=== PATIENT | male | born 1975 | race African-American/Black ===

== ENCOUNTER 2018-06-30 13:01 | Emergency (ER) | payer OTHER ==
--- OUTSIDE RECORDS SUMMARY | 2018-06-30 13:04 | XMS REPORT ---
:1975 Author Organization eClinicalWorks Care Team Providers Name Role Phone MartinezGage siddiqui Provider Role Unavailable Allergies No Known Allergies Problems Problem Type Condition Code Onset Dates Condition Status Assessment Post-traumatic osteoarthritis of M17.32 Active left knee Assessment Paresthesia of skin R20.2 Active Problem Pain in left lower leg M79.662 Active Problem Paresthesia of skin R20.2 Active Problem Pain, joint, knee, left M25.562 Active Assessment Pain in left lower leg M79.662 Active Assessment Pain, joint, knee, left M25.562 Active Problem Post-traumatic osteoarthritis of M17.32 Active left knee Medications Medication Code System Code Instructions Start Date End Date Status Dosage Gabapentin [facility] 57260-602 Active not defined 0-01 Meloxicam [facility] 23124-588 Active not defined 6-23 Tresiba NDC 0 Active not defined Metformin HCl [facility] 61210-969 Active not defined 8-01 tramadol NDC 0 Active not defined Results No Known Results Summary Purpose eClinicalWorks Submission
[2018-06-30] MEDS ORDERED: LIDOCAINE 1% MPF 5 ML VIAL ONE (17:35)
[2018-06-30] MEDS ORDERED: BUPIVACAINE 0.5% PF 10 ML VIAL ONE (17:35)
[2018-06-30] MEDS ORDERED: LIDOCAINE 1% W/EPI 1:100,000 MDV 50 ML VIAL ONE (17:56)
--- NOTE | 2018-06-30 17:59 | EDPHYS ---
Physician Documentation [facility] Name: Angel Flores Age: 43 yrs Sex: Male : 1975 Arrival Date: 06/30/2018 Time: 13:07 Bed 28 Private MD: Barry Becker E ED Physician Cody Osborn HPI: 06/30 16:45 This 43 yrs old Black Male presents to ER via Ambulatory with complaints of Abscess. cp 16:45 the patient presents with a swollen area of the left buttock. Description: draining, cp swollen. Onset: The symptoms/episode began/occurred 1 week(s) ago. Associated signs and symptoms: Pertinent positives: drainage, Pertinent negatives: fever. Modifying factors: the symptoms are aggravated by pressure. Historical: - Allergies: 13:10 Morphine; rb1 - PMHx: 13:10 Diabetes - NIDDM; rb1 - PSHx: 13:10 leg screw; rb1 - Immunization history:: Adult Immunizations up to date. - Social history:: Smoking status: Patient uses tobacco products, smokes one-half pack cigarettes per day. - Ebola Screening: : No symptoms or risks identified at this time. ROS: 17:00 Constitutional: Negative for body aches, chills, fever, poor PO intake. cp 17:00 ENT: Negative for drainage from ear(s), ear pain, sore throat, difficulty swallowing, cp difficulty handling secretions. 17:00 Respiratory: Negative for cough, shortness of breath, wheezing. 17:00 Abdomen/GI: Negative for abdominal pain, nausea, vomiting, and diarrhea. 17:00 Skin: Positive for abscess, cellulitis, of the left buttock. 17:00 All other systems are negative. Exam: 17:05 Constitutional: The patient appears in no acute distress, alert, awake, comfortable, cp non-toxic, well developed, well nourished. 17:05 Head/Face: Normocephalic, atraumatic. cp 17:05 Eyes: Periorbital structures: appear normal, Conjunctiva: normal, Lids and lashes: appear normal, bilaterally. 17:05 ENT: External ear(s): are unremarkable, Nose: is normal, Mouth: is normal. 17:05 Chest/axilla: Inspection: normal. 17:05 Cardiovascular: Rate: normal. 17:05 Respiratory: the patient does not display signs of respiratory distress, Respirations: normal. 17:05 Abdomen/GI: Inspection: abdomen appears normal, Palpation: abdomen is soft and non-tender, in all quadrants. 17:05 Skin: cellulitis, that is mild, on the left buttock, mild swelling. Vital Signs: 13:10 BP 124 / 80; Pulse 80; Resp 17; Temp 98.0(O); Pulse Ox 99% on R/A; Weight 65.77 kg; rb1 Height 5 ft. 6 in. (167.64 cm); Pain 6/10; 16:45 BP 112 / 78; Pulse 71; Resp 17 S; Pulse Ox 100% on R/A; ca1 17:49 BP 116 / 60; Pulse 78; Resp 17 S; Pulse Ox 100% on R/A; ca1 13:10 Body Mass Index 23.40 (65.77 kg, 167.64 cm) rb1 Procedures: 17:55 I \T\ D: Incision and drainage was performed for an abscess of the left buttocks Prepped cp with Betadine, Anesthetized with 4ccs of mixture 1% lidocaine with epi and 0.5% Marcaine . Incised with #11 blade. Dressing: sterile 4x4 gauze, minimal drainage. MDM: 16:35 Patient medically screened. cp 17:00 Differential diagnosis: abscess, cellulitis, insect bite. cp 17:58 Data reviewed: vital signs, nurses notes, and as a result, I will discharge patient. cp 17:58 Counseling: I had a detailed discussion with the patient and/or guardian regarding: the cp historical points, exam findings, and any diagnostic results supporting the discharge/admit diagnosis, the need for outpatient follow up, a family practitioner, to return to the emergency department if symptoms worsen or persist or if there are any questions or concerns that arise at home. Response to treatment: the patient's symptoms have mildly improved after treatment. 06/30 17:54 Order name: Wound Culture ca1 06/30 16:43 Order name: I\T\D Setup; Complete Time: 16:46 cp Administered Medications: No medications were administered Disposition: 18:30 Chart complete. cp Disposition: 06/30/18 17:59 Discharged to Home. Impression: Cellulitis of buttock - left. - Condition is Stable. - Discharge Instructions: Cellulitis, Adult. - Prescriptions for Clindamycin HCl 300 mg Oral Capsule - take 1 capsule by ORAL route every 6 hours for 10 days; 40 capsule. - Medication Reconciliation Form, Thank You Letter, Antibiotic Education, Prescription Opioid Use form. - Follow up: Private Physician; When: 48 Hours; Reason: Wound Recheck. - Problem is new. - Symptoms have improved. Addendum: 07/02/2018 07:03 Co-signature as Attending Physician, Cody Osborn MD. r n Signatures: Dispatcher [employer] EDSD Cody Osborn MD MD rn Dandy Haque PA PA cp Andreea Rojas, RN RN rb1 Kaitlynn Roy RN RN ca1 Corrections: (The following items were deleted from the chart) 06/30 18:18 17:59 06/30/2018 17:59 Discharged to Home. Impression: Cellulitis of buttock - left. ca1 Condition is Stable. Forms are Medication Reconciliation Form, Thank You Letter, Antibiotic Education, Prescription Opioid Use. Follow up: Private Physician; When: 48 Hours; Reason: Wound Recheck. Problem is new. Symptoms have improved. cp
--- NOTE | 2018-06-30 17:59 | ER ---
Nurse's Notes [facility] Name: Angel Flores Age: 43 yrs Sex: Male : 1975 Arrival Date: 06/30/2018 Time: 13:07 Bed 28 Private MD: Barry Becker E Diagnosis: Cellulitis of buttock-left Presentation: 06/30 13:08 Presenting complaint: Patient states: c/o boil on left buttocks, denies fever, NVD. rb1 Pain 5/10. Transition of care: patient was not received from another setting of care. Onset of symptoms was June 23, 2018. 13:08 Method Of Arrival: Ambulatory rb1 13:08 Acuity: LALITA 3 rb1 16:45 Risk Assessment: Do you want to hurt yourself or someone else? Patient reports no ca1 desire to harm self or others. Initial Sepsis Screen: Does the patient meet any 2 criteria? No. Patient's initial sepsis screen is negative. Does the patient have a suspected source of infection? No. Patient's initial sepsis screen is negative. Care prior to arrival: None. Triage Assessment: 13:11 General: Appears in no apparent distress. comfortable, Behavior is calm, cooperative, rb1 Denies fever. Pain:. Neuro: Level of Consciousness is awake, alert, obeys commands, Oriented to person, place, time, situation. Respiratory: Airway is patent Respiratory effort is even, unlabored, Respiratory pattern is regular, symmetrical. Derm: Skin is dry, Skin is normal, Skin temperature is warm. Historical: - Allergies: 13:10 Morphine; rb1 - PMHx: 13:10 Diabetes - NIDDM; rb1 - PSHx: 13:10 leg screw; rb1 - Immunization history:: Adult Immunizations up to date. - Social history:: Smoking status: Patient uses tobacco products, smokes one-half pack cigarettes per day. - Ebola Screening: : No symptoms or risks identified at this time. Screenin:45 Abuse screen: Denies threats or abuse. Denies injuries from another. Nutritional ca1 screening: No deficits noted. Tuberculosis screening: No symptoms or risk factors identified. Fall Risk None identified. Assessment: 16:45 General: Appears in no apparent distress. comfortable, Behavior is calm, cooperative, ca1 appropriate for age. Pain: Complains of pain in gluteal cleft Pain currently is 0 out of 10 on a pain scale. at worst was 5 out of 10 on a pain scale. Aggravated by sitting and touching. Neuro: Level of Consciousness is awake, alert, obeys commands, Oriented to person, place, time, situation. Cardiovascular: Heart tones S1 S2 present Capillary refill < 3 seconds Patient's skin is warm and dry. Respiratory: Airway is patent Respiratory effort is even, unlabored, Respiratory pattern is regular, symmetrical. GI: No deficits noted. No signs and/or symptoms were reported involving the gastrointestinal system. : No deficits noted. No signs and/or symptoms were reported regarding the genitourinary system. EENT: No deficits noted. No signs and/or symptoms were reported regarding the EENT system. Derm: Skin is intact, is healthy with good turgor, Skin is pink, warm \T\ dry. abscess at left gluteal cleft. Less than an inch in size. Musculoskeletal: Circulation, motion, and sensation intact. Capillary refill < 3 seconds, Range of motion: intact in all extremities. 17:49 Reassessment: Patient appears in no apparent distress at this time. Patient is alert, ca1 oriented x 3, equal unlabored respirations, skin warm/dry/pink. PATRICIA Blackman at bedside. Vital Signs: 13:10 BP 124 / 80; Pulse 80; Resp 17; Temp 98.0(O); Pulse Ox 99% on R/A; Weight 65.77 kg; rb1 Height 5 ft. 6 in. (167.64 cm); Pain 6/10; 16:45 BP 112 / 78; Pulse 71; Resp 17 S; Pulse Ox 100% on R/A; ca1 17:49 BP 116 / 60; Pulse 78; Resp 17 S; Pulse Ox 100% on R/A; ca1 13:10 Body Mass Index 23.40 (65.77 kg, 167.64 cm) rb1 ED Course: 13:07 Patient arrived in ED. mr 13:08 Barry Becker MD is Private Physician. mr 13:09 Triage completed. rb1 16:33 Dandy Haque PA is PHCP. cp 16:33 Cody Osborn MD is Attending Physician. cp 16:37 Kaitlynn Roy, THUY is Primary Nurse. ca1 16:40 Arm band placed on right wrist. ca1 16:45 Patient has correct armband on for positive identification. Placed in gown. Bed in low ca1 position. Call light in reach. Side rails up X 1. Pulse ox on. NIBP on. Warm blanket given. 17:58 Assist provider with I \T\ D: of an abscess on left side of the Gluteal Cleft Set up I\T\D ca 1 tray. Performed by Dandy Haque PA Culture sent to lab. Wound packed. 4X4s, Dressing with tape Patient tolerated well. Patient did not have IV access during this emergency room visit. Administered Medications: No medications were administered Outcome: 17:59 Discharge ordered by . yandy 18:05 Discharged to home ambulatory. ca1 18:05 Condition: stable 18:05 Discharge instructions given to patient, Instructed on discharge instructions, follow up and referral plans. medication usage, Demonstrated understanding of instructions, follow-up care, medications, Prescriptions given X 1. 18:18 Patient left the ED. ca1 Addendum: 07/04/2018 17:25 Addendum: Culture Results: Positive wound culture. Bacteria is resistant to, has d m5 intermediate sensitivity, or is not tested against prescribed antibiotics. Report given to DARWIN for further evaluation and then to rubber molder for follow up with patient. Prescription called-in to pharmacy of choice. Bactrim DS 1 tab PO BID x 10 days called in to [facility] in [place] by la for PATRICIA Healy. Signatures: Mila Chang, RN RN [email or web address] Delma Huggins Corey, PA PA cp Barber, Rebecca, RN RN rb1 Kaitlynn Roy RN RN ca1 Corrections: (The following items were deleted from the chart) 06/30 17:59 17:58 Assist provider with I \T\ D: of an abscess on left side of the Gluteal Crest Set ca1 up I\T\D tray. Performed by Dandy Haque PA Culture sent to lab. Wound packed. 4X4s, Dressing with tape Patient tolerated well. ca1
== END 2018-06-30 18:18 | disposition home or self-care (01) ==
LOC: ER 13:01
PROC: 0J990ZZ Drainage of Buttock Subcutaneous Tissue and Fascia, Open Approach (ICD-10-PCS; principal; 2018-06-30)
DX: L02.31 Cutaneous abscess of buttock (principal); E11.9 Type 2 diabetes mellitus without complications; F17.210 Nicotine dependence, cigarettes, uncomplicated; Z88.5 Allergy status to narcotic agent
CPT/HCPCS: 87070; 87077; 87186; 87205; 99284

== ENCOUNTER 2018-07-12 05:56 | Emergency (ER) | payer OTHER ==
--- OUTSIDE RECORDS SUMMARY | 2018-07-12 05:59 | XMS REPORT ---
[...] Start Date End Date Status Dosage Gabapentin [facility] 43164-613 Active not defined 0-[address] [facility] 55638-216 Active not defined 6-23 Tresiba NDC 0 Active not defined Metformin HCl [facility] 66083-369 Active not defined 8-01 tramadol NDC 0 Active not defined Results No Known Results Summary Purpose eClinicalWorks Submission
--- NOTE | 2018-07-12 06:24 | EDPHYS ---
Physician Documentation [facility] Name: Angel Flores Age: 43 yrs Sex: Male : 1975 Arrival Date: 07/12/2018 Time: 05:58 Bed 14 Private MD: Barry Becker E ED Physician Sravan Mclean HPI: 07/12 07:18 This 43 yrs old Black Male presents to ER via Ambulatory with complaints of Rash - both jr8 arms. 07:18 The patient's rash thought to be caused by an unknown cause. The rash is located on the jr8 right arm and left arm. The rash can be described as urticarial. Onset: The symptoms/episode began/occurred acutely, yesterday. Associated signs and symptoms: Pertinent positives: itching. Severity of symptoms: At their worst the symptoms were mild in the emergency department the symptoms are unchanged. The patient has not experienced similar symptoms in the past. The patient has not recently seen a physician. Historical: - Allergies: 06:11 Morphine; lp1 - Home Meds: 06:11 Glyburide Oral [Active]; Tresiba FlexTouch U-100 100 unit/mL (3 mL) subcutaneous inpn lp1 [Active]; Metformin Oral [Active]; gabapentin oral oral [Active]; Tramadol Oral [Active]; meloxicam oral oral [Active]; - PMHx: 06:11 Diabetes - NIDDM; lp1 - PSHx: 06:11 None; lp1 - Immunization history:: Adult Immunizations up to date. - Social history:: Smoking status: Patient uses tobacco products, smokes one-half pack cigarettes per day. - Ebola Screening: : No symptoms or risks identified at this time. ROS: 07:18 Constitutional: Negative for fever, chills, and weight loss. jr8 07:18 Skin: Positive for rash. 07:18 All other systems are negative. Exam: 07:18 Eyes: Pupils equal round and reactive to light, extra-ocular motions intact. Lids and jr8 lashes normal. Conjunctiva and sclera are non-icteric and not injected. Cornea within normal limits. Periorbital areas with no swelling, redness, or edema. ENT: Nares patent. No nasal discharge, no septal abnormalities noted. Tympanic membranes are normal and external auditory canals are clear. Oropharynx with no redness, swelling, or masses, exudates, or evidence of obstruction, uvula midline. Mucous membranes moist. Neck: Trachea midline, no thyromegaly or masses palpated, and no cervical lymphadenopathy. Supple, full range of motion without nuchal rigidity, or vertebral point tenderness. No Meningismus. Cardiovascular: Regular rate and rhythm with a normal S1 and S2. No gallops, murmurs, or rubs. Normal PMI, no JVD. No pulse deficits. Respiratory: Lungs have equal breath sounds bilaterally, clear to auscultation and percussion. No rales, rhonchi or wheezes noted. No increased work of breathing, no retractions or nasal flaring. Abdomen/GI: Soft, non-tender, with normal bowel sounds. No distension or tympany. No guarding or rebound. No evidence of tenderness throughout. Back: No spinal tenderness. No costovertebral tenderness. Full range of motion. MS/ Extremity: Pulses equal, no cyanosis. Neurovascular intact. Full, normal range of motion. Neuro: Awake and alert, GCS 15, oriented to person, place, time, and situation. Cranial nerves II-XII grossly intact. Motor strength 5/5 in all extremities. Sensory grossly intact. Cerebellar exam normal. Normal gait. 07:18 Skin: rash a mild rash is noted, rash can be described as urticarial, on the right arm and left arm. Vital Signs: 06:12 BP 119 / 88; Pulse 81; Resp 18; Temp 97.6(O); Pulse Ox 100% on R/A; Weight 68.04 kg; lp1 Height 5 ft. 5 in. (165.10 cm); Pain 8/10; 06:12 Body Mass Index 24.96 (68.04 kg, 165.10 cm) lp1 MDM: 06:09 Patient medically screened. jr8 06:22 Data reviewed: vital signs, nurses notes, and as a result, I will discharge patient. jr8 Data interpreted: Pulse oximetry: on room air. Counseling: I had a detailed discussion with the patient and/or guardian regarding: the historical points, exam findings, and any diagnostic results supporting the discharge/admit diagnosis, the need for outpatient follow up, a family practitioner, to return to the emergency department if symptoms worsen or persist or if there are any questions or concerns that arise at home. Administered Medications: 06:22 Drug: Benadryl 25 mg Route: PO; jd3 06:31 Follow up: Response: Medication administered at discharge. jd3 06:22 Drug: predniSONE 20 mg Route: PO; jd3 06:32 Follow up: Response: Medication administered at discharge. jd3 Disposition: 06:44 Co-signature as Attending Physician, Sravan Mclean MD. pkl Disposition: 07/12/18 06:23 Discharged to Home. Impression: Urticaria. - Condition is Stable. - Discharge Instructions: Hives. - Prescriptions for Prednisone 20 mg Oral Tablet - take 1 tablet by ORAL route once daily for 5 days; 5 tablet. - Medication Reconciliation Form, Thank You Letter, Antibiotic Education, Prescription Opioid Use form. - Follow up: Barry Becker MD; When: 5 - 6 days; Reason: Recheck today's complaints, Continuance of care, Re-evaluation by your physician. - Problem is new. - Symptoms have improved. Signatures: Sravan Mclean MD MD pkl Alanna Sandhu RN RN lp1 Trip Chacon PA PA jr8 Aung Mancini RN RN jd3 Corrections: (The following items were deleted from the chart) 06:32 06:23 07/12/2018 06:23 Discharged to Home. Impression: Urticaria. Condition is Stable. jd3 Forms are Medication Reconciliation Form, Thank You Letter, Antibiotic Education, Prescription Opioid Use. Follow up: Barry Becker; When: 5 - 6 days; Reason: Recheck today's complaints, Continuance of care, Re-evaluation by your physician. Problem is new. Symptoms have improved. jr8
--- NOTE | 2018-07-12 06:24 | ER ---
Nurse's Notes [facility] Name: Angel Flores Age: 43 yrs Sex: Male : 1975 Arrival Date: 07/12/2018 Time: 05:58 Bed 14 Private MD: Barry Becker E Diagnosis: Urticaria Presentation: 07/12 06:08 Presenting complaint: Patient states: Rash to bilateral arms that began yesterday, lp1 itching worsening; Patient states "there's more bumps on my arms now"; States applying topical anti-itch cream with no relief. Transition of care: patient was not received from another setting of care. Onset of symptoms was July 11, 2018. Risk Assessment: Do you want to hurt yourself or someone else? Patient reports no desire to harm self or others. Initial Sepsis Screen: Does the patient meet any 2 criteria? No. Patient's initial sepsis screen is negative. Does the patient have a suspected source of infection? No. Patient's initial sepsis screen is negative. Care prior to arrival: None. 06:08 Method Of Arrival: Ambulatory lp1 06:08 Acuity: LALITA 4 lp1 Historical: - Allergies: 06:11 Morphine; lp1 - Home Meds: 06:11 Glyburide Oral [Active]; Tresiba FlexTouch U-100 100 unit/mL (3 mL) subcutaneous inpn lp1 [Active]; Metformin Oral [Active]; gabapentin oral oral [Active]; Tramadol Oral [Active]; meloxicam oral oral [Active]; - PMHx: 06:11 Diabetes - NIDDM; lp1 - PSHx: 06:11 None; lp1 - Immunization history:: Adult Immunizations up to date. - Social history:: Smoking status: Patient uses tobacco products, smokes one-half pack cigarettes per day. - Ebola Screening: : No symptoms or risks identified at this time. Screenin:12 Abuse screen: Denies threats or abuse. Denies injuries from another. Nutritional lp1 screening: No deficits noted. Tuberculosis screening: No symptoms or risk factors identified. Fall Risk None identified. Assessment: 06:11 General: Appears in no apparent distress. uncomfortable, Behavior is calm, cooperative, jd3 appropriate for age. Pain: Complains of pain in right arm and left arm Quality of pain is described as stinging. Neuro: Level of Consciousness is awake, alert, obeys commands, Oriented to person, place, time, situation, Appropriate for age. Cardiovascular: Capillary refill < 3 seconds Patient's skin is warm and dry. Respiratory: Airway is patent Respiratory effort is even, unlabored, Respiratory pattern is regular, symmetrical, Breath sounds are clear bilaterally. Denies shortness of breath. GI: No signs and/or symptoms were reported involving the gastrointestinal system. : No signs and/or symptoms were reported regarding the genitourinary system. EENT: No signs and/or symptoms were reported regarding the EENT system. Derm: Skin is intact, Skin is dry, Skin is normal, Skin temperature is warm Rash noted that is itchy, on right arm and left arm. Musculoskeletal: Circulation, motion, and sensation intact. Range of motion: intact in all extremities. Vital Signs: 06:12 BP 119 / 88; Pulse 81; Resp 18; Temp 97.6(O); Pulse Ox 100% on R/A; Weight 68.04 kg; lp1 Height 5 ft. 5 in. (165.10 cm); Pain 8/10; 06:12 Body Mass Index 24.96 (68.04 kg, 165.10 cm) lp1 ED Course: 05:58 Patient arrived in ED. am2 05:58 Barry Becker MD is Private Physician. am2 06:03 [facility] jr8 06:03 Sravan Mclean MD is Attending Physician. jr8 06:04 Aung Mancini RN is Primary Nurse. jd3 06:09 Triage completed. lp1 06:12 Arm band placed on left wrist. lp1 06:13 Patient has correct armband on for positive identification. lp1 06:22 aBrry Becker MD is Referral Physician. jr8 06:31 No provider procedures requiring assistance completed. Patient did not have IV access jd3 during this emergency room visit. Administered Medications: 06:22 Drug: Benadryl 25 mg Route: PO; jd3 06:31 Follow up: Response: Medication administered at discharge. jd3 06:22 Drug: predniSONE 20 mg Route: PO; jd3 06:32 Follow up: Response: Medication administered at discharge. jd3 Outcome: 06:23 Discharge ordered by . jr8 06:31 Discharged to home ambulatory. jd3 06:31 Condition: stable 06:31 Discharge instructions given to patient, Instructed on discharge instructions, follow up and referral plans. medication usage, Demonstrated understanding of instructions, follow-up care, medications, Prescriptions given X 1. 06:32 Patient left the ED. jd3 Signatures: Alanna Sandhu RN RN lp1 Trip Chacon PA PA jr8 Delores Veloz am2 Aung Mancini RN RN jd3
[2018-07-12] MEDS ORDERED: DIPHENHYDRAMINE 25 MG TAB/CAP ONE (06:31)
[2018-07-12] MEDS ORDERED: predniSONE 20 MG TAB ONE (06:32)
== END 2018-07-12 06:32 | disposition home or self-care (01) ==
LOC: ER 05:56
DX: L50.9 Urticaria, unspecified (principal); E11.9 Type 2 diabetes mellitus without complications; Z79.4 Long term (current) use of insulin; F17.210 Nicotine dependence, cigarettes, uncomplicated
CPT/HCPCS: 99283; J7512

== ENCOUNTER 2020-02-28 09:32 | Inpatient (IN) | payer OTHER ==
--- OUTSIDE RECORDS SUMMARY | 2020-02-28 09:34 | XMS REPORT | Continuity of Care Document ---
:1975 Author Organization [facility] t Address 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 Medications Ordered Filled Start Stop Current Ordering Indication Dosage Frequency Signature Comments Components Source Medication Medication Date Date Medication? Clinician (SIG) Name Name Gabapentin Gabapentin Yes Gage not [facility] Meloxicam Meloxicam Yes Gage not [facility] Tresiba Tresiba Yes Gage not [facility] Metformin Metformin Yes Gage not [facility] HCl HCl [facility] defined [facility] tramadol tramadol Yes Gage not [facility] Procedures This patient has no known procedures. Encounters Start End Encounter Admission Attending Care Care Encounter Source Date/Time Date/Time Type Type Clinicians Facility Department ID 2019-12-23 2019-12-23 Office NENITA Henley [id number] 09:31:09 10:15:22 Visit Henny Loja [id number] Javi [id number] Larry [id number] [address] 2018-04-03 2018-04-03 [facility] [id number] [facility] [address] 14:30:00 14:30[facility]00 [facility] Results This patient has no known results.
--- OUTSIDE RECORDS SUMMARY | 2020-02-28 09:34 | XMS REPORT | Summary of Care ---
:1975 Author Organization [facility] Address [address] [place] [address] Care Team Providers Name Role Phone Pcp, Patient Does Not Have A Primary Care Provider +1-000-00 0-0000 Reason for Visit Reason Comments Follow-up DMII Encounter Details Date Type Department Care Team Description 12/23/2019 Office Visit [facility] Henny Henley MD Type I diabetes Endocrinology- [address] [facility] mellitus with [facility] complication, [address] [facility] ([address], [address] [address] Dx) [place], [place] [phone] [id number] [phone] Allergies No Known Allergiesdocumented as of this encounter (statuses as of 12/24/2019) Medications Medication Sig Dispensed Refills Start Date End Date Status GABAPENTIN ORAL Take by 0 Acti ve mouth. tramadol HCl Take by 0 Active (TRAMADOL ORAL) mouth. MELOXICAM ORAL Take by 0 Activ e mouth. PAROXETINE HCL Take by 0 Activ e ORAL mouth. Insulin Take 50 unit 30 mL 4 12/23/2019 Active NPH-Regular Human with breakfast Rec (HUMULIN 70/30 and 42 units U-100 KWIKPEN) 100 with dinner unit/mL (70-30) injectionIndicatio ns: Type I diabetes mellitus with complication, uncontrolled metformin HCl Take by 0 Discon tinued (METFORMIN ORAL) mouth. 0 Insulin inject 42 27 mL 4 09/22/2019 Discontin ued NPH-Regular Human Units under 0 (Reorder) Rec (HUMULIN 70/30 the skin 2 U-100 KWIKPEN) 100 (two) times unit/mL (70-30) daily before injectionIndicatio breakfast and ns: Diabetes dinner. mellitus type 2, uncontrolled, with complications documented as of this encounter (statuses as of 12/24/2019) Active Problems Not on filedocumented as of this encounter (statuses as of 12/24/2019) Social History Tobacco Use Types Packs/Day Years Used Date Current Every Day Smoker Cigarettes 0.5 20 Smokeless Tobacco: Never Used Alcohol Use Drinks/Week oz/Week Comments Never Alcohol Habits Answer Date Recorded How often do you have a drink containing alcohol? Never 09/22/2019 How many drinks containing alcohol do you have on a typical Not asked day when you are drinking? How often do you have six or more drinks on one occasion? No t asked Sex Assigned at Date Recorded Not on file COVID-19 Exposure Response Date Recorded In the last month, have you been in contact with No / Unsure 12/22/2019 10:00 AM HEEL COMPRESSOR someone who was confirmed or suspected to have Coronavirus / COVID-19? documented as of this encounter Last Filed Vital Signs Vital Sign Reading Time Taken Comments Blood Pressure 132/81 12/23/2019 9:44 AM HEEL COMPRESSOR Pulse 93 12/23/2019 9:44 AM HEEL COMPRESSOR Temperature - - Respiratory Rate - - Oxygen Saturation 98% 12/23/2019 9:44 AM HEEL COMPRESSOR Inhaled Oxygen Concentration - - Weight 58.5 kg (129 lb) 12/23/2019 9:44 AM HEEL COMPRESSOR Height 165.1 cm (5' 5") 12/23/2019 9:44 AM HEEL COMPRESSOR Body Mass Index 21.47 12/23/2019 9:44 AM HEEL COMPRESSOR documented in this encounter Patient Instructions Patient InstructionsHenny Henley MD - 12/23/2019 9:30 AM CSTChange Humulin 70/30 insulin to Take 50 unit with breakfast and 42 units with dinner If your sugar <100 before meal, skip dose of insulin If sugar at 100-120, take 20 units only COMPRESSOR documented in this encounter Progress Notes Henny Henley MD - 12/23/2019 9:30 AM CST Chief Complaint: Follow-up (DMI) HPI Angel Flores is a 44 year old Black or male with diabetes mellitus type 2 referred by his PCP. Diabetes is complicated by anxiety and chronic back pain secondary to 4x herniated discs. Type 1 Diabetes Mellitus: Diagnosed: about age 41 . He was told to have type 2 DM . But c-peptide was low and + HUGO AB w inhis initial visit here in 09/2019 Family History: Maternal history of DM (mother, uncle and grandmother) Complications: None Macrovascular complications: CVA : no CAD : no PVD : no Microvascular complications: Neuropathy: left sciatica - left LE numbness and tingling Nephropathy: no Retinopathy: possible tiny microvascularizations - does not have records Current diabetes regimen: NPH 70/30 42 units BID( but skips Pm dose 2-3 times per week) Glucose testing frequency: 1-2 time a day per patient but he did not bring meter today Glucose trend: Avg BG: AM fasting 150-200s per patient , afternoon/bedtimes 200s Hyperglycemia: Often Hypoglycemia: Very seldomly does he have BG levels below 100. He is aware if it drops and eats something. Most episodes in late afternoon after delay in meal Diet: 2 meals/day? Tries to eat "diabetic diet," but mom prepare meal for him so he will eat "normally" and regain weight, but "knows it's bad for him." Bananas, waffles, noodles, vegetables (broccoli, lettuce, carrots), chicken, seafood Activity/exercise: Boxing Social/Occupation: On disability x14 years. 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 [employer] Last Ophthalmology visit: Less than 1 month ago Last Urine Microalbumin: Unknown Patient on ZAMZAM/ARB therapy: no Patient on ASA therapy: no Patient on Statin/Fibrate therapy: no Last sensation/foot exam: 09/22/2019 Nutrition/Diabetes Education: yes PAST MEDICAL HISTORY Past Medical History: Diagnosis Date Anxiety Diabetes mellitus Surgery: Left leg - tibial plateau fracture (plate and screws in place) Family History Problem Relation Age of Onset Diabetes Mother Diabetes Maternal Uncle Diabetes Maternal Grandmother Social History Tobacco Use Smoking status: Current Every Day Smoker Packs/day: 0.50 Years: 20.00 Pack years: 10.00 Types: Cigarettes Smokeless tobacco: Never Used Substance Use Topics Alcohol use: Never Frequency: Never Drug use: Yes Types: Marijuana ALLERGIES Patient has no known allergies. MEDICATIONS Current Outpatient Medications Medication Sig Dispense Refill Insulin NPH-Regular Human Rec (HUMULIN 70/30 U-100 KWIKPEN) 100 unit/mL (70- 30) injection Take 50 unit with breakfast and 42 units with dinner 30 mL 4 GABAPENTIN ORAL Take by mouth. MELOXICAM ORAL Take by mouth. PAROXETINE HCL ORAL Take by mouth. tramadol HCl (TRAMADOL ORAL) Take by mouth. No current facility-administered medications for this visit. REVIEW OF SYSTEMS Constitutional: denies weight change, denies fatigue and hair loss Eyes: denies blurry vision, denies diplopia and denies pain. Neck: denies pain, denies swollen glands Cardiovascular: denies chest pain , denies irregular pulse and denies palpitations. Respiratory: denies dyspnea on exertion and denies shortness of breath. Gastrointestinal: denies abdominal pain, denies constipation and denies diarrhea. Genitourinary: de+ back pain, denies muscle pain and denies weakness. Skin: denies dry skin and denies hair changes. Neuro: denies numbness ,+tingling and denies tremor. Psych: negative. Endocrine: , denies polydipsia, denies polyphagia and denies polyuria. PHYSICAL EXAM No results found for: POCGLU No results found for: CREAT CHOL (mg/dL) Date Value 09/22/2019 145 HDL (mg/dL) Date Value 09/22/2019 72 LDL CHOL (mg/dL) Date Value 09/22/2019 60 TRIG (mg/dL) Date Value 09/22/2019 65 MICROAL/CR (mg/g of creatinine) Date Value 09/22/2019 26 POCT HBA1C (%) Date Value 12/23/2019 13.9 (A) 09/22/2019 >14.0 BP 132/81 (BP Location: Left arm, Patient Position: Sitting, BP CUFF SIZE: Adult Medium) | Pulse 93 | Ht 5' 5" (1.651 m) | Wt 129 lb (58.5 kg) | SpO2 98% | BMI 21.47 kg/m General: alert, oriented times three, no apparent distress, appearing age appropriate. Skin: skin color and turgor are normal Head: normocephalic, no masses, lesions, tenderness or abnormalities. Eyes: anicteric sclera, pupils are equally round Neck: no acanthosis nigricans Thyroid: normal size and consistency to palaption Lungs: good diaphragmatic excursion, lungs clear to auscultation bilaterally. Heart: regular rate and rhythm, no murmurs, gallops or rubs. Abdomen: abdomen soft, Neuro: unremarkable without focal findings. Extremities/Musculoskeletal: no cyanosis, no edema . Ref. Range 09/22/2019 11:48 C-PEPTIDE Latest Ref Range: 0.8 - 3.5 ng/mL 0.5 (L) GLAD AB Latest Ref Range: 0.0 - 5.0 IU/mL 91.9 (H) ASSESSMENT AND PLAN 1. Type I diabetes mellitus with complication, uncontrolled -A1C (target=6-7%): 14 (10/07)--->13.9(01/07), lack of improvement, patient admitted missing PM dose frequently -glucose range: postprandial hyperglycemia , most highs during day times -isolated hypoglycemia per patient -complication: neuropathy retinopathy -medication limitation: metformin cause GI symptoms, will keep him with insulin due to IRMA -diet: variable carbs. Eat" normal food" -exercise: limited byback pain Plan -reinterated to check glucose at least BID alternating fasting and 2 hours post meals -urged compliance with diet/exercise - POCT HEMOGLOBIN A1C TEST - Insulin NPH-Regular Human Rec (HUMULIN 70/30 U-100 KWIKPEN) 100 unit/mL (70- 30) injection; Take 50unit with breakfast and 42 units with dinner Dispense: 30 mL; Refill: 4 Patient Instructions Change Humulin 70/30 insulin to Take 50 unit with breakfast and 42 units with dinner If your sugar <100 before meal, skip dose of insulin If sugar at 100-120, take 20 units only documented in this encounter Plan of Treatment Date Type Specialty Care Team Description 05/11/2020 Office Visit Endocrinology Diabetes & Jamari Henley MD Metabolism [address] [place], [place] [address] Health Maintenance Due Date Last Done Comments PNEUMOCOCCAL 0-64 YEARS COMBINED 01/08/1980 SERIES (1 of 1 - PPSV23) DTaP,Tdap,and Td Vaccines (1 - 1993 Tdap) INFLUENZA VACCINE (#1) 2019 HgA1C 06/21/2020 12/23/2019, 09/22/2019 CREATININE (SERUM) 09/07/2020 09/08/2019 EYE EXAM 09/09/2020 09/10/2019 LDL-C 09/21/2020 09/22/2019 URINE MICROALBUMIN 09/21/2020 09/22/2019 Depression Screening 12/22/2020 12/23/2019 FOOT EXAM 12/22/2020 12/23/2019, 12/23/2019, 09/22/2019, Additional history exists Colorectal Cancer Screening 01/08/2024 documented as of this encounter Procedures Procedure Name Priority Date/Time Associated Diagnosis Comme nts POCT HEMOGLOBIN A1C Routine 12/23/2019 9:46 Type I diabetes R esults for this TEST AM HEEL COMPRESSOR mellitus with procedure are in complication, the results uncontrolled section. documented in this encounter Results POCT HEMOGLOBIN A1C TEST (12/23/2019 9:46 AM HEEL COMPRESSOR) Pathologist Sig nature POCT HBA1C 13.9 (A) 4 - 6 % Specimen Blood - CAPILLARY documented in this encounter Visit Diagnoses Diagnosis Type I diabetes mellitus with complicati on, uncontrolled - Primary Type I (juvenile type) diabetes mellitus with unspecified complication, uncontrolled documented in this encounter Insurance Payer Benefit Plan / Subscriber ID Effective Phone Address T e Group Dates [facility] [id number] 2019-Prese Medic are Adv HEALTHCARE - HEALTHCARE DUAL nt H [place] MANAGED COMPLETE HMO MEDICARE Guarantor Name Account Type Relation to Date of Phone Bill ing Patient Address Angel Flores Personal/Family Self 1975 [address] (Home) [address] [place] [address] documented as of this encounter
--- OUTSIDE RECORDS SUMMARY | 2020-02-28 09:35 | XMS REPORT | Summary of Care ---
:1975 Author Organization [facility] Address [address] [place] [address] Care Team Providers Name Role Phone Pcp, Patient Does Not Have A Primary Care Provider +1-000-00 0-0000 Reason for Visit Reason Comments Follow-up DMII Encounter Details Date Type Department Care Team Description 12/23/2019 Office Visit [facility] Henny Henley MD Type I diabetes Endocrinology- [address] [facility] mellitus with [facility] complication, [address] [facility] ([address] [address] Dx) [place], [place] [phone] [address] [phone] Allergies No Known Allergiesdocumented as of this [...] with No / Unsure 12/22/2019 10:00 AM COUNTY SURVEYOR someone who was confirmed or suspected to have Coronavirus / COVID-19? documented as of this encounter Last Filed Vital Signs Vital Sign Reading Time Taken Comments Blood Pressure 132/81 12/23/2019 9:44 AM COUNTY SURVEYOR Pulse 93 12/23/2019 9:44 AM COUNTY SURVEYOR Temperature - - Respiratory Rate - - Oxygen Saturation 98% 12/23/2019 9:44 AM COUNTY SURVEYOR Inhaled Oxygen Concentration - - Weight 58.5 kg (129 lb) 12/23/2019 9:44 AM COUNTY SURVEYOR Height 165.1 cm (5' 5") 12/23/2019 9:44 AM COUNTY SURVEYOR Body Mass Index 21.47 12/23/2019 9:44 AM COUNTY SURVEYOR documented in this encounter Patient Instructions Patient InstructionsHenny Henley MD - 12/23/2019 9:30 AM CSTChange Humulin 70/30 insulin to Take 50 unit with breakfast and 42 units with dinner If your sugar <100 before meal, skip dose of insulin If sugar at 100-120, take 20 units only TY SURVEYOR documented in this encounter Progress Notes Henny [...] disability x14 years. 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 documented in this encounter Results POCT HEMOGLOBIN A1C TEST (12/23/2019 9:46 AM COUNTY SURVEYOR) Pathologist Sig nature POCT HBA1C 13.9 (A) 4 - 6 % Specimen Blood - CAPILLARY documented in this encounter Visit Diagnoses Diagnosis Type I diabetes mellitus with complicati on, uncontrolled - Primary Type I (juvenile type) diabetes mellitus with unspecified complication, uncontrolled documented in this encounter Insurance Payer Benefit Plan / Subscriber ID Effective Phone Address T e Group Dates [facility] [id number] 2019-Prese Medic are Adv HEALTHCARE - HEALTHCARE DUAL nt H [place] MANAGED COMPLETE HMO MEDICARE Guarantor Name Account Type Relation to Date of Phone Bill ing Patient Address Angel Flores Personal/Family Self 1975 [address] ([address]) [address] [place] [address] documented as of this encounter
[2020-02-28 10:15] LABS: Absolute Lymphocytes (CBC) 1.4 K/uL (0.7-4.9); Basophils % 0.8 % (0-1.3); Hematocrit 53.3 % (39.6-49.0); Lymphocytes % 5.4 % (15.3-44.8); MPV 10.2 fL (7.6-11.3)
[2020-02-28 10:17] LABS: Protime INR 0.94
[2020-02-28] MEDS ORDERED: NA CHLORIDE 0.9% 2,000 ML ONE (10:18)
[2020-02-28] MEDS ORDERED: PROMETHAZINE INJ 25 MG/ML AMP ONE (10:20)
[2020-02-28] MEDS ORDERED: FENTANYL CITR 100 MCG/2 ML ONE (10:21)
[2020-02-28 10:28] LABS: ALT/SGPT 28 U/L (12-78); AST/SGOT 14 U/L (15-37); Albumin 4.9 g/dL (3.4-5.0); Alkaline Phosphatase 121 U/L (45-117); BUN Blood Urea Nitrogen 62 mg/dL (7-18); Bilirubin Direct 0.2 mg/dL (0-0.2); Bilirubin Total 0.8 mg/dL (0.2-1.0); CKMB Creatine Kinase MB 3.9 ng/mL (0.3-3.6); Creatine Phosphokinase 403 U/L (39-308); Lipase 664 U/L (73-393); Potassium 5.5 mmol/L (3.5-5.1); Troponin (Emerg Dept Use Only) < 0.02 ng/mL (0.0-0.045)
[2020-02-28 10:29] LABS: C-Reactive Protein < 2.90 mg/L (<3.00)
[2020-02-28 10:30] LABS: Sodium Level 118 mmol/L (136-145)
[2020-02-28 10:31] LABS: Bicarbonate 7 mmol/L (21-32); Glucose Level 1141 mg/dL (74-106)
[2020-02-28 10:32] LABS: Amylase 428 U/L (25-115)
[2020-02-28] MEDS ORDERED: GLUCAGON 1 MG/VIAL IM PRN ×2 (10:41→22:06)
[2020-02-28 10:45] LABS: Blood Morphology Comment NOT SEEN (NOT SEEN); Platelet Estimate ADEQ
[2020-02-28] MEDS ORDERED: D50W 25 GM/50 ML VIAL IV PRN (10:45)
[2020-02-28] MEDS ORDERED: INSULIN -REGULAR HUMAN 100 UNIT in NA CHLORIDE 0.9% 100 ML IV SCH ×2 (10:45→15:59)
[2020-02-28] MEDS ORDERED: SODIUM BICARB 50 MEQ/50ML VIAL ONE (10:51)
[2020-02-28] MEDS ORDERED: INSULIN -REGULAR HUMAN 50 UNIT/0.5 ML ML ONE (10:51)
[2020-02-28] MEDS ORDERED: PIPER/TAZO/NS 3.375gm 3.375 GM/100 ML BAG ONE ×2 (10:52→16:58)
[2020-02-28 10:54] LABS: Arterial Blood Carboxyhemoglob 0.7 % (0-1.5); Blood Gas Oxyhemoglobin 74.9 % (94-97); Blood O2 Saturation 76.7 % (92-98.5)
--- NOTE | 2020-02-28 11:29 | ER ---
Nurse's Notes [facility] Name: Angel Flores Age: 45 yrs Sex: Male : 1975 Arrival Date: 02/28/2020 Time: 09:33 Bed 8 Private MD: Barry Becker E Diagnosis: Diabetes mellitus due to underlying condition with ketoacidosis without coma;Acute kidney failure Presentation: 02/27 09:36 Chief complaint: Patient states: nausea and vomiting since 0300 today, pt reports he is aa5 diabetic and his FSBG today was 410. Pt c/o rib and back pain from coughing. 09:36 Acuity: LALITA 2 aa5 09:36 Method Of Arrival: Wheelchair aa5 09:36 Coronavirus screen: nausea, vomiting. Ebola Screen: Patient negative for fever greater aa5 than or equal to 101.5 degrees Fahrenheit, and additional compatible Ebola Virus Disease symptoms. Initial Sepsis Screen: Does the patient meet any 2 criteria? RR > 20 per min. HR > 90 bpm. Yes Does the patient have a suspected source of infection? No. Patient's initial sepsis screen is negative. Risk Assessment: Do you want to hurt yourself or someone else? Patient reports no desire to harm self or others. Onset of symptoms was February 28, 2020. Historical: - Allergies: 09:50 Morphine; aa5 - PMHx: 09:50 Diabetes - NIDDM; aa5 - PSHx: 09:50 None; aa5 - Immunization history:: Adult Immunizations unknown. - Social history:: Smoking status: Patient reports the use of cigarette tobacco products, smokes one-half pack cigarettes per day. Screenin:56 Abuse screen: Denies threats or abuse. Denies injuries from another. Nutritional jl7 screening: No deficits noted. Tuberculosis screening: No symptoms or risk factors identified. Fall Risk IV access (20 points). Assessment: 10:00 General: Appears distressed, uncomfortable, Behavior is cooperative, restless. Pain: jl7 Complains of pain in diaphragm Pain currently is 8 out of 10 on a pain scale. Neuro: Level of Consciousness is awake, alert, obeys commands, Oriented to person, place, time, situation. Cardiovascular: Patient's skin is warm and dry. Respiratory: Airway is patent Respiratory effort is even, unlabored, Respiratory pattern is regular, symmetrical. GI: Abdomen is flat, non-distended, Reports nausea, vomiting. Derm: Skin is dry, Skin is normal, Skin temperature is warm. Vital Signs: 09:36 BP 101 / 67; Pulse 119; Resp 38 S; Temp 97.3(A); Pulse Ox 98% on R/A; Weight 63.5 kg aa5 (R); Height 5 ft. 6 in. (167.64 cm) (R); Pain 8/10; 10:45 BP 138 / 76; Pulse 107; Resp 24; Pulse Ox 100% ; jl7 11:45 BP 150 / 103; Pulse 105; Resp 22; Pulse Ox 100% ; jl7 13:00 BP 146 / 104; Pulse 115; Resp 21; Pulse Ox 100% ; jl7 14:00 BP 116 / 90; Pulse 117; Resp 22; Pulse Ox 100% ; jl7 15:00 BP 137 / 99; Pulse 111; Resp 23; Pulse Ox 100% ; jl7 17:00 BP 122 / 76; Pulse 101; Resp 22; Pulse Ox 100% ; jl7 18:00 BP 107 / 72; Pulse 102; Resp 24; Pulse Ox 100% ; jl7 09:36 Body Mass Index 22.60 (63.50 kg, 167.64 cm) aa5 ED Course: 09:33 Patient arrived in ED. ag5 09:34 Barry Becker MD is Private Physician. ag5 09:36 Arm band placed on Patient placed in an exam room, on a stretcher. aa5 09:39 [facility] snw 09:39 Cody Osborn MD is Attending Physician. snw 09:47 Corinne Mitchell RN is Primary Nurse. jl7 09:48 Triage completed. aa5 10:00 Inserted saline lock: 20 gauge in right forearm, using aseptic technique. Blood jl7 collected. 10:25 EKG done, by ED staff, reviewed by Azalia SALTER. jl7 10:25 Inserted saline lock: 20 gauge in right forearm, using aseptic technique. Blood jl7 collected. 10:30 Initial lab(s) drawn, by me, sent to lab. First set of blood cultures drawn by me. jl7 COVID swab sent to lab. Flu and/or RSV swab sent to lab. Strep swab sent to lab. 10:30 Second set of blood cultures drawn by ED staff. jl7 10:45 Chest Single View XRAY In Process Unspecified. EDMS 10:56 Patient has correct armband on for positive identification. Placed in gown. Bed in low jl7 position. Call light in reach. Side rails up X2. tenoner operator on. Pulse ox on. NIBP on. Warm blanket given. 11:17 CT Abd/Pelvis - Without Contrast In Process Unspecified. EDMS 11:27 John Osborn MD is Hospitalizing Provider. snw 02/28 07:12 Primary Nurse role handed off by Corinne Mitchell RN tw2 07:12 Ernestina Lopez, THUY is Primary Nurse. tw2 19:07 Primary Nurse role handed off by Ernestina Lopez RN mw2 03/01 09:14 Day Pizarro, THUY is Primary Nurse. iw 14:49 No provider procedures requiring assistance completed. IV discontinued, intact, iw bleeding controlled, No redness/swelling at site. Pressure dressing applied. Administered Medications: 02/27 10:06 Drug: NS 0.9% (30 ml/kg) 30 ml/kg Route: IV; Rate: bolus; Site: right forearm; jd3 12:14 Follow up: Response: No adverse reaction; IV Status: Completed infusion; IV Intake: jl7 2000ml 10:10 Drug: Phenergan 25 mg Route: IVP; Site: right forearm; jl7 10:30 Follow up: Response: No adverse reaction; Nausea is decreased jl7 10:35 Drug: Zosyn 3.375 grams Route: IVPB; Infused Over: 60 mins; Site: right forearm; jl7 11:35 Follow up: Response: No adverse reaction; IV Status: Completed infusion jl7 10:38 Drug: fentaNYL (PF) 25 mcg Route: IVP; Site: right forearm; jd3 11:00 Follow up: Response: No adverse reaction; Pain is decreased jl7 10:45 Drug: Sodium Bicarbonate 1 amp Route: IVP; Site: right forearm; jd3 12:15 Follow up: Response: No adverse reaction jl7 10:45 Drug: Insulin Regular Human 6 units {Co-Signature: jl7 (Corinne Mitchell RN).} Route: IVP; jd3 Site: right forearm; 15:53 Follow up: Response: No adverse reaction; Blood sugar is lowered jl7 11:20 Drug: Insulin Drip - (Insulin Regular Human 100 units, NS 0.9% 100 ml) {Co-Signature: marin mcclelland (Aung Mancini RN).} Route: IV; Rate: 6 units/hr; Site: right forearm; 12:24 Follow up: IV Status: Infusion continued upon admission jl7 11:30 Drug: NS 0.9% 1000 ml Route: IV; Rate: 200 ml/hr; Site: right forearm; jl7 12:24 Follow up: IV Status: Infusion continued upon admission jl7 18:37 Follow up: Response: No adverse reaction; IV Status: Completed infusion; IV Intake: jl7 1000ml Point of Care Testin:51 High aa5 Ranges: Intake: 12:14 IV: 2000ml; Total: 2000ml. jl7 18:37 IV: 1000ml; Total: 3000ml. jl7 Outcome: 11:28 Decision to Hospitalize by Provider. snw 12:00 Admitted to ER Hold. Please see [facility] for further documentation. iw 03/01 14:50 Condition: good iw 14:54 Patient left the ED. iw Signatures: Dispatcher [employer] EDMS Azalia Riojas, NEON LIGHT INSTALLER-C NEON LIGHT INSTALLER-Csnw Day Pizarro RN THUY iw Allie Victor, RN RN aa5 Ernestina Lopez, RN RN tw2 Corinne Mitchell RN RN Aung Vazquez RN RN jd3 Mello Nickerson 2 Dat [place]ward 5 Aung Mancini RN jd3 Corinne Mitchell RN jl7 Corrections: (The following items were deleted from the chart) 02/27 09:51 09:36 Initial Sepsis Screen: Does the patient meet any 2 criteria? No. Patient's aa5 initial sepsis screen is negative. Does the patient have a suspected source of infection? No. Patient's initial sepsis screen is negative. aa5 11:35 10:20 NS 0.9% 1000 ml IV at 200 ml/hr in right forearm jl7 12:14 11:35 Response: No adverse reaction; IV Intake: 2000ml jl7 18:42 18:36 IV Intake: 1000ml [facility]
--- NOTE | 2020-02-28 11:29 | EDPHYS ---
Physician Documentation [facility] Name: Angel Flores Age: 45 yrs Sex: Male : 1975 Arrival Date: 02/28/2020 Time: 09:33 Bed 8 Private MD: Barry Becker E ED Physician Cody Osborn HPI: 02/27 11:23 This 45 yrs old Black Male presents to ER via Wheelchair with complaints of snw Nausea/Vomiting, High Blood Sugar. 11:23 The patient presents to the emergency department with nausea, vomiting. Onset: The snw symptoms/episode began/occurred suddenly, at 01:00. Possible causes: unknown. Associated signs and symptoms: Pertinent positives: abdominal pain, nausea, vomiting. Severity of symptoms: At their worst the symptoms were severe. The patient has not experienced similar symptoms in the past. sees Dr. Becker - taken off insulin, continues with metformin. Historical: - Allergies: 09:50 Morphine; aa5 - PMHx: 09:50 Diabetes - NIDDM; aa5 - PSHx: 09:50 None; aa5 - Immunization history:: Adult Immunizations unknown. - Social history:: Smoking status: Patient reports the use of cigarette tobacco products, smokes one-half pack cigarettes per day. ROS: 11:23 Constitutional: Negative for fever, chills, and weight loss, Eyes: Negative for injury, snw pain, redness, and discharge, ENT: Negative for injury, pain, and discharge, Neck: Negative for injury, pain, and swelling, Cardiovascular: Negative for chest pain, palpitations, and edema, Respiratory: Negative for shortness of breath, cough, wheezing, and pleuritic chest pain, Back: Negative for injury and pain, : Negative for injury, bleeding, discharge, and swelling, MS/Extremity: Negative for injury and deformity, Skin: Negative for injury, rash, and discoloration, Neuro: Negative for headache, weakness, numbness, tingling, and seizure, Psych: Negative for depression, anxiety, suicide ideation, homicidal ideation, and hallucinations. 11:23 Abdomen/GI: Positive for abdominal pain, nausea and vomiting. Exam: 11:19 Head/Face: Normocephalic, atraumatic. Eyes: Pupils equal round and reactive to light, snw extra-ocular motions intact. Lids and lashes normal. Conjunctiva and sclera are non-icteric and not injected. Cornea within normal limits. Periorbital areas with no swelling, redness, or edema. 11:19 Neck: Trachea midline, no thyromegaly or masses palpated, and no cervical lymphadenopathy. Supple, full range of motion without nuchal rigidity, or vertebral point tenderness. No Meningismus. Chest/axilla: Normal chest wall appearance and motion. Nontender with no deformity. No lesions are appreciated. 11:19 Respiratory: Lungs have equal breath sounds bilaterally, clear to auscultation and percussion. No rales, rhonchi or wheezes noted. No increased work of breathing, no retractions or nasal flaring. Back: No spinal tenderness. No costovertebral tenderness. Full range of motion. MS/ Extremity: Pulses equal, no cyanosis. Neurovascular intact. Full, normal range of motion. 11:19 Constitutional: The patient appears awake, anxious, restless. 11:19 ENT: Mouth: Oral mucosa: dry. 11:19 Cardiovascular: Rate: tachycardic, Heart sounds: normal. 11:19 Abdomen/GI: Inspection: abdomen appears normal, Bowel sounds: diminished, in all quadrants, Palpation: mild abdominal tenderness, in the right upper quadrant and left upper quadrant. 11:19 Skin: Appearance: Moisture: dry. Vital Signs: 09:36 BP 101 / 67; Pulse 119; Resp 38 S; Temp 97.3(A); Pulse Ox 98% on R/A; Weight 63.5 kg aa5 (R); Height 5 ft. 6 in. (167.64 cm) (R); Pain 8/10; 10:45 BP 138 / 76; Pulse 107; Resp 24; Pulse Ox 100% ; jl7 11:45 BP 150 / 103; Pulse 105; Resp 22; Pulse Ox 100% ; jl7 13:00 BP 146 / 104; Pulse 115; Resp 21; Pulse Ox 100% ; jl7 14:00 BP 116 / 90; Pulse 117; Resp 22; Pulse Ox 100% ; jl7 15:00 BP 137 / 99; Pulse 111; Resp 23; Pulse Ox 100% ; jl7 17:00 BP 122 / 76; Pulse 101; Resp 22; Pulse Ox 100% ; jl7 18:00 BP 107 / 72; Pulse 102; Resp 24; Pulse Ox 100% ; jl7 09:36 Body Mass Index 22.60 (63.50 kg, 167.64 cm) aa5 MDM: 09:41 Patient medically screened. snw 11:25 Data reviewed: vital signs, nurses notes. Data interpreted: Pulse oximetry: on room air snw is 98 %. Interpretation: normal. Counseling: I had a detailed discussion with the patient and/or guardian regarding: the historical points, exam findings, and any diagnostic results supporting the discharge/admit diagnosis, lab results, radiology results, the need for further work-up and treatment in the hospital. Physician consultation: John Osborn MD was called at 10:50, was contacted at 10:50, regarding admission, to the ICU, and will see patient in ED, would like further tests performed, CT scan. 02/27 09:41 Order name: C-Reactive Protein; Complete Time: 10:33 snw 02/27 09:41 Order name: Amylase, Serum; Complete Time: 10:33 snw 02/27 09:41 Order name: Basic Metabolic Panel; Complete Time: 10:33 snw 02/27 09:41 Order name: Blood Culture Adult (2) snw 02/27 09:41 Order name: CBC with Diff; Complete Time: 10:47 snw 02/27 09:41 Order name: Ckmb; Complete Time: 10:33 snw 02/27 09:41 Order name: CPK; Complete Time: 10:33 snw 02/27 09:41 Order name: Lactate; Complete Time: 10:33 snw 02/27 09:41 Order name: LFT's; Complete Time: 10:33 snw 02/27 09:41 Order name: Lipase; Complete Time: 10:33 snw 02/27 09:41 Order name: Procalcitonin; Complete Time: 11:03 snw 02/27 09:41 Order name: Protime (+inr); Complete Time: 10:33 snw 02/27 09:41 Order name: Ptt, Activated; Complete Time: 10:33 snw 02/27 09:41 Order name: Troponin (emerg Dept Use Only); Complete Time: 10:33 snw 02/27 09:41 Order name: Urine Microscopic Only; Complete Time: 11:42 snw 02/27 09:41 Order name: Strep; Complete Time: 11:34 snw 02/27 09:57 Order name: Glucose, Ancillary Testing; Complete Time: 10:01 EDMS 02/27 10:45 Order name: Manual Differential; Complete Time: 10:47 EDMS 02/27 10:53 Order name: ABG Arterial Blood Gas; Complete Time: 11:03 EDMS 02/27 11:26 Order name: Urine Dipstick--Ancillary (enter results); Complete Time: 11:34 eb 02/27 11:32 Order name: Throat Culture EDMS 02/27 11:35 Order name: Chem 7; Complete Time: 14:07 snw 02/27 12:36 Order name: Ferritin jl7 02/27 12:36 Order name: Lipid Profile jl7 02/27 12:36 Order name: Ferritin; Complete Time: 13:59 EDMS 02/27 12:36 Order name: Lipid Profile; Complete Time: 13:59 EDMS 02/27 13:23 Order name: Lactate Sepsis 2 HR Follow-up; Complete Time: 13:27 EDMS 02/27 13:39 Order name: COVID-19/FLU A+B; Complete Time: 13:41 EDMS 02/27 15:27 Order name: Glucose, Ancillary Testing; Complete Time: 15:52 EDMS 02/27 16:41 Order name: Glucose, Ancillary Testing; Complete Time: 16:51 EDMS 02/27 16:58 Order name: Acetone Level; Complete Time: 17:07 EDMS 02/27 17:02 Order name: Basic Metabolic Panel; Complete Time: 17:07 EDMS 02/27 17:46 Order name: Glucose, Ancillary Testing; Complete Time: 17:58 EDMS 02/27 19:10 Order name: Glucose, Ancillary Testing; Complete Time: 19:56 EDMS 02/27 20:14 Order name: Glucose, Ancillary Testing EDMS 02/27 21:16 Order name: Glucose, Ancillary Testing EDMS 02/27 21:31 Order name: Basic Metabolic Panel EDMS 02/27 21:35 Order name: Acetone Level EDMS 02/28 00:34 Order name: Acetone Level EDMS 02/28 00:47 Order name: Basic Metabolic Panel EDMS 02/28 03:38 Order name: Urinalysis EDMS 02/28 03:50 Order name: Urine Microscopic Only EDMS 02/28 03:57 Order name: Urine Drug Screen EDMS 02/28 05:30 Order name: CBC with Automated Diff EDLA 02/28 05:36 Order name: Calcium Level EDLA 02/28 05:36 Order name: Phosphorus EDLA 02/28 05:36 Order name: Magnesium EDLA 02/28 05:36 Order name: Amylase EDLA 02/28 05:36 Order name: Lipase EDLA 02/28 05:59 Order name: Procalcitonin EDLA 02/28 06:58 Order name: Comprehensive Metabolic Panel EDLA 02/28 07:00 Order name: Glucose, Ancillary Testing EDLA 02/28 07:21 Order name: Hemoglobin A1c EDLA 02/28 08:07 Order name: Glucose, Ancillary Testing EDLA 02/28 10:12 Order name: Glucose, Ancillary Testing EDLA 02/28 11:57 Order name: Glucose, Ancillary Testing EDLA 02/28 13:56 Order name: Glucose, Ancillary Testing EDLA 02/28 15:44 Order name: Glucose, Ancillary Testing [facility] 02/28 16:34 Order name: Glucose, Ancillary Testing [facility] 02/28 16:46 Order name: CORONAVIRUS EDLA 02/27 09:41 Order name: Chest Single View XRAY; Complete Time: 11:42 snw 02/27 09:41 Order name: Accucheck; Complete Time: 10:18 snw 02/27 09:41 Order name: Cardiac monitoring; Complete Time: 10:18 snw 02/27 09:41 Order name: EKG - Nurse/Tech; Complete Time: 11:23 snw 02/27 09:41 Order name: IV Saline Lock - Large Bore; Complete Time: 10:19 w 02/27 09:41 Order name: Labs collected and sent; Complete Time: 10:20 w 02/27 09:41 Order name: O2 Per Protocol; Complete Time: 10:19 snw 02/27 09:41 Order name: O2 Sat Monitoring; Complete Time: 10:19 snw 02/27 09:41 Order name: Urine Dipstick-Ancillary (obtain specimen); Complete Time: 11:23 snw 02/27 10:47 Order name: CT Abd/Pelvis - Without Contrast; Complete Time: 11:42 snw 02/27 13:03 Order name: CONS Physician Consult [facility] 02/28 08:19 Order name: RAD EDLA 01/11 17:35 Order name: SARS-COV-2 RT PCR EDMS 02/28 18:25 Order name: Glucose, Ancillary Testing EDMS 02/28 20:39 Order name: Glucose, Ancillary Testing EDMS 03/01 05:28 Order name: CBC with Automated Diff EDMS 03/01 06:12 Order name: Comprehensive Metabolic Panel EDMS 03/01 06:12 Order name: Phosphorus EDMS 03/01 06:12 Order name: Magnesium EDMS 03/01 06:12 Order name: Amylase EDMS 03/01 06:25 Order name: Procalcitonin EDMS 03/01 08:08 Order name: Glucose, Ancillary Testing EDMS 03/01 12:05 Order name: Glucose, Ancillary Testing EDMS EC:19 Rate is 122 beats/min. Rhythm is regular. QRS [place] is Normal. MI interval is normal. snw QRS interval is shortened. QT interval is normal. No Q waves. Clinical impression: Sinus tachycardia. Administered Medications: 10:06 Drug: NS 0.9% (30 ml/kg) 30 ml/kg Route: IV; Rate: bolus; Site: right forearm; jd3 12:14 Follow up: Response: No adverse reaction; IV Status: Completed infusion; IV Intake: jl7 2000ml 10:10 Drug: Phenergan 25 mg Route: IVP; Site: right forearm; jl7 10:30 Follow up: Response: No adverse reaction; Nausea is decreased jl7 10:35 Drug: Zosyn 3.375 grams Route: IVPB; Infused Over: 60 mins; Site: right forearm; jl7 11:35 Follow up: Response: No adverse reaction; IV Status: Completed infusion jl7 10:38 Drug: fentaNYL (PF) 25 mcg Route: IVP; Site: right forearm; jd3 11:00 Follow up: Response: No adverse reaction; Pain is decreased jl7 10:45 Drug: Sodium Bicarbonate 1 amp Route: IVP; Site: right forearm; jd3 12:15 Follow up: Response: No adverse reaction jl7 10:45 Drug: Insulin Regular Human 6 units {Co-Signature: jl7 (Corinne Mitchell RN).} Route: IVP; jd3 Site: right forearm; 15:53 Follow up: Response: No adverse reaction; Blood sugar is lowered jl7 11:20 Drug: Insulin Drip - (Insulin Regular Human 100 units, NS 0.9% 100 ml) {Co-Signature: jl7 jd3 (Aung Mancini RN).} Route: IV; Rate: 6 units/hr; Site: right forearm; 12:24 Follow up: IV Status: Infusion continued upon admission jl7 11:30 Drug: NS 0.9% 1000 ml Route: IV; Rate: 200 ml/hr; Site: right forearm; jl7 12:24 Follow up: IV Status: Infusion continued upon admission jl7 18:37 Follow up: Response: No adverse reaction; IV Status: Completed infusion; IV Intake: jl7 1000ml Point of Care Testin:51 High aa5 Ranges: Critical Glucose Levels:Adult <50 mg/dl or >400 mg/dl <40 mg/dl or >180 mg/dl Disposition: 03/02 07:15 Co-signature as Attending Physician, Cody Osborn MD. rn Disposition: 02/28/20 11:28 Hospitalization ordered by John Osborn for Inpatient Admission. Preliminary diagnosis are Diabetes mellitus due to underlying condition with ketoacidosis without coma, Acute kidney failure. - Bed requested for [facility] ER HOLD. - Status is Inpatient Admission. iw - Condition is Stable. - Problem is new. - Symptoms are unchanged. Signatures: Dispatcher [employer] EDLA Azalia Riojas, FIELD SUPERVISOR [employer]ED [employer]ODUCTION-C FIELD SUPERVISOR [employer]ED [employer]ODUCTION-Csnw Day Pizarro, THUY DALEY iw Cody Osborn MD MD rn Calderon, Audri RN RN aa5 Ani Colin RN RN cg Leal, Jahala, RN RN jl7 Aung Mancini RN RN jd3 Aung Mancini RN jd3 Corinne Mitchell RN jl7 Corrections: (The following items were deleted from the chart) 02/27 12:38 09:42 CORONAVIRUS+MR.LAB.BRZ ordered. EDLA EDMS 12:39 09:42 Influenza Screen (A \T\ B)+BA.LAB.BRZ ordered. EDLA EDMS 18:52 11:28 Hospitalization Ordered by John Osborn MD for Inpatient Admission. Preliminary cg diagnosis is Diabetes mellitus due to underlying condition with ketoacidosis without coma; Acute kidney failure. Bed requested for Intensive Care Unit. Status is Inpatient Admission. Condition is Stable. Problem is new. Symptoms are unchanged. snw 03/01 14:54 02/27 18:52 02/28/2020 11:28 Hospitalization Ordered by John Osborn MD for Inpatient Admission. Preliminary diagnosis is Diabetes mellitus due to underlying condition with ketoacidosis without coma; Acute kidney failure. Bed requested for [facility] ER HOLD. Status is Inpatient Admission. Condition is Stable. Problem is new. Symptoms are unchanged. cg
[2020-02-28] MEDS ORDERED: NA CHLORIDE 0.9% 1,000 ML ONE ×2 (11:30→22:14)
[2020-02-28 11:32] LABS: Urine Blood 1+ (NEG); Urine Glucose 2+ (NEG); Urine Protein 1+ (NEG); Urine Specific Gravity 1.015 (1.005-1.030)
--- NOTE | 2020-02-28 11:36 | RAD REPORT ---
EXAM DESCRIPTION: CT - Abdomen Pelvis Wo Contrast - 02/28/2020 11:15 am CLINICAL HISTORY: Abdominal pain. vomiting COMPARISON: No comparisons TECHNIQUE: CT imaging of the abdomen and pelvis was performed without contrast. Solid organ and vasc ular assessment is limited due to lack of IV contrast. All CT scans are performed using dose optimization technique as appropriate and may include automated exposure control or mA/KV adjustment according to patient size. FINDINGS: Subtle peripheral ground-glass opacities are seen in the left lung base.The stomach is jayy te distended with fluid. The liver contains several low-density lesions which are nonspecific but favored to represent cysts. No intrahepatic biliary dilatation.The spleen, pancreas, adrenal glands and kidneys are within normal limits. No bowel obstruction, free air, free fluid or abscess. The appendix is not identified as a discrete structure, however, no secondary findings of appendicitis are identified. Moderate degenerative change at L5-S1. IMPRESSION: Significant distention stomach is seen with fluid. Subtle peripheral ground-glass opacities in the left lung base indicate viral pneumonitis or early CO VID-19 infection. A limited non-contrast examination was performed as detailed.
[2020-02-28 11:37] LABS: Urine Bacteria <20 /HPF (NONE SEEN); Urine RBC <5 /HPF (NONE SEEN)
--- NOTE | 2020-02-28 11:37 | RAD REPORT ---
EXAM DESCRIPTION: RAD - Chest Single View - 02/28/2020 10:44 am CLINICAL HISTORY: ABDOMINAL DISTENTION Chest pain. COMPARISON: Chest Pa And Lat (2 Views) dated 09/08/2019 FINDINGS: Portable technique limits examination quality. Mild interstitial lung opacities is seen bilaterally which may indicate bronchitis or viral pneumonit is. The heart is normal in size. No displaced fractures.
--- NOTE | 2020-02-28 13:14 | P.HP ---
Certification for Inpatient Patient admitted to: Inpatient With expected LOS: >2 Midnights Practitioner: I am a practitioner with admitting privileges, knowledge of patient current condition, hospital course, and medical plan of care. Services: Services provided to patient in accordance with Admission requirements found in Title 42 Section 412.3 of the Code of Federal Regulations Patient History Date of Service: 02/28/20 Reason for admission: DKA History of Present Illness: 45yo M, PMH: IDDM presents to ED due to ~24hrs of abdominal pain, nausea, vomiting. He has been unable to keep anything down today and has noted decreased urine output. He denies fever/chills, denies diarrhea, denies any recent exposure to COVID-19. He does state that over the past week he has missed some doses of his insulin. ~2 months ago he was switched from his Tresiba to insulin 70/30 (50u AM, 40u PM). He denies any sick contacts. In the ED, he was found to be in severe DKA, elevated lipase/amylase, leukocytosis. Allergies morphine Allergy (Unverified 05/31/15 11:13) Unknown - Past Medical/Surgical History -: IDDM Past Surgical History: Patient denies surgical history - Family History Family History: Reviewed- Non-Contributory - Social History Smoking Status: Current every day smoker Alcohol use: No Place of Residence: Home Review of Systems 10-point ROS is otherwise unremarkable Physical Examination - Physical Exam General: Alert, Oriented x3, Mild distress, Confused HEENT: Sclerae nonicteric Respiratory: Clear to auscultation bilaterally Cardiovascular: No edema, Other (sinus tachycardia) Gastrointestinal: Soft and benign, Non-distended Musculoskeletal: No tenderness Integumentary: No rashes, No significant lesion Neurological: Normal speech, Normal strength at 5/5 x4 extr - Studies Laboratory Data (last 24 hrs) 02/28/20 10:00: PT 11.1, INR 0.94, APTT 27.0 02/28/20 10:00: WBC 25.4 H*, Hgb 16.6, Hct 53.3 H, Plt Count 355 02/28/20 10:00: Sodium 118 L*, Potassium 5.5 H, BUN 62 H, Creatinine 3.73 H, Glucose 1141 H*, Total Bilirubin 0.8, AST 14 L, ALT 28, Alkaline Phosphatase 121 H, Amylase 428 H*, Lipase 664 H Microbiology Data (last 24 hrs): 02/28/20 10:30 Throat Group A Streptococcus Rapid Screen - Final Assessment and Plan - Advance Directives Does patient have a Living Will: No Does patient have a Durable POA for Healthcare: No Physician Review Additional Text: DKA IDDM KIRA Pseudohyponatremia -admit to ICU -NPO, NS+kcl @ 250 ml/hr, received 30cc/kg bolus in ED -leukocytosis and elevated amylase/lipase likely secondary to acute pancreatitis -unclear if pancreatitis was "set off" by infection, pt is afebrile; procalcitonin elevated -will cover with zosyn for now, cultures obtained and pending -rapid COVID-19 negative, however noted subtle peripheral GGO in left lung base -DKA protocol, insulin drip until he is tolerating PO -KIRA- likely prerenal, patient appears significantly dry, should improve with IVF, nephrology consulted Code: Full VTE: lovenox Dispo: anticipate dc home in ~48hrs Time Spent Managing Pts Care (In Minutes): 60
[2020-02-28 13:38] LABS: SARS-COV-2 RT PCR NEGATIVE (NEGATIVE)
--- NOTE | 2020-02-28 13:45 | P.CNS ---
Date of Consult: 02/28/20 Reason for Consult: Acidosis , Hyponatremia , KIRA Chief Complaint: Nausea and vomiting History of Present Illness: A 45-year-old man with PMHx of DM with retinopathy , active smoker presented with nausea, vomiting and abdominal pain pt was Tresiba on the past , stated his PCP switched to insulin 70/30 due to polyuria , pt is also non compliant with his meds occasionally taking NSAID and tramadol for pain in er cr 3.0, BS 1100 Review of Systems: Head and Neck: No red eye. No ear pain. GI: nausea, vomiting abdominal pain, no diarrhea or constipation : have polyuria, no dysuria, no hematuria. Respiratory: denied shortness of breath. Cardiovascular: No chest pain or palpitation Endocrine: polydipsia and polyuria Skin: No rash. Neuro: Has neuropathy. Musculoskeletal: No back pain . Physical exam general: AAOX3, in moderate distress Neck; Supple, No elevated JVD hear: RRR, normal S1,2 no murmur or rub Chest: CTAB, no rlaes or wheezes Abdomen: Soft , Nt Extremities feet dressed, foul smell A/p KIRA Due to dehydration Cont NS Avoid NSAID Abd CT : no hydro HAGMA no need for bicarb drip due to DKA cont NS DKA Insulin drip and agressive hydration pseudohyponatremia strict BS control hyperkalmeia due to K shift monitor K and replace to keep level 3.5-5.0 Total time spent 65 min Allergies morphine Allergy (Unverified 05/31/15 11:13) Unknown - Past Medical/Surgical History Diabetic: Yes - Social History Smoking Status: Current every day smoker Physical Examination Laboratory Data (last 24 hrs) 02/28/20 10:00: PT 11.1, INR 0.94, APTT 27.0 02/28/20 10:00: WBC 25.4 H*, Hgb 16.6, Hct 53.3 H, Plt Count 355 02/28/20 10:00: Sodium 118 L*, Potassium 5.5 H, BUN 62 H, Creatinine 3.73 H, Glucose 1141 H*, Total Bilirubin 0.8, AST 14 L, ALT 28, Alkaline Phosphatase 121 H, Amylase 428 H*, Lipase 664 H
[2020-02-28 13:57] LABS: Potassium 3.9 mmol/L (3.5-5.1)
[2020-02-28] MEDS ORDERED: ONDANSETRON 4 MG/2 ML VIAL IV PRN (15:59)
[2020-02-28] MEDS ORDERED: NS KCL 20MEQ 20 MEQ/1,000 ML BAG IV SCH (15:59)
[2020-02-28 16:56] LABS: BUN Blood Urea Nitrogen 51 mg/dL (7-18); Bicarbonate 17 mmol/L (21-32); Glucose Level 388 mg/dL (74-106); Potassium 3.9 mmol/L (3.5-5.1); Sodium Level 138 mmol/L (136-145)
[2020-02-28] MEDS ORDERED: NS KCL 20MEQ 1,000 ML IV ONE (16:58)
[2020-02-28] MEDS: PIPER/TAZO/NS 3.375gm 3.375 GM/100 ML BAG IV SCH (17:00)
[2020-02-28 19:04] VITALS: BMI 22.6
[2020-02-28] MEDS ORDERED: D5 0.45 NS 1,000 ML IV ONE (20:22)
[2020-02-28] MEDS ORDERED: DIPHENHYDRAMINE 50 MG/ML VIAL ONE (20:22)
[2020-02-28 21:31] LABS: BUN Blood Urea Nitrogen 39 mg/dL (7-18); Bicarbonate 23 mmol/L (21-32); Glucose Level 163 mg/dL (74-106); Sodium Level 143 mmol/L (136-145)
[2020-02-28] MEDS ORDERED: D50W 25 GM/50 ML SYRINGE IV PRN (22:06)
[2020-02-28] MEDS ORDERED: INSULIN 70/30 100 UNITS/ML SQ ONE (22:23)
[2020-02-28] MEDS: NACHLORIDE 0.45% 1,000 ML IV SCH (23:00)
[2020-02-29] MEDS: PIPER/TAZO/NS 3.375gm 3.375 GM/100 ML BAG IV SCH ×3 (00:42→16:32)
[2020-02-29 00:47] LABS: BUN Blood Urea Nitrogen 32 mg/dL (7-18); Bicarbonate 23 mmol/L (21-32); Glucose Level 164 mg/dL (74-106); Potassium 3.8 mmol/L (3.5-5.1); Sodium Level 141 mmol/L (136-145)
[2020-02-29] MEDS ORDERED: PIPER/TAZO/NS 3.375gm 3.375 GM/100 ML BAG ONE ×3 (01:14→16:35)
[2020-02-29 02:52] VITALS: O2SAT 98
[2020-02-29 03:35] LABS: Urine Appearance CLEAR; Urine Bilirubin NEGATIVE (NEG); Urine Blood TRACE (NEG); Urine Color YELLOW; Urine Glucose 3+ (NEG); Urine Protein 1+ (NEG); Urine Specific Gravity >=1.030 (1.005-1.030); Urine Urobilinogen 0.2 mg/dL (0.2-1.0)
[2020-02-29 03:38] LABS: Urine Microscopic Reflex ORDER UMIC
[2020-02-29 03:50] LABS: Urine Bacteria <20 /HPF (NONE SEEN); Urine Coarse Granular Casts 0-5 /LPF (NONE SEEN); Urine RBC <5 /HPF (NONE SEEN)
[2020-02-29 03:57] LABS: Barbiturates NEGATIVE (NEGATIVE); Benzodiazepines NEGATIVE (NEGATIVE); Cocaine POSITIVE (NEGATIVE); METHAMPHETAM NEGATIVE (NEGATIVE); Methadone NEGATIVE (NEGATIVE); Opiates NEGATIVE (NEGATIVE); Phencyclidine NEGATIVE (NEGATIVE); THC Cannibis POSITIVE (NEGATIVE)
[2020-02-29 05:08] LABS: Absolute Lymphocytes (CBC) 0.8 K/uL (0.7-4.9); Basophils % 0.6 % (0-1.3); Hematocrit 41.4 % (39.6-49.0); Lymphocytes % 3.6 % (15.3-44.8); MPV 9.7 fL (7.6-11.3); RBC Red Blood Cell Count 4.65 M/uL (4.33-5.43)
[2020-02-29 05:35] LABS: Magnesium 2.6 mg/dL (1.8-2.4); Phosphorus 2.7 mg/dL (2.5-4.9)
[2020-02-29] MEDS ORDERED: NACHLORIDE 0.45% 1,000 ML IV ONE ×2 (06:21→16:35)
[2020-02-29 06:58] LABS: Albumin 3.4 g/dL (3.4-5.0); Bilirubin Total 0.6 mg/dL (0.2-1.0); Potassium 3.7 mmol/L (3.5-5.1); Protein, Total 6.2 g/dL (6.4-8.2)
[2020-02-29] MEDS ORDERED: INSULIN 70/30 100 UNITS/ML SQ SCH (07:30)
[2020-02-29] MEDS: INSULIN -REGULAR HUMAN 50 UNIT/0.5 ML ML SQ SCH ×4 (07:52→18:16)
[2020-02-29] MEDS: ENOXAPARIN 30 MG/0.3 ML SQ SCH (08:14)
[2020-02-29] MEDS: NACHLORIDE 0.45% 1,000 ML IV SCH ×3 (08:14→23:00)
[2020-02-29] MEDS ORDERED: POTASSIUM CL SA 10 MEQ TAB PO ONE ×2 (08:16→09:00)
[2020-02-29] MEDS ORDERED: INSULIN -REGULAR HUMAN 50 UNIT/0.5 ML ML ONE ×3 (08:17→18:29)
[2020-02-29] MEDS ORDERED: ENOXAPARIN 30 MG/0.3 ML SQ ONE (08:17)
--- NOTE | 2020-02-29 08:18 | RAD REPORT ---
EXAM DESCRIPTION: Benjamín Single View02/29/2020 7:53 am CLINICAL HISTORY: Cough COMPARISON: CT abdomen February 27 FINDINGS: No change in minimal left basilar lung opacities Remainder lungs appear clear. Heart is normal size
[2020-02-29] MEDS: INSULIN 70/30 100 UNITS/ML SQ SCH ×2 (08:30→16:16)
[2020-02-29] MEDS ORDERED: ENOXAPARIN 40 MG/0.4 ML SQ SCH (09:00)
[2020-02-29] MEDS ORDERED: INSULIN 70/30 100 UNITS/ML SQ ONE (09:18)
[2020-02-29] MEDS ORDERED: INFLUENZA VACCINE (for 3y+) 0.5 ML DOSE IMVAC ONE (11:00)
--- NOTE | 2020-02-29 11:28 | EKG ---
Test Date: 2020-02-28 Test Time: 10:41:24 Traffic Supervisor: ELMER MEASUREMENT RESULTS: Intervals: Rate: 122 ND: 144 QRSD: 76 QT: 318 QTc: 453 [place]: P: 69 ND: 144 QRS: 77 T: 67 INTERPRETIVE STATEMENTS: Sinus tachycardia Right atrial enlargement Moderate voltage criteria for LVH, may be normal variant Borderline ECG No previous ECG available for comparison Electronically Signed On 02-29-20 11:27:17 REGISTERED NURSE by Manuel Mcmahan
[2020-02-29] MEDS ORDERED: ONDANSETRON 4 MG/2 ML VIAL ONE (12:24)
--- NOTE | 2020-02-29 18:47 | P.PN ---
Subjective Date of Service: 02/29/20 Chief Complaint: DKA Subjective: Improving (tolerated a few bites of food and able to hold down water overnight. Anion gap closed. glc improved, off insulin drip this morning) Review of Systems 10-point ROS is otherwise unremarkable Physical Examination - Vital Signs Temperature: 97.9 F Blood Pressure: 117/83 Pulse: 96 Respirations: 17 Pulse Ox (%): 100 - Physical Exam General: Alert, In no apparent distress, Confused Respiratory: Clear to auscultation bilaterally Cardiovascular: No edema, Irregular heart rate/rhythm (sinus tachycardia 90-105) Gastrointestinal: Soft and benign, Non-distended, No tenderness Musculoskeletal: No tenderness Integumentary: No rashes Neurological: Normal speech, Normal affect Assessment & Plan Physician Review Additional Text: DKA Leukocytosis IDDM KIRA, resolved Pseudohyponatremia, resolved -A1c 11.8 -glucose significantly improved, anion gap closed, off insulin drip, will restart at partial home dose of 70/30 -no longer acidotic -leukocytosis remains, unclear if all reactive, elevated procal as well - concern for infectiou -continue zosyn for now, cultures obtained and pending -rapid COVID-19 negative, however noted subtle peripheral GGO in left lung base, repeat testing today -KIRA-resolved, prerenal, improved with IVF, neprholgoy consulted Code: Full VTE: lovenox Dispo: anticipate dc home in ~24-48hrs Time Spent Managing Pts Care (In Minutes): 35
[2020-02-29 23:53] VITALS: BP 141/89
--- NOTE | 2020-03-01 01:33 | PN ---
Date of Progress Note: 02/29/2020 Chief Complaint: Acute kidney injury. History Of Present Illness: Patient developed moderately severe acute kidney injury associated with renal hypoperfusion due to nausea, vomiting, and hypovolemia, which was a result of volume depletion. Patient was found to have hyponatremia and acidosis. Patient has multiple medical problems includi ng history of peripheral neuropathy, diabetes mellitus with retinopathy. He is active smoker. Recen tly, his PCP switched him to insulin 70/30 and patient developed progressively worse weakness with de creased appetite. ER workup showed blood glucose of 1100 and creatinine level of 3. Review of Systems: No PND or orthopnea. Physical Examination: Lungs: Diminished breath sounds at bases. Heart: S1 and S2. Abdomen: Soft, benign. Extremities: No edema. Impression And Plan: 1.Acute kidney injury due to volume depletion. Continue normal saline and continue to adjust insuli n for hyperosmolar state. 2.Decrease insulin drip and aggressive hydration will start. 3.Hyperkalemia due to electrolyte shift secondary to hyperglycemia. Replacement, monitor potassium level and adjust treatment accordingly. 4.Hypertension. Blood pressure in acceptable control. Continue current treatment. EB/MODL Voice ID: [id number] Report ID: [id number]
[2020-03-01] MEDS: PIPER/TAZO/NS 3.375gm 3.375 GM/100 ML BAG IV SCH ×2 (02:00→08:52)
[2020-03-01] MEDS ORDERED: PIPER/TAZO/NS 3.375gm 3.375 GM/100 ML BAG ONE ×2 (02:09→08:41)
[2020-03-01] MEDS ORDERED: NACHLORIDE 0.45% 0 ML IV ONE (02:10)
[2020-03-01 04:31] VITALS: TEMP 98.1
[2020-03-01 05:25] LABS: Absolute Lymphocytes (CBC) 1.8 K/uL (0.7-4.9); Basophils % 0.4 % (0-1.3); Hematocrit 38.4 % (39.6-49.0); Lymphocytes % 14.5 % (15.3-44.8); MPV 9.1 fL (7.6-11.3); RBC Red Blood Cell Count 4.39 M/uL (4.33-5.43)
[2020-03-01 06:04] LABS: ALT/SGPT 21 U/L (12-78); AST/SGOT 20 U/L (15-37); Albumin 3.2 g/dL (3.4-5.0); Alkaline Phosphatase 68 U/L (45-117); BUN Blood Urea Nitrogen 12 mg/dL (7-18); Bicarbonate 28 mmol/L (21-32); Glucose Level 208 mg/dL (74-106); Magnesium 2.5 mg/dL (1.8-2.4); Phosphorus 2.3 mg/dL (2.5-4.9); Potassium 3.3 mmol/L (3.5-5.1); Sodium Level 138 mmol/L (136-145)
[2020-03-01 06:11] LABS: Amylase 271 U/L (25-115)
[2020-03-01] MEDS: NACHLORIDE 0.45% 1,000 ML IV SCH (07:00)
[2020-03-01] MEDS: INSULIN -REGULAR HUMAN 50 UNIT/0.5 ML ML SQ SCH ×2 (08:30→12:42)
[2020-03-01] MEDS ORDERED: INSULIN -REGULAR HUMAN 50 UNIT/0.5 ML ML ONE (08:38)
[2020-03-01] MEDS ORDERED: INSULIN 70/30 100 UNITS/ML SQ ONE (08:39)
[2020-03-01] MEDS ORDERED: NACHLORIDE 0.45% 1,000 ML IV ONE (08:40)
[2020-03-01] MEDS ORDERED: ENOXAPARIN 30 MG/0.3 ML SQ ONE (08:40)
[2020-03-01] MEDS: ENOXAPARIN 30 MG/0.3 ML SQ SCH (08:52)
[2020-03-01] MEDS: INSULIN 70/30 100 UNITS/ML SQ SCH (08:53)
--- NOTE | 2020-03-01 14:14 | P.DS ---
Admission Date: 02/28/20 Discharge Date: 03/01/20 Disposition: ROUTINE DISCHARGE Discharge Condition: FAIR Reason for Admission: DKA Brief History of Present Illness: 45-year-old gentleman with a history of insulin-dependent diabetes mellitus presented to the emergency department with a complaint of abdominal pain, nausea and vomiting and decreased urine output. Patient was found to be in DKA and also with acute renal failure. DKA protocol was initiated with insulin drip and patient admitted for further management. Hospital Course: Patient admitted to the ICU and treated with insulin drip, aggressive IV hydration. Nephrology was consulted to assist with management of his acute renal failure. The acute renal failure resolved with IV hydration. DKA also resolved and patient was transitioned to subcutaneous insulin-Novolin 70/30 at half the dose or what patient takes at home. Patient tolerated liquid and soft diet. He was experiencing throat pain which he attributed to frequent vomiting. Patient told to stick to liquid and soft diet until he can tolerate solid diet. He had leukocytosis which also got resolved. UA was negative for UTI. Blood culture yielded no growth. Chest x-ray demonstrated mild interstitial opacities. Patient was treated briefly with Zosyn. He is discharged with Omnicef for possible upper respiratory infection. COVID 19 test was negative. Vital Signs/Physical Exam: Temp Pulse Resp BP Pulse Ox 98.1 F 72 14 141/89 H 99 03/01/20 04:00 03/01/20 04:00 03/01/20 04:00 02/29/20 23:52 03/01/20 04:00 General: Alert, In no apparent distress, Oriented x3 HEENT: Mucous membr. moist/pink Neck: JVD not distended Respiratory: Normal air movement Cardiovascular: No edema, Regular rate/rhythm, Normal S1 S2 Gastrointestinal: Non-distended Musculoskeletal: No swelling, No erythema Integumentary: No rashes Neurological: Other (No focal deficit) Laboratory Data at Discharge: WBC 12.2 K/uL (4.3-10.9) H D 03/01/20 05:13 Hgb 13.4 g/dL (13.6-17.9) L 03/01/20 05:13 Hct 38.4 % (39.6-49.0) L 03/01/20 05:13 Plt Count 245 K/uL (152-406) 03/01/20 05:13 PT 11.1 SECONDS (9.5-12.5) 02/28/20 10:00 INR 0.94 02/28/20 10:00 APTT 27.0 SECONDS (24.3-36.9) 02/28/20 10:00 Sodium 138 mmol/L (136-145) 03/01/20 05:13 Potassium 3.3 mmol/L (3.5-5.1) L 03/01/20 05:13 BUN 12 mg/dL (7-18) 03/01/20 05:13 Creatinine 0.72 mg/dL (0.55-1.3) 03/01/20 05:13 Glucose 208 mg/dL (74-106) H 03/01/20 05:13 Phosphorus 2.3 mg/dL (2.5-4.9) L 03/01/20 05:13 Magnesium 2.5 mg/dL (1.8-2.4) H 03/01/20 05:13 Total Bilirubin 1.0 mg/dL (0.2-1.0) 03/01/20 05:13 AST 20 U/L (15-37) 03/01/20 05:13 ALT 21 U/L (12-78) 03/01/20 05:13 Alkaline Phosphatase 68 U/L (45-117) 03/01/20 05:13 Triglycerides 138 mg/dL (<150) 02/28/20 12:50 Cholesterol 164 mg/dL (<200) 02/28/20 12:50 HDL Cholesterol 81 mg/dL (40-60) H 02/28/20 12:50 Cholesterol/HDL Ratio 2.02 02/28/20 12:50 Amylase 271 U/L (25-115) H* 03/01/20 05:13 Lipase 103 U/L (73-393) 02/29/20 04:40 Home Medications: Gabapentin 02/29/20 Metformin ER [Glucophage ER*] 500 mg PO DAILY 02/29/20 Tramadol HCl [Ultram] 02/29/20 glyBURIDE [Glyburide] 02/29/20 Cefdinir [Omnicef] 300 mg PO BID #10 capsule 03/01/20 Insulin 70/30 NPH/Reg Human [Novolin 70/30*] 30 unit SQ BIDAC #10 ml 03/01/20 New Medications: Insulin 70/30 NPH/Reg Human [Novolin 70/30*] 30 unit SQ BIDAC #10 ml Cefdinir [Omnicef] 300 mg PO BID #10 capsule Diet: ADA Activity: Ad jamey Followup: Barry Becker MD [Primary Care Provider] - 1-2 Weeks Time spent managing pt's care (in minutes): 36
[2020-03-01] MEDS ORDERED: D50W 25 GM/50 ML VIAL IV PRN (14:33)
--- NOTE | 2020-03-01 18:45 | PN ---
Date of Progress Note: 03/01/2020 Subjective: The patient was admitted with acute kidney injury secondary to glucose diuresis with DKA and severe acidosis. The patient's after hydration kidney function recovered. Acidosis has been resolved. Physical Examination: Vital Signs: Blood pressure 141/89, pulse of 72, afebrile. Chest: Clear to auscultation. Heart: S1, S2. Regular. Abdomen: Soft, nontender. Extremities: No edema. Neurologic: Alert. No focal. Laboratory Data: Sodium 138, potassium 3.3, bicarb 28, BUN 12, creatinine 0.7, calcium 8.4, phosphorus 2.3. Current Medications: The patient on its include KCl, IV fluid. Assessment And Plan: 1. Acute kidney injury secondary to hyperglycemia, prerenal, obstructive uropathy has been ruled out with CT, recovered, resolved. I am going to discontinue IV fluid. The patient cleared from the Renal standpoint for discharge planning. 2. Hypertension, controlled, optimal. Continue current medications. 3. Acidosis secondary to DKA, recovered, resolved. We will follow up with the primary. 4. Hypokalemia. We will supplement. The patient cleared from the Renal standpoint for discharge planning. Time spent discussing with the patient, [id number], using the translation, discussing with the staff and placing an order, discussing with over subspecialty and hospitalist 45 minutes. LUTHER Voice ID: [id number] Report ID: [id number] KANWAL
== END 2020-03-01 14:48 | disposition home or self-care (01) | DRG 638 ==
LOC: ER 09:32 → ERHOLD 13:06
PROVIDERS: ADMIT Hospitalist; ATTEND Internal Medicine
DX: E11.10 Type 2 diabetes mellitus with ketoacidosis without coma (principal); N17.9 Acute kidney failure, unspecified; E87.1 Hypo-osmolality and hyponatremia; E86.0 Dehydration; E87.6 Hypokalemia; E87.5 Hyperkalemia; D72.829 Elevated white blood cell count, unspecified; E86.9 Volume depletion, unspecified; E11.319 Type 2 diabetes mellitus with unspecified diabetic retinopathy without macular edema; F17.210 Nicotine dependence, cigarettes, uncomplicated; T38.3X6A Underdosing of insulin and oral hypoglycemic [antidiabetic] drugs, initial encounter; Z79.899 Other long term (current) drug therapy; Z79.4 Long term (current) use of insulin; Z88.5 Allergy status to narcotic agent; Z91.14 Patient's other noncompliance with medication regimen; Z20.822 Contact with and (suspected) exposure to COVID-19
CPT/HCPCS: 0240U; 36415; 71045; 74176; 80048; 80053; 80061; 80076; 80307; 81003; 81015; 82010; 82150; 82310; 82550; 82553; 82728; 82805; 82947; 83036; 83605; 83690; 83735; 84100; 84145; 84484; 85025; 85610; 85730; 86140; 87040; 87070; 87081; 93005; 96365; 96367; 96375; 99285; J1200; J1650; J1815; J2405; J2543; J2550; J3010; J3480; J7030; J7799; U0003

== ENCOUNTER 2020-09-19 12:30 | Emergency (ER) | payer OTHER ==
--- OUTSIDE RECORDS SUMMARY | 2020-09-19 12:32 | XMS REPORT | Continuity of Care Document ---
:1975 Author Organization [facility] t Address [address] [place] [address] Care Team Providers Name Role Phone Kale [...] ID 2019-12-23 2019-12-23 Office NENITA Henley [id number] 09:31:09 10:15:22 Visit Henny Loja [id number] Javi [id number] Larry [id number] [address] 2018-04-03 2018-04-03 [facility] [id number] 14:30:00 14:30:00 [facility] Results This patient has no known results.
--- NOTE | 2020-09-19 16:42 | ER ---
Nurse's Notes [facility] Name: Angel Flores Age: 45 yrs Sex: Male : 1975 Arrival Date: 09/19/2020 Time: 12:37 Bed Waiting Private MD: Barry Becker E Diagnosis: Assessment: 09/19 14:45 Reassessment: not in lobby. iw ED Course: 12:37 Patient arrived in ED. am2 12:37 Barry Becker MD is Private Physician. am2 Administered Medications: No medications were administered Outcome: 16:41 Patient left the ED. iw Signatures: Day Pizarro RN RN iw Delores Veloz am2
== END 2020-09-19 16:41 | disposition left against medical advice (07) ==
LOC: ER 12:30
DX: Z02.9 Encounter for administrative examinations, unspecified (principal)

== ENCOUNTER 2021-06-02 06:59 | Inpatient (IN) | payer SELFPAY ==
--- OUTSIDE RECORDS SUMMARY | 2021-06-02 07:03 | XMS REPORT | Continuity of Care Document ---
:1975 Author Organization [facility] t Address [address] [place] [address] Care Team Providers Name Role Phone PCP, DOES NOT HAVE A Primary Care Physician Unavailable WANDY Attending Clinician Unavailable Sarthak CREWS, H Attending Clinician Wandy CREWS Attending Clinician Problems Condition Condition Condition Status Onset Resolution Last Treating Co mments Source Name Details Category Date Date Treatment Clinician Date Type I Type I Disease Active 2020-02 Univers diabetes diabetes 03-14 ity of mellitus mellitus 00:00: [place] with with 00 Medical complicati complicati Br anch on, on, uncontroll uncontroll ed ed Neuropathy Neuropathy Disease Active 2020-02 U nivers 03-14 ity of 00:00: [address] Paresthesi Paresthesi Problem Active C HI [facility] [...] left [facility] Clinics Post-traum Post-traum Problem Active [facility] - osteoarthr osteoarthr Me moria itis of itis of l left knee left knee Outp ati ent Clinics Allergies, Adverse Reactions, Alerts Allergy Allergy Status Severity Reaction(s) Onset Inactive Treating Comm ents Source Name Type Date Date Clinician NO KNOWN Drug Active Univers ALLERGIE Class ity of S [facility] Social History Social Habit Start Date Stop Date Quantity Comments Source History [facility] University o f Alcohol Std Drinks [place] [facility] History [facility] University o f Alcohol Binge [place] [facility] History [facility] o f Alcohol Comment [place] [facility] Exposure to Not sure University of SARS-CoV-2 (event) [facility] Branch History of tobacco Cigarette Smoker University of use [facility] Alcohol intake 2020-12-14 2020-12-14 Lifetime University of 00:00:00 00:00:00 non-drinker [place] [facility] (finding) Branch History SDOH 2019-09-22 2019-09-22 1 University o f Alcohol Frequency 00:00:00 00:00:00 [facility] Branch Cigarettes smoked 2019-09-22 2019-09-22 Univers ity of current (pack per 00:00:00 00:00:00 [facility] ) - Reported Branch Cigarette 2019-09-22 2019-09-22 University of pack-years 00:00:00 00:00:00 [facility] Tobacco use and 2019-09-22 2019-09-22 Never used Universit y of exposure 00:00:00 00:00:00 [facility] Sex Ass[birth year] At [birth year] Universit y of 00:00:00 00:00:00 [facility] Smoking Status Start Date Stop Date Source Current every day smoker 2019-09-22 00:00:00 Uni versity of [facility] Medications Ordered Filled Start Stop Current Ordering Indication Dosage Frequency Signature Comments Components Source Medication Medication Date Date Medication? Clinician (SIG) Name Name nystatin-tr Yes [id number] Apply to [facility] iamcinolone 03-31 070512 area(s) 2 i ty of cream 00:00: (two) [place] 00 times Medical daily. Branch sulfamethox 2021- Yes [id number] 1{tbl} Take 1 [facility] azole-trime 03-31 [id number] tablet by ity of thoprim 00:00: 05:59 mouth 2 [place] (BACTRIM 00 :00 (two) Medical DS) 800-160 times Branch mg per daily for tablet 10 days. Insulin 2020-02 Yes [id number] Take 50 Uni vers NPH-Regular 0-27 unit with ity of Human Rec 00:00: breakfast Adam as (HUMULIN 00 and 42 Medical 70/30 U-100 units with Br francois MELENDEZ) dinner 100 unit/mL (70-30) injection GABAPENTIN 2019-02 Yes Take by Uni vers ORAL 1-04 mouth. ity of 09:48: [address] tramadol 2019-02 Yes Take by Unive rs HCl 1-04 mouth. ity of (TRAMADOL 09:48: [facility]) [address] [place] [address] MELOXICAM 2019-02 Yes Take by Univ ers ORAL 1-04 mouth. ity of 09:48: [address] PAROXETINE 2019-02 Yes Take by Uni vers HCL ORAL 1-04 mouth. ity of 09:48: [address] Gabapentin Gabapentin Yes Gage not C HI [...] [facility] Vital Signs Vital Name Observation Time Observation Value Comments Source Systolic blood 2021-03-31 17:33:00 120 mm[Hg] [facility] sity pressure [facility] Diastolic blood 2021-03-31 17:33:00 76 [facility]Hg[facility] Heart rate 2021-03-31 17:33:00 87 /min [facility] Body temperature 2021-03-31 17:33:00 36.5 Neda [facility] Respiratory rate 2021-03-31 17:33:00 18 /min [facility] Body height 2021-03-31 17:33:00 162.6 cm [facility] Body weight 2021-03-31 17:33:00 57.97 kg [facility] BMI 2021-03-31 17:33:00 21.94 kg/m2 [facility] Oxygen saturation in 2021-03-31 17:33:00 99 /min [facility] blood by [facility] [place] [facility] Pulse oximetry Branch Procedures This patient has no known procedures. Encounters Start End Encounter Admission Attending Care Care Encounter Source Date/Time Date/Time Type Type Clinicians Facility Department ID 2021-04-26 2021-04-26 Outpatient R WANDY AZSAIMA [facility] [id number] Univers 15:00:00 15:00:00 SILVESTREMOUNIKA salmazeb [facility] 2021-03-31 2021-03-31 Office Sarthak [facility] [id number] Univers 10:30:00 12:24:36 Visit Rivera CoverMyMeds [facility] [id number] it y of [place] [id number] Adam as BETTY?BLEA [id number] Dc [address] MEDICAL OFFICE BUILDING 2019-12-23 2019-12-23 Office Wandy AZSAIMA [id number] 09:31:09 10:15:22 Visit Henny Allenton [id number] Javi [id number] Professio [phone] [address] 2018-04-03 2018-04-03 [facility] [id number] 14:30:00 14:30:00 [facility] ent Clinics Results This patient has no known results.
[2021-06-02] MEDS ORDERED: NA CHLORIDE 0.9% 1,000 ML ONE ×3 (07:38→23:09)
[2021-06-02 07:46] LABS: Arterial Blood Carboxyhemoglob 1.1 % (0-1.5); Blood Gas Oxyhemoglobin 75.8 % (94-97); Blood O2 Saturation 77.7 % (92-98.5)
[2021-06-02 07:51] LABS: Absolute Lymphocytes (CBC) 1.5 K/uL (0.7-4.9); Hematocrit 53.6 % (39.6-49.0); Lymphocytes % 16.4 % (15.3-44.8); RBC Red Blood Cell Count 6.07 M/uL (4.33-5.43)
[2021-06-02 08:33] LABS: Potassium 4.5 mmol/L (3.5-5.1)
--- NOTE | 2021-06-02 08:52 | ER ---
Nurse's Notes [facility] Name: Angel Flores Age: 46 yrs Sex: Male : 1975 Arrival Date: 06/02/2021 Time: 07:04 Bed 17 Private MD: Diagnosis: Diabetic ketoacidosis;Nausea with vomiting, unspecified;Dehydration;Acute Kindey Injury Presentation: 06/02 07:20 Chief complaint: Patient states: n/v over the last three days. hx of dm with elevated 6 bs. 07:20 Coronavirus screen: Vaccine status:. [facility] 07:20 Method Of Arrival: Ambulatory [facility] 07:20 Ebola Screen: Patient negative for fever greater than or equal to 101.5 degrees jh6 Fahrenheit, and additional compatible Ebola Virus Disease symptoms Patient denies exposure to infectious person. Patient denies travel to an Ebola-affected area in the 21 days before illness onset. 07:20 Initial Sepsis Screen: Does the patient meet any 2 criteria? No. Patient's initial [facility] sepsis screen is negative. Does the patient have a suspected source of infection? No. Patient's initial sepsis screen is negative. Risk Assessment: Do you want to hurt yourself or someone else? Patient reports no desire to harm self or others. Onset of symptoms was May 30, 2021. 07:20 Acuity: LALITA 3 jh6 Triage Assessment: 07:49 General: Appears in no apparent distress. General: Behavior is calm, cooperative. Pain: 6 Denies pain. GI: Abdomen is flat, non-distended, Reports lower abdominal pain, upper abdominal pain, cramping. Historical: - Allergies: 07:52 Morphine; 6 - PMHx: 07:52 Diabetes - NIDDM; 6 - Immunization history:: Client reports receiving the 2nd dose of the Covid vaccine. - Social history:: Smoking status: Patient denies any tobacco usage or history of. Screenin:20 Abuse screen: Denies threats or abuse. [facility] 07:20 Nutritional screening: No deficits noted. Tuberculosis screening: No symptoms or risk [facility] factors identified. Fall Risk IV access (20 points). Assessment: 07:51 GI: Abdomen is flat, non-distended, Abd is soft Abdomen is tender to palpation X 4 jh6 quads. Guarding noted in epigastric area, right upper quadrant and left upper quadrant. 08:29 Reassessment: Patient and/or family updated on plan of care and expected duration. Pain jh6 level reassessed. no vomiting noted, pt resting call light in reach Patient denies pain at this time. 10:00 Reassessment: No changes from previously documented assessment. Patient is alert, jh6 oriented x 3, equal unlabored respirations, skin warm/dry/pink. fluid bolus running no vomiting noted. Patient states feeling better. Patient states symptoms have improved. 11:00 Reassessment: Patient and/or family updated on plan of care and expected duration. Pain jh6 level reassessed. pt able to keep small amount of sugar free sprite down and states that he is not nauseated. 12:23 Reassessment: Patient and/or family updated on plan of care and expected duration. Pain jh6 level reassessed. repeat CMP and Mag sent to lab. pt resting nad noted. Pain: Denies pain. Vital Signs: 07:20 BP 130 / 98; Pulse 90; Resp 20; Temp 97.6(O); Pulse Ox 100% ; Weight 62.6 kg; Height 6 6 ft. 0 in. (182.88 cm); Pain 5/10; 08:30 BP 131 / 96; Pulse 97; Resp 18; Pulse Ox 100% ; Pain 0/10; 6 09:30 BP 119 / 89; Pulse 96; Resp 17; Pulse Ox 100% ; Pain 0/10; jh6 10:30 BP 132 / 90; Pulse 81; Resp 17; Pulse Ox 100% ; Pain 0/10; 6 11:30 BP 110 / 87; Pulse 96; Resp 17; Pulse Ox 100% ; Pain 0/10; jh6 11:30 BP 107 / 84; Pulse 96; Resp 16; Pulse Ox 100% ; Pain 0/10; jh6 07:20 Body Mass Index 18.72 (62.60 kg, 182.88 cm) [facility] ED Course: 07:04 Patient arrived in ED. kz 07:06 Ti Fish DO is Attending Physician. ms3 07:20 Arm band placed on right wrist. jh6 07:24 Anisa Restrepo, THUY is Primary Nurse. jh6 07:49 Triage completed. jh6 07:50 Inserted saline lock: 20 gauge in right in left forearm, using aseptic technique. jh6 07:53 Bed in low position. Call light in reach. Side rails up X 1. Adult w/ patient. jh6 08:49 John Osborn MD is Hospitalizing Provider. ms3 09:[address] jh6 09:21 CT Abd/Pelvis - IV Contrast Only In Process Unspecified. EDMS 10:24 Inserted saline lock: 20 gauge in right antecubital area, using aseptic technique. jh6 10:45 BS 235 STARTED INSULIN AT 2 UNITS AND D5 .045NS AT 150ML HR. jh6 11:41 BS 212 INSULIN AND FLUIDS REMAINED THE SAME. PT RESTING. jh6 12:56 BS 199 INSULIN AND FLUIDS REMAINED. jh6 13:52 BS 186 INSULIN REMAINED THE SAME. 6 19:25 Primary Nurse role handed off by Anisa Restrepo, THUY 9 21:25 Angela Ledezma, THUY is Primary Nurse. 7 21:25 No provider procedures requiring assistance completed. 7 21:26 Patient admitted, IV remains in place. [facility] Administered Medications: 07:39 Drug: NS 0.9% 1000 ml Route: IV; Rate: 125 ml/hr; Site: right forearm; jh6 09:30 Follow up: IV Status: Completed infusion jh6 09:30 Drug: NS 0.9% 1000 ml Route: IV; Rate: 1000 ml; Site: right forearm; jh6 10:25 Follow up: IV Status: Completed infusion 6 09:30 Drug: Zofran (Ondansetron) 4 mg Route: IVP; Site: right forearm; jh6 10:24 Follow up: Response: Nausea is decreased [facility] 10:46 Drug: Insulin Drip - (Insulin Regular Human 100 units, NS 0.9% 100 ml) {Co-Signature: [facility] iw (Day Pizarro RN).} Route: IV; Rate: 2 units/hr; Site: left forearm; 10:56 Drug: D5-1/2 NS 1000 ml Route: IV; Rate: 150 ml/hr; Site: right forearm; 6 Outcome: 08:51 Decision to Hospitalize by Provider. ms3 21:25 Admitted to Med/surg accompanied by tech, via wheelchair, with chart, Report called to agCarolina Latif RN 21:25 Condition: stable 21:26 Patient left the ED. [facility] Signatures: [facility] Ti Fish, DO RAMIREZ ms3 [place], [place] cs9 Anisa Restrepo RN RN jh6 Coleen Yanez Angela, RN RN ag7 Day Pizarro RN iw
--- NOTE | 2021-06-02 08:52 | EDPHYS ---
Physician Documentation [facility] Name: Angel Flores Age: 46 yrs Sex: Male : 1975 Arrival Date: 06/02/2021 Time: 07:04 Bed 17 Private MD: ED Physician Ti Fish HPI: 06/02 08:20 This 46 yrs old Black Male presents to ER via Ambulatory with complaints of ms3 Nausea/Vomiting. 08:20 The patient presents to the emergency department with nausea, vomiting. Onset: The ms3 symptoms/episode began/occurred 3 day(s) ago. Possible causes: unknown. The symptoms are aggravated by nothing. The symptoms are alleviated by nothing. Associated signs and symptoms: Pertinent negatives: abdominal pain, fever. Severity of symptoms: At their worst the symptoms were moderate in the emergency department the symptoms are unchanged Pain is currently a 0 / 10. 46-year-old male with past medical history of diabetes presents for nausea and vomiting. Patient states has been ongoing for 3 days. Patient denies alleviating or inciting factors. Patient denies pain at this time.. Historical: - Allergies: 07:52 Morphine; jh6 - PMHx: 07:52 Diabetes - NIDDM; [facility] - Immunization history:: Client reports receiving the 2nd dose of the Covid vaccine. - Social history:: Smoking status: Patient denies any tobacco usage or history of. ROS: 08:20 Constitutional: Negative for fever, and chills. Neck: Negative for injury, pain, and ms3 swelling, Cardiovascular: Negative for chest pain, and palpitations. Respiratory: Negative for shortness of breath, cough, wheezing, and pleuritic chest pain, MS/Extremity: Negative for injury and deformity, Skin: Negative for injury, rash, and discoloration. 08:20 Abdomen/GI: Positive for nausea and vomiting, Negative for abdominal pain, diarrhea, constipation, abdominal cramps, abdominal distension. 08:20 All other systems are negative. Exam: 08:20 Constitutional: This is a well developed, well nourished patient who is awake, alert, ms3 and in no acute distress. Head/Face: Normocephalic, atraumatic. Neck: Trachea midline, no cervical lymphadenopathy. Supple, full range of motion without nuchal rigidity, or vertebral point tenderness. No Meningismus. Chest/axilla: Normal chest wall appearance and motion. Nontender with no deformity. Respiratory: Lungs have equal breath sounds bilaterally, clear to auscultation and percussion. No rales, rhonchi or wheezes noted. No increased work of breathing, no retractions or nasal flaring. Abdomen/GI: Soft, non-tender, with normal bowel sounds. No distension or tympany. No guarding or rebound. No evidence of tenderness throughout. Skin: Warm, dry with normal turgor. Normal color with no rashes, no lesions, and no evidence of cellulitis. MS/ Extremity: Pulses equal, no cyanosis. Neurovascular intact. Full, normal range of motion. Neuro: Awake and alert, GCS 15, oriented to person, place, time, and situation. Cranial nerves II-XII grossly intact. Motor strength 5/5 in all extremities. Sensory grossly intact. Cerebellar exam normal. Normal gait. 08:20 Cardiovascular: Rate: tachycardic, Rhythm: regular, Pulses: no pulse deficits are appreciated, Heart sounds: normal. Vital Signs: 07:20 BP 130 / 98; Pulse 90; Resp 20; Temp 97.6(O); Pulse Ox 100% ; Weight 62.6 kg; Height 6 6 ft. 0 in. (182.88 cm); Pain 5/10; 08:30 BP 131 / 96; Pulse 97; Resp 18; Pulse Ox 100% ; Pain 0/10; 6 09:30 BP 119 / 89; Pulse 96; Resp 17; Pulse Ox 100% ; Pain 0/10; 6 10:30 BP 132 / 90; Pulse 81; Resp 17; Pulse Ox 100% ; Pain 0/10; 6 11:30 BP 110 / 87; Pulse 96; Resp 17; Pulse Ox 100% ; Pain 0/10; 6 11:30 BP 107 / 84; Pulse 96; Resp 16; Pulse Ox 100% ; Pain 0/10; 6 07:20 Body Mass Index 18.72 (62.60 kg, 182.88 cm) [facility] MDM: 07:16 Patient medically screened. ms3 08:20 Differential diagnosis: Bowel obstruction vs DKA vs Hyperglycemia. ms3 08:51 Data reviewed: vital signs, nurses notes, lab test result(s). Data interpreted: Cardiac ct3 monitor: rate is 90 beats/min, rhythm is normal sinus rhythm, with no ectopy, Interpretation: normal rate, normal rhythm, Pulse oximetry: on room air is 100 %. Interpretation: normal. 08:51 Counseling: I had a detailed discussion with the patient and/or guardian regarding: the ms3 historical points, exam findings, and any diagnostic results supporting the discharge/admit diagnosis, lab results, the need for further work-up and treatment in the hospital. ED course: Discussed case with Dr. Osborn and he accepts patient as admission. Discussed plan for admission with patient. Patient understands agrees with plan. All questions were answered. Patient remains in stable condition in the emergency department. 06/02 07:17 Order name: CBC with Diff; Complete Time: 08:07 ms3 06/02 07:17 Order name: BMP; Complete Time: 08:38 ms3 06/02 07:24 Order name: ABG Arterial Blood Gas; Complete Time: 09:12 EDMS 06/02 07:38 Order name: Glucose, Ancillary Testing; Complete Time: 08:07 EDMS 06/02 08:43 Order name: Ketone, Serum; Complete Time: 09:12 ms3 06/02 09:15 Order name: COVID-19 SARS RT PCR (Document "Date of Onset" if Symptomatic) ms3 06/02 10:39 Order name: Glucose, Ancillary Testing EDMS 06/02 11:52 Order name: Glucose, Ancillary Testing EDMS 06/02 12:00 Order name: CMP jh6 06/02 12:00 Order name: Magnesium jh6 06/02 12:56 Order name: Basic Metabolic Panel EDMS 06/02 12:56 Order name: Basic Metabolic Panel EDMS 06/02 12:56 Order name: Basic Metabolic Panel EDMS 06/02 12:56 Order name: CBC with Automated Diff EDMS 06/02 08:49 Order name: CT Abd/Pelvis - IV Contrast Only; Complete Time: 09:42 ms3 06/02 12:56 Order name: Clear Liquid EDMS 06/02 12:56 Order name: CBC with Automated Diff EDMS 06/02 12:56 Order name: CBC with Automated Diff EDMS 06/02 12:56 Order name: CBC with Automated Diff EDMS 06/02 14:06 Order name: Glucose, Ancillary Testing EDMS 06/02 15:03 Order name: Glucose, Ancillary Testing EDMS 06/02 16:11 Order name: Glucose, Ancillary Testing EDMS 06/02 17:16 Order name: Glucose, Ancillary Testing EDMS 06/02 18:39 Order name: Glucose, Ancillary Testing EDMS 06/02 20:00 Order name: Glucose, Ancillary Testing EDMS Administered Medications: 07:39 Drug: NS 0.9% 1000 ml Route: IV; Rate: 125 ml/hr; Site: right forearm; [facility] 09:30 Follow up: IV Status: Completed infusion [facility] 09:30 Drug: NS 0.9% 1000 ml Route: IV; Rate: 1000 ml; Site: right forearm; [facility] 10:25 Follow up: IV Status: Completed infusion [facility] 09:30 Drug: Zofran (Ondansetron) 4 mg Route: IVP; Site: right forearm; [facility] 10:24 Follow up: Response: Nausea is decreased [facility] 10:46 Drug: Insulin Drip - (Insulin Regular Human 100 units, NS 0.9% 100 ml) {Co-Signature: [facility] (Day Pizarro RN).} Route: IV; Rate: 2 units/hr; Site: left forearm; 10:56 Drug: D5-1/2 NS 1000 ml Route: IV; Rate: 150 ml/hr; Site: right forearm; [facility] Disposition Summary: 06/02/21 08:51 Hospitalization Ordered Hospitalization Status: Inpatient Admission ms3 Provider: John Osborn ms3 Condition: Stable ms3 Problem: new ms3 Symptoms: are unchanged ms3 Bed/Room Type: Standard ms3 Location: Telemetry/MedSurg (Inpatient)(06/02/21 20:25) Room [facility]: [facility](06/02/21 20:25) cg Diagnosis - Diabetic ketoacidosis ms3 - Nausea with vomiting, unspecified ms3 - Dehydration ms3 - Acute Kindey Injury ms3 Forms: - Medication Reconciliation Form ms3 - SBAR form ms3 Signatures: Dispatcher [employer] Day Hanson RN RN iw Garcia, Cindy, RN RN cg Sims, Marcus, DO DO ms3 Anisa Restrepo RN RN jhLouann Pizarro RN Corrections: (The following items were deleted from the chart) 10:14 08:51 Intensive Care Unit ms3 iw 10:14 08:51 ms3 iw 16:57 10:14 [facility] ER HOLD iw iw 16:57 10:14 ERHOLD- iw iw 17:41 16:57 Intensive Care Unit iw iw 17:41 16:57 7- iw iw 20:25 17:41 [facility] ER HOLD iw cg 20:25 17:41 ERHOLD- iw cg
[2021-06-02] MEDS ORDERED: ONDANSETRON 4 MG/2 ML VIAL ONE (08:58)
--- NOTE | 2021-06-02 09:29 | RAD REPORT ---
EXAM DESCRIPTION: CTAbdomen Pelvis W Contrast - 06/02/2021 9:19 am CLINICAL HISTORY: Nausea/vomiting COMPARISON: Abdomen Pelvis Wo Contrast dated 02/28/2020 TECHNIQUE: CT of the abdomen and pelvis was performed. Contrast was administered. All CT scans are performed using dose optimization technique as appropriate and may include automated exposure control or mA/KV adjustment according to patient size. Limitations: Motion artifact is present. This moderately limits the exam. FINDINGS: Lower chest: Moderately thickened distal esophagus suggesting gastroesophageal reflux dise ase. Liver: No acute abnormality or suspicious lesions. Biliary: No biliary ductal dilatation. Stomach: No significant focal abnormality. Duodenum: No significant focal abnormality. Pancreas: No significant abnormality. Spleen: No significant abnormality. Adrenal: No suspicious lesions. Kidney/ureter: No hydronephrosis. No renal calculi. Retroperitoneum: No retroperitoneal adenopathy. Vascular: No aneurysm. Bowel: Moderate stool in the rectum.. Peritoneum: No ascites or free air. Bladder: Grossly unremarkable. Reproductive: No adnexal masses. Bones: No acute fracture. Other: n/a IMPRESSION: Limited by motion. The appendix is not identified but grossly no evidence of acute appen dicitis. Moderate to severe circumferential thickening of the distal esophagus. While this likely re presents gastroesophageal reflux disease, nonemergent endoscopy should be considered to better evalua te.
[2021-06-02] MEDS ORDERED: INSULIN -REGULAR HUMAN 100 UNIT in NA CHLORIDE 0.9% 100 ML IV SCH (10:30)
[2021-06-02] MEDS ORDERED: D5 0.45 NS 1,000 ML IV ONE (10:56)
[2021-06-02 12:47] LABS: Albumin 3.4 g/dL (3.4-5.0); Bilirubin Total 0.5 mg/dL (0.2-1.0); Magnesium 2.1 mg/dL (1.8-2.4); Potassium 3.6 mmol/L (3.5-5.1); Protein, Total 6.5 g/dL (6.4-8.2)
[2021-06-02] MEDS ORDERED: ONDANSETRON 4 MG/2 ML VIAL IV PRN (12:53)
--- NOTE | 2021-06-02 12:57 | P.HP ---
Certification for Inpatient Patient admitted to: Inpatient With expected LOS: >2 Midnights Practitioner: I am a practitioner with admitting privileges, knowledge of patient current condition, hospital course, and medical plan of care. Services: Services provided to patient in accordance with Admission requirements found in Title 42 Section 412.3 of the Code of Federal Regulations Patient History Date of Service: 06/03/21 Reason for admission: DKA History of Present Illness: 46yo M, PMH: IDDM Presents to ED with 3-4 day of inability to tolerate PO with nausea/vomiting. Reports began with some heartburn and nausea. Unable to keep anything down. Everything comes back up ~10-20 minutes later. Has only tried liquids. Denies any pain, no recent illness, no dysuria, no diarrhea. Reports compliance with medications / insulin. Did have high carb meal a few days ago. Girlfriend left him recently and he has been stressed. Heartburn resolved on arrival to ED, has some slight nausea. In the ED, noted to have hyperglycemia: 400s, anion gap acidosis with ketonuria, hyponatremia. CT abd/pelvis noted some gastroesophageal thickening, otherwise no acute findings. Allergies morphine Allergy (Unknown, Verified 02/29/20 20:42) Unknown Home Medications: Insulin NPH Hum/Reg Insulin Hm [Humulin 70/30 Kwikpen] 50 unit SQ BID 06/02/21 - Past Medical/Surgical History Diabetic: Yes -: IDDM Past Surgical History: Patient denies surgical history - Family History Family History: Reviewed- Non-Contributory - Social History Smoking Status: Current every day smoker Alcohol use: No Place of Residence: Home Review of Systems 10-point ROS is otherwise unremarkable Physical Examination - Physical Exam General: Alert, Oriented x3, Other (fatigued appearing) HEENT: EOMI, Sclerae nonicteric Neck: Supple, No LAD Respiratory: Clear to auscultation bilaterally Cardiovascular: No edema, Regular rate/rhythm Gastrointestinal: Soft and benign, Non-distended, No tenderness Musculoskeletal: No tenderness Integumentary: No significant lesion Neurological: Normal speech, Normal strength at 5/5 x4 extr, Normal affect - Studies Laboratory Data (last 24 hrs) 06/02/21 07:30: Sodium 123 L, Potassium 4.5, BUN 37 H, Creatinine 1.57 H, Glucose 417 H* 06/02/21 07:30: WBC 9.2, Hgb 18.5 H, Hct 53.6 H, Plt Count 339 Assessment and Plan - Advance Directives Does patient have a Living Will: No Does patient have a Durable POA for Healthcare: No Physician Review Additional Text: Problem List DKA IDDM intractable nausea/vomiting hyponatremia GERD pt ate some fatty/high glc foods several days ago. recently broke up with girlfriend reports heartburn, minimal relief with tums, resolved now glc improving, mild gap continue insulin drip repeat BMP q4h advance diet once gap closed, and glc < 200 ICU for now, possible downgrade tonight no abd pain on exam, no evidence of infection CT abd/pelvis ordered protonix, carafate for acid reflux VTE: lovenox Code: full Dispo: home, ~24-48hrs Time Spent Managing Pts Care (In Minutes): 75
[2021-06-02] MEDS: ENOXAPARIN 40 MG/0.4 ML SQ SCH (14:00)
[2021-06-02 15:28] VITALS: BMI 18.7
[2021-06-02] MEDS ORDERED: GLUCAGON 1 MG/VIAL IM PRN (15:56)
[2021-06-02] MEDS ORDERED: D10W 250 ML BAG IV PRN (16:16)
[2021-06-02] MEDS: INSULIN -REGULAR HUMAN 50 UNIT/0.5 ML ML SQ SCH ×2 (16:30→21:00)
[2021-06-02 16:43] LABS: BUN Blood Urea Nitrogen 25 mg/dL (7-18); Bicarbonate 25 mmol/L (21-32); Glucose Level 178 mg/dL (74-106); Potassium 3.9 mmol/L (3.5-5.1); Sodium Level 130 mmol/L (136-145)
[2021-06-02] MEDS: INSULIN 70/30 100 UNITS/ML SQ SCH (17:00)
[2021-06-02] MEDS ORDERED: ENOXAPARIN 40 MG/0.4 ML SQ ONE (17:32)
[2021-06-02] MEDS ORDERED: INSULIN 70/30 100 UNITS/ML SQ ONE (17:32)
[2021-06-02] MEDS: SUCRALFATE 1 GM TABLET PO SCH ×2 (19:00→21:00)
[2021-06-02] MEDS ORDERED: SUCRALFATE 1 GM TABLET ONE (19:25)
[2021-06-02 20:46] LABS: BUN Blood Urea Nitrogen 23 mg/dL (7-18); Bicarbonate 25 mmol/L (21-32); Glucose Level 125 mg/dL (74-106); Potassium 3.2 mmol/L (3.5-5.1); Sodium Level 133 mmol/L (136-145)
[2021-06-02] MEDS: NA CHLORIDE 0.9% 1,000 ML IV SCH (23:40)
[2021-06-02] MEDS ORDERED: POTASSIUM 25 MEQ EFFERV TAB PO ONE (23:46)
[2021-06-03 01:07] VITALS: O2SAT 100
[2021-06-03 04:46] LABS: Absolute Lymphocytes (CBC) 2.3 K/uL (0.7-4.9); Hematocrit 41.7 % (39.6-49.0); Lymphocytes % 36.5 % (15.3-44.8); MPV 8.7 fL (7.6-11.3); RBC Red Blood Cell Count 4.77 M/uL (4.33-5.43)
[2021-06-03 05:03] LABS: BUN Blood Urea Nitrogen 16 mg/dL (7-18); Bicarbonate 27 mmol/L (21-32); Glucose Level 112 mg/dL (74-106); Potassium 3.5 mmol/L (3.5-5.1); Sodium Level 136 mmol/L (136-145)
[2021-06-03] MEDS: NA CHLORIDE 0.9% 1,000 ML IV SCH (05:51)
--- NOTE | 2021-06-03 06:50 | P.PN ---
Date of Service: 06/03/21
[2021-06-03] MEDS: SUCRALFATE 1 GM TABLET PO SCH (08:10)
[2021-06-03] MEDS: ENOXAPARIN 40 MG/0.4 ML SQ SCH (08:11)
[2021-06-03] MEDS: INSULIN -REGULAR HUMAN 50 UNIT/0.5 ML ML SQ SCH (08:11)
[2021-06-03] MEDS: INSULIN 70/30 100 UNITS/ML SQ SCH (08:12)
[2021-06-03 08:34] VITALS: BP 106/62; TEMP 98.2
[2021-06-03] MEDS ORDERED: POTASSIUM 25 MEQ EFFERV TAB PO ONE (09:00)
--- NOTE | 2021-06-03 09:20 | P.DS ---
Admission Date: 06/02/21 Discharge Date: 06/03/21 Disposition: ROUTINE DISCHARGE Discharge Condition: GOOD Reason for Admission: DKA Procedures: Problem List Insulin dependent DM, with DKA intractable nausea/vomiting acute hyponatremia secondary to DKA GERD Brief History of Present Illness: 46yo M, PMH: IDDM Presents to ED with 3-4 day of inability to tolerate PO with nausea/vomiting. Reports began with some heartburn and nausea. Unable to keep anything down. Everything comes back up ~10-20 minutes later. Has only tried liquids. Denies any pain, no recent illness, no dysuria, no diarrhea. Reports compliance with medications / insulin. Did have high carb meal a few days ago. Girlfriend left him recently and he has been stressed. Heartburn resolved on arrival to ED, has some slight nausea. In the ED, noted to have hyperglycemia: 400s, anion gap acidosis with ketonuria, hyponatremia. CT abd/pelvis noted some gastroesophageal thickening, otherwise no acute findings. Hospital Course: Patient was found to be in DKA. Treated with IV insulin infusion and IV fluids with improvement. Patient was switched to insulin 70/30 and diet was advanced. He tolerated food and was feeling much better. Reported ready to go home. Patient was deemed stable for discharge home. He will monitor blood glucose levels and increase 70/30 dose to maintain good blood glucose levels. CT noted thickening of lower esophagus which could be due to acid reflux, possibly irritated further from vomiting. Patient reported history of mild acid reflux symptoms. Recommend daily omeprazole for at least 2 months. Discuss with your doctor on possibly titrating off this medication afterwards. Recommend following up with GI, would benefit from an EGD in the near future to further evaluate / confirm. Follow up with PCP within 1 week. Vital Signs/Physical Exam: Temp Pulse Resp BP Pulse Ox 98.2 F 84 16 106/62 96 06/03/21 08:00 06/03/21 08:00 06/03/21 08:00 06/03/21 08:00 06/03/21 08:00 General: Alert, In no apparent distress, Oriented x3 HEENT: EOMI, Sclerae nonicteric Neck: Supple Respiratory: Clear to auscultation bilaterally, Normal air movement Cardiovascular: No edema, Regular rate/rhythm Gastrointestinal: Soft and benign, Non-distended, No tenderness Musculoskeletal: No erythema, No tenderness Integumentary: No rashes, No significant lesion Neurological: Normal speech, Normal affect Laboratory Data at Discharge: WBC 6.4 K/uL (4.3-10.9) D 06/03/21 04:22 Hgb 14.7 g/dL (13.6-17.9) D 06/03/21 04:22 Hct 41.7 % (39.6-49.0) D 06/03/21 04:22 Plt Count 251 K/uL (152-406) D 06/03/21 04:22 Sodium 136 mmol/L (136-145) 06/03/21 04:22 Potassium 3.5 mmol/L (3.5-5.1) 06/03/21 04:22 BUN 16 mg/dL (7-18) 06/03/21 04:22 Creatinine 0.70 mg/dL (0.55-1.3) 06/03/21 04:22 Glucose 112 mg/dL (74-106) H 06/03/21 04:22 Magnesium 2.1 mg/dL (1.8-2.4) 06/02/21 12:20 Total Bilirubin 0.5 mg/dL (0.2-1.0) 06/02/21 12:20 AST 7 U/L (15-37) L 06/02/21 12:20 ALT 21 U/L (12-78) 06/02/21 12:20 Alkaline Phosphatase 63 U/L (45-117) 06/02/21 12:20 Triglycerides 50 mg/dL (<150) 06/03/21 04:22 Cholesterol 156 mg/dL (<200) 06/03/21 04:22 HDL Cholesterol 63 mg/dL (40-60) H 06/03/21 04:22 Cholesterol/HDL Ratio 2.48 06/03/21 04:22 Home Medications: Insulin NPH Hum/Reg Insulin Hm [Humulin 70/30 Kwikpen] 50 unit SQ BID 06/02/21 Omeprazole 20 mg PO DAILY 30 Days #30 capsule. 06/03/21 New Medications: Omeprazole 20 mg PO DAILY 30 Days #30 capsule. Diet: ADA Activity: Ad jamey Followup: Barry Becker MD [Primary Care Provider] - (Call to schedule appointment) Time spent managing pt's care (in minutes): 45
[2021-06-03] MEDS ORDERED: PANTOPRAZOLE 40MG TABLET PO SCH (19:00)
== END 2021-06-03 10:13 | disposition home or self-care (01) | DRG 638 ==
LOC: ER 06:59 → ERHOLD 12:52 → 2ND 23:26
PROVIDERS: ADMIT Hospitalist; ATTEND Hospitalist
DX: E11.10 Type 2 diabetes mellitus with ketoacidosis without coma (principal); E87.1 Hypo-osmolality and hyponatremia; Z79.4 Long term (current) use of insulin; F17.210 Nicotine dependence, cigarettes, uncomplicated; K21.9 Gastro-esophageal reflux disease without esophagitis; Z20.822 Contact with and (suspected) exposure to COVID-19
CPT/HCPCS: 36415; 74177; 80048; 80053; 80061; 82010; 82805; 82947; 83036; 83735; 85025; 99285; J1650; J1815; J2405; J7030; J7799; Q9967; U0003

== ENCOUNTER 2021-07-25 18:47 | Emergency (ER) | payer SELFPAY ==
--- OUTSIDE RECORDS SUMMARY | 2021-07-25 18:49 | XMS REPORT | Continuity of Care Document ---
:1975 Author Organization [facility] t Address [address] [place] [address] Care Team Providers Name Role Phone PCP, [...] diabetes 03-14 ity of mellitus mellitus 00:00: [place] with with 00 Medical complicati complicati Br anch on, on, uncontroll uncontroll ed ed Neuropathy Neuropathy Disease Active 2020-02 U nivers 03-14 ity of 00:00: [address] Paresthesi Paresthesi Problem Active C ommon a of skin a of skin Spir it - [facility] Pain in Pain in Diagnosis Active Commo n left lower left lower Sp benjamin leg leg - [facility] Pain, Pain, Diagnosis Active Common joint, joint, Spirit knee, left knee, left - 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 - [facility] left knee left knee [facility] Allergies, Adverse Reactions, Alerts Allergy Allergy Status Severity Reaction(s) Onset Inactive Treating Comm ents Source Name Type Date Date Clinician NO KNOWN Drug Active Univers ALLERGIE Class ity of [facility] Social History Social Habit Start Date Stop Date Quantity Comments Source History SDOH University o f Alcohol Std Drinks [place] [facility] History [facility] o f Alcohol Binge [place] [facility] History [facility] o f Alcohol Comment [place] [facility] Exposure to Not sure University of SARS-CoV-2 (event) [facility] History of tobacco Cigarette Smoker University of use [facility] Alcohol intake 2020-12-14 2020-12-14 Lifetime University of 00:00:00 00:00:00 non-drinker [facility] (finding) Branch History SDOH 2019-09-22 2019-09-22 1 University o f Alcohol Frequency 00:00:00 00:00:00 [facility] Branch Cigarettes smoked 2019-09-22 2019-09-22 [facility] ity of current (pack per 00:00:00 00:00:00 [facility] ) - Reported Branch Cigarette 2019-09-22 2019-09-22 University of pack-years 00:00:00 00:00:00 [facility] Tobacco use and 2019-09-22 2019-09-22 Never used Universit y of exposure 00:00:00 00:00:00 [facility] Sex Ass[birth year] At [birth year] Universit y of 00:00:00 00:00:00 [facility] Smoking Status Start Date Stop Date Source Current every day smoker 2019-09-22 00:00:00 Uni versity of [facility] Medications Ordered Filled Start Stop Current Ordering Indication Dosage Frequency Signature Comments Components Source Medication Medication Date Date Medication? Clinician (SIG) Name Name bolivar-tr Yes [id number] Apply to [facility] iamcinolone 03-31 [id number] area(s) 2 i ty of cream 00:00: (two) [place] 00 times Medical daily. Branch sulfamethox 2021- No [id number] 1{tbl} Take 1 [facility] azole-trime 03-31 [id number] tablet by ity of thoprim 00:00: 05:59 mouth 2 [place] (BACTRIM 00 :00 (two) Medical DS) 800-160 times Branch mg per daily for tablet 10 days. Insulin 2020-02 Yes [id number] Take 50 Uni vers NPH-Regular 0-27 unit with ity of Human Rec 00:00: breakfast Adam as (HUMULIN 00 and 42 Medical 70/30 U-100 units with Br anch KWIKPEN) dinner 100 unit/mL (70-30) injection GABAPENTIN 2019-02 Yes Take by Uni vers ORAL 1-04 mouth. ity of 09:48: [address] tramadol 2019-02 Yes Take by Unive rs HCl 1-04 mouth. ity of (TRAMADOL 09:48: [place] ORAL) [address] [place] [address] MELOXICAM 2019-02 Yes Take by Univ ers ORAL 1-04 mouth. ity of 09:48: [address] PAROXETINE 2019-02 Yes Take by Uni vers HCL ORAL 1-04 mouth. ity of 09:48: [address] Gabapentin Gabapentin Yes Gage not C ommon Juan defined [facility] Meloxicam Meloxicam Yes Gage not Com mon Martinez defined [facility] Tresiba Tresiba Yes Gage not Common Martinez defined [facility] Metformin Metformin Yes Gage not Com mon HCl HCl Martinez defined [facility] tramadol tramadol Yes Gage not Commo n Martinez defined [facility] Vital Signs Vital Name Observation Time Observation Value Comments Source Systolic blood 2021-03-31 17:33:00 120 mm[Hg] [facility] Diastolic blood 2021-03-31 17:33:00 76 mm[Hg] [facility] Heart rate 2021-03-31 17:33:00 87 /min [facility] Body temperature 2021-03-31 17:33:00 36.5 N[facility] Respiratory rate 2021-03-31 17:33:00 18 /min [facility] Body height 2021-03-31 17:33:00 162.6 cm [facility] Body weight 2021-03-31 17:33:00 57.97 kg [facility] BMI 2021-03-31 17:33:00 21.94 kg/m2 [facility] Oxygen saturation in 2021-03-31 17:33:00 99 /min [facility] blood by [facility] Pulse oximetry Branch Procedures This patient has no known procedures. Encounters Start End Encounter Admission Attending Care Care Encounter Source Date/Time Date/Time Type Type Clinicians Facility Department ID 2021-04-26 2021-04-[address] [facility] [id number] Univers 15:00:00 15:00:00 SILVESTREMOUNIKA ba [facility] 2021-03-31 2021-03-31 Office Sarthak [facility] [id number] Univers 10:30:00 12:24:36 Visit Rivera ALFIE [id number] it y alanis LOJA [id number] Adam as BETTY?BLEA [id number] Ms ricky [address] OFFICE BUILDING 2019-12-23 2019-12-23 Office Wandy [facility] [id number] 21 09:31:09 10:15:22 Visit Henny Loja [id number] Javi [id number] Larry [id number] [address] 2018-04-03 2018-04-03 [id number] Common 14:30:00 14:30:00 [facility] Results This patient has no known results.
[2021-07-25] MEDS ORDERED: IBUPROFEN 400 MG TAB ONE (19:50)
[2021-07-25] MEDS ORDERED: HYDROCODONE/APAP 5/325 MG TAB ONE (19:50)
--- NOTE | 2021-07-25 19:50 | RAD REPORT ---
EXAM DESCRIPTION: RAD - Wrist Right 3 View - 07/25/2021 7:34 pm CLINICAL HISTORY: PAIN Pain COMPARISON: No comparisons FINDINGS: No fracture or dislocation seen. No foreign body or other soft tissue abnormality. IMPRESSION: Negative examination.
--- NOTE | 2021-07-25 19:55 | EDPHYS ---
Physician Documentation [facility] Name: Angel Flores Age: 46 yrs Sex: Male : 1975 Arrival Date: 07/25/2021 Time: 18:49 Bed 11 Private MD: ED Physician Cody Osborn HPI: 07/25 18:55 This 46 yrs old Black Male presents to ER via Unassigned with complaints of Wrist cp Injury. 18:55 The patient or guardian reports injury, pain, ulna side of proximal hand and wrist. cp Context: resulted from striking right hand and wrist against wall. Onset: The symptoms/episode began/occurred this morning. Associated signs and symptoms: The patient has no apparent associated signs or symptoms. Historical: - Allergies: 19:03 Morphine; jb4 - PMHx: 19:03 Diabetes - NIDDM; jb4 - PSHx: 19:03 None; jb4 - Immunization history:: Adult Immunizations up to date. - Social history:: Smoking status: Patient reports the use of cigarette tobacco products, denies chronic smoking, but will smoke occasionally. ROS: 19:00 Constitutional: Negative for chills, fever. cp 19:00 Neck: Negative for pain with movement, pain at rest. 19:00 Back: Negative for pain at rest, pain with movement. 19:00 MS/extremity: Positive for pain, of the right hand and right wrist, Negative for decreased range of motion, deformity. 19:00 Neuro: Negative for numbness, weakness. 19:00 All other systems are negative. cp Exam: 19:05 Constitutional: The patient appears in no acute distress, alert, awake, well developed, cp well nourished. 19:05 Head/Face: Normocephalic, atraumatic. cp 19:05 Chest/axilla: Inspection: normal. 19:05 Cardiovascular: Rate: tachycardic. 19:05 Respiratory: the patient does not display signs of respiratory distress, Respirations: normal, no use of accessory muscles, no retractions. 19:05 Musculoskeletal/extremity: Extremities: grossly normal except: noted in the ulna side of right proximal hand and wrist: pain, tenderness, There is no evidence of decreased ROM, deformity, ROM: limited passive range of motion due to pain, in the right wrist and right hand, Perfusion: the extremity is normally perfused throughout, the right hand and right wrist Sensation intact. overlying skin of left hand and wrist warm, dry and intact. Vital Signs: 19:00 BP 122 / 87; Pulse 108; Resp 16; Temp 98.4(TE); Pulse Ox 97% on R/A; Weight 56.7 kg jb4 (R); Height 5 ft. 4 in. (162.56 cm) (R); Pain 9/10; 19:00 Body Mass Index 21.46 (56.70 kg, 162.56 cm) jb4 MDM: 19:50 Patient medically screened. 19:54 Data reviewed: vital signs, nurses notes, radiologic studies, plain films. cp 19:54 Counseling: I had a detailed discussion with the patient and/or guardian regarding: the cp historical points, exam findings, and any diagnostic results supporting the discharge/admit diagnosis, radiology results. 07/25 18:56 Order name: XRAY Wrist RIGHT 3 view; Complete Time: 19:58 07/25 19:58 Interpretation: Report reviewed. 07/25 19:51 Order name: Thumb Spica Splint: right; Complete Time: 20:24 cp Administered Medications: 19:45 Drug: Ibuprofen 800 mg Route: PO; jb4 20:24 Follow up: Response: No adverse reaction; Marked relief of symptoms [facility] 19:45 Drug: HYDROcodone-acetaminophen 5 mg-325 mg 1 tabs Route: PO; jb4 20:24 Follow up: Response: No adverse reaction jb4 Disposition Summary: 07/25/21 19:54 Discharge Ordered Location: Home cp Problem: new cp Symptoms: have improved cp Condition: Stable cp Diagnosis - Contusion of right wrist cp - Contusion of right hand cp Followup: cp - With: Jarad Quiñonez MD - When: 1 week - Reason: Recheck today's complaints Discharge Instructions: - Discharge Summary Sheet cp - Hand Contusion cp - Wrist Pain, Adult cp Forms: - Medication Reconciliation Form cp - Thank You Letter cp - Antibiotic Education cp - Prescription Opioid Use cp Prescriptions: - Ibuprofen 600 mg Oral Tablet - take 1 tablet by ORAL route every 6 hours As needed take with food; 30 tablet; cp Refills: 0, Product Selection Permitted Addendum: 07/26/2021 23:38 Co-signature as Attending Physician, Cody Osborn MD. r n Signatures: Dispatcher [employer] Cody Mathis MD MD rn Dandy Haque, PATRICIA PA Chang Tyler, RN RN jb4 Corrections: (The following items were deleted from the chart) :07/25 18:55 Context: resulted from striking right hand and wrist against door, cp cp 07/26 18: 19:27 MS/extremity: Positive for pain, of the left wrist, Negative for decreased range cp of motion, deformity, cp : 19:27 Neuro: Negative for numbness, weakness, cp cp : 19:27 Constitutional: Negative for chills, fever, cp cp 19:27 Back: Negative for pain at rest, pain with movement, cp cp : 19:27 Neck: Negative for pain with movement, pain at rest, cp cp 19:32 07/25 19:00 MS/extremity: Positive for pain, of the left wrist, Negative for decreased cp range of motion, deformity, cp 07/26 19:34 07/25 19:05 Musculoskeletal/extremity: Extremities: grossly normal except: noted in the cp ulna side of left proximal hand and wrist: pain, tenderness, There is no evidence of decreased ROM, deformity, ROM: limited passive range of motion due to pain, in the left wrist, Perfusion: the extremity is normally perfused throughout, the left hand Sensation intact. overlying skin of left hand and wrist warm, dry and intact. cp
--- NOTE | 2021-07-25 19:55 | ER ---
Nurse's Notes [facility] Name: Angel Flores Age: 46 yrs Sex: Male : 1975 Arrival Date: 07/25/2021 Time: 18:49 Bed 11 Private MD: Diagnosis: Contusion of right wrist;Contusion of right hand Presentation: 07/25 19:00 Chief complaint: Patient states: I accidently hit my right wrist on the edge of the jb4 wall. I think it may be broken. Coronavirus screen: At this time, the client does not indicate any symptoms associated with coronavirus-19. Ebola Screen: No symptoms or risks identified at this time. Initial Sepsis Screen: Does the patient meet any 2 criteria? No. Patient's initial sepsis screen is negative. Does the patient have a suspected source of infection? No. Patient's initial sepsis screen is negative. Risk Assessment: Do you want to hurt yourself or someone else? Patient reports no desire to harm self or others. Onset of symptoms was July 25, 2021. Transition of care: patient was not received from another setting of care. 19:00 Method Of Arrival: Ambulatory jb4 19:00 Acuity: LALITA 4 jb4 Historical: - Allergies: 19:03 Morphine; jb4 - PMHx: 19:03 Diabetes - NIDDM; jb4 - PSHx: 19:03 None; jb4 - Immunization history:: Adult Immunizations up to date. - Social history:: Smoking status: Patient reports the use of cigarette tobacco products, denies chronic smoking, but will smoke occasionally. Screenin:45 Abuse screen: Denies threats or abuse. Nutritional screening: No deficits noted. jb4 Tuberculosis screening: No symptoms or risk factors identified. Fall Risk None identified. Assessment: 19:45 General: Appears in no apparent distress. comfortable, Behavior is calm, cooperative, jb4 appropriate for age. Pain: Complains of pain in right wrist Pain does not radiate. Pain currently is 6 out of 10 on a pain scale. Neuro: Level of Consciousness is awake, alert, obeys commands, Oriented to person, place, time, situation. Cardiovascular: Patient's skin is warm and dry. Respiratory: Airway is patent Respiratory effort is even, unlabored, Respiratory pattern is regular, symmetrical. Derm: Skin is intact, Skin is dry, Skin is normal, Skin temperature is warm. Musculoskeletal: Circulation, motion, and sensation intact. Range of motion: intact in all extremities. Vital Signs: 19:00 BP 122 / 87; Pulse 108; Resp 16; Temp 98.4(TE); Pulse Ox 97% on R/A; Weight 56.7 kg jb4 (R); Height 5 ft. 4 in. (162.56 cm) (R); Pain 9/10; 19:00 Body Mass Index 21.46 (56.70 kg, 162.56 cm) jb4 ED Course: 18:49 Patient arrived in ED. rg4 18:52 Dandy Haque PA is PHCP. cp 18:52 Cody Osborn MD is Attending Physician. cp 19:03 Triage completed. jb4 19:03 Arm band placed on right wrist. jb4 19:36 XRAY Wrist RIGHT 3 view In Process Unspecified. EDMS 19:45 Patient has correct armband on for positive identification. Bed in low position. Call jb4 light in reach. Side rails up X 1. 19:45 No provider procedures requiring assistance completed. Patient did not have IV access jb4 during this emergency room visit. 19:54 Jarad Quiñonez MD is Referral Physician. cp Administered Medications: 19:45 Drug: Ibuprofen 800 mg Route: PO; jb4 20:24 Follow up: Response: No adverse reaction; Marked relief of symptoms jb4 19:45 Drug: HYDROcodone-acetaminophen 5 mg-325 mg 1 tabs Route: PO; jb4 20:24 Follow up: Response: No adverse reaction jb4 Medication: 19:45 VIS not applicable for this client. jb4 Outcome: 19:54 Discharge ordered by . cp 20:26 Discharged to home ambulatory. jb4 20:26 Condition: stable 20:26 Discharge instructions given to patient, Instructed on discharge instructions, follow up and referral plans. medication usage, Demonstrated understanding of instructions, follow-up care, medications. 20:26 Patient left the ED. jb4 Signatures: Dispatcher [employer] EDLA Dandy Haque PA PA cp Garcia, Rubi rg4 Chang Garvin, RN RN jb4
[2021-07-25 20:30] VITALS: BP 122/87; TEMP 98.4; O2SAT 97
== END 2021-07-25 20:26 | disposition home or self-care (01) ==
LOC: ER 18:47
DX: S60.211A Contusion of right wrist, initial encounter (principal); S60.221A Contusion of right hand, initial encounter; E11.9 Type 2 diabetes mellitus without complications; F17.210 Nicotine dependence, cigarettes, uncomplicated; Z88.5 Allergy status to narcotic agent
CPT/HCPCS: 99283

== ENCOUNTER 2021-10-10 16:04 | Emergency (ER) | payer SELFPAY ==
--- OUTSIDE RECORDS SUMMARY | 2021-10-10 16:07 | XMS REPORT | Continuity of Care Document ---
:1975 Author Organization [facility] t Address 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 03-14 ity of mellitus mellitus 00:00: [place] with with 00 Medical complicati complicati Br anch on, on, uncontroll uncontroll ed ed Neuropathy Neuropathy Disease Active 2020-02 U nivers - ity of 00:00: [address] Paresthesi Paresthesi Problem Active C ommon a of skin a of skin Spir it - [facility] Pain in Pain in Diagnosis Active Commo n left lower left lower Sp benjamin leg leg - [facility] Pain, Pain, Diagnosis Active Common joint, joint, Spirit knee, left knee, left - [facility] 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 - [facility] of itis [facility] left knee left knee [facility] Allergies, Adverse Reactions, Alerts Allergy Allergy Status Severity Reaction(s) Onset Inactive Treating Comm ents Source Name Type Date Date Clinician NO KNOWN Drug Active Univers ALLERGIE Class ity of [facility] Social History Social Habit Start Date Stop Date Quantity Comments Source History SDOH University o f Alcohol Std Drinks [place] [facility] History [facility] University o f Alcohol Binge [place] [facility] History [facility] o f Alcohol Comment [place] [facility] Exposure to Not sure University of SARS-CoV-2 (event) [facility] History of tobacco Cigarette Smoker University of use [facility] Alcohol intake 2020-12-14 2020-12-14 Lifetime University of 00:00:00 00:00:00 non-drinker [facility] (finding) Branch History SDOH 2019-09-22 2019-09-22 1 University o f Alcohol Frequency 00:00:00 00:00:00 [facility] Branch Cigarettes smoked 2019-09-22 2019-09-22 Univers ity of current (pack per 00:00:00 00:00:00 [facility] ) - Reported Branch Cigarette 2019-09-22 2019-09-22 University of pack-years 00:00:00 00:00:00 [facility] Tobacco use and 2019-09-22 2019-09-22 Never used Universit y of exposure 00:00:00 00:00:00 [facility] Sex Assigned At [birth year] Universit y of 00:00:00 00:00:00 [facility] Smoking Status Start Date Stop Date Source Current every day smoker 2019-09-22 00:00:00 Uni versity of [facility] Medications Ordered Filled Start Stop Current Ordering Indication Dosage Frequency Signature Comments Components Source Medication Medication Date Date Medication? Clinician (SIG) Name Name bolivar-tr Yes [id number] Apply to [facility] iamcinolone 03-31 [id number] area(s) 2 i ty of cream 00:00: (two) [place] 00 times Medical daily. Branch sulfamethox 2021- No [id number] 1{tbl} Take 1 [facility] azole-trime 03-31 [id number] tablet by ity of thoprim 00:00: 05:59 mouth 2 [place] (BACTRIM 00 :00 (two) Medical DS) 800-160 times Branch mg per daily for tablet 10 days. Insulin 2020-02 Yes [id number] Take 50 Uni vers [facility]-Regular 0-27 unit with ity of Human Rec 00:00: breakfast Adam as (HUMULIN 00 and 42 Medical 70/30 U-100 units with Br anch KWIKPEN) dinner 100 unit/mL (70-30) injection GABAPENTIN 2019-02 Yes Take by [facility] ers ORAL 1-04 mouth. ity of 09:48: [address] tramadol 2019-02 Yes [facility] HCl 1-04 mouth. ity of (TRAMADOL 09:48: [facility]) [address] [place] [address] MELOXICAM 2019-02 Yes [facility] ORAL 1-04 mouth. ity of 09:48: [address] PAROXETINE 2019-02 Yes Take by [facility] ers HCL ORAL 1-04 mouth. ity of 09:48: [address] Gabapentin Gabapentin Yes Gage not C ommon Juan defined [facility] Meloxicam Meloxicam Yes Gage not Com mon Martinez defined [facility] Tresiba Tresiba Yes Gage not Common Martinez defined [facility] Metformin Metformin Yes Gage not Com mon HCl HCl Martinez defined [facility] tramadol tramadol Yes Gage not Commo n Martinez defined [facility] Vital Signs Vital Name Observation Time Observation Value Comments Source Systolic blood 2021-03-31 17:33:00 120 [facility]Hg[facility] Diastolic blood 2021-03-31 17:33:00 76 mm[Hg] [facility] Heart rate 2021-03-31 17:33:00 87 /min [facility] Body temperature 2021-03-31 17:33:00 36.5 Neda [facility] Respiratory rate 2021-03-31 17:33:00 18 /min [facility] Body height 2021-03-31 17:33:00 162.6 cm [facility] Body weight 2021-03-31 17:33:00 57.97 kg [facility] BMI 2021-03-31 17:33:00 21.94 kg/m2 [facility] Oxygen saturation in 2021-03-31 17:33:00 99 /min [facility] blood by [facility] Pulse oximetry Branch Procedures This patient has no known procedures. Encounters Start End Encounter Admission Attending Care Care Encounter Source Date/Time Date/Time Type Type Clinicians Facility Department ID 2021-04-26 2021-04-26 Outpatient R WANDY [facility] [id number] Univers 15:00:00 15:00:00 SILVESTREMOUNIKA ba [facility] 2021-03-31 2021-03-31 Office Sarthak MISAIMA [id number] Univers 10:30:00 12:24:36 Visit Rivera ALFIE [id number] it y alanis LOJA [id number] Adam as BETTY?BLEA [id number] Tn ricky [address] MEDICAL OFFICE BUILDING 2019-12-23 2019-12-23 Office Wandy [facility] [id number] 21 09:31:09 10:15:22 Visit Malcolm Loja [id number] Javi [id number] Larry [id number] [facility] [address] 2018-04-03 2018-04-03 [id number] Common 14:30:00 14:30:00 [facility] Results This patient has no known results.
[2021-10-10 17:37] LABS: Absolute Lymphocytes (CBC) 1.9 K/uL (0.7-4.9); Hematocrit 41.5 % (39.6-49.0); MCV 89.2 fL (80-100); RBC Red Blood Cell Count 4.65 M/uL (4.33-5.43)
[2021-10-10] MEDS ORDERED: NA CHLORIDE 0.9% 1,000 ML ONE (17:42)
[2021-10-10 17:52] LABS: Albumin 3.5 g/dL (3.4-5.0); Bilirubin Total 0.3 mg/dL (0.2-1.0); Potassium 3.6 mmol/L (3.5-5.1); Protein, Total 6.6 g/dL (6.4-8.2)
[2021-10-10] MEDS ORDERED: INSULIN -REGULAR HUMAN 50 UNIT/0.5 ML ML ONE (18:59)
--- NOTE | 2021-10-10 19:02 | EDPHYS ---
Physician Documentation [facility] Name: Angel Flores Age: 46 yrs Sex: Male : 1975 Arrival Date: 10/10/2021 Time: 16:06 Bed 11 Private MD: ED Physician Rivera Rahman HPI: 10/10 18:16 This 46 yrs old Black Male presents to ER via EMS with complaints of High Blood Sugar. kdr 18:16 The patient or guardian reports generalized fatigue, generalized weakness, kdr hyperglycemia, that was potentially precipitated by no particular event. Onset: The symptoms/episode began/occurred gradually, 3 day(s) ago. Historical: - Allergies: 16:12 Morphine; jh5 - PMHx: 16:12 Diabetes - NIDDM; [facility] - Immunization history:: Adult Immunizations up to date. - Social history:: Smoking status: Patient reports the use of cigarette tobacco products. ROS: 18:24 Constitutional: Negative for fever, chills, and weight loss, Eyes: Negative for injury, kdr pain, redness, and discharge, ENT: Negative for injury, pain, and discharge, Neck: Negative for injury, pain, and swelling, Cardiovascular: Negative for chest pain, palpitations, and edema, Respiratory: Negative for shortness of breath, cough, wheezing, and pleuritic chest pain, Abdomen/GI: Negative for abdominal pain, nausea, vomiting, diarrhea, and constipation, Back: Negative for injury and pain, : Negative for injury, bleeding, discharge, and swelling, MS/Extremity: Negative for injury and deformity, Skin: Negative for injury, rash, and discoloration, Psych: Negative for depression, anxiety, suicide ideation, homicidal ideation, and hallucinations, Allergy/Immunology: Negative for hives, rash, and allergies, Hematologic/Lymphatic: Negative for swollen nodes, abnormal bleeding, and unusual bruising. 18:24 Neuro: Positive for weakness, Negative for altered mental status, dizziness, gait disturbance. 18:24 Endocrine: Positive for polydipsia, Negative for goiter. Exam: 18:24 Constitutional: This is a well developed, well nourished patient who is awake, alert, kdr and in no acute distress. Head/Face: Normocephalic, atraumatic. Eyes: Pupils equal round and reactive to light, extra-ocular motions intact. Lids and lashes normal. Conjunctiva and sclera are non-icteric and not injected. Cornea within normal limits. Periorbital areas with no swelling, redness, or edema. Neck: Trachea midline, no thyromegaly or masses palpated, and no cervical lymphadenopathy. Supple, full range of motion without nuchal rigidity, or vertebral point tenderness. No Meningismus. Chest/axilla: Normal chest wall appearance and motion. Nontender with no deformity. No lesions are appreciated. Cardiovascular: Regular rate and rhythm with a normal S1 and S2. No gallops, murmurs, or rubs. Normal PMI, no JVD. No pulse deficits. Respiratory: Lungs have equal breath sounds bilaterally, clear to auscultation and percussion. No rales, rhonchi or wheezes noted. No increased work of breathing, no retractions or nasal flaring. Abdomen/GI: Soft, non-tender, with normal bowel sounds. No distension or tympany. No guarding or rebound. No evidence of tenderness throughout. Back: No spinal tenderness. No costovertebral tenderness. Full range of motion. Skin: Warm, dry with normal turgor. Normal color with no rashes, no lesions, and no evidence of cellulitis. MS/ Extremity: Pulses equal, no cyanosis. Neurovascular intact. Full, normal range of motion. Neuro: Awake and alert, GCS 15, oriented to person, place, time, and situation. Cranial nerves II-XII grossly intact. Motor strength 5/5 in all extremities. Sensory grossly intact. Cerebellar exam normal. Normal gait. Psych: Awake, alert, with orientation to person, place and time. Behavior, mood, and affect are within normal limits. Vital Signs: 16:10 BP 120 / 70; Pulse 90; Resp 16; Temp 98.6; Pulse Ox 98% on R/A; Weight 58.97 kg; Height jh5 5 ft. 5 in. (165.10 cm); Pain 2/10; 18:30 BP 124 / 72; Pulse 88; Resp 16; Pulse Ox 100% on R/A; hb 16:10 Body Mass Index 21.63 (58.97 kg, 165.10 cm) jh5 MDM: 19:01 Patient medically screened. kdr 10/11 10:27 Data reviewed: vital signs, nurses notes, lab test result(s), radiologic studies. kdr Counseling: I had a detailed discussion with the patient and/or guardian regarding: the historical points, exam findings, and any diagnostic results supporting the discharge/admit diagnosis, lab results, radiology results, the need for outpatient follow up. 10/10 17:24 Order name: Comprehensive Metabolic Panel; Complete Time: 18:04 ss 10/10 17:24 Order name: CBC with Diff; Complete Time: 18:04 ss 10/10 17:16 Order name: IV Saline Lock; Complete Time: 17:24 mb7 10/10 17:31 Order name: Glucose, Ancillary Testing; Complete Time: 18:04 EDMS 10/10 17:25 Order name: Glucose Level; Complete Time: 17:25 mb7 10/10 18:41 Order name: FSBS; Complete Time: 18:48 kdr 10/10 18:45 Order name: FSBS; Complete Time: 19:15 kdr Administered Medications: 10/10 17:42 Drug: NS 0.9% 1000 ml Route: IV; Rate: 1 bolus; Site: right antecubital; hb 18:45 Follow up: Response: No adverse reaction; IV Status: Completed infusion; IV Intake: hb 1000ml 18:54 Drug: Insulin Regular Human 4 units {Co-Signature: hb (Tamra Del Valle RN).} Route: IVP; ss Site: right antecubital; 19:15 Follow up: Response: Blood sugar is lowered hb Point of Care Testing: Blood Glucose: 16:12 Blood Glucose: 375 mg/dL; jh5 Ranges: Critical Glucose Levels:Adult <50 mg/dl or >400 mg/dl <40 mg/dl or >180 mg/dl Disposition Summary: 10/10/21 19:01 Discharge Ordered Location: Home kdr Problem: new kdr Symptoms: have improved kdr Condition: Stable kdr Diagnosis - Hyperglycemia, unspecified kdr - Weakness kdr Followup: kdr - With: Private Physician - When: 2 - 3 days - Reason: If symptoms return, Further diagnostic work-up, Recheck today's complaints, Continuance of care, Re-evaluation by your physician Discharge Instructions: - Discharge Summary Sheet kdr - Fatigue kdr - Weakness, [id number] kdr - Hyperglycemia, [id number] kdr Forms: - Medication Reconciliation Form kdr - Thank You Letter kdr Signatures: Dispatcher [employer] Rivera Hardy MD MD kdr Anjali Eric, RN RN ss Tamra Del Valle RN RN Diana Engle RN RN 5 Delma Still [facility] Kristy Carrera PA PA sb3 Tamra Del Valle RN hb
--- NOTE | 2021-10-10 19:02 | ER ---
Nurse's Notes [facility] Name: Angel Flores Age: 46 yrs Sex: Male : 1975 Arrival Date: 10/10/2021 Time: 16:06 Bed 11 Private MD: Diagnosis: Hyperglycemia, unspecified;Weakness Presentation: 10/10 16:10 Chief complaint: Patient states: blood sugar of 375, fruity smelling breath, weakness, jh5 and dizziness. Hasnt ate since breakfast. Coronavirus screen: Vaccine status: Patient reports being unvaccinated. Client denies travel out of the [place] in the last 14 days. Ebola Screen: Patient negative for fever greater than or equal to 101.5 degrees Fahrenheit, and additional compatible Ebola Virus Disease symptoms Patient denies exposure to infectious person. Patient denies travel to an Ebola-affected area in the 21 days before illness onset. No acute neurological deficit is noted. The patients blood glucose was checked prior to arriving to the hospital and was found to be hyperglycemic. Initial Sepsis Screen: Does the patient meet any 2 criteria? No. Patient's initial sepsis screen is negative. Does the patient have a suspected source of infection? No. Patient's initial sepsis screen is negative. Risk Assessment: Do you want to hurt yourself or someone else? Patient reports no desire to harm self or others. 16:10 Method Of Arrival: EMS: [place] [address] 16:10 Acuity: LALITA 3 jh5 17:44 Onset of symptoms was October 10, 2021. hb Triage Assessment: 16:12 The onset of the patients symptoms was. General: Appears in no apparent distress. jh5 slender, Behavior is calm, cooperative, appropriate for age. Pain: Denies pain. Neuro: No deficits noted. Reports weakness. Historical: - Allergies: 16:12 Morphine; jh5 - PMHx: 16:12 Diabetes - NIDDM; jh5 - Immunization history:: Adult Immunizations up to date. - Social history:: Smoking status: Patient reports the use of cigarette tobacco products. Screenin:43 Abuse screen: Denies threats or abuse. Denies injuries from another. Nutritional hb screening: No deficits noted. Tuberculosis screening: No symptoms or risk factors identified. Fall Risk None identified. Assessment: 17:43 General: Appears in no apparent distress. Behavior is cooperative, anxious. Pain: hb Denies pain. Neuro: Level of Consciousness is awake, alert, obeys commands, Oriented to person, place, time, situation. Cardiovascular: Patient's skin is warm and dry. Respiratory: Respiratory effort is even, unlabored, Respiratory pattern is regular, symmetrical. GI: No signs and/or symptoms were reported involving the gastrointestinal system. : No signs and/or symptoms were reported regarding the genitourinary system. EENT: No signs and/or symptoms were reported regarding the EENT system. Derm: Skin is pink, warm \T\ dry. Musculoskeletal: No signs and/or symptoms reported regarding the musculoskeletal system. 19:00 Reassessment: Patient appears in no apparent distress at this time. Patient and/or hb family updated on plan of care and expected duration. Pain level reassessed. Patient is alert, oriented x 3, equal unlabored respirations, skin warm/dry/pink. Vital Signs: 16:10 BP 120 / 70; Pulse 90; Resp 16; Temp 98.6; Pulse Ox 98% on R/A; Weight 58.97 kg; Height 5 5 ft. 5 in. (165.10 cm); Pain 2/10; 18:30 BP 124 / 72; Pulse 88; Resp 16; Pulse Ox 100% on R/A; hb 16:10 Body Mass Index 21.63 (58.97 kg, 165.10 cm) [facility] ED Course: 16:06 Patient arrived in ED. mr 16:12 Triage completed. [facility] 16:12 Arm band placed on right wrist. [facility] 16:25 Rivera Rahman MD is Attending Physician. [facility] 17:12 Bed in low position. Call light in reach. Side rails up X 1. Door closed. Noise mb7 minimized. Warm blanket given. 17:17 Tamra Del Valle, RN is Primary Nurse. hb 17:24 Maintain EMS IV. Dressing intact. Good blood return noted. Site clean \T\ dry. Gauge \T\ mb 7 site: 20 gauge in right AC. Flushed. 17:29 CBC with Diff Sent. mb7 17:29 Comprehensive Metabolic Panel Sent. mb7 19:16 No provider procedures requiring assistance completed. IV discontinued, intact, hb bleeding controlled, No redness/swelling at site. Administered Medications: 17:42 Drug: NS 0.9% 1000 ml Route: IV; Rate: 1 bolus; Site: right antecubital; hb 18:45 Follow up: Response: No adverse reaction; IV Status: Completed infusion; IV Intake: hb 1000ml 18:54 Drug: Insulin Regular Human 4 units {Co-Signature: alyx (Tamra Del Valle RN).} Route: IVP; ss Site: right antecubital; 19:15 Follow up: Response: Blood sugar is lowered hb Medication: 17:43 VIS not applicable for this client. hb Point of Care Testing: Blood Glucose: 16:12 Blood Glucose: 375 mg/dL; jh5 Ranges: Intake: 18:45 IV: 1000ml; Total: 1000ml. hb Outcome: 19:01 Discharge ordered by . kdr 19:16 Discharged to home via wheelchair. hb 19:16 Condition: stable 19:16 Discharge instructions given to patient, Instructed on discharge instructions, follow up and referral plans. medication usage, Demonstrated understanding of instructions, follow-up care, medications. 19:16 Patient left the ED. hb Signatures: Rivera Rahman MD MD kdr Rivera, Mary mr Smirch, Shelby, RN RN Tamra Del Valle RN RN hb Diana Engle RN RN [facility] Delma Still [facility] Tamra wisdom
[2021-10-10 22:00] VITALS: TEMP 98.6
[2021-10-10 22:02] VITALS: BP 124/72; O2SAT 100
== END 2021-10-10 19:16 | disposition home or self-care (01) ==
LOC: ER 16:04
DX: E11.65 Type 2 diabetes mellitus with hyperglycemia (principal); Z88.5 Allergy status to narcotic agent; Z72.0 Tobacco use
CPT/HCPCS: 36415; 80053; 82947; 85025; J1815; J7030

== ENCOUNTER 2021-11-17 11:20 | Emergency (ER) | payer SELFPAY ==
--- OUTSIDE RECORDS SUMMARY | 2021-11-17 11:22 | XMS REPORT | Continuity of Care Document ---
:1975 Author Organization [facility] t Address 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 - [facility] itis of St left knee left knee [facility] Paresthesi Paresthesi Problem Active C ommon a of skin a of skin Spir it - [facility] Pain in Pain in Diagnosis Active Commo n left lower left lower Sp benjamin leg leg - [facility] Pain, Pain, Diagnosis Active Common joint, joint, Spirit knee, left knee, left - [facility] Allergies, Adverse Reactions, Alerts Allergy Allergy Status Severity Reaction(s) Onset Inactive Treating Comm ents Source Name Type Date Date Clinician NO KNOWN Drug Active Univers ALLERGIE Class ity of S [facility] Social History Social Habit Start Date Stop Date Quantity Comments Source History SDOH University o f Alcohol Std Drinks [place] [facility] History [facility] University o f Alcohol Binge [place] [facility] History [facility] o f Alcohol Comment [place] [facility] ical [facility] Exposure to Not sure University of SARS-CoV-2 (event) [facility] History of tobacco Cigarette Smoker University of use [facility] Alcohol intake 2020-12-14 2020-12-14 Lifetime University of 00:00:00 00:00:00 non-drinker [facility] [place] (finding) Branch History SDOH 2019-09-22 2019-09-22 1 University o f Alcohol Frequency 00:00:00 00:00:00 [facility] Branch Cigarettes smoked 2019-09-22 2019-09-22 Univers ity of current (pack per 00:00:00 00:00:00 [facility] ) - Reported Branch Cigarette 2019-09-22 2019-09-22 University of pack-years 00:00:00 00:00:00 [facility] Tobacco use and 2019-09-22 2019-09-22 Never used Universit y of exposure 00:00:00 00:00:00 [facility] Sex Assigned At [birth year] Universit y of 00:00:00 00:00:00 [facility] Smoking Status Start Date Stop Date Source Current every day smoker 2019-09-22 00:00:00 Uni versity of [facility] Medications Ordered Filled Start Stop Current Ordering Indication Dosage Frequency Signature Comments Components Source Medication Medication Date Date Medication? Clinician (SIG) Name Name bolivar-tr Yes [id number] Apply to [facility] iamcinolone 03-31 [id number] area(s) 2 i ty of cream 00:00: (two) [place] 00 times Medical daily. Branch sulfamethox 2021- No [id number] 1{tbl} Take 1 [facility] azole-trime 03-31 [id number] tablet by ity of thoprim 00:00: 05:59 mouth 2 [place] (BACTRIM 00 :00 (two) Medical DS) 800-160 times Branch mg per daily for tablet 10 days. Insulin 2020-02 Yes [id number] Take 50 Uni vers NPH-Regular 0-27 unit with ity of Human Rec 00:00: breakfast Adam as (HUMULIN 00 and 42 Medical 70/30 U-100 units with Br anch KWIKPEN) dinner 100 unit/mL (70-30) injection GABAPENTIN 2019-02 Yes Take by [facility] ers ORAL 1-04 mouth. ity of 09:48: [address] tramadol 2019-02 Yes [facility] HCl 1-04 mouth. ity of (TRAMADOL 09:48: [facility]) [address] [place] [address] MELOXICAM 2019-02 Yes [facility] ORAL 1-04 mouth. ity of 09:48: [address] PAROXETINE 2019-02 Yes Take by [facility] ers HCL ORAL 1-04 mouth. ity of 09:48: [address] Gabapentin Gabapentin Yes Gage not C ommon Juan defined [facility] Meloxicam Meloxicam Yes Gage not Com mon Martinez defined [facility] Tresiba Tresiba Yes Gage not Common Martinez defined [facility] Metformin Metformin Yes Gage not Com mon HCl HCl Martinez defined [facility] tramadol tramadol Yes Gage not Commo n Martinez defined [facility] Vital Signs Vital Name Observation Time Observation Value Comments Source Systolic blood 2021-03-31 17:33:00 120 mm[facility]Hg[facility] Diastolic blood 2021-03-31 17:33:00 76 mm[facility]Hg[facility] Heart rate 2021-03-31 17:33:00 87 /min [facility] Body temperature 2021-03-31 17:33:00 36.5 Neda [facility] Respiratory rate 2021-03-31 17:33:00 18 /min [facility] Body height 2021-03-31 17:33:00 162.6 cm [facility] Body weight 2021-03-31 17:33:00 57.97 kg [facility] BMI 2021-03-31 17:33:00 21.94 kg/m2 [facility] Oxygen saturation in 2021-03-31 17:33:00 99 /min [facility] blood by [facility] Pulse oximetry Branch Procedures This patient has no known procedures. Encounters Start End Encounter Admission Attending Care Care Encounter Source Date/Time Date/Time Type Type Clinicians Facility Department ID 2021-04-26 2021-04-26 Outpatient R [facility] [id number] Univers 15:00:00 15:00:00 SILVESTREMOUNIKA ba [facility] 2021-03-31 2021-03-31 Office Sarthak WYSAIMA [id number] Univers 10:30:00 12:24:36 Visit Rivera ALFIE [id number] it y alanis LOJA [id number] Adam as BETTY?BLEA [id number] Pa ricky [address] MEDICAL OFFICE BUILDING 2019-12-23 2019-12-23 Office Wandy [facility] [id number] 09:31:09 10:15:22 Visit Malcolm Loja [id number] Javi [id number] Larry [id number] [facility] [address] Building 2018-04-03 2018-04-03 Out[id number] Common 14:30:00 14:30:00 [facility] Results This patient has no known results.
[2021-11-17] MEDS ORDERED: ONDANSETRON 4 MG/2 ML VIAL ONE (12:28)
[2021-11-17] MEDS ORDERED: NA CHLORIDE 0.9% 1,000 ML ONE (12:28)
[2021-11-17 13:24] LABS: Absolute Lymphocytes (CBC) 1.6 K/uL (0.7-4.9); Hematocrit 50.8 % (39.6-49.0); Lymphocytes % 30.8 % (15.3-44.8); MCV 89.9 fL (80-100); MPV 8.8 fL (7.6-11.3); RBC Red Blood Cell Count 5.65 M/uL (4.33-5.43)
[2021-11-17 13:41] LABS: BUN Blood Urea Nitrogen 19 mg/dL (7-18); Bicarbonate 20 mmol/L (21-32); Glomerular Filtration Rate 71 ml/min (=/>90); Glucose Level 185 mg/dL (74-106); Potassium 4.4 mmol/L (3.5-5.1); Sodium Level 130 mmol/L (136-145)
--- NOTE | 2021-11-17 15:02 | ER ---
Nurse's Notes [facility] Name: Angel Flores Age: 46 yrs Sex: Male : 1975 Arrival Date: 11/17/2021 Time: 11:24 Bed 18 Private MD: Diagnosis: Nausea Presentation: 11/17 11:42 Chief complaint: Patient states: "I have diabetes and I've been throwing up since last ss night.". Coronavirus screen: Client denies travel out of the [place] in the last 14 days. Ebola Screen: Patient denies exposure to infectious person. Patient denies travel to an Ebola-affected area in the 21 days before illness onset. Initial Sepsis Screen: Does the patient meet any 2 criteria? No. Patient's initial sepsis screen is negative. Does the patient have a suspected source of infection? No. Patient's initial sepsis screen is negative. Risk Assessment: Do you want to hurt yourself or someone else? Patient reports no desire to harm self or others. Onset of symptoms was November 16, 2021. 11:42 Method Of Arrival: Ambulatory 11:42 Acuity: LALITA 3 ss Historical: - Allergies: 11:45 Morphine; ss - PMHx: 11:45 Diabetes - NIDDM; ss - PSHx: 11:45 L leg; ss - Immunization history:: Client reports receiving the 2nd dose of the Covid vaccine. - Social history:: Smoking status: Patient reports the use of cigarette tobacco products, smokes one-half pack cigarettes per day. Screenin:00 Abuse screen: Denies threats or abuse. Denies injuries from another. Nutritional eh3 screening: No deficits noted. Tuberculosis screening: No symptoms or risk factors identified. Fall Risk IV access (20 points). Gait- Weak (10 pts.). Total Schneider Fall Scale indicates Low Risk Score (25-44 pts). Fall prevention measures have been instituted. Side Rails Up X 2 Placed close to Nursing Station Frequent Obs/Assesments occuring As available Patient and Family Educated on Fall Prevention Program and strategies. Assessment: 13:00 General: Appears in no apparent distress. uncomfortable, Behavior is calm, cooperative, eh3 appropriate for age. Pain: Complains of pain in abdomen Pain does not radiate. Pain currently is 7 out of 10 on a pain scale. Quality of pain is described as aching, squeezing, Pain began 1 day ago. Is continuous. Neuro: Level of Consciousness is awake, alert, obeys commands, Oriented to person, place, time, situation. Cardiovascular: Capillary refill < 3 seconds Patient's skin is warm and dry. Respiratory: Airway is patent Respiratory effort is even, unlabored. GI: Abdomen is flat, non-distended, Bowel sounds present X 4 quads. Abdomen is tender to palpation X 4 quads. Reports lower abdominal pain, upper abdominal pain, cramping, intolerance of fluids, intolerance of food, nausea, vomiting. : No signs and/or symptoms were reported regarding the genitourinary system. EENT: No signs and/or symptoms were reported regarding the EENT system. Derm: No signs and/or symptoms reported regarding the dermatologic system. Musculoskeletal: Range of motion: intact in all extremities. 14:00 Reassessment: Patient and/or family updated on plan of care and expected duration. Pain eh3 level reassessed. Patient is alert, oriented x 3, equal unlabored respirations, skin warm/dry/pink. 15:00 Reassessment: Patient and/or family updated on plan of care and expected duration. Pain eh3 level reassessed. Patient is alert, oriented x 3, equal unlabored respirations, skin warm/dry/pink. Vital Signs: 11:42 BP 122 / 81; Pulse 105; Resp 15; Temp 98.1(O); Pulse Ox 100% on R/A; Height 5 ft. 4 in. ss (162.56 cm); Pain 0/10; 13:00 BP 127 / 89; Pulse 82; Resp 18; Pulse Ox 100% on R/A; eh3 14:00 BP 111 / 81; Pulse 86; Resp 18; Pulse Ox 99% on R/A; eh3 15:00 BP 116 / 84; Pulse 90; Resp 18; Pulse Ox 99% on R/A; eh3 ED Course: 11:24 Patient arrived in ED. mr 11:44 Triage completed. ss 11:45 Arm band placed on right wrist. ss 11:56 Brian Bear is PHCP. jl9 11:56 Rivera Rahman MD is Attending Physician. jl9 12:26 Kelle Gomez RN is Primary Nurse. eh3 13:00 Patient has correct armband on for positive identification. Placed in gown. Bed in low eh3 position. Call light in reach. Side rails up X2. Client placed on continuous cardiac and pulse oximetry monitoring. NIBP monitoring applied. Door closed. Noise minimized. Lights dimmed. Warm blanket given. 13:00 No provider procedures requiring assistance completed. Inserted saline lock: 20 gauge eh3 in right antecubital area, using aseptic technique. Blood collected. 15:15 Diet: Patient given water. Tolerated well. eh3 16:05 IV discontinued, intact, bleeding controlled, No redness/swelling at site. Pressure eh3 dressing applied. Administered Medications: 13:18 Drug: NS 0.9% 1000 ml Route: IV; Rate: 1000 ml; Site: right antecubital; eh3 14:27 Follow up: IV Status: Completed infusion; IV Intake: 1000ml eh3 13:18 Drug: Ondansetron 4 mg Route: IVP; Site: right antecubital; eh3 14:27 Follow up: Response: Nausea is decreased eh3 Medication: 13:00 VIS not applicable for this client. eh3 Intake: 14:27 IV: 1000ml; Total: 1000ml. eh3 Outcome: 15:01 Discharge ordered by MD. hawkins 16:05 Discharged to home ambulatory. eh3 16:05 Condition: stable 16:05 Discharge instructions given to patient, Instructed on discharge instructions, follow up and referral plans. medication usage, Demonstrated understanding of instructions, follow-up care, medications, Prescriptions given X 1. 16:05 Patient left the ED. 3 Signatures: Joseluis Delma Anjali Hinojosa RN RN Kelle Gomez RN RN 3 Brian Bear
--- NOTE | 2021-11-17 15:02 | EDPHYS ---
Physician Documentation [facility] Name: Angel Flores Age: 46 yrs Sex: Male : 1975 Arrival Date: 11/17/2021 Time: 11:24 Bed 18 Private MD: ED Physician Rivera Rahman HPI: 11/17 12:52 This 46 yrs old Black Male presents to ER via Ambulatory with complaints of having jl9 elevated blood sugar the last few days. Patient reports that his BGL is always elevated but he did have nausea earlier today. Denies any pain or distress. . 12:52 Onset: The symptoms/episode began/occurred yesterday. Associated signs and symptoms: jl9 Pertinent positives:. Modifying factors: The patient symptoms are alleviated by nothing, the patient symptoms are aggravated by nothing. The patient has experienced similar episodes in the past. Historical: - Allergies: 11:45 Morphine; ss - PMHx: 11:45 Diabetes - NIDDM; ss - PSHx: 11:45 L leg; ss - Immunization history:: Client reports receiving the 2nd dose of the Covid vaccine. - Social history:: Smoking status: Patient reports the use of cigarette tobacco products, smokes one-half pack cigarettes per day. ROS: 12:53 Constitutional: Negative for fever, chills, and weight loss, Eyes: Negative for injury, jl9 pain, redness, and discharge, ENT: Negative for injury, pain, and discharge, Neck: Negative for injury, pain, and swelling, Cardiovascular: Negative for chest pain, palpitations, and edema, Respiratory: Negative for shortness of breath, cough, wheezing, and pleuritic chest pain. 12:53 Back: Negative for injury and pain, : Negative for injury, bleeding, discharge, and swelling, MS/Extremity: Negative for injury and deformity, Skin: Negative for injury, rash, and discoloration, Neuro: Negative for headache, weakness, numbness, tingling, and seizure. 12:53 Abdomen/GI: Positive for nausea. Exam: 12:53 Constitutional: This is a well developed, well nourished patient who is awake, alert, jl9 and in no acute distress. Head/Face: Normocephalic, atraumatic. Eyes: Pupils equal round and reactive to light, extra-ocular motions intact. Lids and lashes normal. Conjunctiva and sclera are non-icteric and not injected. Cornea within normal limits. Periorbital areas with no swelling, redness, or edema. ENT: Mucous membranes moist. Neck: Trachea midline, no thyromegaly or masses palpated, and no cervical lymphadenopathy. Supple, full range of motion without nuchal rigidity, or vertebral point tenderness. No Meningismus. Chest/axilla: Normal chest wall appearance and motion. Nontender with no deformity. No lesions are appreciated. Cardiovascular: Regular rate and rhythm with a normal S1 and S2. No gallops, murmurs, or rubs. Normal PMI, no JVD. No pulse deficits. Respiratory: Lungs have equal breath sounds bilaterally, clear to auscultation and percussion. No rales, rhonchi or wheezes noted. No increased work of breathing, no retractions or nasal flaring. Abdomen/GI: Soft, non-tender, with normal bowel sounds. No distension or tympany. No guarding or rebound. No evidence of tenderness throughout. Back: No spinal tenderness. No costovertebral tenderness. Full range of motion. Skin: Warm, dry with normal turgor. Normal color with no rashes, no lesions, and no evidence of cellulitis. MS/ Extremity: Pulses equal, no cyanosis. Neurovascular intact. Full, normal range of motion. Neuro: Awake and alert, GCS 15, oriented to person, place, time, and situation. Cranial nerves II-XII grossly intact. Motor strength 5/5 in all extremities. Sensory grossly intact. Cerebellar exam normal. Normal gait. Psych: Awake, alert, with orientation to person, place and time. Behavior, mood, and affect are within normal limits. Vital Signs: 11:42 BP 122 / 81; Pulse 105; Resp 15; Temp 98.1(O); Pulse Ox 100% on R/A; Height 5 ft. 4 in. ss (162.56 cm); Pain 0/10; 13:00 BP 127 / 89; Pulse 82; Resp 18; Pulse Ox 100% on R/A; eh3 14:00 BP 111 / 81; Pulse 86; Resp 18; Pulse Ox 99% on R/A; eh3 15:00 BP 116 / 84; Pulse 90; Resp 18; Pulse Ox 99% on R/A; eh3 MDM: 12:28 Patient medically screened. jl9 12:54 Differential diagnosis: viral Infection, bacterial infection, gastroenteritis. Data jl9 reviewed: vital signs, nurses notes. 15:00 Counseling: I had a detailed discussion with the patient and/or guardian regarding: the 9 historical points, exam findings, and any diagnostic results supporting the discharge/admit diagnosis, lab results, the need for outpatient follow up, to return to the emergency department if symptoms worsen or persist or if there are any questions or concerns that arise at home. Response to treatment: the patient's symptoms have resolved after treatment, the patient is now symptom free. 11/17 11:58 Order name: BMP jl9 11/17 11:58 Order name: CBC with Diff 9 11/17 11:58 Order name: Acetone, Serum 9 11/17 12:00 Order name: Glucose, Ancillary Testing; Complete Time: 12:45 EDMS 11/17 13:26 Order name: CBC with Automated Diff; Complete Time: 13:32 EDMS 11/17 13:40 Order name: Acetone Level; Complete Time: 14:02 EDPA 11/17 11:58 Order name: Urine Dipstick-Ancillary (obtain specimen); Complete Time: 13:18 9 11/17 11:58 Order name: IV Saline Lock; Complete Time: 13:18 9 11/17 13:41 Order name: Basic Metabolic Panel; Complete Time: 14:02 EDMS 11/17 14:58 Order name: Glucose Level; Complete Time: 15:31 9 11/17 15:43 Order name: Glucose, Ancillary Testing EDMS Administered Medications: 13:18 Drug: NS 0.9% 1000 ml Route: IV; Rate: 1000 ml; Site: right antecubital; 3 14:27 Follow up: IV Status: Completed infusion; IV Intake: 1000ml 3 13:18 Drug: Ondansetron 4 mg Route: IVP; Site: right antecubital; 3 14:27 Follow up: Response: Nausea is decreased 3 Disposition: 19:03 Co-signature as Attending Physician, Rivera Rahman MD I agree with the assessment and kdr plan of care. Disposition Summary: 11/17/21 15:01 Discharge Ordered Location: Home jl9 Condition: Stable jl9 Diagnosis - Nausea jl9 Followup: jl9 - With: Private Physician - When: 1 - 2 days - Reason: Recheck today's complaints, Continuance of care, Re-evaluation by your physician Discharge Instructions: - Discharge Summary Sheet jl9 - Nausea, Adult jl9 - Hyperglycemia, Mjoq-it-Aomk jl9 Forms: - Medication Reconciliation Form jl9 - Thank You Letter jl9 - Antibiotic Education jl9 - Prescription Opioid Use jl9 Prescriptions: - ondansetron 8 mg Oral tablet,disintegrating - take 1 tablet by ORAL route every 8 hours As needed; 15 tablet; Refills: 0, jl9 Product Selection Permitted Signatures: Dispatcher [employer] EDMS Rivera Rahman MD MD kdr Anjali Eric RN RN ss Kelle Gomez RN RN [facility] Brian Bear jl9 Corrections: (The following items were deleted from the chart) 15:01 12:52 This 46 yrs old Black Male presents to ER via Ambulatory with complaints of jl9 having elevated blood sugar the last few days. Patient reports that his BGL is always elevated but he did have nausea today. . jl9
[2021-11-18 05:23] VITALS: TEMP 98.1
[2021-11-18 05:25] VITALS: O2SAT 99
[2021-11-18 05:26] VITALS: BP 116/84
== END 2021-11-17 16:05 | disposition home or self-care (01) ==
LOC: ER 11:20
DX: R11.0 Nausea (principal); E11.9 Type 2 diabetes mellitus without complications; F17.210 Nicotine dependence, cigarettes, uncomplicated; Z88.5 Allergy status to narcotic agent
CPT/HCPCS: 36415; 80048; 82010; 82947; 85025; 96361; 96374; 99284; J2405; J7030

== ENCOUNTER 2022-07-04 12:12 | Emergency (ER) | payer SELFPAY ==
--- OUTSIDE RECORDS SUMMARY | 2022-07-04 12:20 | XMS REPORT | Continuity of Care Document ---
:1975 Author Organization [facility] t Address 1200 [facility] [address] [place] [id number] Care Team Providers Name Role Phone PCP, PATIENT DOES NOT HAVE A Primary Care Physician Unavaila MALCOLM Vidales Attending Clinician Unavailable RIVERA DE LEÓN Attending Clinician Unavailable Rivera De León MD Attending Clinician Malcolm Henley MD Attending Clinician Lab, Ang - Db Attending Clinician Unavailable 2, Adc Lab Attending Clinician Unavailable Payers Payer Name Policy Type Policy Number Effective Date Expiration Date S ource Problems Condition Condition Condition Status Onset Resolution Last Treating Co mments Source Name Details Category Date Date Treatment Clinician Date Type I Type I Disease Active 2020-02 Univers diabetes diabetes - ity of mellitus mellitus 00:00: [place] with with 00 Medical complicati complicati Br anch on, on, uncontroll uncontroll ed ed Neuropathy Neuropathy Disease Active 2020-02 U nivers 1- ity of 00:00: [place] 00 Medical Branch Paresthesi Paresthesi Problem Active C ommon a of skin a of skin Spir it - [facility] Pain in Pain in Diagnosis Active Commo n left lower left lower Sp benjamin leg leg - [facility] Pain, Pain, Diagnosis Active Common joint, joint, Spirit knee, left knee, left - [facility] 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 - [facility] itis of itis of St left knee left knee [facility] Allergies, Adverse Reactions, Alerts Allergy Allergy Status Severity Reaction(s) Onset Inactive Treating Comm ents Source Name Type Date Date Clinician NO KNOWN Drug Active [facility] ALLERGIE Class ity of S [facility] Social History Social Habit Start Date Stop Date Quantity Comments Source History [facility] University o f Alcohol Std Drinks [place] [facility] History [facility] University o f Alcohol Binge [place] [facility] History [facility] University o f Alcohol Comment [place] Med ical Branch Exposure to Not sure [place] of SARS-CoV-2 (event) [facility] Branch History of tobacco Cigarette Smoker University of use [facility] Alcohol intake 2020-12-14 2020-12-14 Lifetime University of 00:00:00 00:00:00 non-drinker [place] Medical (finding) Branch History SDOH 2019-09-22 2019-09-22 1 University o f Alcohol Frequency 00:00:00 00:00:00 [facility] Cigarettes smoked 2019-09-22 2019-09-22 Univers ity of current (pack per 00:00:00 00:00:00 [facility]) - Reported Branch Cigarette 2019-09-22 2019-09-22 University of pack-years 00:00:00 00:00:00 [facility] Tobacco use and 2019-09-22 2019-09-22 Never used Universit y of exposure 00:00:00 00:00:00 [facility] Sex Ass[birth year] At [birth year] Universit y of 00:00:00 00:00:00 [facility] Smoking Status Start Date Stop Date Source Current every day smoker 2019-09-22 00:00:00 Uni versity of [facility] Medications Ordered Filled Start Stop Current Ordering Indication Dosage Frequency Signature Comments Components Source Medication Medication Date Date Medication? Clinician (SIG) Name Name nystatin-tr Yes [id number] Apply to [facility] iamcinolone 03-31 [id number] area(s) 2 i ty of cream 00:00: (two) [place] 00 times Medical daily. Branch sulfamethox 2021- No [id number] 1{tbl} Take 1 [facility] azole-trime 03-31 [id number] tablet by ity of oprim 00:00: 05:59 mouth 2 [place] (BACTRIM 00 :00 (two) Medical DS) 800-160 times Branch mg per daily for tablet 10 days. Insulin 2020-02 Yes [id number] Take 50 Uni vers NPH-Regular 0-27 unit with ity of Human Rec 00:00: breakfast Adam as (HUMULIN 00 and 42 Medical 70/30 U-100 units with Br anch BEATAPEN) dinner 100 unit/mL (70-30) injection GABAPENTIN 2019-02 Yes Take by [facility] ers ORAL 1-04 mouth. ity of 09:48: [address] tramadol 2019-02 Yes Take [facility] HCl 1-04 mouth. ity of (TRAMADOL 09:48: [facility]) [address] [place] [address] MELOXICAM 2019-02 Yes Take by Unive rs ORAL 1-04 mouth. ity of 09:48: [address] PAROXETINE 2019-02 Yes Take by [facility] ers HCL ORAL 1-04 mouth. ity of 09:48: [address] Gabapentin Gabapentin Yes Gage not C ommon Juan defined Spirit - [facility] Meloxicam Meloxicam Yes Gage not Com mon Martinez defined Spirit - [facility] Tresiba Tresiba Yes Gage not Common Martinez defined [facility] - [facility] Metformin Metformin Yes Gage not Com mon HCl HCl Martinez defined Spirit [facility] tramadol tramadol Yes Gage not Commo n Martinez defined [facility] Vital Signs Vital Name Observation Time Observation Value Comments Source Systolic blood 2021-03-31 17:33:00 120 mm[Hg] [facility] pressure [facility] Diastolic blood 2021-03-31 17:33:00 76 mm[Hg] [facility] rsity of RUST Heart rate 2021-03-31 17:33:00 87 /min [facility] Body temperature 2021-03-31 17:33:00 36.5 Neda [facility] Respiratory rate 2021-03-31 17:33:00 18 /min [facility] Body height 2021-03-31 17:33:00 162.6 cm [facility] Body weight 2021-03-31 17:33:00 57.97 kg [facility] BMI 2021-03-31 17:33:00 21.94 kg/m2 [facility] Oxygen saturation in 2021-03-31 17:33:00 99 /min University of Arterial blood by [facility] Pulse oximetry Branch Procedures This patient has no known procedures. Encounters Start End Encounter Admission Attending Care Care Encounter Source Date/Time Date/Time Type Type Clinicians Facility Department ID 2021-04-26 2021-04-26 Outpatient R WANDY [facility] [id number] Univers 15:00:00 15:00:[address] [facility] 2021-03-31 2021-03-31 Outpatient R DENISSE [facility] [id number] Univers 10:30:00 12:24:36 RIVERA zeb [facility] 2021-03-31 2021-03-31 Office Denisse [facility] [id number] Univers 10:30:00 12:24:36 Visit Rivera Davison [employer] [id number] it y of [place] [id number] Adam as TINO?BLEA [phone] 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 353 [facility] Office Building 2020-12-14 2020-12-14 Outpatient R WANDY [facility] [id number] Univers 16:00:00 16:55:20 [facility] 2020-12-14 2020-12-14 Office [facility] [id number] Univers 15:48:44 16:55:20 Visit [facility] [id number] it y of [place] [id number] Adam as TINO?BLEA [phone] [address] OFFICE [facility] 2020-10-07 2020-10-07 Refill [facility] [id number] Univers 00:00:00 00:00:00 [place]ong [place] [id number] [place] ty [id number] Profess[place] [phone] [address] 2020-05-11 2020-05-11 [facility] [id number] Univers 10:00:00 10:00:[address] [facility] 2019-12-23 2019-12-23 Office [facility] [id number] 09:31:09 10:15:22 Visit Malcolm Loja [id number] [place] [id number] Professio [phone] [address] 2019-12-23 2019-12-23 Office [facility] [id number] Univers 09:31:09 10:15:22 Visit Malcolm [place] [id number] i ty [id number] [phone] [address] 2019-12-23 2019-12-23 [facility] [id number] Univers 09:30:00 09:30:00 [facility] 2019-10-01 2019-10-01 Telephone [facility] [id number] Univers 00:00:00 00:00:00 [place]ong [place] [id number] i ty [id number] [phone] [address] 2019-09-23 2019-09-23 Telephone [facility] [id number] Univers 00:00:00 00:00:00 Wentong [place] [id number] i ty [id number] Profess[place] [phone] Ut dical nal [address] [facility] 2019-09-22 2019-09-22 Retail Loan Originator Assistant 2, Adc Lab [facility] [id number] Univers 10:42:31 10:57:31 Visit Malcolm Henley [id number] it[place] of [id number] [phone] Ut dical nal 353 [facility] 2019-09-22 2019-09-22 Office Wandy [facility] [id number] Univers 08:58:06 10:23:11 Visit Malcolm Loja [id number] i ty [id number] Profess[place] [phone] Ut dical nal 220 [facility] 2019-09-22 2019-09-22 Outpatient R WANDY [facility] [id number] Univers 08:30:00 08:30:00 MALCOLM cosme [facility] 2018-04-03 2018-04-03 [id number] Common 14:30:00 14:30:00 t [facility] - [facility] Results This patient has no known results.
--- NOTE | 2022-07-04 12:41 | RAD REPORT ---
[facility] 12:34 pm CLINICAL HISTORY: COUGH COMPARISON: Chest Single View dated 02/29/2020; Chest Single View dated 02/28/2020; Chest Pa And Lat ( 2 Views) dated 09/08/2019 TECHNIQUE: Portable AP view of the chest. FINDINGS: The lungs are clear. No pneumothorax or effusion. The cardiomediastinal contours are unrem arkable. IMPRESSION: No acute cardiopulmonary process.
[2022-07-04] MEDS ORDERED: NA CHLORIDE 0.9% 1,000 ML ONE ×2 (13:49→16:08)
[2022-07-04 13:50] LABS: Absolute Lymphocytes (CBC) 1.7 K/uL (0.7-4.9); Hematocrit 40.3 % (39.6-49.0); Lymphocytes % 36.9 % (15.3-44.8); MCV 90.7 fL (80-100); MPV 8.2 fL (7.6-11.3); RBC Red Blood Cell Count 4.44 M/uL (4.33-5.43)
[2022-07-04 13:58] LABS: Protime INR 0.88
[2022-07-04 14:13] LABS: Albumin 3.5 g/dL (3.4-5.0); Bilirubin Direct 0.1 mg/dL (0-0.2); Bilirubin Indirect, Calculated 0.1 mg/dL (0.2-0.8); Bilirubin Total 0.2 mg/dL (0.2-1.0); Magnesium 1.8 mg/dL (1.6-2.4); Potassium 2.8 mEq/L (3.5-5.1); Protein, Total 6.8 g/dL (6.4-8.2); Troponin High Sensitivity 3.5 pg/mL (<58.9)
[2022-07-04 15:12] LABS: Specific Gravity > 1.030 (1.005-1.030); Urine Bacteria None Seen /HPF (<20); Urine Bilirubin NEGATIVE (Negative); Urine Blood Negative (Negative); Urine Clarity Clear (Clear); Urine Color Light-Yellow (Yellow); Urine Glucose 4+ (Over) (Negative); Urine Mucus Slight /HPF (None Seen); Urine Protein TRACE (Negative); Urine RBC <5 /HPF (None Seen); Urine Urobilinogen Normal (Normal); Urine pH 5.5 (5.0-7.0)
[2022-07-04] MEDS ORDERED: POTASSIUM 25 MEQ EFFERV TAB ONE ×2 (16:08→16:54)
[2022-07-04] MEDS ORDERED: CEFTRIAXONE 1000 MG/VIAL ONE (16:11)
--- NOTE | 2022-07-04 17:14 | ER ---
Nurse's Notes [facility] Name: Angel Flores Age: 47 yrs Sex: Male : 1975 Arrival Date: 07/04/2022 Time: 12:12 Bed 8 Private MD: Diagnosis: Weakness;Type 2 diabetes mellitus with hyperglycemia;Hypokalemia Presentation: 07/04 12:37 Chief complaint: Patient states: Generalized weakness for about a week, getting worse. nj1 Takes insulin for diabetes, states blood sugar is all over the place. Coronavirus screen: Vaccine status: Patient reports receiving the 2nd dose of the covid vaccine. Ebola Screen: Patient denies travel to an Ebola-affected area in the 21 days before illness onset. Initial Sepsis Screen: Does the patient meet any 2 criteria? No. Patient's initial sepsis screen is negative. Does the patient have a suspected source of infection? No. Patient's initial sepsis screen is negative. Risk Assessment: Do you want to hurt yourself or someone else? Patient reports no desire to harm self or others. Onset of symptoms was June 27, 2022. 12:37 Method Of Arrival: Ambulatory [facility] 12:37 Acuity: LALITA 3 nj1 Historical: - Allergies: 12:40 Morphine; nj1 - PMHx: 12:40 Diabetes - NIDDM; Cluster headaches; nj1 - PSHx: 12:40 L leg; nj1 - Immunization history:: Client reports receiving the 2nd dose of the Covid vaccine. - Social history:: Smoking status: Patient reports the use of cigarette tobacco products, smokes one-half pack cigarettes per day. Screenin:46 [facility] ED Fall Risk Assessment (Adult) History of falling in the last 3 months, kc6 including since admission No falls in past 3 months (0 pts) Confusion or Disorientation No (0 pts) Intoxicated or Sedated No (0 pts) Impaired Gait No (0 pts) Mobility Assist Device Used No (0 pt) Altered Elimination No (0 pt) Score/Fall Risk Level 0 - 2 = Low Risk Oriented to surroundings, Maintained a safe environment, Educated pt \T\ family on fall prevention, incl call for assistance when getting out of bed, Assessed \T\ reinforced patient's understanding of fall precautions, Hourly rounding (assess needs \T\ fall precautionary measures) done. Abuse screen: Denies threats or abuse. Denies injuries from another. Nutritional screening: No deficits noted. Tuberculosis screening: No symptoms or risk factors identified. Assessment: 13:46 General: Appears in no apparent distress. comfortable, Behavior is calm, cooperative, kc6 appropriate for age. Pain: Denies pain. Neuro: Aviles Agitation-Sedation Scale (RASS): 0 - Alert and Calm Level of Consciousness is awake, alert, obeys commands, Oriented to person, place, time, situation, Appropriate for age Reports weakness. Cardiovascular: Capillary refill < 3 seconds. Respiratory: Airway is patent Trachea midline Respiratory effort is even, unlabored, Respiratory pattern is regular, symmetrical. GI: No signs and/or symptoms were reported involving the gastrointestinal system. : No signs and/or symptoms were reported regarding the genitourinary system. EENT: No signs and/or symptoms were reported regarding the EENT system. Derm: No signs and/or symptoms reported regarding the dermatologic system. Skin is intact, Skin is pink, warm \T\ dry. Musculoskeletal: No signs and/or symptoms reported regarding the musculoskeletal system. Circulation, motion, and sensation intact. Capillary refill < 3 seconds, Range of motion: intact in all extremities. 14:46 Reassessment: Patient appears in no apparent distress at this time. No changes from kc6 previously documented assessment. Patient and/or family updated on plan of care and expected duration. Pain level reassessed. Patient is alert, oriented x 3, equal unlabored respirations, skin warm/dry/pink. 15:46 Reassessment: Patient appears in no apparent distress at this time. No changes from kc6 previously documented assessment. Patient and/or family updated on plan of care and expected duration. Pain level reassessed. Patient is alert, oriented x 3, equal unlabored respirations, skin warm/dry/pink. 16:46 Reassessment: Patient appears in no apparent distress at this time. No changes from kc6 previously documented assessment. Patient and/or family updated on plan of care and expected duration. Pain level reassessed. Patient is alert, oriented x 3, equal unlabored respirations, skin warm/dry/pink. 17:13 Reassessment: d/c pending lab results. kc6 17:46 Reassessment: Patient appears in no apparent distress at this time. No changes from kc6 previously documented assessment. Patient and/or family updated on plan of care and expected duration. Pain level reassessed. Patient is alert, oriented x 3, equal unlabored respirations, skin warm/dry/pink. Vital Signs: 12:37 BP 123 / 83; Pulse 89; Resp 18; Temp 98.8(TE); Pulse Ox 100% ; Weight 48.99 kg; Height nj1 5 ft. 4 in. ; Pain 0/10; 13:47 BP 112 / 81; Pulse 86; Resp 18 S; Pulse Ox 100% on R/A; kc6 14:52 BP 124 / 91; Pulse 74; Resp 19 S; Pulse Ox 100% on R/A; kc6 15:52 BP 111 / 77; Pulse 82; Resp 17 S; Pulse Ox 100% on R/A; kc6 17:02 BP 114 / 84; Pulse 102; Resp 21 S; Pulse Ox 100% on R/A; kc6 17:44 BP 110 / 82; Pulse 96; Resp 19 S; Pulse Ox 100% on R/A; kc6 12:37 Body Mass Index 18.54 (48.99 kg, 162.56 cm) nj1 12:37 Pain Scale: Adult [facility] ED Course: 12:14 Patient arrived in ED. mr 12:18 Dandy Adame MD is Attending Physician. mora 12:35 XRAY Chest (1 view) In Process Unspecified. EDMS 12:40 Triage completed. nj1 12:41 Arm band placed on right wrist. nj1 13:26 Kathya Mac, RN is Primary Nurse. kc6 13:45 Inserted saline lock: 20 gauge in right antecubital area, using aseptic technique. kc6 Blood collected. 13:47 Patient has correct armband on for positive identification. Placed in gown. Bed in low kc6 position. Call light in reach. Side rails up X 1. 14:59 Urinalysis w/ reflexes Sent. kc6 16:54 Lactate w/ 2H reflex if indic. Sent. kc6 16:54 Troponin High Sensitivity: NOW Sent. kc6 17:13 Barry Becker MD is Referral Physician. mora 17:50 No provider procedures requiring assistance completed. IV discontinued, intact, kc6 bleeding controlled, No redness/swelling at site. Pressure dressing applied. Administered Medications: 13:45 Drug: NS 0.9% IV 1000 ml Route: IV; Rate: 1 bolus; Site: right antecubital; kc6 14:59 Follow up: Response: No adverse reaction; IV Status: Completed infusion; IV Intake: kc6 1000ml 16:09 Drug: NS 0.9% IV 1000 ml Route: IV; Rate: 1 bolus; Site: right antecubital; kc6 17:09 Follow up: Response: No adverse reaction; IV Status: Completed infusion; IV Intake: kc6 1000ml 16:09 Drug: Potassium PO Effervescent Tablet 50 mEq Route: PO; kc6 17:03 Follow up: Response: No adverse reaction kc6 16:09 Drug: Rocephin IV 1 grams Route: IV; Rate: per protocol; Site: right antecubital; kc6 17:03 Follow up: Response: No adverse reaction; IV Status: Completed infusion; IV Intake: 88phss5 16:54 Drug: Potassium PO Effervescent Tablet 25 mEq Route: PO; kc6 17:45 Follow up: Response: No adverse reaction kc6 Medication: 17:51 VIS not applicable for this client. kc6 Intake: 14:59 IV: 1000ml; Total: 1000ml. kc6 17:03 IV: 10ml; Total: 1010ml. kc6 17:09 IV: 1000ml; Total: 2010ml. kc6 Outcome: 17:13 Discharge ordered by MD. velazco 17:50 Discharged to home ambulatory. kc6 17:50 Condition: improved 17:50 Discharge instructions given to patient, Instructed on discharge instructions, follow up and referral plans. Demonstrated understanding of instructions, follow-up care. 17:51 Patient left the ED. kc6 Signatures: Dispatcher [employer] EDDandy Harry MD MD cha Rivera, Mary mr Campbell, Kaitlyn RN RN kc6 Janay Deluna RN RN nj1 Corrections: (The following items were deleted from the chart) 12:41 12:37 Pulse 89bpm; Resp 18bpm; Pulse Ox 100%; Temp 98.8F Temporal; 48.99 kg; Height 5 nj1 ft. 4 in.; BMI: 18.5; Pain 0/10, Adult; nj1
--- NOTE | 2022-07-04 17:14 | EDPHYS ---
Physician Documentation [facility] Name: Angel Flores Age: 47 yrs Sex: Male : 1975 Arrival Date: 07/04/2022 Time: 12:12 Bed 8 Private MD: ED Physician Dandy Adame HPI: 07/04 16:02 This 47 yrs old Black Male presents to ER via Ambulatory with complaints of Diabetic, mora Weakness. 16:02 The patient presents to the emergency department with weakness of the. Onset: The mora symptoms/episode began/occurred 3 day(s) ago. Context: occurred. Historical: - Allergies: 12:40 Morphine; nj1 - PMHx: 12:40 Diabetes - NIDDM; Cluster headaches; nj1 - PSHx: 12:40 L leg; nj1 - Immunization history:: Client reports receiving the 2nd dose of the Covid vaccine. - Social history:: Smoking status: Patient reports the use of cigarette tobacco products, smokes one-half pack cigarettes per day. ROS: 16:04 Constitutional: Negative for fever, chills, and weight loss, Eyes: Negative for injury, mora pain, redness, and discharge, ENT: Negative for injury, pain, and discharge, Neck: Negative for injury, pain, and swelling, Cardiovascular: Negative for chest pain, palpitations, and edema, Respiratory: Negative for shortness of breath, cough, wheezing, and pleuritic chest pain, Abdomen/GI: Negative for abdominal pain, nausea, vomiting, diarrhea, and constipation, Back: Negative for injury and pain, : Negative for injury, bleeding, discharge, and swelling, MS/Extremity: Negative for injury and deformity, Skin: Negative for injury, rash, and discoloration, Psych: Negative for depression, anxiety, suicide ideation, homicidal ideation, and hallucinations, Allergy/Immunology: Negative for hives, rash, and allergies, Endocrine: Negative for neck swelling, polydipsia, polyuria, polyphagia, and marked weight changes, Hematologic/Lymphatic: Negative for swollen nodes, abnormal bleeding, and unusual bruising. 16:04 Neuro: Positive for weakness. Exam: 16:04 Constitutional: This is a well developed, well nourished patient who is awake, alert, mora and in no acute distress. Head/Face: Normocephalic, atraumatic. Eyes: Pupils equal round and reactive to light, extra-ocular motions intact. Lids and lashes normal. Conjunctiva and sclera are non-icteric and not injected. Cornea within normal limits. Periorbital areas with no swelling, redness, or edema. ENT: Nares patent. No nasal discharge, no septal abnormalities noted. Tympanic membranes are normal and external auditory canals are clear. Oropharynx with no redness, swelling, or masses, exudates, or evidence of obstruction, uvula midline. Mucous membranes moist. Neck: Trachea midline, no thyromegaly or masses palpated, and no cervical lymphadenopathy. Supple, full range of motion without nuchal rigidity, or vertebral point tenderness. No Meningismus. Chest/axilla: Normal chest wall appearance and motion. Nontender with no deformity. No lesions are appreciated. Cardiovascular: Regular rate and rhythm with a normal S1 and S2. No gallops, murmurs, or rubs. Normal PMI, no JVD. No pulse deficits. Respiratory: Lungs have equal breath sounds bilaterally, clear to auscultation and percussion. No rales, rhonchi or wheezes noted. No increased work of breathing, no retractions or nasal flaring. Abdomen/GI: Soft, non-tender, with normal bowel sounds. No distension or tympany. No guarding or rebound. No evidence of tenderness throughout. Back: No spinal tenderness. No costovertebral tenderness. Full range of motion. Male : Normal genitalia with no discharge or lesions. Skin: Warm, dry with normal turgor. Normal color with no rashes, no lesions, and no evidence of cellulitis. MS/ Extremity: Pulses equal, no cyanosis. Neurovascular intact. Full, normal range of motion. Neuro: Awake and alert, GCS 15, oriented to person, place, time, and situation. Cranial nerves II-XII grossly intact. Motor strength 5/5 in all extremities. Sensory grossly intact. Cerebellar exam normal. Normal gait. Psych: Awake, alert, with orientation to person, place and time. Behavior, mood, and affect are within normal limits. 16:10 ECG was reviewed by the Attending Physician. [facility] Vital Signs: 12:37 BP 123 / 83; Pulse 89; Resp 18; Temp 98.8(TE); Pulse Ox 100% ; Weight 48.99 kg; Height nj1 5 ft. 4 in. ; Pain 0/10; 13:47 BP 112 / 81; Pulse 86; Resp 18 S; Pulse Ox 100% on R/A; kc6 14:52 BP 124 / 91; Pulse 74; Resp 19 S; Pulse Ox 100% on R/A; kc6 15:52 BP 111 / 77; Pulse 82; Resp 17 S; Pulse Ox 100% on R/A; kc6 17:02 BP 114 / 84; Pulse 102; Resp 21 S; Pulse Ox 100% on R/A; kc6 17:44 BP 110 / 82; Pulse 96; Resp 19 S; Pulse Ox 100% on R/A; kc6 12:37 Body Mass Index 18.54 (48.99 kg, 162.56 cm) nj1 12:37 Pain Scale: Adult nj1 MDM: 12:57 Patient medically screened. [facility] 16:05 Differential Diagnosis sepsis. Data reviewed: vital signs, nurses notes, lab test mora result(s), EKG, radiologic studies, plain films. Consideration of Admission/Observation Escalation of care including admission/observation considered. I considered the following discharge prescriptions or medication management in the emergency department Medications were administered in the Emergency Department. See MAR. Test considered but Not performed: CT: NO CT CHEST, ABD , PEL. Historians other than the Patient: EMS: EMS. Care significantly affected by the following chronic conditions: Diabetes, HEADACHE. 07/04 12:21 Order name: Basic Metabolic Panel; Complete Time: 15:54 [facility] 07/04 12:21 Order name: CBC with Diff; Complete Time: 15:54 [facility] 07/04 12:21 Order name: LFT's; Complete Time: 15:54 [facility] 07/04 12:21 Order name: Magnesium; Complete Time: 15:54 [facility] 07/04 12:21 Order name: NT PRO-BNP; Complete Time: 15:54 [facility] 07/04 12:21 Order name: PT-INR; Complete Time: 15:54 [facility] 07/04 12:21 Order name: Troponin HS; Complete Time: 15:54 [facility] 07/04 12:21 Order name: Ketone, Serum; Complete Time: 15:54 [facility] 07/04 12:21 Order name: Lipase; Complete Time: 15:54 [facility] 07/04 12:21 Order name: Urinalysis w/ reflexes; Complete Time: 15:54 [facility] 07/04 12:21 Order name: Blood Culture Adult (2) [facility] 07/04 12:21 Order name: Lactate w/ 2H reflex if indic.; Complete Time: 15:54 [facility] 07/04 12:57 Order name: Glucose, Ancillary Testing; Complete Time: 15:54 EDMS 07/04 16:12 Order name: Troponin High Sensitivity: NOW; Complete Time: 17:41 [facility] 07/04 16:43 Order name: Lactate w/ 2H reflex if indic.; Complete Time: 17:42 kc 07/04 12:21 Order name: XRAY Chest (1 view); Complete Time: 15:54 [facility] 07/04 12:21 Order name: EKG; Complete Time: 12:22 [facility] 07/04 15:58 Order name: Diet Regular; Complete Time: 15:59 [facility] 07/04 12:21 Order name: Cardiac monitoring; Complete Time: 13:45 [facility] 07/04 12:21 Order name: EKG - Nurse/Tech; Complete Time: 13:41 [facility] 07/04 12:21 Order name: IV Saline Lock; Complete Time: 13:45 [facility] 07/04 12:21 Order name: Labs collected and sent; Complete Time: 13:45 [facility] 07/04 12:21 Order name: O2 Per Protocol; Complete Time: 13:45 [facility] 07/04 12:21 Order name: O2 Sat Monitoring; Complete Time: 13:45 [facility] 07/04 17:43 Order name: Vital Signs; Complete Time: 17:45 [facility] EC:10 Rate is 87 beats/min. Rhythm is regular. QRS [place] is Normal. PA interval is normal. QRS mora interval is normal. QT interval is normal. No Q waves. T waves are Normal. Clinical impression: NSR w/ Non-specific ST/T Changes and No evidence of ischemia. Interpreted by me. Reviewed by me. Administered Medications: 13:45 Drug: NS 0.9% IV 1000 ml Route: IV; Rate: 1 bolus; Site: right antecubital; kc6 14:59 Follow up: Response: No adverse reaction; IV Status: Completed infusion; IV Intake: kc6 1000ml 16:09 Drug: NS 0.9% IV 1000 ml Route: IV; Rate: 1 bolus; Site: right antecubital; kc6 17:09 Follow up: Response: No adverse reaction; IV Status: Completed infusion; IV Intake: kc6 1000ml 16:09 Drug: Potassium PO Effervescent Tablet 50 mEq Route: PO; kc6 17:03 Follow up: Response: No adverse reaction kc6 16:09 Drug: Rocephin IV 1 grams Route: IV; Rate: per protocol; Site: right antecubital; kc6 17:03 Follow up: Response: No adverse reaction; IV Status: Completed infusion; IV Intake: [id number] 16:54 Drug: Potassium PO Effervescent Tablet 25 mEq Route: PO; kc6 17:45 Follow up: Response: No adverse reaction kc6 Disposition Summary: 07/04/22 17:13 Discharge Ordered Location: Home mora Problem: new mora Symptoms: have improved mora Condition: Stable mora Diagnosis - Weakness mora - Type 2 diabetes mellitus with hyperglycemia mora - Hypokalemia mora Followup: mora - With: Private Physician - When: 2 - 3 days - Reason: Recheck today's complaints, Continuance of care, Re-evaluation by your physician Followup: mora - With: - When: 2 - 3 days - Reason: Recheck today's complaints, Continuance of care, Re-evaluation by your physician Discharge Instructions: - Discharge Summary Sheet mora - Type 2 Diabetes Mellitus, Diagnosis, Adult mora - Potassium Content of Foods mora - Hyperglycemia mora - Weakness mora - Fatigue mora - Blood Glucose Monitoring, Adult mora - Diabetes Mellitus and Nutrition, Adult mora - Weakness, Uhdc-gt-Poap mora - Hypokalemia mora Forms: - Medication Reconciliation Form mora - Thank You Letter mora - Antibiotic Education mora - Prescription Opioid Use mora Signatures: Dispatcher [employer] Dandy Rincon MD MD cha Campbell, Kaitlyn RN RN kc6 Janay Deluna RN RN nj1
[2022-07-04 18:31] VITALS: O2SAT 100
[2022-07-04 18:37] VITALS: BP 110/82
[2022-07-04 18:45] VITALS: TEMP 98.1
--- NOTE | 2022-07-05 05:37 | EKG ---
Test Date: 2022-07-04 Test Time: 13:38:00 Plastic Sewer: CHANA MEASUREMENT RESULTS: Intervals: Rate: 87 GA: 134 QRSD: 68 QT: 380 QTc: 457 [place]: P: 42 GA: 134 QRS: 84 T: 59 INTERPRETIVE STATEMENTS: Normal sinus rhythm T wave abnormality, consider inferior ischemia Abnormal ECG Compared to ECG 02/28/2020 10:41:24 T-wave abnormality now present Possible ischemia now present Sinus tachycardia no longer present Atrial abnormality no longer present Left ventricular hypertrophy no longer present Electronically Signed On 07-05-22 05:36:34 CDT by Manuel Mcmahan
== END 2022-07-04 17:51 | disposition home or self-care (01) ==
LOC: ER 12:12
DX: E11.65 Type 2 diabetes mellitus with hyperglycemia (principal); E87.6 Hypokalemia
CPT/HCPCS: 36415; 71045; 80048; 80076; 81001; 82010; 82947; 83605; 83690; 83735; 83880; 84484; 85025; 85610; 87040; 93005; J0696; J7030

== ENCOUNTER 2023-03-23 12:24 | Inpatient (IN) | payer OTHER, SELFPAY ==
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
[2023-03-23 13:03] LABS: Absolute Lymphocytes (CBC) 2.6 K/uL (0.7-4.9); Hematocrit 45.6 % (39.6-49.0); Lymphocytes % 5.6 % (15.3-44.8); MCV 106.7 fL (80-100); MPV 8.2 fL (7.6-11.3); Platelets 460 thou/uL (152-406); RBC Red Blood Cell Count 4.28 M/uL (4.33-5.43)
[2023-03-23] MEDS ORDERED: NA CHLORIDE 0.9% 1,000 ML ONE ×2 (13:06→14:03)
--- NOTE | 2023-03-23 13:07 | RAD REPORT ---
EXAM DESCRIPTION: RAD - Chest Single View - 03/23/2023 12:59 pm CLINICAL HISTORY: AMS Chest pain. COMPARISON: Chest Single View dated 07/04/2022; Chest Single View dated 02/29/2020; Chest Single View dated 02/28/2020; Chest Pa And Lat (2 Views) dated 09/08/2019 FINDINGS: Portable technique limits examination quality. The lungs are grossly clear. The heart is normal in size. No displaced fractures. IMPRESSION: No acute intrathoracic process suspected.
[2023-03-23] MEDS ORDERED: NA CHLORIDE 0.9% 0 ML ONE (13:09)
[2023-03-23] MEDS ORDERED: CALCIUM GLUCONATE 1 GM IVPB 2 GM/100 ML BAG IV ONE (13:10)
[2023-03-23 13:11] LABS: Barbiturates NEGATIVE (NEGATIVE); Benzodiazepines NEGATIVE (NEGATIVE); Cocaine POSITIVE (NEGATIVE); METHAMPHETAM NEGATIVE (NEGATIVE); Methadone NEGATIVE (NEGATIVE); Opiates NEGATIVE (NEGATIVE); Phencyclidine NEGATIVE (NEGATIVE); Specific Gravity 1.021 (1.005-1.030); THC Cannibis NEGATIVE (NEGATIVE); Urine Bacteria <20 /HPF (<20); Urine Bilirubin NEGATIVE (Negative); Urine Blood 1+ (Negative); Urine Clarity Turbid (Clear); Urine Color Light-Yellow (Yellow); Urine Glucose 4+ (Over) (Negative); Urine Mucus Slight /HPF (None Seen); Urine Protein 2+ (Negative); Urine RBC <5 /HPF (None Seen); Urine Urobilinogen Normal (Normal); Urine pH 5.5 (5.0-7.0)
[2023-03-23 13:28] LABS: ALT/SGPT 29 U/L (16-61); AST/SGOT 21 U/L (15-37); Albumin 3.2 g/dL (3.4-5.0); Alkaline Phosphatase 97 U/L (45-117); BUN Blood Urea Nitrogen 51 mg/dL (7-18); Bilirubin Total 0.5 mg/dL (0.2-1.0); Glomerular Filtration Rate 19 ml/min (=/>90); Protein, Total 6.8 g/dL (6.4-8.2); Troponin High Sensitivity 38.4 pg/mL (<58.9)
[2023-03-23 13:29] LABS: Protime INR 1.08
[2023-03-23 13:30] LABS: Bicarbonate < 8 mEq/L (21-32); Glucose Level 1257 mg/dL (74-106); Potassium 6.2 mEq/L (3.5-5.1); Sodium Level 119 mEq/L (136-145)
[2023-03-23 13:37] LABS: Arterial Blood Carboxyhemoglob 0.8 % (0-1.5); Blood Gas Oxyhemoglobin 93.4 % (94-97); Blood O2 Saturation 96.8 % (92-98.5)
--- NOTE | 2023-03-23 13:38 | ER ---
Nurse's Notes [facility] Name: Angel Flores Age: 48 yrs Sex: Male : 1975 Arrival Date: 03/23/2023 Time: 12:24 Bed 4 Private MD: Diagnosis: DKA, dehydration, presumed sepsis, hyperkalemia Presentation: 03/23 12:34 Chief complaint: Patient states: Pt presents with EMS. Per provider, family reports pt tl4 was calling out all night and then went silent. Pt was found with altered mental status laying on a pile of clothes. Family unable to provide any further details regarding this event. Pt is unable to verbalize any complaints. Pt is known diabetic. EMS blood glucose read "high". Coronavirus screen: Vaccine status: At this time, the client does not indicate any symptoms associated with coronavirus-19. Ebola Screen: No symptoms or risks identified at this time. Initial Sepsis Screen: Does the patient meet any 2 criteria? Yes Does the patient have a suspected source of infection? No. Patient's initial sepsis screen is negative. Risk Assessment: Do you want to hurt yourself or someone else? Unable to obtain. Onset of symptoms was March 22, 2023. 12:34 Method Of Arrival: EMS: [facility] tl4 12:34 Acuity: LALITA 2 tl4 Triage Assessment: 12:43 General: Appears distressed, unkempt, emaciated, Behavior is agitated, uncooperative, tl4 unresponsive. Pain: Unable to use pain scale. Patient appears agitated, restless, Patient is unresponsive. EENT: No deficits noted. Neuro: Level of Consciousness is awake, unresponsive, Oriented to none Moves all extremities. Speech pt yelling out, incomprehensible sounds/words. Facial symmetry appears normal. Cardiovascular: Capillary refill is sluggish skin cool, dry. Pulses are palpable in right radial artery and left radial artery. Respiratory: No deficits noted. Airway is patent Trachea deviated to right Respiratory effort is even, unlabored, Respiratory pattern is regular, Breath sounds are clear bilaterally. GI: Abdomen is non-distended, Abd is soft Abd is non tender. : Chavez in place. Derm: No deficits noted. Historical: - Allergies: 12:42 Morphine; tl4 - PMHx: 12:42 cluster headaches; Diabetes - NIDDM; Sciatica (L leg); tl4 - PSHx: 12:42 L leg; tl4 - Immunization history:: Adult Immunizations unknown. - Social history:: Smoking status: unknown. Screenin:04 [facility] ED Fall Risk Assessment (Adult) History of falling in the last 3 months, tl4 including since admission No falls in past 3 months (0 pts) Confusion or Disorientation Yes (5 pts) Intoxicated or Sedated No (0 pts) Impaired Gait No (0 pts) Mobility Assist Device Used No (0 pt) Altered Elimination No (0 pt) Score/Fall Risk Level 3 or more points = High Risk Maintained a safe environment, Educated pt \\T\\ family on fall prevention, incl call for assistance when getting out of bed, Assessed \\T\\ reinforced patient's understanding of fall precautions, Provided non-skid footwear, Hourly rounding (assess needs \\T\\ fall precautionary measures) done, Used ambulatory aids as needed (educated on \\T\\ assisted with), Used gait belt as appropriate. Abuse screen: pt unable to answer. Nutritional screening: No deficits noted. Tuberculosis screening: No symptoms or risk factors identified. Assessment: 12:30 Reassessment: Soft restraints applied to right and left wrist. PMS intact in both tl4 extremities. 12:40 Reassessment: Douglas hugger applied to patient and notified ERP of low Temp. tl4 12:45 Reassessment: Wrist restraints remain in place. PMS intact. Pt is unable to comprehend tl4 verbal directions or redirection. No changes in patient mental status. Will continue to monitor. 13:00 Reassessment: Patient and/or family updated on plan of care and expected duration. Pain tl4 level reassessed. Bilateral wrist restraints remain in place. PMS intact. Douglas hugger in place. No change in pt temperature. 13:15 Reassessment: Bilateral wrist restraints remain in place. Pt is unable to follow verbal tl4 direction and redirection. No changes in patient mental status. Will continue to monitor. 13:30 Reassessment: No changes from previously documented assessment. Bilateral wrist tl4 restraints remain in place. Will continue to monitor. 13:45 Reassessment: No changes from previously documented assessment. Bilateral wrist tl4 restraints in place. Pt unable to be verbally redirected. Douglas hugger in place. Will continue to monitor. 14:00 Reassessment: No changes from previously documented assessment. Patient and/or family tl4 updated on plan of care and expected duration. Pain level reassessed. Bilateral wrist restraints in place. Pt mental status remains the same. Pt unable to be verbally redirected. Douglas hugger blanket in place. No change in pt temperature. CHILD WATCH ATTENDANT Zohaib aware. 14:15 Reassessment: No changes from previously documented assessment. Patient and/or family tl4 updated on plan of care and expected duration. Pain level reassessed. Bilateral wrist restraints in place. No changes in condition. 14:30 Reassessment: No changes from previously documented assessment. Patient and/or family tl4 updated on plan of care and expected duration. Pain level reassessed. Wrist restraints remain in place. No changes in condition. Vital Signs: 12:34 BP 94 / 62; Pulse 56; Resp 16; Temp 95.9(TE); Pulse Ox 98% on R/A; Weight 36.29 kg; tl4 12:50 Temp 87.6(R); ld1 13:04 BP 97 / 56; Pulse 58; Resp 15; Pulse Ox 96% on R/A; tl4 13:27 BP 89 / 48; Pulse 59; Resp 16; Temp 89.6(Ca); tl4 14:19 BP 76 / 47; Pulse 65; Resp 19; Temp 86.8(Ca); Pulse Ox 100% on R/A; tl4 14:38 BP 111 / 38; Pulse 58; Resp 25; Temp 86.9(Ca); Pulse Ox 99% on R/A; tl4 Vitals: 13:04 Cardiac Rhythm Assessment Regular Sinus shannan. tl4 [place] Coma Score: 12:55 Eye Response: spontaneous(4). Motor Response: withdraws from pain(4). Verbal Response: tl4 incomprehensible(2). Total: 10. 12:55 Eye Response: spontaneous(4). Motor Response: withdraws from pain(4). Verbal Response: tl4 incomprehensible(2). Total: 10. ED Course: 12:26 Patient arrived in ED. eb 12:26 Asha Sutherland MD is Attending Physician. sp3 12:32 Gordy Martinez is Primary Nurse. tl4 12:42 Triage completed. tl4 12:46 Arm band placed on Patient placed in an exam room, on a stretcher. tl4 12:55 Lactate w/ 2H reflex if indic. Sent. ld1 12:55 Blood Culture Adult (2) Sent. ld1 12:55 UDS Sent. ld1 12:55 Troponin High Sensitivity Sent. ld1 12:55 AMMONIA Sent. ld1 12:55 CBC with Diff Sent. ld1 12:55 CMP Sent. ld1 12:55 Protime (+inr) Sent. ld1 12:55 Ptt, Activated Sent. ld1 12:55 Urinalysis w/ reflexes Sent. ld1 13:00 Thermoregulation: Douglas blanket applied. tl4 13:01 Chest Single View XRAY In Process Unspecified. EDMS 13:04 Chavez cath inserted, using sterile technique, 16 Fr., by id, balloon inflated, urine ld1 specimen collected. 13:04 Inserted saline lock: 20 gauge in right antecubital area, using aseptic technique. ld1 Blood collected. 13:06 UDS Sent. tl4 13:06 CBC with Diff Sent. tl4 13:06 CMP Sent. tl4 13:06 Lactate w/ 2H reflex if indic. Sent. tl4 13:06 Urinalysis w/ reflexes Sent. tl4 13:06 Ptt, Activated Sent. tl4 13:06 Protime (+inr) Sent. tl4 13:36 John Osborn MD is Hospitalizing Provider. sp3 14:40 Patient has correct armband on for positive identification. Placed in gown. Bed in low tl4 position. Call light in reach. Side rails up X2. Provided Education on: . 14:40 Client placed on continuous cardiac and pulse oximetry monitoring. NIBP monitoring tl4 applied. monitoring analyst on. Door closed. Noise minimized. Lights dimmed. Warm blanket given. Bear hugger applied. 14:40 No provider procedures requiring assistance completed. tl4 14:41 Maintain EMS IV. Dressing intact. Good blood return noted. Site clean \\T\\ dry. Gauge \\T\\ tl 4 site: 18g left AC. 14:41 Inserted saline lock: 20 gauge in left upper arm, using aseptic technique. Blood tl4 collected. 14:41 Patient admitted, IV remains in place. tl4 Restraints: 12:30 Violent/Self Destructive Restraint: Initiated March 23, 2023 at 12:30 Staff present tl4 during the Initiation of Restraint: Mary Fish, RN; OLESYA Watts, Dr. Sutherland. 12:30 Violent/Self Destructive Restraint: Restraint status: Soft wrist restraint (Right) tl4 Started. Soft wrist restraint (Left) Started. 12:45 Violent/Self Destructive Restraint: Restraint status: Soft wrist restraint (Right) tl4 Continued. Soft wrist restraint (Left) Continued. 13:00 Violent/Self Destructive Restraint: Restraint status: Soft wrist restraint (Right) tl4 Continued. Soft wrist restraint (Left) Continued. 13:15 Violent/Self Destructive Restraint: Restraint status: Soft wrist restraint (Right) tl4 Continued. Soft wrist restraint (Left) Continued. 13:30 Violent/Self Destructive Restraint: Restraint status: Soft wrist restraint (Right) tl4 Continued. Soft wrist restraint (Left) Continued. 13:45 Violent/Self Destructive Restraint: Restraint status: Soft wrist restraint (Right) tl4 Continued. Soft wrist restraint (Left) Continued. 14:00 Violent/Self Destructive Restraint: Restraint status: Soft wrist restraint (Right) tl4 Continued. Soft wrist restraint (Left) Continued. 14:15 Violent/Self Destructive Restraint: Restraint status: Soft wrist restraint (Right) tl4 Continued. Soft wrist restraint (Left) Continued. 14:30 Violent/Self Destructive Restraint: Restraint status: Soft wrist restraint (Right) tl4 Continued. Soft wrist restraint (Left) Continued. 14:38 Violent/Self Destructive Restraint: Restraint status: Soft wrist restraint (Right) tl4 Continued. Soft wrist restraint (Left) Continued. Administered Medications: 13:05 Drug: NS 0.9% IV (30 ml/kg) 30 ml/kg IV at bolus once; Sepsis Protocol Route: IV; Rate: ld1 bolus; Site: left antecubital; 14:08 Follow up: Response: No adverse reaction; IV Status: Completed infusion; IV Intake: tl4 1100ml 13:21 Drug: Calcium Gluconate IVPB 2 grams IVPB once over 60 mins; (mix in NS 100 mL) Route: tl4 IVPB; Infused Over: 60 mins; Site: left antecubital; 14:42 Follow up: Response: No adverse reaction; IV Status: Completed infusion; IV Intake: tl4 100ml 13:53 Drug: Sodium Bicarbonate IVP 2 amp IVP once; (50 mL); equals 50 mEq Route: IVP; Site: tl4 right antecubital; 14:07 Follow up: Response: No adverse reaction tl4 13:54 Drug: Rocephin - Rocephin (cefTRIAXone) IVPB 1 grams IVPB once over 30 mins; (mix in 50 tl4 mL NS) Route: IVPB; Infused Over: 30 mins; Site: right antecubital; 14:42 Follow up: Response: No adverse reaction; IV Status: Completed infusion; IV Intake: tl4 100ml 14:01 Drug: Insulin Regular Human IVP 10 units IVP once {Co-Signature: db (Keely Aguayo tl4 RN).} Route: IVP; Site: right antecubital; 14:42 Follow up: Response: No adverse reaction tl4 14:07 Drug: NS 0.9% IV 1000 ml IV at 1 bolus Per protocol; 1000 mL bolus Route: IV; Rate: 1 tl4 bolus; Site: right antecubital; Delivery: Primary tubing; 14:41 Follow up: IV Status: Completed infusion; IV Intake: 1000ml tl4 Medication: 14:45 VIS not applicable for this client. tl4 Intake: 14:08 IV: 1100ml; Total: 1100ml. tl4 14:41 IV: 1000ml; Total: 2100ml. tl4 14:42 IV: 100ml; Total: 2200ml. tl4 14:42 IV: 100ml; Total: 2300ml. tl4 Outcome: 13:37 Decision to Hospitalize by Provider. sp3 14:38 Admitted to ICU accompanied by nurse, via stretcher, room 3, with oxygen, with chart, tl4 Report called to THUY Conway 14:38 Condition: unchanged 14:38 Instructed on the need for admit, 15:03 Patient left the ED. tl4 Signatures: Dispatcher [employer] EDMS Courtney Hernandez Lauren RN RN ld1 Asha Sutherland MD MD sp3 Gordy Martinez tl4 Keely Aguayo RN db Corrections: (The following items were deleted from the chart) 14:49 14:48 Violent/Self Destructive Restraint: Restraint status: Soft wrist restraint tl4 (Right) Started. Soft wrist restraint (Left) Started. tl4 14:55 12:50 Reassessment: Bear hugger applied to patient and notified ERP of low Temp. ld1 tl4 14:57 12:45 Reassessment: Wrist restraints remain in place. PMS intact. Pt is unable to tl4 comprehend verbal directions or redirection. Will continue to monitor tl4 15:00 13:00 Reassessment: Bilateral wrist restraints remain in place. PMS intact tl4 tl4
--- NOTE | 2023-03-23 13:38 | EDPHYS ---
Physician Documentation [facility] Name: Angel Flores Age: 48 yrs Sex: Male : 1975 Arrival Date: 03/23/2023 Time: 12:24 Bed 4 Private MD: ED Physician Asha Sutherland HPI: 03/23 12:38 This 48 yrs old Black Male presents to ER via Unassigned with complaints of Altered sp3 Mental Status. 12:38 48-year-old male with history of diabetes and multiple DKA admissions presents to the 3 ED by EMS for altered mental status and high blood sugar. Patient's family member called EMS from his apartment which appears to have residents who cullen. Patient was found on top of a pile of close after having defecated upon himself and having a "high" blood sugar reading for EMS. Patient has nonpurposeful movements with no gross deficits per EMS. IV was established and vital signs have been stable for them. History, physical and review of systems otherwise limited secondary to patient's altered mental status.. Historical: - Allergies: 12:42 Morphine; tl4 - PMHx: 12:42 cluster headaches; Diabetes - NIDDM; Sciatica (L leg); tl4 - PSHx: 12:42 L leg; tl4 - Immunization history:: Adult Immunizations unknown. - Social history:: Smoking status: unknown. ROS: 12:39 Unable to obtain ROS due to altered mental status, patient being uncooperative, sp3 Exam: 12:39 Head/Face: Normocephalic, atraumatic. Cardiovascular: Regular rate and rhythm with a sp3 normal S1 and S2. No gallops, murmurs, or rubs. Normal PMI, no JVD. No pulse deficits. Respiratory: Lungs have equal breath sounds bilaterally, clear to auscultation and percussion. No rales, rhonchi or wheezes noted. No increased work of breathing, no retractions or nasal flaring. 12:39 Constitutional: The patient appears Below normal weight, unkept patient screaming and flailing his arms and legs. Dry mucous membranes noted. Neurological exam severely limited. 13:22 ECG was reviewed by the Attending Physician. EKG demonstrates normal sinus rhythm at 60 sp3 bpm with a first-degree AV block of 202, QTc of 483 and elevated T waves indicating possible hyperkalemia with nonspecific diffuse ST's ST changes without evidence of ischemia. Vital Signs: 12:34 BP 94 / 62; Pulse 56; Resp 16; Temp 95.9(TE); Pulse Ox 98% on R/A; Weight 36.29 kg; tl4 12:50 Temp 87.6(R); ld1 13:04 BP 97 / 56; Pulse 58; Resp 15; Pulse Ox 96% on R/A; tl4 13:27 BP 89 / 48; Pulse 59; Resp 16; Temp 89.6(Ca); tl4 14:19 BP 76 / 47; Pulse 65; Resp 19; Temp 86.8(Ca); Pulse Ox 100% on R/A; tl4 14:38 BP 111 / 38; Pulse 58; Resp 25; Temp 86.9(Ca); Pulse Ox 99% on R/A; tl4 Handy Coma Score: 12:55 Eye Response: spontaneous(4). Motor Response: withdraws from pain(4). Verbal Response: tl4 incomprehensible(2). Total: 10. 12:55 Eye Response: spontaneous(4). Motor Response: withdraws from pain(4). Verbal Response: tl4 incomprehensible(2). Total: 10. MDM: 12:26 Patient medically screened. sp3 12:40 Data reviewed: vital signs, nurses notes, EMS record, old medical records, lab test sp3 result(s), EKG, radiologic studies. ED course: 48-year-old male with history of diabetes now with altered mental status. Patient is maintaining his own airway and his vital signs are normal. Differential diagnosis includes diabetic ketoacidosis, drug use/abuse, electrolyte abnormality, infection/sepsis, intracranial pathology, among others. There are no obvious signs of trauma. Workup will include CT scan of the head, chest x-ray, routine labs, EKG, urinalysis/UDS, and IV fluids with probable insulin as well once initial lab values are reviewed. Disposition will be admission with exact bed type to be determined.. 13:22 ED course: Given EKG findings, we will stabilize membranes with calcium gluconate and sp3 further treatments if potassium comes back elevated on lab work. Patient's core temperature is also low and we will start with Douglas hugger. Remainder of workup pending.. 13:34 ED course: Patient found to be in severe diabetic ketoacidosis with elevated lactate, sp3 blood sugar at 1200. Insulin drip has been started. 10 units IV push of insulin will also be given given his potassium of 6.2. Normal saline bolus already ordered. Patient will be admitted to the ICU under Dr. Osborn.. 03/23 12:28 Order name: Blood Culture Adult (2) 3 03/23 12:28 Order name: CBC with Diff; Complete Time: 14:59 sp3 03/23 12:28 Order name: CMP; Complete Time: 13:33 sp3 03/23 12:28 Order name: Lactate w/ 2H reflex if indic.; Complete Time: 13:33 3 03/23 12:28 Order name: Protime (+inr); Complete Time: 13:33 sp3 03/23 12:28 Order name: Ptt, Activated; Complete Time: 13:33 3 03/23 12:28 Order name: Urinalysis w/ reflexes; Complete Time: 13:23 3 03/23 12:28 Order name: ABG; Complete Time: 14:13 sp3 03/23 12:28 Order name: UDS; Complete Time: 13:23 3 03/23 12:28 Order name: Troponin High Sensitivity; Complete Time: 13:33 sp3 03/23 12:28 Order name: AMMONIA; Complete Time: 13:23 sp3 03/23 13:09 Order name: Glucose, Ancillary Testing; Complete Time: 13:23 EDMS 03/23 13:36 Order name: Manual Differential; Complete Time: 14:59 EDMS 03/23 13:48 Order name: CPK; Complete Time: 14:13 la1 03/23 14:59 Order name: Glucose, Ancillary Testing EDMS 03/23 12:28 Order name: Chest Single View XRAY; Complete Time: 13:23 sp3 03/23 12:28 Order name: CT Head Brain wo Cont sp3 03/23 13:58 Order name: CT Abd/Pelvis - Without Contrast la1 03/23 12:28 Order name: EKG; Complete Time: 12:29 sp3 03/23 12:28 Order name: Accucheck; Complete Time: 12:55 sp3 03/23 12:28 Order name: Cardiac monitoring; Complete Time: 12:48 sp3 03/23 12:28 Order name: EKG - Nurse/Tech; Complete Time: 13:04 sp3 03/23 12:28 Order name: IV Saline Lock - Large Bore; Complete Time: 12:48 sp3 03/23 12:28 Order name: Labs collected and sent; Complete Time: 12:55 sp3 03/23 12:28 Order name: O2 Sat Monitoring; Complete Time: 12:48 sp3 03/23 12:28 Order name: Vital Signs; Complete Time: 12:48 sp3 03/23 12:29 Order name: Restraint:Violent/Self Destructive (Adult:18yo or >); Complete Time: 12:32 sp3 03/23 12:30 Order name: Chavez; Complete Time: 12:32 sp3 Administered Medications: 13:05 Drug: NS 0.9% IV (30 ml/kg) 30 ml/kg IV at bolus once; Sepsis Protocol Route: IV; Rate: ld1 bolus; Site: left antecubital; 14:08 Follow up: Response: No adverse reaction; IV Status: Completed infusion; IV Intake: tl4 1100ml 13:21 Drug: Calcium Gluconate IVPB 2 grams IVPB once over 60 mins; (mix in NS 100 mL) Route: tl4 IVPB; Infused Over: 60 mins; Site: left antecubital; 14:42 Follow up: Response: No adverse reaction; IV Status: Completed infusion; IV Intake: tl4 100ml 13:53 Drug: Sodium Bicarbonate IVP 2 amp IVP once; (50 mL); equals 50 mEq Route: IVP; Site: 4 right antecubital; 14:07 Follow up: Response: No adverse reaction tl4 13:54 Drug: Rocephin - Rocephin (cefTRIAXone) IVPB 1 grams IVPB once over 30 mins; (mix in 50 tl4 mL NS) Route: IVPB; Infused Over: 30 mins; Site: right antecubital; 14:42 Follow up: Response: No adverse reaction; IV Status: Completed infusion; IV Intake: tl4 100ml 14:01 Drug: Insulin Regular Human IVP 10 units IVP once {Co-Signature: db (Keely Aguayo tl4 RN).} Route: IVP; Site: right antecubital; 14:42 Follow up: Response: No adverse reaction tl4 14:07 Drug: NS 0.9% IV 1000 ml IV at 1 bolus Per protocol; 1000 mL bolus Route: IV; Rate: 1 tl4 bolus; Site: right antecubital; Delivery: Primary tubing; 14:41 Follow up: IV Status: Completed infusion; IV Intake: 1000ml tl4 Disposition Summary: 03/23/23 13:37 Hospitalization Ordered Notes: Hospitalization Status: Inpatient Admission sp3 Provider: John Osborn sp3 Location: Intensive Care Unit sp3 Condition: Stable sp3 Problem: an acute exacerbation sp3 Symptoms: have worsened sp3 Bed/Room Type: Standard sp3 Room Assignment: 3-(03/23/23 14:16) eb Diagnosis - DKA, dehydration, presumed sepsis, hyperkalemia sp3 Forms: - Medication Reconciliation Form sp3 - SBAR form sp3 - Leadership Thank You Letter sp3 Signatures: Dispatcher [employer] EDZohaib Sotelo FNP-C WILDLIFE CONTROL AGENT-Cla1 Courtney Hernandez Lauren, RN RN ld1 Asha Sutherland MD MD sp3 Gordy Martinez tl4 Keely Aguayo RN db Corrections: (The following items were deleted from the chart) 14:16 13:37 sp3 eb
[2023-03-23] MEDS ORDERED: CEFTRIAXONE 1000 MG/VIAL ONE ×2 (13:44→14:55)
[2023-03-23] MEDS ORDERED: NA CHLORIDE 0.9% 50 ML ONE (13:44)
[2023-03-23] MEDS ORDERED: INSULIN REGULAR (HUMAN) 100 UNIT/ML ONE ×2 (13:57→18:23)
[2023-03-23] MEDS ORDERED: GLUCAGON 1 MG/VIAL IM PRN (13:58)
[2023-03-23] MEDS ORDERED: D10W 250 ML BAG IV PRN (13:58)
[2023-03-23] MEDS: NACHLORIDE 0.45% 1,000 ML IV SCH (14:22)
[2023-03-23] MEDS ORDERED: SODIUM CHLORIDE 0.9% 10ML INJ IV PRN (14:42)
--- NOTE | 2023-03-23 14:42 | P.HP ---
Certification for Inpatient Patient admitted to: Inpatient With expected LOS: >2 Midnights Patient will require the following post-hospital care: None Practitioner: I am a practitioner with admitting privileges, knowledge of patient current condition, hospital course, and medical plan of care. Services: Services provided to patient in accordance with Admission requirements found in Title 42 Section 412.3 of the Code of Federal Regulations <Zohaib Jane - Last Filed: 03/23/23 14:32> Patient History Date of Service: 03/23/23 Reason for admission: DKA History of Present Illness: 48-year-old male with history of diabetes type 2insulin-dependent, GERD presents emergency department for altered mental status. His family reportedly found to be unresponsive on apartment close to the house and called 911. Upon arrival to the emergency department patient is confused, constantly groaning. Glucose read high for EMS. Patient was evaluated in the emergency department his labs are significant for a pH of 6.86 pCO2 of 9.4 HCO3 1.6 sodium 119 potassium 6.2 bicarb less than 8 glucose 1257 creatinine 3.72 lactic acid 3.6 white blood cell count 46.2 UDS positive for cocaine. He was also noted to be significantly hypothermic with a core temp of 86.5 Fahrenheit Patient was started on insulin drip, given 2 A of IV bicarb, given aggressive IV fluid resuscitation and started on empiric antibiotics in ED. He will be admitted to the ICU for further management of his severe DKA - Past Medical/Surgical History Diabetic: Yes -: IDDM -: GERD Past Surgical History: Unable to obtain Psychosocial/ Personal History: Lives at home with family - Family History Family History: Reviewed- Non-Contributory - Social History Alcohol use: No Place of Residence: Home <Zohaib Jane - Last Filed: 03/23/23 14:32> Date of Service: 03/23/23 <John Osborn - Last Filed: 03/23/23 16:18> Allergies morphine Allergy (Unknown, Verified 02/29/20 20:42) Unknown Home Medications: Insulin NPH Hum/Reg Insulin Hm [Humulin 70/30 Kwikpen] 50 unit SQ BID 06/02/21 Omeprazole 20 mg PO DAILY 30 Days #30 capsule. 06/03/21 Review of Systems is unable to be obtained <Zohaib Jane - Last Filed: 03/23/23 14:32> Physical Examination - Physical Exam General: Mild distress, Confused, Other (Malnourished) HEENT: Atraumatic, PERRLA, EOMI Neck: Supple Respiratory: Clear to auscultation bilaterally, Normal air movement Cardiovascular: Regular rate/rhythm, Normal S1 S2 Gastrointestinal: Normal bowel sounds Musculoskeletal: No tenderness Integumentary: No rashes Neurological: Other (Confused, groaning not following simple commands. Moves all extremities) - Studies Laboratory Data (last 24 hrs) 03/23/23 03/23/23 03/23/23 12:45 12:45 12:45 WBC 46.20 H Hgb 13.4 L Hct 45.6 Plt Count 460 H PT 11.9 INR 1.08 APTT 34.9 Sodium 119 L* Potassium 6.2 H* BUN 51 H Creatinine 3.72 H Glucose 1257 H* Total Bilirubin 0.5 AST 21 ALT 29 Alkaline Phosphatase 97 <Zohaib Jane - Last Filed: 03/23/23 14:32> - Studies Laboratory Data (last 24 hrs) 03/23/23 03/23/23 03/23/23 12:45 12:45 12:45 WBC 46.20 H Hgb 13.4 L Hct 45.6 Plt Count 460 H PT 11.9 INR 1.08 APTT 34.9 Sodium 119 L* Potassium 6.2 H* BUN 51 H Creatinine 3.72 H Glucose 1257 H* Total Bilirubin 0.5 AST 21 ALT 29 Alkaline Phosphatase 97 <John Osborn - Last Filed: 03/23/23 16:18> Assessment and Plan - Plan Assessment: Diabetes mellitus type 2 with severe diabetic ketoacidosis Metabolic encephalopathy secondary to diabetic ketoacidosis Pseudohyponatremia secondary to severe hyperglycemia Hypothermia Acute kidney injury Hyperkalemia Leukocytosis GERD Cocaine use Plan: Diabetes mellitus type 2 with severe diabetic ketoacidosis Metabolic encephalopathy secondary to diabetic ketoacidosis Pseudohyponatremia secondary to severe hyperglycemia Hypothermia Hyponatremia Severe DKA, metabolic acidosis Given 2 Amps of bicarb in ED, continuous IV bicarb ordered Repeat ABG in 1 hour chemistries/mag/Phos every 4 hours, ICU level of care Continue with insulin drip, A1c ordered Bear hugger in place for hypothermia Corrected sodium for glucose 138 Acute kidney Continue rest of IV fluids CT abdomen pelvis noncontrast ordered to rule out obstructive uropathy Nephrology consulted Hyperkalemia Continue insulin drip which will likely lower potassium along with IV fluids Repeat chemistry every 4 hours Leukocytosis Possibly reactive, no source of infection identified thus far On empiric antibiotics with Rocephin Blood cultures obtained GERD IV PPI Cocaine use Will need to be counseled on cessation once alert/oriented DVT PPX:Heparin subq Code status:Full Discharge Plan: Home Plan to discharge in: Greater than 2 days - Advance Directives Does patient have a Living Will: No Does patient have a Durable POA for Healthcare: No - Code Status/Comfort Care Code Status Assessed: Yes (Full code) Critical Care: No Time Spent Managing Pts Care (In Minutes): 70 <Zohaib Jane - Last Filed: 03/23/23 14:32> - Plan Patient seen and examined on admission in the ED with NURSE PRACTITIONER PER DIEM Lucinda. Agree with plan of care as noted above with following additions/corrections: Patient with severe DKA, unable to provide any history. Moaning in ER stretcher, protecting airway with hyperkalemia, KIRA, severe anion gap metabolic acidosis, and hypothermia all secondary to severe DKA; no obvious source of infection; unable to obtain any history. Patient also +cocaine on UDS admit to ICU, Dr. Pedroza consulted. Dr. Stover, nephro consulted and spoken to. bicarb drip, insulin drip; repeat bmp q4h s/p 30cc/kg bolus ct head and abd/pelvis ordered BP borderline, but not needing pressors at this time rodriguez inserted in ED <John Osborn - Last Filed: 03/23/23 16:18>
[2023-03-23 14:54] LABS: Blood Morphology Comment NOTED (NOT SEEN); Burr Cells 2+; Macrocytosis 1+; Platelet Estimate ADEQ
[2023-03-23] MEDS ORDERED: NA CHLORIDE 0.9% 100 ML ONE ×2 (14:55→18:23)
[2023-03-23] MEDS: NACHLORIDE 0.45% 1,000 ML with NA BICARB 8.4% 75 MEQ IV SCH (14:58)
[2023-03-23] MEDS: CEFTRIAXONE 1,000 MG in NA CHLORIDE 0.9% 50 ML IVPB SCH (14:59)
[2023-03-23] MEDS ORDERED: WATER FOR INJ,STERILE 1,000 ML with NA BICARB 8.4% 150 MEQ IV SCH (15:00)
[2023-03-23] MEDS: D5 0.45 NS 1,000 ML IV SCH (15:00)
[2023-03-23] MEDS: INSULIN -REGULAR HUMAN 100 UNIT in NA CHLORIDE 0.9% 100 ML IV SCH (15:03)
[2023-03-23 17:09] LABS: Blood O2 Saturation 95.2 % (92-98.5)
[2023-03-23 18:56] LABS: BUN Blood Urea Nitrogen 50 mg/dL (7-18); Glomerular Filtration Rate 24 ml/min (=/>90); Phosphorus 6.3 mg/dL (2.5-4.9); Sodium Level 133 mEq/L (136-145)
[2023-03-23 18:58] LABS: Magnesium 2.3 mg/dL (1.6-2.4); Potassium 4.2 mEq/L (3.5-5.1)
[2023-03-23 18:59] LABS: Bicarbonate < 8 mEq/L (21-32); Glucose Level 732 mg/dL (74-106)
[2023-03-23] MEDS: NA CHLORIDE 0.9% 1,000 ML IV ONE (20:25)
[2023-03-23] MEDS: HEPARIN 5000 UNIT/ML 1 ML VIAL SQ SCH (21:00)
[2023-03-23 22:17] LABS: BUN Blood Urea Nitrogen 51 mg/dL (7-18); Glomerular Filtration Rate 25 ml/min (=/>90); Magnesium 2.2 mg/dL (1.6-2.4); Potassium 3.9 mEq/L (3.5-5.1); Sodium Level 137 mEq/L (136-145)
[2023-03-23 22:18] LABS: Bicarbonate < 8 mEq/L (21-32); Glucose Level 564 mg/dL (74-106)
[2023-03-24 01:31] LABS: Magnesium 1.7 mg/dL (1.6-2.4)
[2023-03-24] MEDS: POTASSIUM PHOS IN 0.9 % NACL 15 MMOL/250 ML BAG IV ONE ×2 (02:53→18:33)
[2023-03-24 05:01] LABS: Absolute Lymphocytes (CBC) 0.5 K/uL (0.7-4.9); Hematocrit 36.4 % (39.6-49.0); Lymphocytes % 1.6 % (15.3-44.8); MCV 90.4 fL (80-100); MPV 7.5 fL (7.6-11.3); Platelets 342 thou/uL (152-406); RBC Red Blood Cell Count 4.03 M/uL (4.33-5.43)
[2023-03-24 05:35] LABS: Albumin 2.8 g/dL (3.4-5.0); Bilirubin Direct 0.1 mg/dL (0-0.2); Bilirubin Indirect, Calculated 0.2 mg/dL (0.2-0.8); Bilirubin Total 0.3 mg/dL (0.2-1.0); Magnesium 1.7 mg/dL (1.6-2.4); Phosphorus 2.4 mg/dL (2.5-4.9); Potassium 3.4 mEq/L (3.5-5.1)
[2023-03-24 06:43] LABS: Blood Morphology Comment NOT SEEN (NOT SEEN); Platelet Estimate ADEQ
--- NOTE | 2023-03-24 07:14 | P.PN ---
Date of Service: 03/24/23 Subjective: Feeling better today BP has been low to low-normal; hasn't needed any pressors review of chart and per patient - runs low 100s normally off insulin drip since ~2am this morning; no subcutaneous given Feeling constipated, had 4 small BM's yesterday hypothermia resolved ROS: 10 point ROS as noted above, otherwise negative Physical Exam: GEN: Alert, oriented, thin, NAD HEENT: Normal conjunctiva, sclera anicteric CV: Regular rate and rhythm, no edema Pulm: Nonlabored respirations on room air, clear bilaterally ABD: Soft, nontender, nondistended Neuro: Normal speech, normal affect, moves all extremities rodriguez in place vitals reviewed Problem List: IDDM2 with severe DKA Metabolic encephalopathy secondary to severe DKA Pseudohyponatremia secondary to severe DKA Hypothermia, resolved KIRA secondary to DKA Hyperkalemia secondary to DKA Leukocytosis GERD Cocaine use IDDM2 with severe DKA Metabolic encephalopathy secondary to severe DKA Pseudohyponatremia secondary to severe DKA Hypothermia, improved Admitted to ICU. s/p 30cc/kg bolus Dr. Pedroza consulted. Nephro consulted s/p bicarb drip. off insulin drip since ~2 am 03/24 patient states he takes 60units twice daily of 70/30 and thinks he takes levemir as well ~25units BID. patient seems to have some confusion / not completely clear, so will confirm start 25units BID 70/30 with full liquid diet now, and sliding scale, will titrate as needed anion gap resolved BP borderline, but not needing pressors at this time CT head (03/24): ordered further eval hypothermia resolved KIRA secondary to DKA Hyperkalemia secondary to DKA rodriguez inserted in ED Nephrology following CT abd/pelvis (03/24): ordered r/u obstructive uropathy s/p bicarb drip. off insulin drip since ~2 am 03/24 Switch to LR, off bicarb drip Continue to monitor renal function improving Leukocytosis Possible reactive. no obvious source of infection Continue empiric rocephin (2/3-) leukocytosis 46 -> 30 (03/24) afebrile urinalysis unremarkable Follow blood cultures low threshold for broadening antibiotics Monitor CBC GERD continue PPI Cocaine use +cocaine on UDS. counseled on cessation Constipation 4 small BMs yesterday colace added BID (03/24) VTE: heparin sq Code: Full Dispo: Home, ~2 days
[2023-03-24] MEDS ORDERED: GLUCAGON 1 MG/VIAL IM PRN ×2 (07:30→07:31)
[2023-03-24] MEDS ORDERED: D50W 25 GM/50 ML SYRINGE IV PRN (07:30)
[2023-03-24] MEDS ORDERED: D10W 250 ML BAG IV PRN (07:31)
[2023-03-24] MEDS ORDERED: INSULIN 70/30 100 UNITS/ML SQ ONE ×3 (07:48→16:38)
[2023-03-24] MEDS ORDERED: INSULIN REGULAR (HUMAN) 100 UNIT/ML ONE ×3 (07:48→16:20)
[2023-03-24] MEDS ORDERED: CEFTRIAXONE 1000 MG/VIAL ONE (07:50)
[2023-03-24] MEDS ORDERED: PANTOPRAZOLE 40 MG INJ ONE (07:50)
[2023-03-24] MEDS ORDERED: POTASS/SODIUM PHOSPHATE 1 PKT POWD.PACK ONE (07:50)
[2023-03-24] MEDS ORDERED: HEPARIN 5000 UNIT/ML 1 ML VIAL ONE (07:51)
[2023-03-24] MEDS ORDERED: POTASSIUM CL SA 10 MEQ TAB PO ONE (07:51)
[2023-03-24] MEDS ORDERED: Ringers Lactate 1,000 ML IV ONE (07:51)
[2023-03-24] MEDS ORDERED: NA CHLORIDE 0.9% 50 ML ONE (07:51)
[2023-03-24] MEDS ORDERED: MAGNESIUM SULFATE 1 gm IVPB 1 GM/100 ML BAG IV ONE (07:51)
[2023-03-24] MEDS: PANTOPRAZOLE 40 MG INJ IVP SCH (07:57)
[2023-03-24] MEDS: POTASSIUM CL SA 10 MEQ TAB PO ONE ×2 (07:57→20:28)
[2023-03-24] MEDS: MAGNESIUM SULFATE 1 gm IVPB 1 GM/100 ML BAG IV ONE (07:57)
[2023-03-24] MEDS: INSULIN REGULAR (HUMAN) 100 UNIT/ML SQ SCH (07:58)
[2023-03-24] MEDS: POTASS/SODIUM PHOSPHATE 1 PKT POWD.PACK PO SCH (07:58)
[2023-03-24] MEDS: Ringers Lactate 1,000 ML IV SCH (07:58)
[2023-03-24] MEDS: INSULIN 70/30 100 UNITS/ML SQ SCH ×2 (07:59→16:34)
[2023-03-24] MEDS ORDERED: DOCUSATE NA 100 MG CAP PO ONE ×2 (08:00→20:23)
[2023-03-24] MEDS: DOCUSATE NA 100 MG CAP PO SCH (08:02)
[2023-03-24 09:31] LABS: Magnesium 2.1 mg/dL (1.6-2.4); Phosphorus 3.1 mg/dL (2.5-4.9); Potassium 3.5 mEq/L (3.5-5.1)
[2023-03-24 13:28] LABS: Phosphorus 2.4 mg/dL (2.5-4.9); Potassium 3.5 mEq/L (3.5-5.1)
--- NOTE | 2023-03-24 14:24 | CON ---
Date of Consultation: 03/24/2023 Reason For Consultation: Acidosis, hyperkalemia, acute kidney injury. History Of Present Illness: All the information has been obtained from the patient. This is a 48-ye ar-old gentleman with significant past medical history of diabetes insulin dependent, GERD, hypertens ion, hyperlipidemia, the patient found to be altered mental status. The patient upon arrival to the hospital found to be hyperkalemia up to 6.2 with hyperglycemia 12 and severe acidosis with bicarb les s than 8. For that reason, we have been consulted over the night. The patient on bicarb drip. Insu jaylin drip, potassium normalized. Kidney function started being improving. The patient still complain ing from abdominal pain. Has nausea. No vomiting. Past Medical History: 1.Diabetes. 2.GERD. 3.Hyperlipidemia. Past Surgical History: Has abdominal surgery. Family History: Positive for hypertension. Social History: Denied smoking, denied drinking, denied drugs abuse. Allergies: TO MORPHINE. Home Medication: Includes insulin and omeprazole. Review of Systems: Head and Neck: No red eye. No ear pain. GI: Has nausea. Has abdominal pain. : No polyuria, no dysuria, no hematuria. WIRE SAW OPERATOR: Not applicable. Respiratory: No shortness of breath. Cardiovascular: No chest pain. Endocrine: No polydipsia. Skin: No rash. Neuro: Has neuropathy. Musculoskeletal: Generalized fatigue. Physical Examination: Vital Signs: Blood pressure 102/71, pulse of 101, afebrile. Chest: Clear to auscultation. Heart: S1, S2. Regular. Systolic murmur. Abdomen: Soft, nontender. Extremity: No edema. Neuro: Alert. No focality. Laboratory Data: The patient upon arrival to the hospital, WBC 46.2, hemoglobin 13.4. Sodium 119, p otassium 6.2, bicarb less than 8, BUN 51, creatinine 3.7, GFR 19, glucose 1200, calcium 8.1. ABG 6.8 , CO2 of 9.4, base access -29. Today lab data; sodium 142, potassium 3.5, bicarb 22, BUN 41, creatin ine 1.6, GFR of 52, calcium 7.5, phosphorus 3.1, magnesium 2.1, TSH 1.4. Urinalysis negative for inf ection. Current Medications: The patient on, including ceftriaxone. The patient is switched from bicarb to LR and pantoprazole. Assessment And Plan: 1.Acute kidney injury secondary to prerenal, secondary to dehydration, secondary to glucose diuresis , recover. I am going to continue hydration and we will monitor. I agree with changing bicarb drip to LR. 2.Hyperkalemia secondary to renal failure, resolved. 3.Acidosis, high anion gap metabolic acidosis secondary to DKA, resolved. I agree with changing to LR. 4.Hypokalemia. Continue supplement. 5.Hypophosphatemia secondary to malnourished. Continue supplement. 6.Diabetes with DKA as by the primary. Thank you, Dr. Osborn for allowing us to participate in the care of your patient. LUTHER Voice ID: [id number] Report ID: [id number]
--- NOTE | 2023-03-24 16:03 | RAD REPORT ---
EXAM DESCRIPTION: CT - Head Brain Wo Cont - 03/24/2023 3:38 pm CLINICAL HISTORY: Alteration of awareness/confusion COMPARISON: None TECHNIQUE: Computed axial tomography of the head was obtained. IV contrast was not requested. All CT scans are performed using dose optimization technique as appropriate and may include automated exposure control or mA/KV adjustment according to patient size. FINDINGS: An intracranial bleed is not seen The ventricles are normal in caliber No extra-axial fluid collection is noted. No significant hypodensity within the brain Fluid within the sinuses/ mastoids is not seen. IMPRESSION: No acute intracranial abnormality is seen If patient's symptoms persist MRI of the brain would be recommended
--- NOTE | 2023-03-24 16:10 | RAD REPORT ---
EXAM DESCRIPTION: CT - Abdomen Pelvis Wo Contrast - 03/24/2023 3:42 pm CLINICAL HISTORY: Abdominal pain acute renal failure COMPARISON: 2021 TECHNIQUE: Computed axial tomography of the abdomen and pelvis was obtained. IV and oral contrast we re not requested. All CT scans are performed using dose optimization technique as appropriate and may include automated exposure control or mA/KV adjustment according to patient size. FINDINGS: The evaluation of solid organs, vessels and bowel is limited secondary to the lack of con trast administration. Kidneys appear edematous. No hydronephrosis. Liver, spleen, pancreas and adrenals grossly normal Air is present within the bladder. Bladder wall appears thickened IMPRESSION: Kidneys appear edematous Air within the bladder could be secondary to recent instrumentation. Infection can also result in thi s appearance. Bladder wall thickening may indicate inflammation
[2023-03-24] MEDS: ONDANSETRON 4 MG/2 ML VIAL IV PRN (20:28)
[2023-03-25] MEDS ORDERED: ACETAMINOPHEN 325 MG TABLET ONE (05:16)
[2023-03-25] MEDS: ACETAMINOPHEN 325 MG TABLET PO PRN (05:19)
[2023-03-25 05:38] VITALS: BMI 20.6
[2023-03-25 06:15] LABS: Hematocrit 29.2 % (39.6-49.0); Lymphocytes % 6.5 % (15.3-44.8); MCV 90.3 fL (80-100); MPV 7.9 fL (7.6-11.3); Platelets 241 thou/uL (152-406); RBC Red Blood Cell Count 3.24 M/uL (4.33-5.43)
[2023-03-25 06:28] LABS: Albumin 2.4 g/dL (3.4-5.0); Bilirubin Direct 0.1 mg/dL (0-0.2); Bilirubin Indirect, Calculated 0.2 mg/dL (0.2-0.8); Bilirubin Total 0.3 mg/dL (0.2-1.0); Magnesium 2.1 mg/dL (1.6-2.4); Potassium 3.6 mEq/L (3.5-5.1); Protein, Total 5.1 g/dL (6.4-8.2)
[2023-03-25] MEDS ORDERED: POTASSIUM CL SA 10 MEQ TAB PO ONE (06:36)
[2023-03-25] MEDS: POTASSIUM CL SA 10 MEQ TAB PO ONE (06:38)
[2023-03-25 06:39] LABS: Phosphorus 2.1 mg/dL (2.5-4.9)
[2023-03-25] MEDS ORDERED: INSULIN 70/30 100 UNITS/ML SQ ONE (07:44)
[2023-03-25] MEDS ORDERED: CEFTRIAXONE 1000 MG/VIAL ONE (07:44)
[2023-03-25] MEDS ORDERED: DOCUSATE NA 100 MG CAP PO ONE ×2 (07:45→20:24)
[2023-03-25] MEDS ORDERED: NA CHLORIDE 0.9% 100 ML ONE (07:45)
[2023-03-25] MEDS ORDERED: PANTOPRAZOLE 40MG TABLET PO ONE (07:45)
[2023-03-25] MEDS ORDERED: HEPARIN 5000 UNIT/ML 1 ML VIAL ONE (07:45)
[2023-03-25] MEDS ORDERED: INSULIN REGULAR (HUMAN) 100 UNIT/ML ONE ×3 (08:55→20:27)
[2023-03-25] MEDS ORDERED: PANTOPRAZOLE 40 MG INJ ONE (08:56)
[2023-03-25] MEDS: INSULIN 70/30 100 UNITS/ML SQ SCH (09:04)
[2023-03-25] MEDS ORDERED: Ringers Lactate 1,000 ML IV ONE (09:47)
--- NOTE | 2023-03-25 12:14 | P.PN ---
Subjective Date of Service: 03/25/23 Chief Complaint: DKA Patient denies any complaint. He denies any loss of appetite. He has good oral intake. No recorded fever Blood sugar readings have improved. Physical Examination - Vital Signs Temperature: 97.8 F Blood Pressure: 111/87 Pulse: 77 Respirations: 15 Pulse Ox (%): 99 Assessment And Plan - Plan Physical Exam: GEN: Alert, oriented, NAD HEENT: Normal conjunctiva, sclera anicteric CV: Regular rate and rhythm, no edema Pulm: Nonlabored respirations on room air, clear bilaterally ABD: Soft, nontender, nondistended Neuro: Normal speech, normal affect, moves all extremities vitals reviewed Problem List: IDDM2 with severe DKA Metabolic encephalopathy secondary to severe DKA Pseudohyponatremia secondary to severe DKA Hypothermia, resolved KIRA secondary to DKA Hyperkalemia secondary to DKA Leukocytosis GERD Cocaine use IDDM2 with severe DKA Metabolic encephalopathy secondary to severe DKA Pseudohyponatremia secondary to severe DKA Hypothermia, improved Status post IV normal saline bolus Dr. Pedroza input appreciated. Nephrology input appreciated s/p bicarb drip. Status post insulin drip. patient states that he takes levemir 25units BID and Humulin. DKA resolved. Change Novolin 70/30 to Levemir 25 units twice a day Continue insulin sliding scale. hypothermia resolved KIRA secondary to DKA Hyperkalemia secondary to DKA rodriguez inserted in ED Nephrology input appreciated CT abd/pelvis shows edematous kidney, no reported hydronephrosis Status post bicarb drip. Leukocytosis Likely reactive. no obvious source of infection. CT abdomen pelvis suggest possible cystitis. Continue empiric rocephin Leukocytosis significantly improved. Blood cultures have yielded no growth. Monitor CBC GERD continue PPI Cocaine use +cocaine on UDS. counseled on cessation Constipation Stool softeners. VTE: heparin sq Code: Full Dispo: Home possibly in a.m.
[2023-03-25] MEDS ORDERED: POTASS/SODIUM PHOSPHATE 1 PKT POWD.PACK ONE (13:02)
[2023-03-25] MEDS: POTASS/SODIUM PHOSPHATE 1 PKT POWD.PACK PO SCH (13:05)
--- NOTE | 2023-03-25 15:04 | EKG ---
Test Date: 2023-03-23 Test Time: 15:39:56 Offset Plate Preparation Supervisor: DEN MEASUREMENT RESULTS: Intervals: Rate: 73 AR: 174 QRSD: 88 QT: 470 QTc: 517 [place]: P: 81 AR: 174 QRS: 85 T: 95 INTERPRETIVE STATEMENTS: Sinus rhythm with fusion complexes Prolonged QT Abnormal ECG Compared to ECG 03/23/2023 12:59:21 Fusion complex(es) now present Prolonged QT interval now present Sinus bradycardia no longer present Myocardial infarct finding no longer present Electronically Signed On 03-25-23 15:00:15 WIND UP OPERATOR by Abdulaziz Stevens
--- NOTE | 2023-03-25 15:05 | EKG ---
Test Date: 2023-03-23 Test Time: 12:59:21 Cell Technician: TL MEASUREMENT RESULTS: Intervals: Rate: 59 AL: 202 QRSD: 72 QT: 488 QTc: 483 [place]: P: 78 AL: 202 QRS: 89 T: 57 INTERPRETIVE STATEMENTS: Sinus bradycardia Septal infarct, age undetermined Abnormal ECG Compared to ECG 07/04/2022 13:38:00 Myocardial infarct finding now present Sinus rhythm no longer present T-wave abnormality no longer present Possible ischemia no longer present Electronically Signed On 03-25-23 15:00:23 JUNIOR TECHNICAL WRITER by Abdulaziz Stevens
[2023-03-25 17:56] LABS: Albumin 2.5 g/dL (3.4-5.0); Bilirubin Total 0.4 mg/dL (0.2-1.0); Phosphorus 3.2 mg/dL (2.5-4.9); Potassium 4.2 mEq/L (3.5-5.1); Protein, Total 5.2 g/dL (6.4-8.2)
[2023-03-25] MEDS ORDERED: INSULIN GLARGINE 100 UNIT/ML SQ ONE (20:27)
[2023-03-25] MEDS: INSULIN GLARGINE 100 UNIT/ML SQ SCH (20:30)
[2023-03-25 21:05] VITALS: O2SAT 95
--- NOTE | 2023-03-26 03:05 | PN ---
Date of Progress Note: 03/25/2023 Chief Complaint: Acute kidney injury. Subjective: The patient is admitted to the hospital because of severe weakness. He was found to hav e DKA. Blood glucose was over 1000, is improved with treatment and the patient was on insulin drip. The patient is in ICU. On presentation to the hospital, he was due to DKA. He was found to have hyperkalemia and pseudohyponatremia. Currently, sodium level is within normal limits. The patient tolerates p.o. intake. Review of Systems: Denies chest pain, palpitation. Physical Examination: Lungs: Clear to auscultation bilaterally. Heart: S1, S2. Abdomen: Soft. Extremities: No edema. Impression And Plan: 1.Insulin-dependent diabetes mellitus with severe diabetic ketoacidosis, metabolic encephalopathy se condary to severe diabetic ketoacidosis, pseudohyponatremia secondary to severe diabetic ketoacidosis , hypothermia, resolved. Acute kidney injury secondary to prerenal azotemia, nonoliguric acute tubul ar necrosis. Renal function improved. The patient developed acute kidney injury secondary to diabet ic ketoacidosis. Hyperkalemia due to diabetic ketoacidosis has resolved. Monitor electrolytes close ly. 2.The patient had a CT scan, which did not show hydronephrosis. There was questionable cystitis. T he patient may need Urology evaluation. Urinalysis did not show leukocyturia, is negative for hematu rhett, although the patient has proteinuria and urine protein creatinine ratio will be evaluated. Like ly, the patient has diabetic kidney disease. The patient was found to have leukocytosis. Blood cult ure is pending and it did not show growth. The patient is started on empiric Rocephin for possible c ystitis. CT abdomen and pelvis suggests possible cystitis. Plan is to re-evaluate renal ultrasound and CT scan. 3.Urinalysis was positive for blood. CK level is not significantly elevated and it does not corresp ond with rhabdomyolysis. Monitor electrolytes closely, including magnesium and phosphorus levels. EB/MODL Voice ID: [id number] Report ID: [id number]
[2023-03-26 05:19] LABS: Absolute Lymphocytes (CBC) 1.3 K/uL (0.7-4.9); Lymphocytes % 19.9 % (15.3-44.8); MCV 91.2 fL (80-100); MPV 7.5 fL (7.6-11.3); Platelets 205 thou/uL (152-406); RBC Red Blood Cell Count 3.29 M/uL (4.33-5.43)
[2023-03-26 05:33] LABS: Albumin 2.3 g/dL (3.4-5.0); Bilirubin Direct 0.2 mg/dL (0-0.2); Bilirubin Indirect, Calculated 0.2 mg/dL (0.2-0.8); Bilirubin Total 0.4 mg/dL (0.2-1.0); Protein, Total 4.9 g/dL (6.4-8.2)
[2023-03-26] MEDS ORDERED: INSULIN REGULAR (HUMAN) 100 UNIT/ML ONE ×2 (07:11→11:33)
[2023-03-26] MEDS ORDERED: INSULIN GLARGINE 100 UNIT/ML SQ ONE (07:12)
[2023-03-26] MEDS ORDERED: DOCUSATE NA 100 MG CAP PO ONE (07:44)
--- NOTE | 2023-03-26 08:49 | RAD REPORT ---
EXAM DESCRIPTION: US - Renal Ultrasound-Complete - 03/25/2023 11:46 pm CLINICAL HISTORY: mirna, kidney scarring COMPARISON: Abdomen Pelvis Wo Contrast dated 03/24/2023 TECHNIQUE: Sonographic grayscale and color flow images of the kidneys and bladder were obtained. FINDINGS: Both kidneys are normal in size, shape,, with increased cortical echogenicity bilaterally and poor corticomedullary differentiation. The right kidney measures 12.3 cm in length. No hydronephrosis, focal mass, or echogenic calculi. The left kidney measures 10.7 cm in length. No hydronephrosis, focal mass, or echogenic calculi. The urinary bladder is without gross abnormality seen apart from mild debris throughout the lumen. IMPRESSION: Increased renal cortical echogenicity bilaterally, suggestive of medical renal disease. Mild debris within the bladder, a nonspecific finding, could relate to ongoing cystitis. Please corre late clinically.
[2023-03-26 10:54] VITALS: TEMP 97.7
--- NOTE | 2023-03-26 10:59 | P.DS ---
Admission Date: 03/23/23 Discharge Date: 03/26/23 Disposition: ROUTINE DISCHARGE Discharge Condition: FAIR Reason for Admission: DKA Brief History of Present Illness: 48-year-old male with history of diabetes type 2insulin-dependent, GERD presents emergency department for altered mental status. His family reportedly found him to be unresponsive and called 911. Upon arrival to the emergency department patient was confused, constantly groaning. Glucose read high for EMS. Patient was evaluated in the emergency department his labs were significant for a pH of 6.86 pCO2 of 9.4 HCO3 1.6 sodium 119 potassium 6.2 bicarb less than 8 g lucose 1257 creatinine 3.72 lactic acid 3.6 white blood cell count 46.2 UDS positive for cocaine. He was also noted to be significantly hypothermic with a core temp of 86.5 Fahrenheit. Patient diagnosed with DKA and was started on insulin drip, given 2 A of IV bicarb, given aggressive IV fluid resuscitation and started on empiric antibiotics in ED. He was admitted to the ICU for further management of severe DKA Hospital Course: Diagnosis IDDM2 with severe DKA Metabolic encephalopathy secondary to severe DKA Pseudohyponatremia secondary to severe DKA Hypothermia, resolved KIRA secondary to DKA Hyperkalemia secondary to DKA Leukocytosis GERD Cocaine use IDDM2 with severe DKA Metabolic encephalopathy secondary to severe DKA Pseudohyponatremia secondary to severe DKA Hypothermia, improved Status post IV normal saline bolus Dr. Pedroza evaluated patient and assisted with management Nephrology also evaluated patient and assisted with management. s/p bicarb drip. Status post insulin drip for DKA. DKA resolved and patient transition to subcutaneous insulin. Patient stated that he takes levemir 25units BID which was resumed. Blood sugar was in the 180s with this regimen. Also managed with insulin sliding scale during the hospital stay. hypothermia resolved Blood cultures yielded no growth, urinalysis did not suggest UTI Patient treated with antibiotics. He had marked leukocytosis which resolved KIRA secondary to DKA Hyperkalemia secondary to DKA rodriguez inserted in ED. Nephrology assisted with management CT abd/pelvis showed edematous kidney, no reported hydronephrosis Status post bicarb drip. KIRA resolved. Leukocytosis Likely reactive. no obvious source of infection. CT abdomen pelvis suggested possible cystitis. Patient treated empirically with IV rocephin Leukocytosis resolved. Blood cultures have yielded no growth. GERD Managed with PPI Cocaine use +cocaine on UDS. counseled on cessation Constipation Patient clinically stool softeners. Overall patient is clinically improved, he is ambulatory, he tolerated diet, blood sugar readings reviewed to be better. Patient is deemed stable for discharge. He has prescribed cefpodoxime to continue treatment for possible UTI. Home insulin regimen resumed on discharge. Vital Signs/Physical Exam: Temp Pulse Resp BP Pulse Ox 97.7 F 81 18 114/74 100 03/26/23 08:00 03/26/23 08:00 03/26/23 08:00 03/26/23 08:00 03/26/23 08:00 General: Alert, In no apparent distress, Oriented x3 HEENT: Mucous membr. moist/pink Neck: Supple, JVD not distended Respiratory: Clear to auscultation bilaterally, Normal air movement Cardiovascular: Regular rate/rhythm, Normal S1 S2 Gastrointestinal: Normal bowel sounds, Soft and benign, Non-distended Musculoskeletal: No swelling Integumentary: No rashes, No cyanosis Neurological: Normal strength at 5/5 x4 extr Laboratory Data at Discharge: WBC 6.70 thou/uL (4.3-10.9) 03/26/23 05:01 Hgb 10.7 g/dL (13.6-17.9) L 03/26/23 05:01 Hct 30.0 % (39.6-49.0) L 03/26/23 05:01 Plt Count 205 thou/uL (152-406) 03/26/23 05:01 PT 11.9 SECONDS (9.5-12.5) 03/23/23 12:45 INR 1.08 03/23/23 12:45 APTT 34.9 SECONDS (24.3-36.9) 03/23/23 12:45 Sodium 138 mEq/L (136-145) 03/26/23 05:01 Potassium 4.0 mEq/L (3.5-5.1) 03/26/23 05:01 BUN 15 mg/dL (7-18) 03/26/23 05:01 Creatinine 0.76 mg/dL (0.70-1.30) 03/26/23 05:01 Glucose 199 mg/dL (74-106) H 03/26/23 05:01 Phosphorus 3.2 mg/dL (2.5-4.9) 03/25/23 17:01 Magnesium 2.1 mg/dL (1.6-2.4) 03/25/23 17:01 Total Bilirubin 0.4 mg/dL (0.2-1.0) 03/26/23 05:01 AST 20 U/L (15-37) 03/26/23 05:01 ALT 30 U/L (16-61) 03/26/23 05:01 Alkaline Phosphatase 63 U/L (45-117) 03/26/23 05:01 Triglycerides 50 mg/dL (<150) 03/24/23 04:45 Cholesterol 136 mg/dL (<200) 03/24/23 04:45 HDL Cholesterol 88 mg/dL (40-60) H 03/24/23 04:45 Cholesterol/HDL Ratio 1.55 03/24/23 04:45 Home Medications: Gabapentin 300 mg PO TID 03/24/23 Insulin Detemir [Levemir] 25 units SQ BID 03/24/23 Cefpodoxime Proxetil 200 mg PO BID #28 tab 03/26/23 New Medications: Cefpodoxime Proxetil 200 mg PO BID #28 tab Physician Discharge Instructions: PROBLEM: Diabetic Keto Acidosis GOAL: Clear understanding of disease process INSTRUCTIONS:Patient presented with altered mental status. Found to be in severe diabetic ketoacidosis. Labwork on admission significant for hyperkalemia, KIRA, severe anion gap metabolic acidosis, and hypothermia all secondary to severe DKA. Patient admitted to ICU and was started on a bicarb drip and insulin drip. Hematology Oncology Consultant - Dr. Pedroza and nephrology were consulted. Anion gap closed 2/4 morning. Off Insulin and bicarb drip since 2/4 morning. Patient was transitioned to 70/30 novolin and patient continued to show improvement. White count on admission 46.2. Possibly a reaction to DKA. Patient was started on empiric rocephin as a precaution to cover possible infection. No obvious source of infection. Urinalysis was unremarkable. Medications: Follow up: PCP 3-5 days Nephrology 1-2 weeks Diet: 1800 ADA Activity: as tolerated DME DME: Date Ordered: Name of Company: [facility] Services Needed: Home Health Name of Company: [facility] Date or Referral: 03/25/23 IMMUNIZATION Influenza Vaccine Indicated: Influenza Vaccine Given: Date Given: Pneumonia Vaccine Indicated: Pneumonia Vaccine Given: Date Given: Followup: Bhargav Stover MD [ACTIVE - CAN ADMIT] - NONE,NONE [Primary Care Provider] - Time spent managing pt's care (in minutes): 37
[2023-03-26 13:04] VITALS: BP 112/80
--- NOTE | 2023-03-26 18:09 | PN ---
Date of Progress Note: 03/26/2023 Subjective: The patient was admitted to the hospital with severe DKA, hyperkalemia, and acidosis. The patient was treated. Acute kidney injury has been recovered. The patient's kidney function improved. Hyperkalemia resolved. The patient planned for discharge today. Physical Examination: Vital Signs: Blood pressure 112/80, pulse of 82, afebrile. Chest: Clear to auscultation. Heart: S1, S2 regular. Abdomen: Soft, nontender. Extremities: No edema. Neurologic: Alert, oriented x3. No focality. Lab Data: Hemoglobin 10.7. Sodium 138, potassium 4, bicarb 31, BUN 15, creatinine 0.7, calcium 8.8. Current Medications: The patient on include: 1. Insulin. 2. Lokelma. 3. Ceftriaxone. 4. Tylenol. Assessment And Plan: 1. Acute kidney injury secondary to prerenal, dehydration, secondary to glucose diuresis, recovered, resolved. 2. Hyponatremia secondary to pseudohyponatremia secondary to hyperglycemia, resolved. 3. Hyperkalemia secondary to DKA, resolved. 4. Acidosis, high anion gap metabolic acidosis resolved. The patient cleared from Renal standpoint for discharge planning. Time spent examining the patient [id number] reviewing that the lab and the radiology placing orders or discussing the case with the patient discussing the case with the logistics team leader including hospitalist and nursing staff more than 35 minutes LUTHER Voice ID: [id number] Report ID: [id number]
--- NOTE | 2023-03-27 12:39 | P.CNS ---
Date of Consult: 03/24/23 Reason for Consult: Severe diabetic ketoacidosis Chief Complaint: DKA History of Present Illness: Patient is 48 years of age with a history of insulin-dependent diabetes mellitus apparently he did not get his insulin up in the hospital with severe DKA altered mental status was found unresponsive on arrival patient was confused this morning he is very alert responsive cooperative speaking full sentences he was found to be very acidotic he claims that he has had recurrent acidosis due to compliance with insulin Allergies morphine Allergy (Unknown, Verified 02/29/20 20:42) Unknown Home Medications: Gabapentin 300 mg PO TID 03/24/23 Insulin Detemir [Levemir] 25 units SQ BID 03/24/23 Cefpodoxime Proxetil 200 mg PO BID #28 tab 03/26/23 - Past Medical/Surgical History Diabetic: Yes -: IDDM -: GERD Psychosocial/ Personal History: Lives at home with family - Social History Smoking Status: Unknown if ever smoked Alcohol use: No Place of Residence: Home Review of Systems 10-point ROS is otherwise unremarkable Physical Examination Temp Pulse Resp BP Pulse Ox 97.7 F 82 18 112/80 100 03/26/23 08:00 03/26/23 12:00 03/26/23 12:00 03/26/23 12:00 03/26/23 12:00 General: Alert, Oriented x3 Neck: Supple Respiratory: Clear to auscultation bilaterally Cardiovascular: No edema, Regular rate/rhythm Gastrointestinal: Normal bowel sounds, Soft and benign - Problems (1) DKA (diabetic ketoacidosis) Status: Acute Plan: Patient is 48 years of age admitted with severe diabetic ketoacidosis he seems to have recurrent episode ran out of his insulin came in with bicarbonate of less than 8 sugar of over 800 acute renal failure gases show severe metabolic acidosis white count was also significantly elevated chest x-ray is clear abdominal CT reviewed kidneys appear to be edematous continue with IV fluids bicarbonate replacement patient is clearly improving mental status has improved pressure is stable cultures are so far negative urine tox screen was positive for cocaine Qualifiers: Diabetes mellitus type: type 1
== END 2023-03-26 13:30 | disposition home health service (06) | DRG 637 ==
LOC: ER 12:24 → ERHOLD 13:59 → 3RD-ICU 14:44
PROVIDERS: ADMIT Hospitalist; ATTEND Internal Medicine
DX: E11.10 Type 2 diabetes mellitus with ketoacidosis without coma (principal); G93.41 Metabolic encephalopathy; N17.0 Acute kidney failure with tubular necrosis; E46 Unspecified protein-calorie malnutrition; Z68.1 Body mass index [BMI] 19.9 or less, adult; E87.1 Hypo-osmolality and hyponatremia; E86.0 Dehydration; E87.5 Hyperkalemia; E87.6 Hypokalemia; E83.39 Other disorders of phosphorus metabolism; K59.00 Constipation, unspecified; K21.9 Gastro-esophageal reflux disease without esophagitis; T68.XXXA Hypothermia, initial encounter; Z79.4 Long term (current) use of insulin; Z88.5 Allergy status to narcotic agent; Z78.1 Physical restraint status; Z71.51 Drug abuse counseling and surveillance of drug abuser; Z79.899 Other long term (current) drug therapy
CPT/HCPCS: 36415; 36600; 70450; 71045; 74176; 76770; 80048; 80053; 80061; 80076; 80307; 81001; 82140; 82550; 82805; 82947; 83036; 83605; 83735; 84100; 84439; 84443; 84484; 85025; 85610; 85730; 87040; 87086; 87088; 93005; C9113; J0612; J0696; J1644; J1815; J2405; J3475; J7030; J7120

== ENCOUNTER 2023-05-08 18:40 | Inpatient (IN) | payer OTHER ==
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
[2023-05-08 19:01] LABS: Absolute Basophils 0.1 K/uL (0-0.5); Absolute Lymphocytes (CBC) 1.1 K/uL (0.7-4.9); Absolute Monocytes 0.6 K/uL (0.1-1.3); Absolute Neutrophil 9.6 K/uL (1.8-8.0); Basophils % 0.7 % (0-1.3); Eosinophils % 0.1 % (0-4.4); Hematocrit 48.9 % (39.6-49.0); Hemoglobin 15.8 g/dL (13.6-17.9); Lymphocytes % 9.4 % (15.3-44.8); MCH 32.4 pg (27.0-35.0); MCHC 32.3 g/dL (32.0-36.0); MCV 100.2 fL (80-100); MPV 9.1 fL (7.6-11.3); Monocytes % 5.3 % (3.3-12.3); Neutrophils % 84.5 % (41.7-73.7); Nucleated Red Blood Cells % 0.1 % (0-0); Platelets 394 thou/uL (152-406); RBC Red Blood Cell Count 4.88 M/uL (4.33-5.43); Red Cell Distribution Width 13.6 % (12.1-15.2)
[2023-05-08 19:21] LABS: ALT/SGPT 78 U/L (16-61); AST/SGOT 13 U/L (15-37); Albumin 4.1 g/dL (3.4-5.0); Albumin/Globulin Ratio 1.1 (1.1-1.8); Alkaline Phosphatase 77 U/L (45-117); BUN Blood Urea Nitrogen 34 mg/dL (7-18); Bilirubin Total 0.6 mg/dL (0.2-1.0); Globulin 3.7 g/dL (2.3-3.5); Glomerular Filtration Rate 42 ml/min (=/>90); Protein, Total 7.8 g/dL (6.4-8.2); Sodium Level 129 mEq/L (136-145)
[2023-05-08 19:32] LABS: Glucose Level 608 mg/dL (74-106)
[2023-05-08] MEDS ORDERED: INSULIN REGULAR (HUMAN) 100 UNIT/ML ONE (19:39)
[2023-05-08] MEDS ORDERED: NA CHLORIDE 0.9% 2,000 ML ONE (19:41)
[2023-05-08] MEDS ORDERED: NA CHLORIDE 0.9% 100 ML ONE (19:41)
[2023-05-08 19:44] LABS: Bicarbonate < 8 mEq/L (21-32)
[2023-05-08] MEDS: INSULIN -REGULAR HUMAN 100 UNIT in NA CHLORIDE 0.9% 100 ML IV SCH (20:00)
[2023-05-08] MEDS ORDERED: ONDANSETRON 4 MG/2 ML VIAL IV PRN (20:34)
--- NOTE | 2023-05-08 20:38 | P.HP ---
Certification for Inpatient Patient admitted to: Inpatient With expected LOS: >2 Midnights Practitioner: I am a practitioner with admitting privileges, knowledge of patient current condition, hospital course, and medical plan of care. Services: Services provided to patient in accordance with Admission requirements found in Title 42 Section 412.3 of the Code of Federal Regulations Patient History Date of Service: 05/09/23 Reason for admission: DKA History of Present Illness: 48-year-old male patient medical history significant for insulin-dependent diabetes mellitus, history of close emergency was evaluated for episode of worsening shortness of breath and lethargy. Lab done in the was concerning for elevated blood glucose of 600, anion gap of 30s with bicarb of less than 9. His pH was significantly low at 7.13. He was deemed to be in DKA so he was started on DKA protocol and was admitted to ICU level of care. Allergies morphine Allergy (Unknown, Verified 02/29/20 20:42) Unknown Home Medications: Gabapentin 300 mg PO TID 03/24/23 Insulin Detemir [Levemir] 25 units SQ BID 03/24/23 Hum Insulin NPH/Reg Insulin Hm [Humulin 70-30 Vial] 60 unit SQ BID 05/08/23 - Past Medical/Surgical History Diabetic: Yes -: IDDM -: GERD Psychosocial/ Personal History: Lives at home with family - Social History Alcohol use: No Review of Systems General: Weakness, Malaise Eyes: Unremarkable ENT: Unremarkable Respiratory: Unremarkable Cardiovascular: Unremarkable Gastrointestinal: Unremarkable Genitourinary: Unremarkable Musculoskeletal: Unremarkable Integumentary: Unremarkable Neurological: Unremarkable Lymphatics: Unremarkable Physical Examination - Physical Exam General: Alert, Oriented x3 HEENT: Atraumatic Neck: Supple Respiratory: Normal air movement Cardiovascular: Regular rate/rhythm, Normal S1 S2 Gastrointestinal: Soft and benign Musculoskeletal: No swelling Neurological: Normal speech, Normal strength at 5/5 x4 extr - Studies Laboratory Data (last 24 hrs) 05/08/23 05/08/23 18:53 18:53 WBC 11.40 H Hgb 15.8 Hct 48.9 Plt Count 394 Sodium 129 L Potassium 5.0 BUN 34 H Creatinine 1.92 H Glucose 608 H* Total Bilirubin 0.6 AST 13 L ALT 78 H Alkaline Phosphatase 77 Assessment and Plan - Plan DKA: Patient has diabetic ketoacidosis by labs and clinical finding. Will start patient on DKA protocol with insulin drip and appropriate IV fluid. Electrolyte profile check as per protocol to be continued. Will start long-acting insulin once gap closes. Will have him on carb restricted diet once gap closes. Diabetes type 1: We will continue long-acting insulin for glucose control once anion gap closes. Carb restricted diet to be continued. History of reflux esophagitis: Continue pantoprazole therapy. Prophylaxis: Lovenox for DVT prophylaxis. CODE STATUS: Full code. Disposition: We will treat his DKA and he will be discharged once deemed clinically stable. - Advance Directives Does patient have a Living Will: No Does patient have a Durable POA for Healthcare: No
--- NOTE | 2023-05-08 20:44 | EDPHYS ---
[facility] Name: Angel Flores Age: 48 yrs Sex: Male : 1975 Arrival Date: 05/08/2023 Time: 18:40 Bed 16 Private MD: ED Physician Osmin Lehman HPI: 05/07 19:56 This 48 yrs old Black Male presents to ER via EMS with complaints of high blood sugar, kb weakness. 19:56 Patient is a 48-year-old male has been out of his medications for diabetes for 1 week. kb Called 911 today for weakness, nausea, vomiting, shortness of breath and high blood sugar. Denies abdominal pain, chest pain. Historical: - Allergies: 18:45 Morphine; mb9 - Home Meds: 18:45 Humulin 70/30 Sub-Q [Active]; Levemir U-100 Insulin subcutaneous [Active]; mb9 - PMHx: 18:45 cluster headaches; Diabetes - NIDDM; sciatica (L leg); mb9 - PSHx: 18:45 L leg; mb9 - Immunization history:: Adult Immunizations up to date. - Social history:: Smoking status: Patient denies any tobacco usage or history of. ROS: 19:54 Constitutional: As per HPI kb Exam: 19:54 Constitutional: This is a well developed, well nourished patient who is awake, alert, kb and in no acute distress. Head/Face: Normocephalic, atraumatic. ENT: Moist Mucous membranes Cardiovascular: Regular rate Respiratory: Respirations even and unlabored. No increased work of breathing. Talking in full sentences Abdomen/GI: Soft, non-tender. No distention Skin: Warm, dry with normal turgor. Normal color. MS/ Extremity: Pulses equal, no cyanosis. Neurovascular intact. Full, normal range of motion. Neuro: Awake and alert, GCS 15, oriented to person, place, time, and situation. Moves all extremities. Normal gait. 19:54 Respiratory: Respirations: tachypnea, Breath sounds: are clear throughout, Vital Signs: 18:43 BP 108 / 82; Pulse 118; Resp 20; Temp 97.4(O); Pulse Ox 100% on R/A; Weight 52.16 kg; mb9 Height 5 ft. 4 in. ; Pain 0/10; 18:57 BP 125 / 94; Pulse 122; Resp 24; Pulse Ox 100% on R/A; mb9 19:00 BP 130 / 87; Pulse 120; Resp 25; Pulse Ox 100% ; vc1 20:00 BP 110 / 69; Pulse 125; Resp 24; Pulse Ox 100% ; vc1 21:00 BP 140 / 98; Pulse 121; Resp 24; Pulse Ox 100% ; vc1 22:00 BP 132 / 98; Pulse 109; Resp 19; Pulse Ox 100% ; vc1 23:00 BP 134 / 97; Pulse 106; Resp 20; Pulse Ox 100% ; vc1 18:43 Body Mass Index 19.74 (52.16 kg, 162.56 cm) mb9 18:43 Pain Scale: Adult mb9 MDM: 18:48 Patient medically screened. kb 19:55 Differential diagnosis: DKA, hyperglycemia. Data reviewed: vital signs, nurses notes. kb Consideration of Admission/Observation Patient was admitted/placed on observation. Escalation of care including admission/observation considered. Management of patient was discussed with the following: Hospitalist: Dr Quintanilla accepts pt for admission. Historians other than the Patient: EMS: [facility]. Counseling: I had a detailed discussion with the patient and/or guardian regarding the historical points, exam findings, and any diagnostic results supporting the discharge/admit diagnosis, lab results, the need for further work-up and treatment in the hospital. 05/07 18:48 Order name: CBC with Diff; Complete Time: 19:07 kb 05/07 18:48 Order name: CMP; Complete Time: 19:47 kb 05/07 18:48 Order name: Urinalysis w/ reflexes; Complete Time: 21:56 kb 05/07 20:40 Order name: Basic Metabolic Panel EDMS 05/07 20:40 Order name: Basic Metabolic Panel; Complete Time: 22:58 EDMS 05/07 20:40 Order name: Basic Metabolic Panel EDMS 05/07 20:40 Order name: Basic Metabolic Panel EDMS 05/07 20:40 Order name: Calcium Level EDMS 05/07 20:40 Order name: Calcium Level EDMS 05/07 20:40 Order name: Calcium Level EDMS 05/07 20:40 Order name: Calcium Level EDMS 05/07 20:40 Order name: CBC with Automated Diff EDMS 05/07 20:40 Order name: CBC with Automated Diff EDMS 05/07 20:40 Order name: CBC with Automated Diff EDMS 05/07 20:40 Order name: CBC with Automated Diff EDMS 05/07 20:40 Order name: Magnesium EDMS 05/07 20:40 Order name: Magnesium EDMS 05/07 20:40 Order name: Magnesium EDMS 05/07 20:40 Order name: Magnesium EDMS 05/07 20:57 Order name: ABG Arterial Blood Gas; Complete Time: 21:09 EDMS 05/07 21:18 Order name: Glucose, Ancillary Testing; Complete Time: 21:23 EDMS 05/07 22:17 Order name: Glucose, Ancillary Testing; Complete Time: 22:18 EDMS 05/07 23:16 Order name: Glucose, Ancillary Testing; Complete Time: 23:20 EDMS 05/08 00:17 Order name: Glucose, Ancillary Testing; Complete Time: 00:19 EDMS 05/08 01:16 Order name: Glucose, Ancillary Testing EDMS 05/08 02:20 Order name: Glucose, Ancillary Testing EDMS 05/08 03:25 Order name: Glucose, Ancillary Testing EDMS 05/08 04:18 Order name: Glucose, Ancillary Testing EDMS 05/08 08:29 Order name: Glucose, Ancillary Testing EDMS 05/07 18:48 Order name: EKG; Complete Time: 18:49 kb 05/07 20:40 Order name: CONS Physician Consult EDMS 05/07 18:48 Order name: IV Start; Complete Time: 18:58 kb 05/07 18:48 Order name: EKG - Nurse/Tech; Complete Time: 18:58 kb Administered Medications: 19:59 Drug: NS 0.9% IV 1000 ml IV at 125 ml/hr continuous Route: IV; Rate: 125 ml/hr; Site: vc1 right antecubital; 23:21 Follow up: IV Status: Infusion continued upon admission; IV Intake: 375ml vc1 19:59 Drug: Insulin Drip - (Insulin Regular Human IVP 100 units, NS 0.9% IV 100 ml) IV at vc1 calculated rate continuous; Standard concentration 1unit/ml; Dose for DKA is 0.1 units/kg/hr {Co-Signature: jw7 (Rose Acosta RN).} Route: IV; Rate: calculated rate; Site: right antecubital; 23:21 Follow up: IV Status: Infusion continued upon admission; IV Intake: 18.6ml vc1 20:00 Drug: NS 0.9% IV 1000 ml IV at 1000 ml once Route: IV; Rate: 1000 ml; Site: right vc1 antecubital; 23:22 Follow up: IV Status: Completed infusion; IV Intake: 1000ml vc1 Disposition Summary: 05/08/23 20:43 Hospitalization Ordered Notes: Hospitalization Status: Inpatient Admission kb Provider: Law Quintanilla Condition: Fair kb Problem: new kb Symptoms: are unchanged kb Bed/Room Type: Standard kb Location: Telemetry/MedSurg (Inpatient)(05/09/23 10:31) iw Room Assignment: 416(05/09/23 10:31) iw Diagnosis - Diabetes mellitus due to underlying condition with ketoacidosis without coma kb Forms: - Medication Reconciliation Form kb - SBAR form kb - Leadership Thank You Letter kb Critical care time excluding procedures: 19:55 Critical care time: Bedside Care: 20 minutes, Consultation: 10 minutes. Total time: 30 kb minutes Signatures: Dispatcher [employer] EDPatsy Randolph, CLAM BED LABORER-C CLAM BED LABORER-Ckb Day Pizarro, RN RN iw Jennifer Verdin RN RN vc1 Delma Still RN RN mb9 Rose Acosta RN jw7 Corrections: (The following items were deleted from the chart) 23:19 20:43 Intensive Care Unit kb vc1 23:19 20:43 kb vc1 05/08 10:31 05/07 23:19 [facility] ER HOLD vc1 iw 05/08 10:05/07 23:19 ERHOLD- vc1 iw
--- NOTE | 2023-05-08 20:44 | ER ---
Nurse's Notes [facility] Name: Angel Flores Age: 48 yrs Sex: Male : 1975 Arrival Date: 05/08/2023 Time: 18:40 Bed 16 Private MD: Diagnosis: Diabetes mellitus due to underlying condition with ketoacidosis without coma Presentation: 05/07 18:43 Chief complaint: EMS states: "toned out for SOB and weakness that started 2 days after mb9 being out of medication for DM. Pt N/V, given 4 mg of Zofran and 1 liter of 0.9% NS via 18 g to right AC.". Coronavirus screen: At this time, the client does not indicate any symptoms associated with coronavirus-19. Ebola Screen: No symptoms or risks identified at this time. Initial Sepsis Screen: Does the patient meet any 2 criteria? HR > 90 bpm. Does the patient have a suspected source of infection? No. Patient's initial sepsis screen is negative. Risk Assessment: Do you want to hurt yourself or someone else? Patient reports no desire to harm self or others. Onset of symptoms was May 08, 2023. 18:43 Method Of Arrival: EMS: [facility] mb9 18:43 Acuity: LALITA 2 mb9 Triage Assessment: 18:45 General: Appears uncomfortable, Behavior is calm, cooperative. Pain: Denies pain. EENT: mb9 No signs and/or symptoms were reported regarding the EENT system. Neuro: Aviles Agitation-Sedation Scale (RASS): 0 - Alert and Calm Level of Consciousness is awake, alert, obeys commands, Oriented to person, place, time, situation, Appropriate for age Reports weakness. Cardiovascular: Heart tones S1 S2 present Patient's skin is warm and dry. Rhythm is sinus tachycardia. Respiratory: Reports shortness of breath Airway is patent Respiratory effort is even, unlabored, Respiratory pattern is regular, symmetrical. 18:45 GI: Abdomen is flat, non-distended, Bowel sounds present X 4 quads. Abd is soft and non mb9 tender X 4 quads. Reports nausea, vomiting. : No signs and/or symptoms were reported regarding the genitourinary system. Derm: Skin is pink, warm \\T\\ dry. Musculoskeletal: Range of motion: intact in all extremities. Historical: - Allergies: 18:45 Morphine; mb9 - Home Meds: 18:45 Humulin 70/30 Sub-Q [Active]; Levemir U-100 Insulin subcutaneous [Active]; mb9 - PMHx: 18:45 cluster headaches; Diabetes - NIDDM; sciatica (L leg); mb9 - PSHx: 18:45 L leg; mb9 - Immunization history:: Adult Immunizations up to date. - Social history:: Smoking status: Patient denies any tobacco usage or history of. Screenin:47 [facility] ED Fall Risk Assessment (Adult) History of falling in the last 3 months, mb9 including since admission No falls in past 3 months (0 pts) Confusion or Disorientation No (0 pts) Intoxicated or Sedated No (0 pts) Impaired Gait No (0 pts) Mobility Assist Device Used No (0 pt) Altered Elimination No (0 pt) Score/Fall Risk Level 0 - 2 = Low Risk Oriented to surroundings, Maintained a safe environment, Educated pt \\T\\ family on fall prevention, incl call for assistance when getting out of bed. Abuse screen: Denies threats or abuse. Nutritional screening: No deficits noted. Tuberculosis screening: No symptoms or risk factors identified. Assessment: 18:57 Reassessment: see triage assessment. mb9 19:30 General: pt requests ice chips, informed patient he is NPO. vc1 19:45 General: Pt reguest ice chips informed provider he is NPO, asked provider if patient vc1 can have ice chips provider states no he is NPO. 20:00 General: Pt states he doesn't have to pee yet. Pt asked again if he can have some ice vc1 chips. Informed patient that he is NPO. Pt asked to see provider.. 20:07 Reassessment: Patient appears in no apparent distress at this time. No changes from vc1 previously documented assessment. Patient and/or family updated on plan of care and expected duration. Pain level reassessed. Patient is alert, oriented x 3, equal unlabored respirations, skin warm/dry/pink. 22:37 Reassessment: Patient appears in no apparent distress at this time. No changes from vc1 previously documented assessment. Patient and/or family updated on plan of care and expected duration. Pain level reassessed. Patient is alert, oriented x 3, equal unlabored respirations, skin warm/dry/pink. Vital Signs: 18:43 BP 108 / 82; Pulse 118; Resp 20; Temp 97.4(O); Pulse Ox 100% on R/A; Weight 52.16 kg; mb9 Height 5 ft. 4 in. ; Pain 0/10; 18:57 BP 125 / 94; Pulse 122; Resp 24; Pulse Ox 100% on R/A; mb9 19:00 BP 130 / 87; Pulse 120; Resp 25; Pulse Ox 100% ; vc1 20:00 BP 110 / 69; Pulse 125; Resp 24; Pulse Ox 100% ; vc1 21:00 BP 140 / 98; Pulse 121; Resp 24; Pulse Ox 100% ; vc1 22:00 BP 132 / 98; Pulse 109; Resp 19; Pulse Ox 100% ; vc1 23:00 BP 134 / 97; Pulse 106; Resp 20; Pulse Ox 100% ; vc1 18:43 Body Mass Index 19.74 (52.16 kg, 162.56 cm) mb9 18:43 Pain Scale: Adult mb9 ED Course: 18:43 Patient arrived in ED. mb9 18:44 Triage completed. mb9 18:44 Arm band placed on. mb9 18:46 Patient has correct armband on for positive identification. Placed in gown. Bed in low mb9 position. Call light in reach. Side rails up X 1. Provided Education on: press call light if needing anything. Client placed on continuous cardiac and pulse oximetry monitoring. NIBP monitoring applied. monitoring specialist on. Door closed. Noise minimized. Warm blanket given. 18:46 No provider procedures requiring assistance completed. Maintain EMS IV. Dressing mb9 intact. Good blood return noted. Site clean \\T\\ dry. Gauge \\T\\ site: 18 g right AC. 18:47 Delma Still RN is Primary Nurse. mb9 18:48 Patsy Calderon FNP-C is PHCP. kb 18:48 Osmin Lehman MD is Attending Physician. kb 18:58 Warm blanket given. Pillow given. mb9 18:58 CMP Sent. 9 18:58 CBC with Diff Sent. mb9 18:58 Initial lab(s) drawn, by me, sent to lab. EKG done, by ED staff, reviewed by Patsy SALTER. 19:02 Report given to THUY Rodriguez. mb9 19:51 Primary Nurse role handed off by Delma Still RN mb9 20:00 Door closed. Noise minimized. Warm blanket given. vc1 20:07 Jennifer Verdin RN is Primary Nurse. vc1 20:43 Law Quintanilla MD is Hospitalizing Provider. kb 21:12 Urine collected: clean catch specimen, clear. vk 23:20 Patient admitted, IV remains in place. vc1 05/08 04:30 Warm blanket given. vc1 06:39 Assisted to bathroom. vk 06:40 Diet: Patient given ice chips. vk Administered Medications: 05/07 19:59 Drug: NS 0.9% IV 1000 ml IV at 125 ml/hr continuous Route: IV; Rate: 125 ml/hr; Site: [facility] right antecubital; 23:21 Follow up: IV Status: Infusion continued upon admission; IV Intake: 375ml vc1 19:59 Drug: Insulin Drip - (Insulin Regular Human IVP 100 units, NS 0.9% IV 100 ml) IV at vc1 calculated rate continuous; Standard concentration 1unit/ml; Dose for DKA is 0.1 units/kg/hr {Co-Signature: jw7 (Rose Acosta RN).} Route: IV; Rate: calculated rate; Site: right antecubital; 23:21 Follow up: IV Status: Infusion continued upon admission; IV Intake: 18.6ml vc1 20:00 Drug: NS 0.9% IV 1000 ml IV at 1000 ml once Route: IV; Rate: 1000 ml; Site: right vc1 antecubital; 23:22 Follow up: IV Status: Completed infusion; IV Intake: 1000ml vc1 Medication: 18:47 VIS not applicable for this client. mb9 Intake: 23:21 IV: 19ml; Total: 19ml. vc1 23:21 IV: 375ml; Total: 394ml. vc1 23:22 IV: 1000ml; Total: 1394ml. vc1 Output: 05/08 01:00 Urine: 500ml (Voided); Total: 500ml. vk Outcome: 05/07 20:43 Decision to Hospitalize by Provider. kb 23:00 Admitted to ER Hold. Please see [facility] for further documentation. vc1 23:00 Condition: good 23:00 Instructed on the need for admit, 05/08 11:43 Patient left the ED. iw Signatures: Patsy Calderon, JOIE CRAIG-Day Jones RN RN iw Jennifer Verdin RN RN vc1 [place], Delma Morrissey, RN RN mb9 Elizabeth Livingston Jodi RN jw7
[2023-05-08 20:55] LABS: Arterial Blood Carboxyhemoglob 0.9 % (0-1.5); Blood Gas Oxyhemoglobin 93.6 % (94-97); Blood Gas THB 16.5 g/dl (12-18)
[2023-05-08] MEDS: D5.45NS W/KCL 20MEQ 1,000 ML IV SCH (21:00)
[2023-05-08] MEDS: NS KCL 20MEQ 1,000 ML IV SCH (21:00)
[2023-05-08 21:29] LABS: Specific Gravity 1.021 (1.005-1.030); Sqamous Epithelial <5 /HPF (None Seen); Urine Bacteria None Seen /HPF (<20); Urine Bilirubin NEGATIVE (Negative); Urine Blood Negative (Negative); Urine Clarity Clear (Clear); Urine Color Colorless (Yellow); Urine Culture Reflex Order NOT NEEDED; Urine Glucose 4+ (Over) (Negative); Urine Ketones 4+ (Over) (Negative); Urine Microscopic Reflex YN ORDER UMIC; Urine Mucus Slight /HPF (None Seen); Urine Nitrite NEGATIVE (Negative); Urine Protein 1+ (Negative); Urine RBC <5 /HPF (None Seen); Urine Urobilinogen Normal (Normal); Urine WBC <5 /HPF (<5)
[2023-05-08 22:53] LABS: Anion Gap 27.1 mEq/L (5.0-15.0); Potassium 4.1 mEq/L (3.5-5.1)
[2023-05-09] MEDS: NACHLORIDE 0.45% 1,000 ML with POTASSIUM CL 20 MEQ IV SCH (01:00)
[2023-05-09] MEDS ORDERED: ONDANSETRON 4 MG/2 ML VIAL ONE (01:29)
[2023-05-09] MEDS ORDERED: D5.45NS W/KCL 20MEQ 1,000 ML IV ONE (01:29)
[2023-05-09 02:29] LABS: Anion Gap 16.4 mEq/L (5.0-15.0); Potassium 4.4 mEq/L (3.5-5.1)
[2023-05-09] MEDS ORDERED: D50W 25 GM/50 ML SYRINGE IV PRN ×2 (03:29→16:23)
[2023-05-09] MEDS: INSULIN GLARGINE 100 UNIT/ML SQ SCH (03:45)
[2023-05-09] MEDS ORDERED: INSULIN GLARGINE 100 UNIT/ML SQ ONE ×2 (04:22→10:00)
[2023-05-09] MEDS: INSULIN REGULAR (HUMAN) 100 UNIT/ML SQ SCH (07:30)
[2023-05-09 08:18] LABS: Absolute Basophils 0.1 K/uL (0-0.5); Absolute Eosinophils 0.1 K/uL (0-0.5); Absolute Lymphocytes (CBC) 0.8 K/uL (0.7-4.9); Absolute Monocytes 1.1 K/uL (0.1-1.3); Absolute Neutrophil 10.2 K/uL (1.8-8.0); Eosinophils % 0.5 % (0-4.4); Hematocrit 40.3 % (39.6-49.0); Hemoglobin 13.6 g/dL (13.6-17.9); Lymphocytes % 6.6 % (15.3-44.8); MCH 32.3 pg (27.0-35.0); MCHC 33.8 g/dL (32.0-36.0); MCV 95.3 fL (80-100); MPV 8.6 fL (7.6-11.3); Monocytes % 9.3 % (3.3-12.3); Neutrophils % 82.6 % (41.7-73.7); Nucleated Red Blood Cells % 0.1 % (0-0); Platelets 332 thou/uL (152-406); RBC Red Blood Cell Count 4.23 M/uL (4.33-5.43); Red Cell Distribution Width 13.4 % (12.1-15.2)
[2023-05-09] MEDS ORDERED: INSULIN REGULAR (HUMAN) 100 UNIT/ML ONE (08:27)
[2023-05-09 08:36] LABS: Anion Gap 14.7 mEq/L (5.0-15.0); Potassium 4.7 mEq/L (3.5-5.1)
[2023-05-09] MEDS: ENOXAPARIN 40 MG/0.4 ML SQ SCH (09:00)
[2023-05-09] MEDS: CEFTRIAXONE 1,000 MG in NA CHLORIDE 0.9% 50 ML IVPB SCH (09:00)
[2023-05-09] MEDS ORDERED: CEFTRIAXONE 1000 MG/VIAL ONE (09:59)
[2023-05-09] MEDS ORDERED: NA CHLORIDE 0.9% 100 ML ONE (10:00)
[2023-05-09] MEDS ORDERED: ENOXAPARIN 40 MG/0.4 ML SQ ONE (10:00)
[2023-05-09 11:55] VITALS: O2SAT 100
--- NOTE | 2023-05-09 14:24 | EKG ---
Test Date: 2023-05-08 Test Time: 17:52:39 [employer]: MB MEASUREMENT RESULTS: Intervals: Rate: 114 LA: 180 QRSD: 64 QT: 336 QTc: 463 [place]: P: 74 LA: 180 QRS: 90 T: 60 INTERPRETIVE STATEMENTS: Sinus tachycardia Right atrial enlargement Septal infarct, age undetermined Abnormal ECG Compared to ECG 03/23/2023 15:39:56 Atrial abnormality now present Myocardial infarct finding now present Sinus rhythm no longer present Fusion complex(es) no longer present Prolonged QT interval no longer present Electronically Signed On 05-09-23 14:23:00 CDT by Abdulaziz Stevens
--- NOTE | 2023-05-09 14:24 | EKG ---
Test Date: 2023-05-08 Test Time: 17:53:25 Smash Hand: MB MEASUREMENT RESULTS: Intervals: Rate: 115 IA: 158 QRSD: 64 QT: 330 QTc: 456 [place]: P: 87 IA: 158 QRS: 90 T: 86 INTERPRETIVE STATEMENTS: Sinus tachycardia Right atrial enlargement Septal infarct, age undetermined Abnormal ECG Compared to ECG 05/08/2023 17:52:39 No significant changes Electronically Signed On 05-09-23 14:22:58 CDT by Abdulaziz Stevens
[2023-05-09 14:38] LABS: Albumin 3.3 g/dL (3.4-5.0); Albumin/Globulin Ratio 1.2 (1.1-1.8); Anion Gap 11.2 mEq/L (5.0-15.0); Bilirubin Total 0.3 mg/dL (0.2-1.0); Globulin 2.7 g/dL (2.3-3.5); Potassium 4.2 mEq/L (3.5-5.1)
--- NOTE | 2023-05-09 16:14 | P.PN ---
Subjective Date of Service: 05/09/23 Chief Complaint: DKA Patient is complaining of heartburn. DKA resolved and patient transferred to the medical floor. He is currently tolerating diet. Physical Examination - Vital Signs Temperature: 97.7 F Blood Pressure: 111/61 Pulse: 89 Respirations: 19 Pulse Ox (%): 99 - Studies Laboratory Data (last 24 hrs) 05/08/23 05/08/23 18:53 18:53 WBC 11.40 H Hgb 15.8 Hct 48.9 Plt Count 394 Sodium 129 L Potassium 5.0 BUN 34 H Creatinine 1.92 H Glucose 608 H* Total Bilirubin 0.6 AST 13 L ALT 78 H Alkaline Phosphatase 77 Assessment And Plan - Plan Physical Examination General: Well-built, Not in acute distress. Neck: Supple, no elevated JVD. Lungs: Clear to auscultation bilaterally. No rhonchi, no rales, no crackles. Heart: S1-S2 heard, rapid, no murmur no gallop no rub. Normal capillary refill. Abdomen: Soft, nontender, nondistended, no hepatosplenomegaly. Extremities: No pedal edema. No deformity. Neuro: No cranial nerve deficit, no focal motor deficit. Psychiatry: Awake, normal behavior, normal affect. Skin: Warm and dry, no rashes. Diagnosis DKA GERD KIRA Plan: DKA Secondary to medication noncompliance. DKA resolved. Insulin drip transition to subcutaneous insulin. Patient stated he cannot afford his co-pay for Levemir insulin prescribed by his PCP. Will manage blood sugar with Novolin 70/30 and insulin sliding scale. Accu-Cheks ADA diet as tolerated. KIRA Resolved with IV hydration. Monitor renal function GERD Protonix DVT prophylaxis: Lovenox.
[2023-05-09] MEDS: GABAPENTIN 300 MG CAP PO SCH (16:22)
[2023-05-09] MEDS ORDERED: GLUCAGON 1 MG/VIAL IM PRN (16:23)
[2023-05-09] MEDS: NACHLORIDE 0.45% 1,000 ML IV SCH (16:23)
[2023-05-09] MEDS ORDERED: MAGNES/ALUMIN/SIMET 30ML UCUP PO PRN (16:27)
[2023-05-09] MEDS: PANTOPRAZOLE 40MG TABLET PO ONE (16:34)
[2023-05-09] MEDS: PANTOPRAZOLE 40MG TABLET PO SCH (16:37)
[2023-05-09] MEDS: INSULIN 70/30 100 UNITS/ML SQ SCH (21:04)
[2023-05-10] MEDS: GLUCAGON 1 MG/VIAL IM PRN (04:10)
[2023-05-10 07:04] LABS: Magnesium 1.9 mg/dL (1.6-2.4)
[2023-05-10 07:08] LABS: Absolute Monocytes 0.9 K/uL (0.1-1.3); Absolute Neutrophil 5.3 K/uL (1.8-8.0); Basophils % 0.1 % (0-1.3); Eosinophils % 0.3 % (0-4.4); Hematocrit 33.4 % (39.6-49.0); Hemoglobin 11.5 g/dL (13.6-17.9); Lymphocytes % 14.1 % (15.3-44.8); MCH 32.4 pg (27.0-35.0); MCHC 34.3 g/dL (32.0-36.0); MCV 94.6 fL (80-100); MPV 8.6 fL (7.6-11.3); Neutrophils % 72.5 % (41.7-73.7); Platelets 255 thou/uL (152-406); RBC Red Blood Cell Count 3.53 M/uL (4.33-5.43); Red Cell Distribution Width 13.3 % (12.1-15.2)
[2023-05-10] MEDS: D10W 125 ML IV PRN (12:03)
[2023-05-10] MEDS: INSULIN 70/30 100 UNITS/ML SQ SCH (16:32)
[2023-05-10] MEDS: HYDROCODONE/APAP 5/325 MG TAB PO ONE (23:53)
[2023-05-11 04:29] LABS: Absolute Eosinophils 0.1 K/uL (0-0.5); Absolute Lymphocytes (CBC) 1.9 K/uL (0.7-4.9); Absolute Monocytes 0.7 K/uL (0.1-1.3); Absolute Neutrophil 1.7 K/uL (1.8-8.0); Basophils % 0.5 % (0-1.3); Eosinophils % 1.5 % (0-4.4); Hematocrit 33.7 % (39.6-49.0); Hemoglobin 11.8 g/dL (13.6-17.9); Lymphocytes % 44.4 % (15.3-44.8); MCH 33.2 pg (27.0-35.0); MCHC 34.9 g/dL (32.0-36.0); MCV 95.2 fL (80-100); MPV 8.3 fL (7.6-11.3); Monocytes % 15.1 % (3.3-12.3); Neutrophils % 38.5 % (41.7-73.7); Nucleated Red Blood Cells % 0.1 % (0-0); Platelets 216 thou/uL (152-406); RBC Red Blood Cell Count 3.54 M/uL (4.33-5.43); Red Cell Distribution Width 13.4 % (12.1-15.2)
[2023-05-11 04:43] LABS: Magnesium 1.7 mg/dL (1.6-2.4)
--- NOTE | 2023-05-11 10:24 | P.PN ---
Subjective Date of Service: 05/10/23 Patient is doing well with no new complaints. Patient blood sugars dropped today so I will hold his discharge until tomorrow. Will decrease his insulin 7030 to 20 units twice a day. As long as blood sugars are stable tomorrow which should be able to discharge home. Review of Systems 10-point ROS is otherwise unremarkable Physical Examination - Vital Signs Temperature: 97.8 F Blood Pressure: 111/71 Pulse: 84 Respirations: 18 Pulse Ox (%): 98 - Physical Exam General: Alert, In no apparent distress HEENT: Atraumatic, PERRLA, EOMI Neck: Supple, JVD not distended Respiratory: Clear to auscultation bilaterally, Normal air movement Cardiovascular: Regular rate/rhythm, Normal S1 S2 Gastrointestinal: Normal bowel sounds, No tenderness Musculoskeletal: No tenderness Integumentary: No rashes Neurological: Normal speech, Normal tone, Normal affect Lymphatics: No axilla or inguinal lymphadenopathy - Studies Medications List Reviewed: Yes Assessment & Plan - Problems (Diagnosis) (1) DKA (diabetic ketoacidosis) Current Visit: No Status: Acute Qualifiers: Diabetes mellitus type: type 1 - Plan Plan: 1. Patient with DKA which has been corrected. Patient did drop sugars from getting meds and will slowly increase insulin as required to get better blood sugar control. Patient continue managing this as an outpatient. In light of the fact that patient was hypoglycemic today I will hold discharge and await for blood sugars to stabilize a little bit better before discharge most likely in the morning. Discharge Plan: Home Plan to discharge in: Greater than 2 days - Advance Directives Does patient have a Living Will: No Does patient have a Durable POA for Healthcare: No - Code Status/Comfort Care Code Status Assessed: Yes Code Status: Full Code Critical Care: No Time Spent Managing PTS Care (In Minutes): 35
[2023-05-11 18:00] VITALS: BP 109/68; TEMP 98.4
== END 2023-05-11 19:02 | disposition home or self-care (01) | DRG 638 ==
LOC: ER 18:40 → ERHOLD 20:34 → 4TH 05-09 11:36
PROVIDERS: ADMIT Internal Medicine Nephrology; ATTEND Hospitalist
PROC: 4A033R1 Measurement of Arterial Saturation, Peripheral, Percutaneous Approach (ICD-10-PCS; principal; 2023-05-08)
DX: E10.10 Type 1 diabetes mellitus with ketoacidosis without coma (principal); N17.9 Acute kidney failure, unspecified; K21.00 Gastro-esophageal reflux disease with esophagitis, without bleeding; T38.3X6A Underdosing of insulin and oral hypoglycemic [antidiabetic] drugs, initial encounter; Z88.5 Allergy status to narcotic agent; Z79.4 Long term (current) use of insulin; Z79.899 Other long term (current) drug therapy; Z91.141 Patient's other noncompliance with medication regimen due to financial hardship; Z91.128 Patient's intentional underdosing of medication regimen for other reason
CPT/HCPCS: 36415; 80048; 80053; 81001; 82310; 82805; 82947; 83036; 83735; 85025; 93005; 96365; 96366; 99285; J0696; J1610; J1650; J1815; J2405; J3480; J7030

== ENCOUNTER 2023-06-09 14:04 | Emergency (ER) | payer OTHER ==
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
[2023-06-09] MEDS ORDERED: DIPHENHYDRAMINE 50 MG/ML VIAL ONE (14:39)
[2023-06-09] MEDS ORDERED: METOCLOPRAMIDE 10 MG/2mL INJ ONE (14:39)
[2023-06-09 14:45] LABS: Absolute Basophils 0.1 K/uL (0-0.5); Absolute Lymphocytes (CBC) 1.6 K/uL (0.7-4.9); Absolute Monocytes 1.2 K/uL (0.1-1.3); Absolute Neutrophil 5.8 K/uL (1.8-8.0); Basophils % 0.9 % (0-1.3); Eosinophils % 0.2 % (0-4.4); Hematocrit 48.4 % (39.6-49.0); Hemoglobin 16.6 g/dL (13.6-17.9); MCH 31.4 pg (27.0-35.0); MCHC 34.2 g/dL (32.0-36.0); MCV 91.8 fL (80-100); MPV 8.2 fL (7.6-11.3); Monocytes % 14.1 % (3.3-12.3); Neutrophils % 66.8 % (41.7-73.7); Nucleated Red Blood Cells % 0.1 % (0-0); Platelets 419 thou/uL (152-406); RBC Red Blood Cell Count 5.28 M/uL (4.33-5.43); Red Cell Distribution Width 12.8 % (12.1-15.2)
[2023-06-09 15:05] LABS: ALT/SGPT 88 U/L (16-61); AST/SGOT 16 U/L (15-37); Albumin 3.9 g/dL (3.4-5.0); Albumin/Globulin Ratio 1.1 (1.1-1.8); Alkaline Phosphatase 82 U/L (45-117); Anion Gap 12.6 mEq/L (5.0-15.0); BUN Blood Urea Nitrogen 35 mg/dL (7-18); Bicarbonate 26 mEq/L (21-32); Bilirubin Direct 0.2 mg/dL (0-0.2); Bilirubin Indirect, Calculated 0.2 mg/dL (0.2-0.8); Bilirubin Total 0.4 mg/dL (0.2-1.0); Globulin 3.6 g/dL (2.3-3.5); Glomerular Filtration Rate 56 ml/min (=/>90); Glucose Level 156 mg/dL (74-106); Lipase 25 U/L (13-75); Potassium 3.6 mEq/L (3.5-5.1); Protein, Total 7.5 g/dL (6.4-8.2); Sodium Level 131 mEq/L (136-145)
[2023-06-09 15:26] LABS: Troponin High Sensitivity < 3.0 pg/mL (<58.9)
--- NOTE | 2023-06-09 15:57 | ER ---
Nurse's Notes [facility] Name: Angel Flores Age: 48 yrs Sex: Male : 1975 Arrival Date: 06/09/2023 Time: 14:04 Bed 3 Private MD: Diagnosis: Nausea with vomiting, unspecified Presentation: 06/08 14:08 Chief complaint: EMS states: N/V SINCE YESTERDAY. Coronavirus screen: At this time, the bp client does not indicate any symptoms associated with coronavirus-19. Ebola Screen: No symptoms or risks identified at this time. Initial Sepsis Screen: Does the patient meet any 2 criteria? No. Patient's initial sepsis screen is negative. Does the patient have a suspected source of infection? No. Patient's initial sepsis screen is negative. Risk Assessment: Do you want to hurt yourself or someone else? Patient reports no desire to harm self or others. Onset of symptoms is unknown. Care prior to arrival: IV initiated. 20 GA, in the right antecubital area, Glucose check: 171. 14:08 Method Of Arrival: EMS: [facility] bp 14:08 Acuity: LALITA 3 bp 14:08 Care prior to arrival: Medication(s) given: Normal saline infusion, 500 mL, Phenergan, bp 12.5 mg, zofran 4 mg. Triage Assessment: 14:08 General: Appears in no apparent distress. Behavior is cooperative, appropriate for age, bp anxious. Pain: Denies pain. Historical: - Allergies: 14:07 Morphine; bp - Home Meds: 14:07 Levemir U-100 Insulin subcutaneous [Active]; Humulin 70/30 Sub-Q [Active]; bp - PMHx: 14:07 cluster headaches; Diabetes - NIDDM; sciatica (L leg); bp - PSHx: 14:07 L leg; bp - Immunization history:: Adult Immunizations up to date. - Infectious Disease History:: Denies. - Social history:: Smoking status: unknown. - Family history:: not pertinent. Screenin:10 [facility] ED Fall Risk Assessment (Adult) History of falling in the last 3 months, bp including since admission No falls in past 3 months (0 pts). Abuse screen: Denies threats or abuse. Denies injuries from another. Nutritional screening: No deficits noted. Tuberculosis screening: No symptoms or risk factors identified. Assessment: 14:10 General: SEE TRIAGE NOTE. bp 15:26 Reassessment: No changes from previously documented assessment. Patient is alert, bp oriented x 3, equal unlabored respirations, skin warm/dry/pink. 16:12 Reassessment: Patient appears in no apparent distress at this time. No changes from ld1 previously documented assessment. Patient is alert, oriented x 3, equal unlabored respirations, skin warm/dry/pink. Vital Signs: 14:08 BP 132 / 80; Pulse 92; Resp 16; Temp 97; Pulse Ox 98% ; bp 15:21 BP 117 / 92; Pulse 95; Resp 16; Pulse Ox 99% ; bp 16:12 BP 110 / 94; Pulse 89; Resp 18; Pulse Ox 99% on R/A; ld1 ED Course: 14:05 Patient arrived in ED. iw 14:06 Day Pizarro, RN is Primary Nurse. iw 14:06 Luis Antonio Seymour, THUY is Primary Nurse. bp 14:09 Triage completed. bp 14:10 Marvin Cobos MD is Attending Physician. rt 14:10 Arm band placed on. bp 14:10 Patient has correct armband on for positive identification. bp 14:10 Maintain EMS IV. Dressing intact. Good blood return noted. Site clean \T\ dry. Gauge \T\ bp site: 20 GA R AC. 14:36 Basic Metabolic Panel Sent. bp 14:36 CBC with Diff Sent. bp 14:36 LFT's Sent. bp 14:36 Magnesium Sent. bp 14:36 Troponin HS Sent. bp 16:13 No provider procedures requiring assistance completed. IV discontinued, intact, ld1 bleeding controlled, No redness/swelling at site. Administered Medications: 14:46 Drug: NS 0.9% IV 1000 ml IV at 1 bolus Per protocol; 1000 mL bolus Route: IV; Rate: 1 bp bolus; Site: right antecubital; 14:46 Drug: metoCLOPramide IVP 10 mg IVP once; over 1 to 2 minutes Route: IVP; Site: right bp antecubital; 14:46 Drug: diphenhydrAMINE IVP 25 mg IVP once Route: IVP; Site: right antecubital; bp Medication: 14:10 VIS not applicable for this client. bp Outcome: 15:57 Discharge ordered by . rt 16:13 Discharged to home via wheelchair, ld1 16:13 Condition: stable 16:13 Discharge instructions given to patient, Instructed on discharge instructions, follow up and referral plans. medication usage, Demonstrated understanding of instructions, follow-up care, medications, Prescriptions given X 1, 16:13 Patient left the ED. ld1 Signatures: Day Pizarro RN THUY iw Luis Antonio Seymour RN RN bp Sims, Lauren, RN RN ld1 Marvin Cobos MD MD rt
--- NOTE | 2023-06-09 15:57 | EDPHYS ---
Physician Documentation [facility] Name: Angel Flores Age: 48 yrs Sex: Male : 1975 Arrival Date: 06/09/2023 Time: 14:04 Bed 3 Private MD: ED Physician Marvin Cobos HPI: 06/08 18:28 This 48 yrs old Black Male presents to ER via EMS with complaints of N/V. rt 18:28 Patient presents to the ED with about 1 day of nausea, vomiting. Denies any abdominal rt pain. He states that his blood sugars have been good. Reports compliance with his insulin. Denies other acute complaints at this time, symptoms are moderate in severity, no other aggravating or alleviating factors.. Historical: - Allergies: 14:07 Morphine; bp - Home Meds: 14:07 Levemir U-100 Insulin subcutaneous [Active]; Humulin 70/30 Sub-Q [Active]; bp - PMHx: 14:07 cluster headaches; Diabetes - NIDDM; sciatica (L leg); bp - PSHx: 14:07 L leg; bp - Immunization history:: Adult Immunizations up to date. - Infectious Disease History:: Denies. - Social history:: Smoking status: unknown. - Family history:: not pertinent. ROS: 18:28 Constitutional: Negative for fever, chills, and weight loss, Cardiovascular: Negative rt for chest pain, palpitations, and edema, Respiratory: Negative for shortness of breath, cough, wheezing, and pleuritic chest pain, MS/Extremity: Negative for injury and deformity, Skin: Negative for injury, rash, and discoloration, Neuro: Negative for headache, weakness, numbness, tingling, and seizure, 18:28 Abdomen/GI: Positive for nausea and vomiting, Negative for abdominal pain, Exam: 18:28 Constitutional: This is a well developed, well nourished patient who is awake, alert, rt and in no acute distress. Head/Face: Normocephalic, atraumatic. Chest/axilla: Normal chest wall appearance and motion. Nontender with no deformity. No lesions are appreciated. Cardiovascular: Regular rate and rhythm with a normal S1 and S2. No gallops, murmurs, or rubs. Normal PMI, no JVD. No pulse deficits. Respiratory: Lungs have equal breath sounds bilaterally, clear to auscultation and percussion. No rales, rhonchi or wheezes noted. No increased work of breathing, no retractions or nasal flaring. Skin: Warm, dry with normal turgor. Normal color with no rashes, no lesions, and no evidence of cellulitis. MS/ Extremity: Pulses equal, no cyanosis. Neurovascular intact. Full, normal range of motion. Neuro: Awake and alert, GCS 15, oriented to person, place, time, and situation. Cranial nerves II-XII grossly intact. Motor strength 5/5 in all extremities. Sensory grossly intact. Cerebellar exam normal. Normal gait. 18:28 ENT: Dry mucous membranes. 18:28 ECG was reviewed by the Attending Physician. rt Vital Signs: 14:08 BP 132 / 80; Pulse 92; Resp 16; Temp 97; Pulse Ox 98% ; bp 15:21 BP 117 / 92; Pulse 95; Resp 16; Pulse Ox 99% ; bp 16:12 BP 110 / 94; Pulse 89; Resp 18; Pulse Ox 99% on R/A; ld1 MDM: 14:11 Patient medically screened. rt 18:28 Differential Diagnosis DKA, gastroenteritis, nausea, vomiting. Data reviewed: vital rt signs, nurses notes, lab test result(s), EKG. I considered the following discharge prescriptions or medication management in the emergency department Medications were administered in the Emergency Department. See MAR. Independent interpretation of the following test(s) in the Emergency Department CT Scan: My interpretation is Patient denies abdominal pain, no abdominal tenderness, symptoms significantly improving with Reglan only. Do not believe that he requires CT scan to rule out surgical process such as appendicitis, cholecystitis.. Care significantly affected by the following chronic conditions: Diabetes. Counseling: I had a detailed discussion with the patient and/or guardian regarding the historical points, exam findings, and any diagnostic results supporting the discharge/admit diagnosis, lab results, the need for outpatient follow up. Response to treatment: the patient's symptoms have markedly improved after treatment. 06/08 14:17 Order name: Basic Metabolic Panel; Complete Time: 15:35 rt 06/08 14:17 Order name: CBC with Diff; Complete Time: 15:35 rt 06/08 14:17 Order name: LFT's; Complete Time: 15:35 rt 06/08 14:17 Order name: Magnesium; Complete Time: 15:35 rt 06/08 14:17 Order name: Troponin HS; Complete Time: 15:35 rt 06/08 14:17 Order name: Lipase; Complete Time: 15:35 rt 06/08 14:17 Order name: EKG; Complete Time: 14:18 rt 06/08 14:17 Order name: Cardiac monitoring; Complete Time: 14:36 rt 06/08 14:17 Order name: EKG - Nurse/Tech; Complete Time: 15:07 rt 06/08 14:17 Order name: IV Saline Lock; Complete Time: 14:36 rt 06/08 14:17 Order name: Labs collected and sent; Complete Time: 14:36 rt 06/08 14:17 Order name: O2 Per Protocol; Complete Time: 14:23 rt 06/08 14:17 Order name: O2 Sat Monitoring; Complete Time: 14:23 rt EC:28 Rate is 92 beats/min. Rhythm is regular, Normal Sinus Rhythm with No ectopy. QRS Hartly rt is Normal. PA interval is normal. QRS interval is normal. QT interval is normal. No Q waves. T waves are Normal. No ST changes noted. Interpreted by me. Administered Medications: 14:46 Drug: NS 0.9% IV 1000 ml IV at 1 bolus Per protocol; 1000 mL bolus Route: IV; Rate: 1 bp bolus; Site: right antecubital; 14:46 Drug: metoCLOPramide IVP 10 mg IVP once; over 1 to 2 minutes Route: IVP; Site: right bp antecubital; 14:46 Drug: diphenhydrAMINE IVP 25 mg IVP once Route: IVP; Site: right antecubital; bp Disposition Summary: 06/09/23 15:57 Discharge Ordered Notes: Location: Home rt Problem: new rt Symptoms: have improved rt Condition: Stable rt Diagnosis - Nausea with vomiting, unspecified rt Followup: rt - With: Private Physician - When: 2 - 3 days - Reason: Discharge Instructions: - Discharge Summary Sheet rt - Nausea and Vomiting, Adult rt Forms: - Medication Reconciliation Form rt - Thank You Letter rt - Antibiotic Education rt - Prescription Opioid Use rt - Patient Portal Instructions rt - Leadership Thank You Letter rt Prescriptions: - Reglan 10 mg Oral tablet - take 1 tablet ORAL route every 6 hours as needed for nausea; 20 tablet; rt Refills: 0, Product Selection Permitted Signatures: Dispatcher [employer] EDMS Luis Antonio Seymour RN RN Marvin Worrell MD MD rt Corrections: (The following items were deleted from the chart) 14:18 14:18 BASIC METABOLIC PANEL+C.LAB.BRZ ordered. EDMS EDMS 14:18 14:18 CBC+H.LAB.BRZ ordered. EDMS EDMS 14:18 14:18 HEPATIC FUNCTION+C.LAB.BRZ ordered. EDMS EDMS 14:18 14:18 MAGNESIUM+C.LAB.BRZ ordered. EDMS EDMS 14:18 14:18 Troponin High Sensitivity+C.LAB.BRZ ordered. EDMS EDMS 14:18 14:18 LIPASE+C.LAB.BRZ ordered. EDMS EDMS
[2023-06-09 16:45] VITALS: BP 110/94; TEMP 97; O2SAT 99
== END 2023-06-09 16:13 | disposition home or self-care (01) ==
LOC: ER 14:04
DX: R11.2 Nausea with vomiting, unspecified (principal); E11.9 Type 2 diabetes mellitus without complications; Z79.4 Long term (current) use of insulin; Z88.5 Allergy status to narcotic agent
CPT/HCPCS: 85025; 80048; 36415; 83735; 80076; 84484; 83690; 96375; 96374; 99284; J2765; J1200; 93005

== ENCOUNTER 2023-06-16 11:57 | Emergency (ER) | payer OTHER ==
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
[2023-06-16] MEDS ORDERED: NA CHLORIDE 0.9% 1,000 ML ONE (13:35)
[2023-06-16] MEDS ORDERED: ONDANSETRON 4 MG/2 ML VIAL ONE (13:35)
[2023-06-16 13:54] LABS: Absolute Lymphocytes (CBC) 1.5 K/uL (0.7-4.9); Absolute Monocytes 0.5 K/uL (0.1-1.3); Absolute Neutrophil 6.4 K/uL (1.8-8.0); Basophils % 0.6 % (0-1.3); Eosinophils % 0.3 % (0-4.4); Hemoglobin 15.1 g/dL (13.6-17.9); Lymphocytes % 17.5 % (15.3-44.8); MCH 31.4 pg (27.0-35.0); MCHC 34.4 g/dL (32.0-36.0); MCV 91.3 fL (80-100); MPV 8.6 fL (7.6-11.3); Monocytes % 5.5 % (3.3-12.3); Neutrophils % 76.1 % (41.7-73.7); Platelets 318 thou/uL (152-406); RBC Red Blood Cell Count 4.82 M/uL (4.33-5.43); Red Cell Distribution Width 12.7 % (12.1-15.2)
[2023-06-16 15:09] LABS: Albumin 3.2 g/dL (3.4-5.0); Albumin/Globulin Ratio 1.1 (1.1-1.8); Anion Gap 10.1 mEq/L (5.0-15.0); BETA HYDROXYBUTYRATE 0.45 mmol/L (0.02-0.27); Bilirubin Total 0.5 mg/dL (0.2-1.0); Potassium 4.1 mEq/L (3.5-5.1); Protein, Total 6.2 g/dL (6.4-8.2)
[2023-06-16 15:11] LABS: Blood O2 Saturation 69.6 % (92-98.5)
[2023-06-16 15:12] LABS: Arterial Blood Carboxyhemoglob 0.7 % (0-1.5); Blood Gas Oxyhemoglobin 68.1 % (94-97)
--- NOTE | 2023-06-16 18:31 | RAD REPORT ---
EXAM DESCRIPTION: CT - Abdomen Pelvis W Contrast - 06/16/2023 6:13 pm CLINICAL HISTORY: Abdominal pain COMPARISON: March 2023 TECHNIQUE: Computed axial tomography of the abdomen pelvis was obtained. 100 cc Isovue-300 was admin istered intravenously. Oral contrast was not requested which limits evaluation of bowel and appendix All CT scans are performed using dose optimization technique as appropriate and may include automated exposure control or mA/KV adjustment according to patient size. FINDINGS: Small hepatic cyst. Contracted gallbladder probably consistent patient has recently eaten. Spleen, pancreas, adrenal and kidneys appear unremarkable. There is no evidence of diverticulitis. No adnexal mass Wall of gastric cardia is thickened Spondylosis L5-S1 IMPRESSION: Wall of gastric cardia is thickened which probably indicates inflammation. A mass can garcia ve a similar appearance but probably is less likely
--- NOTE | 2023-06-16 18:54 | ER ---
Nurse's Notes [facility] Name: Angel Flores Age: 48 yrs Sex: Male : 1975 Arrival Date: 06/16/2023 Time: 11:57 Bed 13 Private MD: Diagnosis: Nausea with vomiting, unspecified Presentation: 06/15 12:01 Chief complaint: EMS states: called out for nausea vomiting. Coronavirus screen: At as6 this time, the client does not indicate any symptoms associated with coronavirus-19. Ebola Screen: No symptoms or risks identified at this time. Initial Sepsis Screen: Does the patient meet any 2 criteria? No. Patient's initial sepsis screen is negative. Does the patient have a suspected source of infection? No. Patient's initial sepsis screen is negative. Risk Assessment: Do you want to hurt yourself or someone else? Patient reports no desire to harm self or others. Onset of symptoms was June 13, 2023. 12:01 Method Of Arrival: EMS: [facility] as6 12:01 Acuity: LALITA 3 as6 Triage Assessment: 12:02 General: Appears in no apparent distress. uncomfortable, Behavior is calm, cooperative. as6 General: Appears slender. Pain: Complains of pain in abdomen. Pain: Quality of pain is described as aching, dull. Pain: Noted to be guarding. EENT: No deficits noted. No signs and/or symptoms were reported regarding the EENT system. Neuro: Level of Consciousness is awake, alert, obeys commands, Oriented to person, place, time, situation. Cardiovascular: Capillary refill < 3 seconds Patient's skin is warm and dry. Respiratory: Airway is patent Trachea midline Respiratory effort is even, unlabored, Respiratory pattern is regular, symmetrical. GI: Pt is actively vomiting clear fluid, Reports lower abdominal pain, upper abdominal pain, nausea, normal bowel habits, vomiting, Patient currently denies diarrhea. : No deficits noted. No signs and/or symptoms were reported regarding the genitourinary system. Derm: Skin is intact, is healthy with good turgor. Musculoskeletal: Circulation, motion, and sensation intact. Historical: - Allergies: 12:02 Morphine; as6 - PMHx: 12:02 cluster headaches; Diabetes - NIDDM; sciatica (L leg); as6 - PSHx: 12:02 L leg; hand (L leg); neck (L leg); as6 - Immunization history:: Adult Immunizations not up to date. - Infectious Disease History:: Denies. - Social history:: Smoking status: Patient reports the use of cigarette tobacco products, denies chronic smoking, but will smoke occasionally. Screenin:04 [facility] ED Fall Risk Assessment (Adult) History of falling in the last 3 months, as6 including since admission No falls in past 3 months (0 pts) Confusion or Disorientation No (0 pts) Intoxicated or Sedated No (0 pts) Impaired Gait No (0 pts) Mobility Assist Device Used No (0 pt) Altered Elimination No (0 pt) Score/Fall Risk Level 0 - 2 = Low Risk Oriented to surroundings, Maintained a safe environment, Educated pt \T\ family on fall prevention, incl call for assistance when getting out of bed, Assessed \T\ reinforced patient's understanding of fall precautions. Abuse screen: Denies threats or abuse. Denies injuries from another. Nutritional screening: No deficits noted. Tuberculosis screening: No symptoms or risk factors identified. Assessment: 12:04 General: see triage assessment . as6 13:46 Reassessment: Patient appears in no apparent distress at this time. Patient and/or as6 family updated on plan of care and expected duration. Pain level reassessed. 15:28 Reassessment: Patient appears in no apparent distress at this time. Patient and/or as6 family updated on plan of care and expected duration. Pain level reassessed. Patient is alert, oriented x 3, equal unlabored respirations, skin warm/dry/pink. 18:50 Reassessment: Patient appears in no apparent distress at this time. Patient and/or as6 family updated on plan of care and expected duration. Pain level reassessed. Patient is alert, oriented x 3, equal unlabored respirations, skin warm/dry/pink. Patient states symptoms have improved. Vital Signs: 12:01 BP 111 / 85; Pulse 79; Resp 17 S; Temp 97.7(O); Pulse Ox 100% on R/A; Weight 56.7 kg as6 (R); Height 5 ft. 4 in. (R); Pain 7/10; 13:46 BP 114 / 87; Pulse 88; Resp 18 S; Pulse Ox 100% on R/A; as6 15:28 BP 102 / 78; Pulse 79; Resp 18 S; Pulse Ox 100% on R/A; as6 16:34 BP 104 / 70; Pulse 94; Resp 18 S; Pulse Ox 100% on R/A; as6 17:30 BP 96 / 75; Pulse 102; Resp 18 S; Pulse Ox 100% on R/A; as6 18:51 BP 111 / 82; Pulse 102; Resp 16 S; Pulse Ox 100% on R/A; as6 12:01 Body Mass Index 21.46 (56.70 kg, 162.56 cm) as6 12:01 Pain Scale: Adult as6 ED Course: 12:01 Patient arrived in ED. as6 12:01 Alpesh Pennington, RN is Primary Nurse. as6 12:02 Triage completed. as6 12:04 Arm band placed on. as6 12:04 Bed in low position. Call light in reach. Side rails up X2. Client placed on continuous as6 cardiac and pulse oximetry monitoring. NIBP monitoring applied. Warm blanket given. 12:11 Angella Ochoa MD is Attending Physician. gb1 13:45 Lipase Sent. as6 13:45 CMP Sent. as6 13:45 CBC with Diff Sent. as6 13:45 BETA HYDROXYBUTYRATE Sent. as6 13:45 ABG: VBG Sent. as6 13:46 Inserted saline lock: 20 gauge in right forearm, using aseptic technique. Blood as6 collected. 15:29 Warm blanket given. as6 16:34 Diet tray given. PO fluids given. as6 18:15 CT Abd/Pelvis - IV Contrast Only In Process Unspecified. EDMS 18:50 Provided Education on: follow up. as6 18:50 No provider procedures requiring assistance completed. as6 19:03 IV discontinued, intact, bleeding controlled, No redness/swelling at site. Pressure as6 dressing applied. Administered Medications: 13:45 Drug: NS 0.9% IV 1000 ml IV at 1 bolus Per protocol; 1000 mL bolus Route: IV; Rate: 1 as6 bolus; Site: right forearm; 18:50 Follow up: Response: No adverse reaction; IV Status: Completed infusion; IV Intake: as6 1000ml 13:45 Drug: Ondansetron IVP 4 mg IVP once; over 2 minutes Route: IVP; Site: right forearm; as6 18:50 Follow up: Response: No adverse reaction as6 Medication: 12:04 VIS not applicable for this client. as6 Intake: 18:50 IV: 1000ml; Total: 1000ml. as6 Outcome: 18:50 Discharged to home ambulatory, as6 18:50 Condition: stable 18:53 Discharge ordered by . gb1 19:04 Discharge instructions given to patient, Instructed on discharge instructions, follow as6 up and referral plans. medication usage, Demonstrated understanding of instructions, follow-up care, medications, Prescriptions given X 1, 19:04 Patient left the ED. as6 Signatures: Dispatcher [employer] Alpesh Drake RN RN as6 Angella Ochoa MD MD gb1
--- NOTE | 2023-06-16 18:54 | EDPHYS ---
Physician Documentation [facility] Name: Angel Flores Age: 48 yrs Sex: Male : 1975 Arrival Date: 06/16/2023 Time: 11:57 Bed 13 Private MD: ED Physician Angella Ochoa HPI: 06/15 17:34 This 48 yrs old Black Male presents to ER via EMS with complaints of Nausea/Vomiting. gb1 17:34 48-year-old -Togolese male with history of insulin-dependent diabetes, cluster gb1 headaches and sciatica is here with repeated episodes of nausea vomiting, no diarrhea. He denies any fever or abdominal pain. Liquids and solids both are vomited within an hour to 2 hours.. Historical: - Allergies: 12:02 Morphine; as6 - PMHx: 12:02 cluster headaches; Diabetes - NIDDM; sciatica (L leg); as6 - PSHx: 12:02 L leg; hand (L leg); neck (L leg); as6 - Immunization history:: Adult Immunizations not up to date. - Infectious Disease History:: Denies. - Social history:: Smoking status: Patient reports the use of cigarette tobacco products, denies chronic smoking, but will smoke occasionally. Exam: 17:34 Constitutional: This is a well developed, well nourished patient who is awake, alert, gb1 and in no acute distress. Head/Face: Normocephalic, atraumatic. Eyes: Pupils equal round and reactive to light, extra-ocular motions intact. Lids and lashes normal. Conjunctiva and sclera are non-icteric and not injected. Cornea within normal limits. Periorbital areas with no swelling, redness, or edema. ENT: Nares patent. No nasal discharge, no septal abnormalities noted. Tympanic membranes are normal and external auditory canals are clear. Oropharynx with no redness, swelling, or masses, exudates, or evidence of obstruction, uvula midline. Mucous membranes moist. Neck: Trachea midline, no thyromegaly or masses palpated, and no cervical lymphadenopathy. Supple, full range of motion without nuchal rigidity, or vertebral point tenderness. No Meningismus. Chest/axilla: Normal chest wall appearance and motion. Nontender with no deformity. No lesions are appreciated. Cardiovascular: Regular rate and rhythm with a normal S1 and S2. No gallops, murmurs, or rubs. Normal PMI, no JVD. No pulse deficits. Respiratory: Lungs have equal breath sounds bilaterally, clear to auscultation and percussion. No rales, rhonchi or wheezes noted. No increased work of breathing, no retractions or nasal flaring. Abdomen/GI: Soft, non-tender, with normal bowel sounds. No distension or tympany. No guarding or rebound. No evidence of tenderness throughout. Back: No spinal tenderness. No costovertebral tenderness. Full range of motion. Skin: Warm, dry with normal turgor. Normal color with no rashes, no lesions, and no evidence of cellulitis, dry mucous membranes MS/ Extremity: Pulses equal, no cyanosis. Neurovascular intact. Full, normal range of motion. Neuro: Awake and alert, GCS 15, oriented to person, place, time, and situation. Cranial nerves II-XII grossly intact. Motor strength 5/5 in all extremities. Sensory grossly intact. Cerebellar exam normal. Normal gait. Psych: Awake, alert, with orientation to person, place and time. Behavior, mood, and affect are within normal limits. Vital Signs: 12:01 BP 111 / 85; Pulse 79; Resp 17 S; Temp 97.7(O); Pulse Ox 100% on R/A; Weight 56.7 kg as6 (R); Height 5 ft. 4 in. (R); Pain 7/10; 13:46 BP 114 / 87; Pulse 88; Resp 18 S; Pulse Ox 100% on R/A; as6 15:28 BP 102 / 78; Pulse 79; Resp 18 S; Pulse Ox 100% on R/A; as6 16:34 BP 104 / 70; Pulse 94; Resp 18 S; Pulse Ox 100% on R/A; as6 17:30 BP 96 / 75; Pulse 102; Resp 18 S; Pulse Ox 100% on R/A; as6 18:51 BP 111 / 82; Pulse 102; Resp 16 S; Pulse Ox 100% on R/A; as6 12:01 Body Mass Index 21.46 (56.70 kg, 162.56 cm) as6 12:01 Pain Scale: Adult as6 MDM: 12:11 Patient medically screened. gb1 17:34 Differential diagnosis: Nonspecific abd pain, gastritis, cholecystitis, pancreatitis, gb1 appendicitis, diverticulitis, viral gastroenteritis, gastroenteritis, Gastroparesis, diabetic ketoacidosis, insulin-dependent diabetes with hyperglycemia likely secondary to medication noncompliance. Data reviewed: vital signs, nurses notes, lab test result(s), CBC, electrolytes. Consideration of Admission/Observation Patient was admitted/placed on observation. ED course: 48-year-old male with history of insulin-dependent diabetes here with mild dehydration, sodium 128 repeated ER visits for similar symptoms. His last CT scan was done on May 20 and although I doubt any acute intra-abdominal pathology I will obtain a CT abdomen pelvis prior to disposition. He is not in DKA today and is able to tolerate small liquid p.o. He is afebrile and otherwise nontoxic-appearing. I discussed the case with Dr. Osborn, who reported that his corrected sodium was 1 32-1 33 when corrected for glucose.. 18:54 ED course: Patient has been p.o. tolerant. He is eating 3 sandwiches without any gb1 vomiting. He at this time shows no signs of clinical dehydration and his corrected sodium is within normal limits.. 06/15 13:30 Order name: CBC with Diff; Complete Time: 14:20 gb06/15 13:30 Order name: CMP; Complete Time: 16:39 gb06/15 13:30 Order name: Lipase; Complete Time: 16:39 gb06/15 13:31 Order name: BETA HYDROXYBUTYRATE; Complete Time: 16:39 gb06/15 13:31 Order name: ABG: VBG 06/15 16:46 Order name: CT Abd/Pelvis - IV Contrast Only; Complete Time: 18:45 gb06/15 13:30 Order name: IV Saline Lock; Complete Time: 13:45 gb06/15 13:30 Order name: Labs collected and sent; Complete Time: 13:45 gb06/15 14:06 Order name: Labs - recollect needed: recollect chemistries; Complete Time: 14:47 eb Administered Medications: 13:45 Drug: NS 0.9% IV 1000 ml IV at 1 bolus Per protocol; 1000 mL bolus Route: IV; Rate: 1 as6 bolus; Site: right forearm; 18:50 Follow up: Response: No adverse reaction; IV Status: Completed infusion; IV Intake: as6 1000ml 13:45 Drug: Ondansetron IVP 4 mg IVP once; over 2 minutes Route: IVP; Site: right forearm; as6 18:50 Follow up: Response: No adverse reaction as6 Disposition Summary: 06/16/23 18:53 Discharge Ordered Notes: Location: Home gb1 Condition: Stable gb1 Diagnosis - Nausea with vomiting, unspecified gb1 Followup: gb1 - With: Private Physician - When: 2 - 3 days - Reason: Re-evaluation by your physician Discharge Instructions: - Discharge Summary Sheet gb1 - Nausea and Vomiting, Adult gb1 Forms: - Medication Reconciliation Form gb1 - Antibiotic Education gb1 - Prescription Opioid Use gb1 - Patient Portal Instructions gb1 - Leadership Thank You Letter gb1 Prescriptions: - Zofran 4 mg Oral Tablet - take 1 tablet ORAL route every 12 hours As needed; 20 tablet; Refills: 0, gb1 Product Selection Permitted Signatures: Dispatcher [employer] EDMS Courtney Hernandez Ashby, RN RN as6 Angella Ochoa MD MD gb1 Corrections: (The following items were deleted from the chart) 13:31 13:31 BETA HYDROXYBUTYRATE+C.LAB.BRZ ordered. EDMS EDMS 13:31 13:31 Arterial Blood Gas+RC.LAB.BRZ ordered. EDMS EDMS
[2023-06-16 19:38] VITALS: BP 111/82; TEMP 97.7; O2SAT 100
== END 2023-06-16 19:04 | disposition home or self-care (01) ==
LOC: ER 11:57
DX: R11.2 Nausea with vomiting, unspecified (principal); E11.9 Type 2 diabetes mellitus without complications; Z79.4 Long term (current) use of insulin; F17.210 Nicotine dependence, cigarettes, uncomplicated; Z88.5 Allergy status to narcotic agent
CPT/HCPCS: 85025; 36415; 83690; 80053; 82010; 74177; 82805; Q9967; J2405; J7030; 96361; 96374; 99284

== ENCOUNTER 2023-08-20 11:04 | Inpatient (IN) | payer OTHER ==
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
[2023-08-20] MEDS ORDERED: NA CHLORIDE 0.9% 1,000 ML ONE (11:40)
[2023-08-20 11:53] LABS: Absolute Lymphocytes (CBC) 1.3 K/uL (0.7-4.9); Absolute Monocytes 0.5 K/uL (0.1-1.3); Absolute Neutrophil 2.5 K/uL (1.8-8.0); Basophils % 0.6 % (0-1.3); Eosinophils % 0.4 % (0-4.4); Hematocrit 35.7 % (39.6-49.0); Lymphocytes % 30.2 % (15.3-44.8); MCH 32.2 pg (27.0-35.0); MCHC 33.6 g/dL (32.0-36.0); MCV 95.6 fL (80-100); MPV 8.1 fL (7.6-11.3); Monocytes % 10.8 % (3.3-12.3); Nucleated Red Blood Cells % 0.1 % (0-0); Platelets 280 thou/uL (152-406); RBC Red Blood Cell Count 3.73 M/uL (4.33-5.43); Red Cell Distribution Width 13.4 % (12.1-15.2)
--- NOTE | 2023-08-20 12:08 | RAD REPORT ---
EXAM DESCRIPTION: RAD - Chest Single View - 08/20/2023 11:55 am CLINICAL HISTORY: COUGH COMPARISON: Chest Single View dated 03/23/2023; Chest Single View dated 07/04/2022; Chest Single View d ated 02/29/2020; Chest Single View dated 02/28/2020 FINDINGS: Lines: None. Lungs: No evidence of edema or pneumonia. Pleural: No significant pleural effusions or pneumothorax. Cardiac: The heart size is within normal limits. Mediastinum: Within normal limits. Bones: No acute fractures. Other: None IMPRESSION: No acute cardiopulmonary disease.
[2023-08-20 12:47] LABS: Specific Gravity 1.024 (1.005-1.030); Sqamous Epithelial <5 /HPF (None Seen); Urine Bacteria None Seen /HPF (<20); Urine Bilirubin NEGATIVE (Negative); Urine Blood Negative (Negative); Urine Clarity Clear (Clear); Urine Color Colorless (Yellow); Urine Culture Reflex Order NOT NEEDED; Urine Glucose 4+ (Over) (Negative); Urine Ketones 4+ (Over) (Negative); Urine Micro Reflex YN NO BILL MICROSCOPIC; Urine Mucus Slight /HPF (None Seen); Urine Nitrite NEGATIVE (Negative); Urine Protein NEGATIVE (Negative); Urine RBC <5 /HPF (None Seen); Urine Urobilinogen Normal (Normal); Urine WBC <5 /HPF (<5)
[2023-08-20 12:50] LABS: Arterial Blood Carboxyhemoglob 0.5 % (0-1.5); Blood Gas Oxyhemoglobin 42.6 % (94-97); Blood Gas THB 13.6 g/dl (12-18); Blood O2 Saturation 43.9 % (92-98.5)
[2023-08-20 12:50] LABS: Anion Gap 23.3 mEq/L (5.0-15.0); BUN Blood Urea Nitrogen 26 mg/dL (7-18); Bicarbonate 11 mEq/L (21-32); Glomerular Filtration Rate 105 ml/min (=/>90); Potassium 4.3 mEq/L (3.5-5.1); Sodium Level 127 mEq/L (136-145)
[2023-08-20 12:52] LABS: Troponin High Sensitivity < 3.0 pg/mL (<58.9)
[2023-08-20 12:53] LABS: Glucose Level 533 mg/dL (74-106)
--- NOTE | 2023-08-20 13:03 | EDPHYS ---
Physician Documentation [facility] Name: Angel Flores Age: 48 yrs Sex: Male : 1975 Arrival Date: 08/20/2023 Time: 11:04 Bed 14 Private MD: ED Physician Osmin Lehman HPI: 08/19 11:43 This 48 yrs old Black Male presents to ER via EMS with complaints of High Blood Sugar. ec2 11:43 Patient arrives today for evaluation of elevated blood sugar. Patient ran out of his DM ec2 medication, EMS reports that they noted his BS elevated to 'HI'. . Historical: - Allergies: 11:30 Morphine; nj1 - PMHx: 11:30 cluster headaches; Diabetes - NIDDM; sciatica (L leg); PTSD (sciatica); nj1 - PSHx: 11:30 hand (L le); L leg; neck (L le); nj1 - Immunization history:: Client reports receiving the 2nd dose of the Covid vaccine. - Infectious Disease History:: Denies. - Social history:: Smoking status: Patient/guardian denies using tobacco, Stopped _ months ago 1. ROS: 11:43 Constitutional: as per hpi ec2 Exam: 11:43 Constitutional: GEN: NAD Head: atraumatic Eyes: EOMI Ears: External ears are ec2 normal. CV: regular rate LUNGS: no respiratory distress ABD: non-distended SKIN: no evidence of rashes MSK: no evidence of trauma NEURO: moves all extremities equally Vital Signs: 11:30 BP 99 / 61; Pulse 82; Resp 16; Temp 98.1(O); Pulse Ox 98% on R/A; Weight 46.27 kg; nj1 Height 5 ft. 4 in. ; 11:46 BP 99 / 62; Pulse 81; Resp 14; Pulse Ox 100% ; ec2 12:22 BP 106 / 73; Pulse 82; Resp 18; Pulse Ox 98% on R/A; kj2 13:15 BP 105 / 78; Pulse 70; Resp 14; Pulse Ox 100% ; nj1 14:14 BP 111 / 77; Pulse 71; Resp 20; Pulse Ox 100% ; nj1 11:30 Body Mass Index 17.51 (46.27 kg, 162.56 cm) nj1 MDM: 11:28 Patient medically screened. ec2 11:43 Data reviewed: vital signs. ED course: Patient arrives today for evaluation of ec2 hyperglycemia. Examination remarkable for nontoxic in which was otherwise in no acute distress with a reassuring examination. EKG obtained, independently reviewed and interpreted by me, shows normal sinus rhythm, rate of 81, no acute ST segment elevations, normal nonconcerning. Will obtain lab work as well as chest x-ray. Differential diagnosis includes hyperglycemia, DKA, electrolyte disturbance, renal dysfunction. . 12:19 ED course: Chest x-ray independently reviewed and interpreted by me, shows no acute ec2 intrathoracic process. CBC reassuring. . 13:01 ED course: Metabolic profile shows hyperglycemia with a blood sugar of 533, anion gap ec2 elevated at 23, pseudohyponatremia noted. Urine shows ketones. ABG shows a pH of 7.23. Troponin within normal ranges. Will start the patient on insulin drip. Will admit to ICU for continued management of DKA. . 13:07 ED course: MDM: Differential diagnosis as documented above in ED course; All lab tests ec2 ordered and reviewed as documented above; Independent interpretation of tests: EKG as above; imaging as above; Discuss inpatient hospitalization: Yes; I discussed the case with: Hospitalist . 08/19 11:29 Order name: Basic Metabolic Panel; Complete Time: 13:07 ec2 08/19 11:29 Order name: CBC with Diff; Complete Time: 12:18 ec2 08/19 11:29 Order name: Troponin HS; Complete Time: 13:07 ec2 08/19 11:29 Order name: UAM; Complete Time: 13:00 ec2 08/19 11:29 Order name: BHB; Complete Time: 13:07 ec2 08/19 12:47 Order name: ABG Arterial Blood Gas [facility] 08/19 12:51 Order name: ABG Arterial Blood Gas; Complete Time: 13:00 EDKS 08/19 13:23 Order name: Thyroid Stimulating Hormone EDKS 08/19 13:23 Order name: Basic Metabolic Panel [facility] 08/19 13:23 Order name: Basic Metabolic Panel [facility] 08/19 13:23 Order name: Basic Metabolic Panel [facility] 08/19 13:23 Order name: Basic Metabolic Panel [facility] 08/19 13:23 Order name: Basic Metabolic Panel EDMS 07/02 13:23 Order name: CBC with Automated Diff EDMS 07/02 13:23 Order name: CBC with Automated Diff EDMS 07/02 13:23 Order name: CBC with Automated Diff EDMS 07/02 13:23 Order name: CBC with Automated Diff EDMS 07/02 13:23 Order name: CBC with Automated Diff EDMS 07/02 13:23 Order name: Comprehensive Metabolic Panel EDMS 07/02 13:23 Order name: Comprehensive Metabolic Panel EDMS 07/02 13:23 Order name: Comprehensive Metabolic Panel EDMS 07/02 13:23 Order name: Comprehensive Metabolic Panel EDMS 07/02 13:23 Order name: Comprehensive Metabolic Panel EDMS 07/02 13:23 Order name: Lipid Profile EDMS 07/02 13:23 Order name: Lipid Profile EDMS 07/02 13:23 Order name: Magnesium EDMS 07/02 13:23 Order name: Magnesium EDMS 07/02 13:23 Order name: Magnesium EDMS 07/02 13:23 Order name: Magnesium EDMS 07/ 13:23 Order name: Magnesium EDMS 07/02 13:23 Order name: Phosphorus EDMS 07/02 13:23 Order name: Phosphorus EDMS 07/02 13:23 Order name: Phosphorus EDMS 07/02 13:23 Order name: Phosphorus EDMS 07/02 13:23 Order name: Phosphorus EDMS 07/02 14:18 Order name: Glucose, Ancillary Testing EDMS / 11:29 Order name: XRAY Chest (1 view); Complete Time: 12:18 ec2 08/19 11:29 Order name: Cardiac monitoring; Complete Time: 11:43 ec2 08/19 11:29 Order name: EKG - Nurse/Tech; Complete Time: 11:43 ec2 08/19 11:29 Order name: IV Saline Lock; Complete Time: 11:43 ec2 08/19 11:29 Order name: Labs collected and sent; Complete Time: 11:43 ec2 08/19 11:29 Order name: O2 Per Protocol; Complete Time: 11:38 ec2 08/19 11:29 Order name: O2 Sat Monitoring; Complete Time: 11:38 ec2 08/19 11:29 Order name: Misc. Order: Venous Blood Gas; Complete Time: 12:20 ec2 Administered Medications: 12:20 Drug: NS 0.9% IV 2000 ml IV at 1 bolus Per protocol; 1000 mL bolus Route: IV; Rate: 1 nj1 bolus; Site: right forearm; 13:54 Not Given (Given by EMS, clarified with ED physician): ns 0.9% 1000 ml IV at 1000 ml nj1 once 14:09 Drug: Insulin Drip - (Insulin Regular Human IVP 100 units, NS 0.9% IV 100 ml) IV at nj1 calculated rate continuous; Standard concentration 1unit/ml; Dose for DKA is 0.1 units/kg/hr {Co-Signature: kj2 (Ute Morales RN).} Route: IV; Rate: calculated rate; Site: right forearm; Disposition Summary: 08/20/23 13:02 Hospitalization Ordered Notes: Hospitalization Status: Inpatient Admission ec2 Provider: Heath Bridgse ec2 Location: Intensive Care Unit ec2 Condition: Stable ec2 Problem: an acute exacerbation ec2 Symptoms: have improved ec2 Bed/Room Type: Standard ec2 Room Assignment: 7-(08/20/23 13:32) ap3 Diagnosis - Other specified diabetes mellitus with ketoacidosis without coma ec2 Forms: - Medication Reconciliation Form ec2 - SBAR form ec2 - Leadership Thank You Letter ec2 Critical care time excluding procedures: 13:02 Critical care time: Bedside Care: 30 minutes, Consultation: 5 minutes. Total time: 35 ec2 minutes Signatures: Dispatcher [employer] EDKS Delores Parisi, RN RN ap3 Janay Deluna RN RN nj1 Osmin Lehman MD MD ec2 Ute Morales RN kj2 Corrections: (The following items were deleted from the chart) 11:29 11:29 Chest Single View+[email or web address] ordered. EDKS EDKS 13:32 13:02 ec2 ap3
--- NOTE | 2023-08-20 13:03 | ER ---
Nurse's Notes [facility] Name: Angel Flores Age: 48 yrs Sex: Male : 1975 Arrival Date: 08/20/2023 Time: 11:04 Bed 14 Private MD: Diagnosis: Other specified diabetes mellitus with ketoacidosis without coma Presentation: 08/19 11:21 Chief complaint: EMS states: High blood sugar, ran out of insulin 3-4 days ago. States nj1 he has been having oliguria, excessive thirst and weakness. Pt denies pain, nausea and/or vomiting. 11:21 Method Of Arrival: EMS: [facility] 11:21 Acuity: LALITA 3 nj 11:25 Care prior to arrival: Medication(s) given: Normal saline infusion, 1000 mL, IV nj1 initiated. HIGH blood sugar. 11:30 Coronavirus screen: Vaccine status: Patient reports receiving the 2nd dose of the covid nj1 vaccine. 11:30 Ebola Screen: Patient denies travel to an Ebola-affected area in the 21 days before [facility] illness onset. Initial Sepsis Screen: Does the patient meet any 2 criteria? No. Patient's initial sepsis screen is negative. Does the patient have a suspected source of infection? No. Patient's initial sepsis screen is negative. Risk Assessment: Do you want to hurt yourself or someone else? Patient reports no desire to harm self or others. Onset of symptoms was July 2023. Historical: - Allergies: 11:30 Morphine; nj1 - PMHx: 11:30 cluster headaches; Diabetes - NIDDM; sciatica (L leg); PTSD (sciatica); nj1 - PSHx: 11:30 hand (L le); L leg; neck (L le); nj1 - Immunization history:: Client reports receiving the 2nd dose of the Covid vaccine. - Infectious Disease History:: Denies. - Social history:: Smoking status: Patient/guardian denies using tobacco, Stopped _ months ago 1. Screenin:04 [facility] ED Fall Risk Assessment (Adult) History of falling in the last 3 months, [facility] including since admission No falls in past 3 months (0 pts) Confusion or Disorientation No (0 pts) Intoxicated or Sedated No (0 pts) Impaired Gait No (0 pts) Mobility Assist Device Used No (0 pt) Altered Elimination No (0 pt) Score/Fall Risk Level 0 - 2 = Low Risk Oriented to surroundings, Maintained a safe environment, Hourly rounding (assess needs \T\ fall precautionary measures) done. Abuse screen: Denies threats or abuse. Denies injuries from another. Nutritional screening: No deficits noted. Tuberculosis screening: No symptoms or risk factors identified. Assessment: 11:30 General: Appears in no apparent distress. comfortable, Behavior is calm, cooperative, nj1 appropriate for age. 11:30 Pain: Denies pain. Neuro: Level of Consciousness is awake, alert, obeys commands, nj1 Oriented to person, place, time, situation. Cardiovascular: Patient's skin is warm and dry. Respiratory: Airway is patent Respiratory effort is even, unlabored. GI: Patient currently denies nausea, vomiting. : Reports polyuria. 12:38 Reassessment: Patient appears in no apparent distress at this time. Patient and/or [facility] updated on plan of care and expected duration. Pain level reassessed. Patient is alert, oriented x 3, equal unlabored respirations, skin warm/dry/pink. 14:12 Reassessment: Patient appears in no apparent distress at this time. Patient and/or mn1 family updated on plan of care and expected duration. Pain level reassessed. Patient is alert, oriented x 3, equal unlabored respirations, skin warm/dry/pink. Unsuccessful attempt to call report, Violeta will call back. Vital Signs: 11:30 BP 99 / 61; Pulse 82; Resp 16; Temp 98.1(O); Pulse Ox 98% on R/A; Weight 46.27 kg; mn1 Height 5 ft. 4 in. ; 11:46 BP 99 / 62; Pulse 81; Resp 14; Pulse Ox 100% ; ec2 12:22 BP 106 / 73; Pulse 82; Resp 18; Pulse Ox 98% on R/A; kj2 13:15 BP 105 / 78; Pulse 70; Resp 14; Pulse Ox 100% ; nj1 14:14 BP 111 / 77; Pulse 71; Resp 20; Pulse Ox 100% ; nj1 11:30 Body Mass Index 17.51 (46.27 kg, 162.56 cm) [facility] ED Course: 11:21 Patient arrived in ED. [facility] 11:22 Osmin Lehman MD is Attending Physician. ec2 11:25 Janay Deluna, RN is Primary Nurse. nj1 11:27 Triage completed. nj1 11:30 Maintain EMS IV. Site clean \T\ dry. Gauge \T\ site: 20 R FA. IV is patent, with fluids nj 1 infusing freely, without good blood return, Changed dressing on right peripheral line. 11:42 EKG done, by ED staff. aw1 11:42 nuclear monitoring technician on. aw1 11:57 XRAY Chest (1 view) In Process Unspecified. EDMS 12:05 Arm band placed on. nj1 12:05 Patient has correct armband on for positive identification. Bed in low position. Call nj1 light in reach. Provided Education on: call light, fall precautions. 13:02 Heath Bridges MD is Hospitalizing Provider. ec2 14:26 No provider procedures requiring assistance completed. Patient admitted, IV remains in nj1 place. Administered Medications: 12:20 Drug: NS 0.9% IV 2000 ml IV at 1 bolus Per protocol; 1000 mL bolus Route: IV; Rate: 1 nj1 bolus; Site: right forearm; 13:54 Not Given (Given by EMS, clarified with ED physician): ns 0.9% 1000 ml IV at 1000 ml nj once 14:09 Drug: Insulin Drip - (Insulin Regular Human IVP 100 units, NS 0.9% IV 100 ml) IV at nj1 calculated rate continuous; Standard concentration 1unit/ml; Dose for DKA is 0.1 units/kg/hr {Co-Signature: kj2 (Ute Morales RN).} Route: IV; Rate: calculated rate; Site: right forearm; Medication: 14:26 VIS not applicable for this client. nj1 Outcome: 13:02 Decision to Hospitalize by Provider. ec2 14:24 Admitted to ICU accompanied by nurse, via stretcher, room 7, Report called to Violeta carson RN 14:24 Condition: stable 14:24 Instructed on the need for admit, 14:50 Patient left the ED. nj1 Signatures: Dispatcher [employer] EDMS Janay Deluna, RN RN nj1 Kimberley Roberson aw1 Osmin Lehman MD MD ec2 Ute Morales RN RN kj2 Andrew, Ute RN kj2
[2023-08-20 13:05] LABS: BETA HYDROXYBUTYRATE > 4.50 mmol/L (0.02-0.27)
--- NOTE | 2023-08-20 13:13 | P.HP ---
Certification for Inpatient Patient admitted to: Inpatient With expected LOS: >2 Midnights Patient will require the following post-hospital care: None Practitioner: I am a practitioner with admitting privileges, knowledge of patient current condition, hospital course, and medical plan of care. Services: Services provided to patient in accordance with Admission requirements found in Title 42 Section 412.3 of the Code of Federal Regulations <Jackie Riojaszeb Camara - Last Filed: 08/20/23 14:06> Patient History Date of Service: 08/20/23 Reason for admission: DKA History of Present Illness: Mr. Flores is a 48-year-old with insulin-dependent diabetes with frequent DKA. He states he presented to the emergency department because he noticed some green/black mold on his ceiling near the air conditioning vents, he noted a worm like foreign body with his last bowel move, and his glucometer read high prompting him to come to the emergency department. Evaluation in the emergency department reveals a blood sugar of 530, anion gap 23, pH of 7.23, he has 1 L normal saline bolus infusing and is still awaiting his insulin drip initiation. We will admit him to ICU for DKA. Home medications list reviewed: Yes - Past Medical/Surgical History Diabetic: Yes -: IDDM -: GERD -: Cluster Headaches -: Sciatica -: Cocaine Abuse -: Left leg Psychosocial/ Personal History: Lives at home with family in an apartment - Family History Family History: Reviewed- Non-Contributory - Social History Smoking Status: Smoker current status UNK Patient receptive to therapy: Yes (pt states he has not smoked in about 30 days ) Alcohol use: Yes CD- Drugs: Yes Caffeine use: Yes Place of Residence: Home (takes care of his blind Mother) <Jackie Riojaszeb Camara - Last Filed: 08/20/23 14:06> Date of Service: 08/20/23 <Heath Bridges - Last Filed: 08/20/23 16:11> Allergies morphine Allergy (Unknown, Verified 02/29/20 20:42) Unknown Home Medications: Gabapentin 600 mg PO TID PRN 03/24/23 Hum Insulin NPH/Reg Insulin Hm [Humulin 70-30 Vial] 60 unit SQ BIDWM 08/20/23 Insulin Detemir [Levemir] 25 unit SQ BID 08/20/23 Review of Systems 10-point ROS is otherwise unremarkable General: As per HPI Cardiovascular: As per HPI Gastrointestinal: As per HPI Neurological: As per HPI <Azalia Riojas - Last Filed: 08/20/23 14:06> Physical Examination - Physical Exam General: Alert, In no apparent distress, Oriented x3, Other (thin) HEENT: Atraumatic, Normocephalic Neck: Supple Respiratory: Normal air movement Cardiovascular: Normal pulses, Regular rate/rhythm Capillary refill: <2 Seconds Gastrointestinal: Soft and benign Musculoskeletal: No clubbing, No swelling Integumentary: No rashes Neurological: Normal speech, Normal tone, Normal affect Lymphatics: No axilla or inguinal lymphadenopathy External genitalia: Deferred Rectal: Deferred - Studies Laboratory Data (last 24 hrs) 08/20/23 08/20/23 12:15 10:40 WBC 4.30 Hgb 12.0 L Hct 35.7 L Plt Count 280 Sodium 127 L Potassium 4.3 BUN 26 H Creatinine 0.89 Glucose 533 H* <Azalia Riojas - Last Filed: 08/20/23 14:06> - Studies Laboratory Data (last 24 hrs) 08/20/23 08/20/23 12:15 10:40 WBC 4.30 Hgb 12.0 L Hct 35.7 L Plt Count 280 Sodium 127 L Potassium 4.3 BUN 26 H Creatinine 0.89 Glucose 533 H* <Heath Bridges - Last Filed: 08/20/23 16:11> Assessment and Plan - Plan DKA Glucose monitoring Insulin drip to close anion gap in ICU Chem-7 every 4 hours Monitor and replete electrolytes Strict I&O Rehydration Concern for intestinal parasite Albendazole x 1 Cluster headaches 15 L via nonrebreather x 10 minutes as needed for headache Neuropathy Gabapentin 300 mg twice daily GERD Protonix VTE/GI prophylaxis Lovenox/teds/Protonix - Advance Directives Does patient have a Living Will: No Does patient have a Durable POA for Healthcare: No <Azalia Riojas - Last Filed: 08/20/23 14:06> - Plan Pt seen and examined. I agree with the note by the ADDICTION SOCIAL WORKER. Pt is a 48yo male with past medical history of DM II who presents with hyperglycemia due to DKA. diabetes with frequent DKA. Pt noticed black mold in his ceiling near the vent of his house. Hi glucometer showed high glucose reading and he also noticed worm like foreign body in his bowel movement. These things mad him to come to the ER for evaluation. On admission, lab studies show wbc 4.3, hgb 12.0, K 4.3, Cr 0.89, AG 23, and glucose 530. At bedside, pt is in NAD. A/P: DKA: Will admit pt in the ICU for DKA protocol. Will continue insulin drip. Monitor AG. Pt reports that he ran out of his DM meds at home Pseudohyponatremia: Na is 127. Due to hyperglycemia. Will improve with resolution of DKA. Possible Intestinal parasite: Will give albendazole. DVT ppx: SCD. Code: full <Heath Bridges - Last Filed: 08/20/23 16:11>
[2023-08-20] MEDS ORDERED: INSULIN REGULAR (HUMAN) 100 UNIT/ML ONE (13:30)
[2023-08-20] MEDS ORDERED: NA CHLORIDE 0.9% 100 ML ONE (13:31)
[2023-08-20] MEDS ORDERED: INSULIN NPH (HUMAN) 100 UNITS/ML SQ SCH (14:00)
[2023-08-20] MEDS: NA CHLORIDE 0.9% 1,000 ML IV SCH (14:00)
[2023-08-20] MEDS: D5 0.45 NS 1,000 ML IV SCH (14:00)
[2023-08-20] MEDS: ALBENDAZOLE 200 MG TABLET PO ONE (14:05)
[2023-08-20] MEDS ORDERED: PROMETHAZINE INJ 25 MG/ML AMP IV PRN (14:18)
[2023-08-20] MEDS ORDERED: SODIUM CHLORIDE 0.9% 10ML INJ IV PRN (14:18)
[2023-08-20] MEDS ORDERED: GLUCAGON 1 MG/VIAL IM PRN ×2 (14:58→23:40)
[2023-08-20] MEDS ORDERED: D10W 250 ML BAG IV PRN (14:58)
[2023-08-20] MEDS ORDERED: INSULIN REGULAR, HUMAN 100 UNIT in NA CHLORIDE 0.9% 100 ML IV SCH (15:00)
[2023-08-20 15:19] VITALS: O2SAT 100
[2023-08-20 15:45] VITALS: BMI 17.5
[2023-08-20] MEDS: ENOXAPARIN 40 MG/0.4 ML SQ SCH (16:02)
[2023-08-20] MEDS: NACHLORIDE 0.45% 1,000 ML IV SCH (16:17)
[2023-08-20 17:19] LABS: Anion Gap 15.4 mEq/L (5.0-15.0); Potassium 3.4 mEq/L (3.5-5.1)
[2023-08-20] MEDS: KCL 20 MEQ/100 mL IVPB 20 MEQ/100 ML BAG IV SCH (17:54)
[2023-08-20] MEDS: GABAPENTIN 300 MG CAP PO SCH (21:00)
[2023-08-20 21:37] LABS: Anion Gap 7.6 mEq/L (5.0-15.0); BUN Blood Urea Nitrogen 8 mg/dL (7-18); Bicarbonate 12 mEq/L (21-32); Glucose Level 168 mg/dL (74-106); Potassium 3.6 mEq/L (3.5-5.1); Sodium Level 141 mEq/L (136-145)
[2023-08-20 22:02] LABS: Glomerular Filtration Rate 154 ml/min (=/>90)
[2023-08-20] MEDS ORDERED: D50W 25 GM/50 ML SYRINGE IV PRN ×2 (23:36→23:40)
[2023-08-20] MEDS: INSULIN REGULAR (HUMAN) 100 UNIT/ML ONE (23:49)
[2023-08-20] MEDS: INSULIN REGULAR (HUMAN) 100 UNIT/ML SQ SCH (23:53)
[2023-08-21] MEDS ORDERED: INSULIN REGULAR (HUMAN) 100 UNIT/ML SQ SCH
[2023-08-21 05:03] LABS: Absolute Eosinophils 0.1 K/uL (0-0.5); Absolute Lymphocytes (CBC) 1.5 K/uL (0.7-4.9); Absolute Monocytes 0.5 K/uL (0.1-1.3); Absolute Neutrophil 1.3 K/uL (1.8-8.0); Basophils % 0.5 % (0-1.3); Eosinophils % 1.5 % (0-4.4); Hematocrit 32.9 % (39.6-49.0); Hemoglobin 11.6 g/dL (13.6-17.9); Lymphocytes % 44.1 % (15.3-44.8); MCH 32.8 pg (27.0-35.0); MCHC 35.4 g/dL (32.0-36.0); MCV 92.4 fL (80-100); MPV 7.7 fL (7.6-11.3); Neutrophils % 38.9 % (41.7-73.7); Nucleated Red Blood Cells % 0.2 % (0-0); Platelets 288 thou/uL (152-406); RBC Red Blood Cell Count 3.56 M/uL (4.33-5.43); Red Cell Distribution Width 13.7 % (12.1-15.2)
[2023-08-21 05:20] LABS: Albumin 2.8 g/dL (3.4-5.0); Albumin/Globulin Ratio 1.1 (1.1-1.8); Anion Gap 7.6 mEq/L (5.0-15.0); Bilirubin Total 0.4 mg/dL (0.2-1.0); Globulin 2.5 g/dL (2.3-3.5); Magnesium 1.6 mg/dL (1.6-2.4); Phosphorus 2.9 mg/dL (2.5-4.9); Potassium 3.6 mEq/L (3.5-5.1); Protein, Total 5.3 g/dL (6.4-8.2)
[2023-08-21] MEDS: MAGNESIUM SULFATE 1 gm IVPB 1 GM/100 ML BAG IV ONE (06:35)
[2023-08-21] MEDS: PANTOPRAZOLE 40 MG INJ IVP SCH (08:22)
[2023-08-21] MEDS: POTASSIUM CL SA 10 MEQ TAB PO ONE (08:23)
[2023-08-21] MEDS: PNEUMOCOCCAL VACCINE 0.5 ML IMVAC ONE (08:40)
[2023-08-21 08:43] LABS: Blood Morphology Comment NOT SEEN (NOT SEEN); Differential Total Cells Count 100; Lymphocytes 57 % (15-42); Monocytes 14 % (0-10); Platelet Estimate ADEQ; Segmented Neutrophils 29 % (40-80)
--- NOTE | 2023-08-21 09:23 | P.DS ---
Admission Date: 08/20/23 Discharge Date: 08/21/23 Reason for Admission: DKA Brief History of Present Illness: Mr. Flores is a 48-year-old with insulin-dependent diabetes with frequent DKA. He states he presented to the emergency department because he noticed some green/black mold on his ceiling near the air conditioning vents, he noted a worm like foreign body with his last bowel move, and his glucometer read high prompting him to come to the emergency department. Evaluation in the emergency department reveals a blood sugar of 530, anion gap 23, pH of 7.23, he has 1 L normal saline bolus infusing and is still awaiting his insulin drip initiation. We will admit him to ICU for DKA. Hospital Course: Mr. Flores did well over the course of his hospitalization. His anion gap closed. The insulin drip was discontinued. He tolerated breakfast. He states he cannot afford Levemir but would like insulin 70/30 prescription. He has been out of insulin for an undetermined amount of time. <Azalia Riojas - Last Filed: 08/21/23 09:20> Admission Date: 08/20/23 Discharge Date: 08/21/23 Hospital Course: Pt seen and examined. I agree with the note by the CHANGER FIXER. Blood sugar improved. Will refill his insulin 70/30. Will discharge pt when blood sugar is within normal range. <Heath Bridges - Last Filed: 08/21/23 22:15> Disposition: ROUTINE DISCHARGE Discharge Condition: GOOD Vital Signs/Physical Exam: Temp Pulse Resp BP Pulse Ox 98.1 F 73 16 101/65 100 08/21/23 07:00 08/21/23 09:00 08/21/23 09:00 08/21/23 09:00 08/21/23 09:00 General: Alert, In no apparent distress, Oriented x3 HEENT: Atraumatic, Normocephalic, PERRLA Neck: Supple Respiratory: Clear to auscultation bilaterally Cardiovascular: Normal pulses, Regular rate/rhythm, Normal S1 S2 Capillary refill: <2 Seconds Gastrointestinal: Normal bowel sounds, Soft and benign Musculoskeletal: No clubbing, No swelling Integumentary: No rashes Neurological: Normal speech, Normal tone, Normal affect Lymphatics: No axilla or inguinal lymphadenopathy External genitalia: Deferred Rectal: Deferred Laboratory Data at Discharge: WBC 3.50 thou/uL (4.3-10.9) L 08/21/23 04:49 Hgb 11.6 g/dL (13.6-17.9) L 08/21/23 04:49 Hct 32.9 % (39.6-49.0) L 08/21/23 04:49 Plt Count 288 thou/uL (152-406) 08/21/23 04:49 Sodium 134 mEq/L (136-145) L D 08/21/23 04:49 Potassium 3.6 mEq/L (3.5-5.1) 08/21/23 04:49 BUN 10 mg/dL (7-18) 08/21/23 04:49 Creatinine 0.63 mg/dL (0.70-1.30) L 08/21/23 04:49 Glucose 248 mg/dL (74-106) H 08/21/23 04:49 Phosphorus 2.9 mg/dL (2.5-4.9) 08/21/23 04:49 Magnesium 1.6 mg/dL (1.6-2.4) 08/21/23 04:49 Total Bilirubin 0.4 mg/dL (0.2-1.0) 08/21/23 04:49 AST 11 U/L (15-37) L 08/21/23 04:49 ALT 45 U/L (16-61) 08/21/23 04:49 Alkaline Phosphatase 50 U/L (45-117) 08/21/23 04:49 Triglycerides 121 mg/dL (<150) 08/21/23 04:49 Cholesterol 156 mg/dL (<200) 08/21/23 04:49 HDL Cholesterol 118 mg/dL (40-60) H 08/21/23 04:49 Cholesterol/HDL Ratio 1.32 08/21/23 04:49 <Riojas,Azalia Jax - Last Filed: 08/21/23 09:20> Vital Signs/Physical Exam: Temp Pulse Resp BP Pulse Ox 98.1 F 73 16 101/65 100 08/21/23 07:00 08/21/23 09:00 08/21/23 09:00 08/21/23 09:00 08/21/23 09:00 Laboratory Data at Discharge: WBC 3.50 thou/uL (4.3-10.9) L 08/21/23 04:49 Hgb 11.6 g/dL (13.6-17.9) L 08/21/23 04:49 Hct 32.9 % (39.6-49.0) L 08/21/23 04:49 Plt Count 288 thou/uL (152-406) 08/21/23 04:49 Sodium 134 mEq/L (136-145) L D 08/21/23 04:49 Potassium 3.6 mEq/L (3.5-5.1) 08/21/23 04:49 BUN 10 mg/dL (7-18) 08/21/23 04:49 Creatinine 0.63 mg/dL (0.70-1.30) L 08/21/23 04:49 Glucose 248 mg/dL (74-106) H 08/21/23 04:49 Phosphorus 2.9 mg/dL (2.5-4.9) 08/21/23 04:49 Magnesium 1.6 mg/dL (1.6-2.4) 08/21/23 04:49 Total Bilirubin 0.4 mg/dL (0.2-1.0) 08/21/23 04:49 AST 11 U/L (15-37) L 08/21/23 04:49 ALT 45 U/L (16-61) 08/21/23 04:49 Alkaline Phosphatase 50 U/L (45-117) 08/21/23 04:49 Triglycerides 121 mg/dL (<150) 08/21/23 04:49 Cholesterol 156 mg/dL (<200) 08/21/23 04:49 HDL Cholesterol 118 mg/dL (40-60) H 08/21/23 04:49 Cholesterol/HDL Ratio 1.32 08/21/23 04:49 <Heath Bridges - Last Filed: 08/21/23 22:15> Diet: ADA <Riojas,Azalia Jax - Last Filed: 08/21/23 09:20> <Heath Bridges - Last Filed: 08/21/23 22:15> Home Medications: Gabapentin 600 mg PO TID PRN 03/24/23 Hum Insulin NPH/Reg Insulin Hm [Humulin 70-30 Vial] 60 unit SQ BIDWM #10 ml 08/21/23 Insulin Regular, Human [Novolin R] See Protocol SQ ACHS PRN #10 ml 08/21/23 Pyrantel Pamoate [Pinworm Medicine] 2 ml PO 1X #5 ml 08/21/23 New Medications: Hum Insulin NPH/Reg Insulin Hm [Humulin 70-30 Vial] 60 unit SQ BIDWM #10 ml Insulin Regular, Human [Novolin R] See Protocol SQ ACHS PRN #10 ml PRN Reason: Hyperglycemia Pyrantel Pamoate [Pinworm Medicine] 2 ml PO 1X #5 ml Physician Discharge Instructions: Mr. Flores did well over the course of his hospitalization. His anion gap closed. The insulin drip was discontinued. He tolerated breakfast. He states he cannot afford Levemir but would like insulin 70/30 prescription. He has been out of insulin for an undetermined amount of time. Okay to DC IV and DC home Follow-up with primary care provider in 1 to 2 weeks Please call the inpatient unit for any questions or concerns regarding hospital stay Return to the ER for worsening symptoms Followup: NONE,NONE [Primary Care Provider] -
[2023-08-21] MEDS ORDERED: GLUCAGON 1 MG/VIAL IM PRN ×2 (15:57→15:58)
[2023-08-21] MEDS ORDERED: D50W 25 GM/50 ML SYRINGE IV PRN ×2 (15:57→15:58)
[2023-08-21] MEDS: INSULIN LISPRO 100 UNIT/ML SQ ONE (16:30)
[2023-08-21] MEDS: INSULIN 70/30 100 UNITS/ML SQ SCH (16:48)
--- NOTE | 2023-08-21 18:56 | P.PN ---
Subjective Date of Service: 08/21/23 Chief Complaint: DKA Subjective: Improving (pt feeling better, would like to go home. He states he cannot afford his Levemir and has not even been taking his 70/30 or Regular insulin) <Azalia Riojas - Last Filed: 08/21/23 18:50> Date of Service: 08/22/23 <Heath Bridges C - Last Filed: 08/22/23 10:02> Review of Systems 10-point ROS is otherwise unremarkable General: Weakness, Malaise Gastrointestinal: Nausea Genitourinary: As per HPI Neurological: As per HPI <Azalia Riojas - Last Filed: 08/21/23 18:50> Physical Examination - Vital Signs Temperature: 98.2 F Blood Pressure: 90/69 Pulse: 78 Respirations: 18 Pulse Ox (%): 98 - Physical Exam General: Alert, In no apparent distress, Oriented x3 HEENT: Atraumatic, Normocephalic Neck: Supple Respiratory: Normal air movement Cardiovascular: Normal pulses, Regular rate/rhythm Capillary refill: <2 Seconds Gastrointestinal: Normal bowel sounds, Soft and benign Musculoskeletal: No clubbing, No swelling Integumentary: No rashes Neurological: Normal speech, Normal tone, Normal affect Lymphatics: No axilla or inguinal lymphadenopathy External genitalia: Deferred Rectal: Deferred <Azalia Riojas - Last Filed: 08/21/23 18:50> Assessment And Plan - Plan DKA Glucose monitoring Insulin drip to close anion gap in ICU -gap closed, insulin drip discontinued Chem-7 every 4 hours. Repeat C7 at 2000 Monitor and replete electrolytes Strict I&O Rehydration Concern for intestinal parasite Albendazole x 1 (unable to get inpatient), will give a Rx for PinX Cluster headaches 15 L via nonrebreather x 10 minutes as needed for headache Neuropathy Gabapentin 300 mg twice daily GERD Protonix VTE/GI prophylaxis Lovenox/teds/Protonix <Azalia Riojas - Last Filed: 08/21/23 18:50> - Plan Pt gregor nd examined. I agree with the note by the DIRECTOR SOCIAL SERVICE. Blood sugar is uncontrolled. Will observe pt overnight.Continue gabapentin for neuropathy. <Heath Bridges - Last Filed: 08/22/23 10:02>
[2023-08-21 20:31] LABS: Anion Gap 11.7 mEq/L (5.0-15.0); Potassium 3.7 mEq/L (3.5-5.1)
[2023-08-21] MEDS: DIPHENHYDRAMINE 25 MG TAB/CAP PO ONE (23:02)
[2023-08-22 06:15] LABS: Absolute Lymphocytes (CBC) 0.9 K/uL (0.7-4.9); Absolute Monocytes 0.8 K/uL (0.1-1.3); Absolute Neutrophil 3.2 K/uL (1.8-8.0); Basophils % 0.2 % (0-1.3); Eosinophils % 0.3 % (0-4.4); Hematocrit 34.8 % (39.6-49.0); Lymphocytes % 17.7 % (15.3-44.8); MCH 32.5 pg (27.0-35.0); MCHC 34.5 g/dL (32.0-36.0); MCV 94.1 fL (80-100); MPV 7.5 fL (7.6-11.3); Monocytes % 16.2 % (3.3-12.3); Neutrophils % 65.6 % (41.7-73.7); Nucleated Red Blood Cells % 0.1 % (0-0); Platelets 268 thou/uL (152-406); RBC Red Blood Cell Count 3.69 M/uL (4.33-5.43); Red Cell Distribution Width 13.7 % (12.1-15.2)
[2023-08-22 06:40] LABS: Albumin 2.9 g/dL (3.4-5.0); Albumin/Globulin Ratio 1.2 (1.1-1.8); Anion Gap 6.1 mEq/L (5.0-15.0); Bilirubin Total 0.3 mg/dL (0.2-1.0); Globulin 2.5 g/dL (2.3-3.5); Magnesium 1.8 mg/dL (1.6-2.4); Phosphorus 3.2 mg/dL (2.5-4.9); Potassium 4.1 mEq/L (3.5-5.1); Protein, Total 5.4 g/dL (6.4-8.2)
[2023-08-22] MEDS ORDERED: D50W 25 GM/50 ML SYRINGE IV PRN (07:26)
[2023-08-22] MEDS ORDERED: GLUCAGON 1 MG/VIAL IM PRN (07:26)
[2023-08-22] MEDS: INSULIN LISPRO 100 UNIT/ML SQ SCH (07:30)
[2023-08-22] MEDS: INSULIN 70/30 100 UNITS/ML SQ SCH (08:23)
[2023-08-22 09:23] VITALS: TEMP 97.9
--- NOTE | 2023-08-22 10:08 | P.PN ---
Subjective Date of Service: 08/22/23 Chief Complaint: DKA Pt is resting comfortably in bed. He just had breakfast. Pt denies any nausea or vomiting. No complaints. Review of Systems General: Unremarkable Eyes: Unremarkable ENT: Unremarkable Respiratory: Unremarkable Cardiovascular: Unremarkable Gastrointestinal: Unremarkable Genitourinary: Unremarkable Musculoskeletal: Unremarkable Integumentary: Unremarkable Neurological: Unremarkable Lymphatics: Unremarkable Physical Examination - Vital Signs Temperature: 97.9 F Blood Pressure: 133/80 Pulse: 70 Respirations: 17 Pulse Ox (%): 99 - Physical Exam General: Alert, In no apparent distress, Oriented x3, Disheveled HEENT: Atraumatic, Normocephalic, PERRLA Neck: Supple, 2+ carotid pulse no bruit Respiratory: Clear to auscultation bilaterally, Normal air movement Cardiovascular: No edema, Normal pulses, Regular rate/rhythm, Normal S1 S2 Capillary refill: <2 Seconds Gastrointestinal: Normal bowel sounds, Soft and benign, Non-distended Musculoskeletal: No clubbing, No swelling Integumentary: No rashes, No breakdown, No significant lesion Neurological: Normal gait, Normal speech, Normal strength at 5/5 x4 extr, Normal tone Lymphatics: No axilla or inguinal lymphadenopathy Assessment And Plan - Plan DKA: resolved. AG is 6.1. Continue accuchek, SSI , insulin 70/30 65u BID and ADA diet. Volume depletion: Will continue IVF Concern for intestinal parasite: We ordered Albendazole x 1 (unable to get inpatient), will give a Rx for PinX Neuropathy: Gabapentin 300 mg twice daily GERD: Protonix DVT ppx: SCD Code: full Dispo: Pending hospital course.
[2023-08-22 13:34] VITALS: BP 118/69
--- NOTE | 2023-08-22 16:11 | EKG ---
Test Date: 2023-08-20 Test Time: 11:39:21 Switchbox Assembler: PEGGY MEASUREMENT RESULTS: Intervals: Rate: 81 WV: 146 QRSD: 76 QT: 368 QTc: 427 [place]: P: 54 WV: 146 QRS: 82 T: 73 INTERPRETIVE STATEMENTS: Normal sinus rhythm Normal ECG Compared to ECG 06/09/2023 15:10:36 Atrial abnormality no longer present Electronically Signed On 08-22-23 16:08:40 CDT by José Luis Walters
== END 2023-08-22 13:45 | disposition home or self-care (01) | DRG 638 ==
LOC: ER 11:04 → ERHOLD 13:13 → 3RD-ICU 14:45
PROVIDERS: ADMIT Hospitalist; ATTEND Hospitalist
DX: E11.10 Type 2 diabetes mellitus with ketoacidosis without coma (principal); E44.1 Mild protein-calorie malnutrition; Z68.1 Body mass index [BMI] 19.9 or less, adult; E11.40 Type 2 diabetes mellitus with diabetic neuropathy, unspecified; E86.9 Volume depletion, unspecified; K21.9 Gastro-esophageal reflux disease without esophagitis; F43.10 Post-traumatic stress disorder, unspecified; B82.9 Intestinal parasitism, unspecified; Z88.5 Allergy status to narcotic agent; Z79.4 Long term (current) use of insulin; Z87.891 Personal history of nicotine dependence; Z79.899 Other long term (current) drug therapy
CPT/HCPCS: 36415; 71045; 80048; 80053; 80061; 81001; 82010; 82805; 82947; 83735; 84100; 84443; 84484; 85025; 90471; 90732; 93005; 96374; 99285; J1650; J1815; J2470; J3475; J3480; J7030; J7799

== ENCOUNTER 2023-10-04 12:15 | Inpatient (IN) | payer OTHER ==
[2023-10-04] MEDS ORDERED: NA CHLORIDE 0.9% 1,000 ML ONE ×3 (12:56→17:38)
[2023-10-04 13:04] LABS: Absolute Basophils 0.3 K/uL (0-0.5); Absolute Eosinophils 0.1 K/uL (0-0.5); Absolute Lymphocytes (CBC) 1.1 K/uL (0.7-4.9); Absolute Monocytes 2.8 K/uL (0.1-1.3); Absolute Neutrophil 20.5 K/uL (1.8-8.0); Basophils % 1.1 % (0-1.3); Eosinophils % 0.3 % (0-4.4); Hemoglobin 13.6 g/dL (13.6-17.9); Lymphocytes % 4.3 % (15.3-44.8); MCH 31.7 pg (27.0-35.0); MCHC 30.2 g/dL (32.0-36.0); MPV 9.3 fL (7.6-11.3); Monocytes % 11.2 % (3.3-12.3); Neutrophils % 83.1 % (41.7-73.7); Platelets 307 thou/uL (152-406); RBC Red Blood Cell Count 4.29 M/uL (4.33-5.43); Red Cell Distribution Width 13.5 % (12.1-15.2)
[2023-10-04 13:44] LABS: ALT/SGPT 59 U/L (16-61); AST/SGOT 20 U/L (15-37); Albumin 3.6 g/dL (3.4-5.0); Albumin/Globulin Ratio 1.1 (1.1-1.8); Alkaline Phosphatase 104 U/L (45-117); Anion Gap 39.6 mEq/L (5.0-15.0); BUN Blood Urea Nitrogen 34 mg/dL (7-18); Bilirubin Total 0.6 mg/dL (0.2-1.0); Globulin 3.2 g/dL (2.3-3.5); Glomerular Filtration Rate 31 ml/min (=/>90); Lipase 212 U/L (13-75); Magnesium 2.4 mg/dL (1.6-2.4); Potassium 5.6 mEq/L (3.5-5.1); Protein, Total 6.8 g/dL (6.4-8.2); Sodium Level 128 mEq/L (136-145)
[2023-10-04 13:50] LABS: PT Prothrombin Time 10.9 SECONDS (9.4-12.5); Protime INR 0.97
[2023-10-04 13:55] LABS: Phosphorus 8.8 mg/dL (2.5-4.9)
[2023-10-04 13:56] LABS: BETA HYDROXYBUTYRATE > 4.50 mmol/L (0.02-0.27); Bilirubin Direct < 0.2 mg/dL (0-0.2); Bilirubin Indirect, Calculated 0.4 mg/dL (0.2-0.8)
[2023-10-04 13:57] LABS: Bicarbonate < 8 mEq/L (21-32); Glucose Level 953 mg/dL (74-106)
[2023-10-04 13:59] LABS: ALT/SGPT 58 U/L (16-61); AST/SGOT 19 U/L (15-37); Albumin 3.4 g/dL (3.4-5.0); Albumin/Globulin Ratio 1.1 (1.1-1.8); Alkaline Phosphatase 100 U/L (45-117); Anion Gap 39.7 mEq/L (5.0-15.0); BUN Blood Urea Nitrogen 33 mg/dL (7-18); Bilirubin Total 0.5 mg/dL (0.2-1.0); Globulin 3.1 g/dL (2.3-3.5); Glomerular Filtration Rate 31 ml/min (=/>90); Potassium 5.7 mEq/L (3.5-5.1); Protein, Total 6.5 g/dL (6.4-8.2); Sodium Level 129 mEq/L (136-145)
[2023-10-04] MEDS ORDERED: D10W 250 ML BAG IV PRN (14:02)
[2023-10-04] MEDS ORDERED: GLUCAGON 1 MG/VIAL IM PRN (14:02)
[2023-10-04 14:08] LABS: Bicarbonate < 8 mEq/L (21-32); Glucose Level 947 mg/dL (74-106)
--- NOTE | 2023-10-04 14:24 | RAD REPORT ---
EXAM DESCRIPTION: CT - Head Brain Wo Cont - 10/04/2023 1:21 pm CLINICAL HISTORY: AMS COMPARISON: Head Brain Wo Cont dated 03/24/2023 TECHNIQUE: Noncontrast head CT images were obtained without IV contrast. Multiplanar reformats were generated and reviewed. All CT scans are performed using dose optimization technique as appropriate and may include automated exposure control or mA/KV adjustment according to patient size. FINDINGS: Motion artifact limits evaluation specially at the skull base and craniocervical junction, despite attempts at repeat imaging. No intracranial hemorrhage, mass, or edema. Midline structures are unremarkable. Normal ventricular caliber for age. Reece-white matter differentiation is preserved, without evidence of acute infarct. No abnormal extra- axial fluid collections. Mastoid air cells and visualized portions of the paranasal sinuses are clear. No acute bony findings. IMPRESSION: No evidence of an acute intracranial process.
[2023-10-04] MEDS ORDERED: ONDANSETRON 4 MG/2 ML VIAL IV PRN (14:28)
--- NOTE | 2023-10-04 14:35 | P.HP ---
Certification for Inpatient Patient admitted to: Inpatient With expected LOS: >2 Midnights Patient will require the following post-hospital care: None Practitioner: I am a practitioner with admitting privileges, knowledge of patient current condition, hospital course, and medical plan of care. Services: Services provided to patient in accordance with Admission requirements found in Title 42 Section 412.3 of the Code of Federal Regulations Patient History Date of Service: 10/04/23 Reason for admission: Diabetic ketoacidosis History of Present Illness: Patient is a 48-year-old gentleman with longstanding history of type 1 diabetes coming to the hospital with severe diabetic ketoacidosis. Patient is very lethargic when I went to see him. Patient tells me that he has been taking his insulin he, but he started having intractable nausea and vomiting. Patient has significant abdominal discomfort as well. Patient was lethargic and confused so patient was brought into the emergency room for further evaluation. In the ER patient was found at the pH is 6.9 with a bicarb of less than 8. ABGs revealed a bicarb of roughly 3. Patient was severely acidotic and I gave him 2 and bicarb because of the severely of his acidosis. After given him 2 amps of bicarb patient's mentation improves somewhat. Continue with aggressive IV hydration as well as an insulin drip. Patient will be admitted to the hospital for further evaluation. Allergies morphine Allergy (Unknown, Verified 02/29/20 20:42) Unknown Home Medications: Hum Insulin NPH/Reg Insulin Hm [Humulin 70-30 Vial] 60 unit SQ BIDWM #10 ml 08/21/23 Insulin Regular, Human [Novolin R] See Protocol SQ ACHS PRN #10 ml 08/21/23 - Past Medical/Surgical History Diabetic: Yes -: IDDM -: GERD -: Cluster Headaches -: Sciatica -: Cocaine Abuse -: Left leg Psychosocial/ Personal History: Lives at home with family in an apartment - Family History Father Family History: Reviewed- Non-Contributory - Social History Smoking Status: Former smoker Alcohol use: Yes CD- Drugs: Yes Review of Systems is unable to be obtained Physical Examination - Vital Signs Temperature: 98.6 F (Vitals reviewed) - Physical Exam General: Other HEENT: Atraumatic, Normocephalic, Mucous membr. moist/pink Neck: Supple Respiratory: Clear to auscultation bilaterally, Normal air movement Cardiovascular: Regular rate/rhythm, Normal S1 S2, No murmurs Gastrointestinal: Normal bowel sounds, Hypoactive, Soft and benign, Non- distended Musculoskeletal: No clubbing, No swelling Neurological: Cranial nerves 3-12 intact, Abnormal gait, Abnormal speech, Abnormal strength, Abnormal affect Lymphatics: No axilla or inguinal lymphadenopathy - Studies Laboratory Data (last 24 hrs) 10/04/23 10/04/23 10/04/23 13:30 13:30 12:53 WBC 24.70 H Hgb 13.6 Hct 45.0 Plt Count 307 PT 10.9 INR 0.97 APTT 25.0 Sodium 129 L Potassium 5.7 H BUN 33 H Creatinine 2.47 H Glucose 947 H* Phosphorus Magnesium Total Bilirubin 0.5 AST 19 ALT 58 Alkaline Phosphatase 100 Lipase 10/04/23 12:53 WBC Hgb Hct Plt Count PT INR APTT Sodium 128 L Potassium 5.6 H BUN 34 H Creatinine 2.50 H Glucose 953 H* Phosphorus 8.8 H Magnesium 2.4 Total Bilirubin 0.6 AST 20 ALT 59 Alkaline Phosphatase 104 Lipase 212 H Assessment & Plan - Problems (Diagnosis) (1) DKA (diabetic ketoacidosis) Current Visit: No Status: Acute - Plan 1. Continue with insulin drip 2. Continue with aggressive IV hydration 3. Monitor hemoglobin A1c 4. Blood sugars every hour 5. Check BMP every 4 hours 6. Curb Setter Helper regarding blood sugars 7. Repeat acetone level in a.m. 8. GI DVT prophylaxis Discharge Plan: Home Plan to discharge in: Greater than 2 days - Advance Directives Does patient have a Living Will: No Does patient have a Durable POA for Healthcare: No - Code Status/Comfort Care Code Status Assessed: Yes Code Status: Full Code Critical Care: Yes Time Spent Managing PTS Care (In Minutes): 60
[2023-10-04 14:40] LABS: Band Neutrophils 14 % (0-1); Differential Total Cells Count 100; Lymphocytes 5 % (15-42); Metamyelocytes 2 % (0-0); Monocytes 9 % (0-10); Segmented Neutrophils 70 % (40-80)
[2023-10-04] MEDS: INSULIN REGULAR, HUMAN 100 UNIT in NA CHLORIDE 0.9% 100 ML IV SCH (14:40)
[2023-10-04 14:41] LABS: Blood Morphology Comment NOTED (NOT SEEN); Platelet Estimate ADEQ
[2023-10-04 14:43] LABS: Burr Cells 2+
[2023-10-04] MEDS ORDERED: SODIUM BICARB 50 MEQ/50ML VIAL ONE (14:59)
[2023-10-04] MEDS: D5 0.45 NS 1,000 ML IV SCH (15:00)
--- NOTE | 2023-10-04 15:11 | EDPHYS ---
Physician Documentation [facility] Name: Angel Flores Age: 48 yrs Sex: Male : 1975 Arrival Date: 10/04/2023 Time: 12:15 Bed 6 Private MD: ED Physician Ti Fish HPI: 10/03 12:29 This 48 yrs old Black Male presents to ER via EMS with complaints of AMS, Hyperglycemia.ms3 12:29 48-year-old male with past medical history of diabetes presents to the emergency ms3 department via [facility] for altered mental status. EMS notes their glucometer read high. On their arrival patient's blood pressure systolic 80 palp, end-tidal CO2 was 8, patient received 800 mL of normal saline. Twelve-lead EKG showed normal sinus rhythm.. Historical: - Allergies: 12:30 Morphine; tl4 - Home Meds: 12:30 Humulin 70/30 Sub-Q [Active]; Levemir U-100 Insulin subcutaneous [Active]; tl4 - PMHx: 12:30 cluster headaches; Diabetes - NIDDM; Sciatica (PTSD); tl4 - PSHx: 12:31 Left leg; neck; hand; tl4 - Immunization history:: Adult Immunizations unknown. - Infectious Disease History:: unknown, no previous reported history. - Social history:: Smoking status: unknown. ROS: 12:29 Unable to obtain ROS due to altered mental status, ms3 Exam: 12:29 Constitutional: This is a well developed, well nourished patient who is awake, alert, ms3 and in no acute distress. Head/Face: Normocephalic, atraumatic. Eyes: Pupils equal round and reactive to light, extra-ocular motions intact. Lids and lashes normal. Conjunctiva and sclera are non-icteric and not injected. Periorbital areas with no swelling, redness, or edema. Neck: Trachea midline, no cervical lymphadenopathy. Supple, full range of motion without nuchal rigidity, or vertebral point tenderness. No Meningismus. Chest/axilla: Normal chest wall appearance and motion. Nontender with no deformity. Cardiovascular: Regular rate and rhythm with a normal S1 and S2. No gallops, murmurs, or rubs. Normal PMI, no JVD. No pulse deficits. Respiratory: Lungs have equal breath sounds bilaterally, clear to auscultation and percussion. No rales, rhonchi or wheezes noted. No increased work of breathing, no retractions or nasal flaring. Abdomen/GI: Soft, non-tender, with normal bowel sounds. No distension or tympany. No guarding or rebound. No evidence of tenderness throughout. Skin: Warm, dry with normal turgor. Normal color with no rashes, no lesions, and no evidence of cellulitis. 17:25 ECG was reviewed by the Attending Physician. ms3 Vital Signs: 12:22 BP 93 / 57; Pulse 79; Resp 21; Temp 96.4(TE); Pulse Ox 100% on R/A; Weight 46.27 kg; tl4 Height 5 ft. 4 in. ; 13:00 BP 99 / 71; Pulse 75; Resp 24 S; Temp 97.5(TE); Pulse Ox 100% on R/A; aa5 14:00 BP 95 / 72; Pulse 82; Resp 27 S; Pulse Ox 100% on R/A; aa5 15:00 BP 93 / 57; Pulse 78; Resp 24 S; Pulse Ox 100% on R/A; aa5 16:00 BP 106 / 71; Pulse 81; Resp 22 S; Temp 97.5(TE); Pulse Ox 100% on R/A; aa5 17:07 BP 109 / 84; Pulse 67; Resp 18 S; Pulse Ox 99% on R/A; aa5 12:22 Body Mass Index 17.51 (46.27 kg, 162.56 cm) tl4 MDM: 12:23 Patient medically screened. ms3 12:29 Differential Diagnosis: CVA, electrolyte abnormality, volume depletion, DKA. ms3 15:51 Data reviewed: vital signs, nurses notes, lab test result(s), EKG, radiologic studies, ms3 and as a result, I will admit patient. Consideration of Admission/Observation Patient was admitted/placed on observation. Management of patient was discussed with the following: Hospitalist: Dr Cho. I considered the following discharge prescriptions or medication management in the emergency department Medications were administered in the Emergency Department. See MAR. Independent interpretation of the following test(s) in the Emergency Department EKG: See my EKG interpretation above CT Scan: My interpretation is CT head without contrast images reviewed do not reveal ich. Historians other than the Patient: EMS: [facility]. Care significantly affected by the following chronic conditions: Diabetes. Counseling: I had a detailed discussion with the patient and/or guardian regarding the historical points, exam findings, and any diagnostic results supporting the discharge/admit diagnosis, lab results, radiology results, the need for further work-up and treatment in the hospital. ED course: Discussed case with Dr Cho and he accepts patient to ICU. Patient remains in critical condition at this time. IVF and Insulin infusing. Bicarb ordered.. 10/03 12:18 Order name: BETA HYDROXYBUTYRATE; Complete Time: 13:59 ms3 10/03 12:18 Order name: Basic Metabolic Panel; Complete Time: 13:59 ms3 10/03 12:18 Order name: CBC with Diff; Complete Time: 17:11 ms3 10/03 12:18 Order name: Hepatic Function; Complete Time: 13:59 ms3 10/03 12:18 Order name: Lipase; Complete Time: 13:59 ms3 10/03 12:18 Order name: Magnesium; Complete Time: 13:59 ms3 10/03 12:18 Order name: Phosphorus; Complete Time: 13:59 ms3 10/03 13:18 Order name: Blood Culture Adult (2) ms3 10/03 13:18 Order name: CMP; Complete Time: 14:17 ms3 10/03 13:18 Order name: Lactate w/ 2H reflex if indic.; Complete Time: 13:59 ms3 10/03 13:18 Order name: Protime (+inr); Complete Time: 13:59 ms3 10/03 13:18 Order name: Ptt, Activated; Complete Time: 13:59 ms3 10/03 13:33 Order name: ABG: VBG; Complete Time: 17:11 ms3 10/03 14:35 Order name: ABG Arterial Blood Gas EDMS 10/03 14:35 Order name: ABG Arterial Blood Gas EDMS 10/03 14:35 Order name: Basic Metabolic Panel EDMS 10/03 14:35 Order name: Basic Metabolic Panel; Complete Time: 17:25 EDMS 10/03 14:35 Order name: Basic Metabolic Panel EDMS 10/03 14:35 Order name: Basic Metabolic Panel EDMS 10/03 14:35 Order name: Basic Metabolic Panel EDMS 10/03 14:35 Order name: Basic Metabolic Panel EDMS 10/03 14:35 Order name: Basic Metabolic Panel EDMS 10/03 14:35 Order name: Calcium Level EDMS 10/03 14:35 Order name: Calcium Level EDMS 10/03 14:35 Order name: Calcium Level EDMS 10/03 14:35 Order name: Calcium Level EDMS 10/03 14:35 Order name: CBC with Automated Diff EDMS 10/03 14:35 Order name: CBC with Automated Diff EDMS 10/03 14:35 Order name: CBC with Automated Diff EDMS 10/03 14:35 Order name: CBC with Automated Diff EDMS 10/03 14:35 Order name: Lipid Profile EDMS 10/03 14:35 Order name: Lipid Profile EDMS 10/03 14:35 Order name: Magnesium EDMS 10/03 14:35 Order name: Magnesium EDMS 10/03 14:35 Order name: Magnesium EDMS 10/03 14:35 Order name: Magnesium EDMS 10/03 14:35 Order name: Phosphorus EDMS 10/03 14:35 Order name: Phosphorus EDMS 10/03 14:35 Order name: Phosphorus EDMS 10/03 14:36 Order name: Phosphorus EDMS 10/03 14:37 Order name: Manual Differential; Complete Time: 17:11 EDMS 10/03 15:43 Order name: Glucose aa5 10/03 15:58 Order name: Ghost Lactate-NO COLLECT Timer; Complete Time: 17:11 EDMS 10/03 18:39 Order name: Glucose Level EDMS 10/03 19:54 Order name: Glucose, Ancillary Testing EDMS 10/03 21:02 Order name: Glucose, Ancillary Testing EDMS 10/03 21:24 Order name: Lactate Sepsis 2 HR Follow-up EDMS 10/03 22:27 Order name: Glucose, Ancillary Testing EDMS 10/04 00:04 Order name: Glucose, Ancillary Testing EDMS 10/04 01:30 Order name: Glucose, Ancillary Testing EDMS 10/03 12:18 Order name: CT Head Brain wo Cont; Complete Time: 14:25 ms3 10/03 14:35 Order name: CONS Diabetic Education Consul EDMS 10/03 12:18 Order name: Cardiac monitoring; Complete Time: 13:00 ms3 10/03 12:18 Order name: EKG - Nurse/Tech; Complete Time: 13:00 ms3 10/03 12:18 Order name: IV Saline Lock; Complete Time: 13:00 ms3 16 12:18 Order name: NPO; Complete Time: 12:45 ms3 10/03 12:18 Order name: O2 Per Protocol; Complete Time: 12:45 ms3 10/03 12:18 Order name: O2 Sat Monitoring; Complete Time: 12:45 ms3 10/03 13:18 Order name: Accucheck; Complete Time: 13:44 ms3 10/03 13:18 Order name: IV Saline Lock - Large Bore; Complete Time: 13:44 ms3 10/03 13:18 Order name: Labs collected and sent; Complete Time: 13:44 ms3 10/03 13:18 Order name: Vital Signs; Complete Time: 13:44 ms3 16 20:10 Order name: Misc. Order: please recollect green top/ hemolyzed; Complete Time: 21:54 vk EC:25 Rate is 73 beats/min. Rhythm is regular. QRS [place] is Normal. WA interval is normal. QRS ms3 interval is normal. Clinical impression: NSR w/ Non-specific ST/T Changes. Interpreted by me. Reviewed by me. Administered Medications: 13:00 Drug: NS 0.9% IV 1000 ml IV at 1000 ml once Route: IV; Rate: 1000 ml; Site: left aa5 forearm; 13:45 Follow up: IV Status: Completed infusion; IV Intake: 1000ml aa5 14:40 Drug: Insulin Drip - (Insulin Regular Human IVP 100 units, NS 0.9% IV 100 ml) IV at iw calculated rate continuous; Standard concentration 1unit/ml; Dose for DKA is 0.1 units/kg/hr {Co-Signature: aa5 (Allie Victor RN).} Route: IV; Rate: calculated rate; Site: right wrist; 17:53 Follow up: IV Status: Infusion continued upon admission aa5 17:20 CANCELLED (see meditech ): sodium [id number] meq IVP once aa5 17:20 CANCELLED (see meditech ): ns 0.9% 1000 ml IV at 250 ml/hr continuous aa5 17:54 CANCELLED (see meditech MAR): Rocephin - rocephin (ceftriaxone)1 grams IVPB once over aa5 30 mins; (mix in 50 mL NS) Disposition: 15:53 Critical Care:. ms3 15:53 Chart complete. ms3 Disposition Summary: 10/04/23 15:10 Hospitalization Ordered Notes: Hospitalization Status: Inpatient Admission ms3 Provider: Vicky Cho ms3 Condition: Stable ms3 Problem: new ms3 Symptoms: are unchanged ms3 Bed/Room Type: Standard ms3 Location: Intensive Care Unit(10/04/23 15:10) ms3 Room Assignment: 7-(10/05/23 00:31) Diagnosis - Diabetic Ketoacidosis ms3 Forms: - Medication Reconciliation Form ms3 - SBAR form ms3 - Leadership Thank You Letter ms3 Critical care time excluding procedures: 15:53 Critical care time: Bedside Care: 40 minutes. Total time: 40 minutes ms3 Signatures: Dispatcher [employer] EDDay [place], RN Mac Rizzo em1 Allie Victor, RN RN aa5 Ani Colin RN RN cg Aguilar, Jose, RN RN ja1 Ti Fish DO DO ms3 Gordy Martinez RN RN tl4 Elizabeth Livingston Audri RN aa5 Corrections: (The following items were deleted from the chart) 12:19 12:19 BETA HYDROXYBUTYRATE+C.LAB.BRZ ordered. EDMS EDMS 12:19 12:19 BASIC METABOLIC PANEL+C.LAB.BRZ ordered. EDMS EDMS 12:19 12:19 CBC+H.LAB.BRZ ordered. EDMS EDMS 12:19 12:19 HEPATIC FUNCTION+C.LAB.BRZ ordered. EDMS EDMS 12:19 12:19 LIPASE+C.LAB.BRZ ordered. EDMS EDMS 12:19 12:19 MAGNESIUM+C.LAB.BRZ ordered. EDMS EDMS 12:19 12:19 PHOSPHORUS+C.LAB.BRZ ordered. EDMS EDMS 12:19 12:19 Head Brain Wo Cont+CT.RAD.BRZ ordered. EDMS EDMS 12:35 12:30 PMHx: PTSD (sciatica); tl4 tl4 12:35 12:30 PMHx: sciatica (L leg); tl4 tl4 12:35 12:30 PSHx: L leg; tl4 tl4 12:35 12:30 PSHx: hand; tl4 tl4 12:35 12:30 PSHx: neck; tl4 tl4 12:35 12:31 PMHx: neck; tl4 tl4 15:10 15:10 Telemetry/MedSurg (Inpatient) ms3 ms3 15:10 15:10 ms3 ms3 17:16 15:10 ms3 em1 17:20 15:50 Sodium Bicarbonate IVP 50 mEq IVP once ordered. ms3 aa5 17:20 15:51 NS 0.9% IV 1000 ml IV at 250 ml/hr continuous ordered. ms3 aa5 17:20 17:20 NS 0.9% IV 1000 ml IV at 250 ml/hr continuous ordered. aa5 aa5 17:20 17:20 Sodium Bicarbonate IVP 50 mEq IVP once ordered. aa5 aa5 17:30 17:30 GLUCOSE+C.LAB.BRZ ordered. EDMS EDMS 17:43 17:16 7- em1 ja1 17:54 14:01 Rocephin - Rocephin (cefTRIAXone) IVPB 1 grams IVPB once over 30 mins; (mix in 50 aa5 mL NS) ordered. ms3 17:54 17:53 Rocephin - Rocephin (cefTRIAXone) IVPB 1 grams IVPB once over 30 mins; (mix in 50 aa5 mL NS) ordered. aa5 20:37 17:43 5- ja1 cg 10/04 00:31 10/03 20:37 cg
--- NOTE | 2023-10-04 15:11 | ER ---
Nurse's Notes [facility] Name: Angel Flores Age: 48 yrs Sex: Male : 1975 Arrival Date: 10/04/2023 Time: 12:15 Bed 6 Private MD: Diagnosis: Diabetic Ketoacidosis Presentation: 10/03 12:22 Chief complaint: EMS states: Per EMS, pt has altered mental status x unknown time tl4 frame. EMS reports pt BG x 2 is "high" or greater than 650 mg/dL. Pt has history of hyperglycemia and DKA. Coronavirus screen: At this time, the client does not indicate any symptoms associated with coronavirus-19. Ebola Screen: No symptoms or risks identified at this time. Initial Sepsis Screen: Does the patient meet any 2 criteria? Yes Does the patient have a suspected source of infection? No. Patient's initial sepsis screen is negative. Risk Assessment: Do you want to hurt yourself or someone else? Patient reports no desire to harm self or others. Onset of symptoms is unknown. 12:22 Method Of Arrival: EMS: [facility] tl4 12:22 Acuity: LALITA 2 tl4 Triage Assessment: 12:25 General: Appears ill, Behavior is altered mental status. Pain: Unable to use pain tl4 scale. Does not appear to understand pain scale. Patient appears confused. EENT: No signs and/or symptoms were reported regarding the EENT system. Neuro: Level of Consciousness is confused, Oriented to person. Cardiovascular: Capillary refill < 3 seconds Patient's skin is warm and dry. Respiratory: Airway is patent Respiratory effort is even, unlabored, Respiratory pattern is symmetrical, Kussmaul. GI: No signs and/or symptoms were reported involving the gastrointestinal system. : No signs and/or symptoms were reported regarding the genitourinary system. Derm: No signs and/or symptoms reported regarding the dermatologic system. Musculoskeletal: No signs and/or symptoms reported regarding the musculoskeletal system. Historical: - Allergies: 12:30 Morphine; tl4 - Home Meds: 12:30 Humulin 70/30 Sub-Q [Active]; Levemir U-100 Insulin subcutaneous [Active]; tl4 - PMHx: 12:30 cluster headaches; Diabetes - NIDDM; Sciatica (PTSD); tl4 - PSHx: 12:31 Left leg; neck; hand; tl4 - Immunization history:: Adult Immunizations unknown. - Infectious Disease History:: unknown, no previous reported history. - Social history:: Smoking status: unknown. Screenin:30 [facility] ED Fall Risk Assessment (Adult) History of falling in the last 3 months, aa5 including since admission No falls in past 3 months (0 pts) Confusion or Disorientation Yes (5 pts) Intoxicated or Sedated No (0 pts) Impaired Gait Yes (1 pt) Mobility Assist Device Used No (0 pt) Altered Elimination Yes (1 pt) Score/Fall Risk Level 3 or more points = High Risk Oriented to surroundings, Maintained a safe environment, Educated pt \\T\\ family on fall prevention, incl call for assistance when getting out of bed, Hourly rounding (assess needs \\T\\ fall precautionary measures) done. Abuse screen: No signs of abuse noted. Nutritional screening: unable to complete . Tuberculosis screening: unable to complete . Assessment: 12:30 General: Appears uncomfortable, ill, slender, malnourished. Pain: Unable to use pain aa5 scale. Patient is disoriented. Does not appear to understand pain scale. Neuro: Level of Consciousness is awake, confused, able to follow some commands . Oriented to person. Cardiovascular: Heart tones S1 S2 present Rhythm is regular. Respiratory: Airway is patent Respiratory effort is even, unlabored, Respiratory pattern is Kussmaul. GI: Abdomen is round Bowel sounds present X 4 quads. Abd is soft X 4 quads. : No signs and/or symptoms were reported regarding the genitourinary system. EENT: No signs and/or symptoms were reported regarding the EENT system. Derm: Skin is dry, Skin is normal, Skin temperature is warm. Musculoskeletal: Range of motion: intact in all extremities. 13:00 Neuro: Level of Consciousness is awake, confused, Oriented to person, Speech aa5 incomprehensible at times. Cardiovascular: Heart tones S1 S2 present Rhythm is regular. Respiratory: Airway is patent Respiratory effort is even, unlabored, Respiratory pattern is Kussmaul. Derm: Skin is dry, Skin is normal, Skin temperature is warm. 14:00 Neuro: Level of Consciousness is awake, confused, Oriented to person, Speech aa5 incomprehensible . Respiratory: Airway is patent Respiratory effort is even, unlabored, Respiratory pattern is Kussmaul. Derm: Skin is dry, Skin is normal, Skin temperature is warm. 14:20 Reassessment: Pt restless intermittently and removing cardiac monitoring at times. . aa5 14:50 Reassessment: AMY mckenna at bedside for central line placement. iw 15:00 Neuro: Level of Consciousness is awake, confused, Oriented to person. Respiratory: aa5 Airway is patent Respiratory effort is even, unlabored, Respiratory pattern is Kussmaul. Derm: Skin is dry, Skin is normal, Skin temperature is warm. 15:00 Neuro: Speech incomprehensible . aa5 15:00 Reassessment: Pt removing cardiac monitoring at times, restless at times, currently aa5 placed on manufacturer representative. . 16:00 Neuro: Level of Consciousness is awake, confused, Oriented to person. Respiratory: aa5 Airway is patent Respiratory effort is even, unlabored, Respiratory pattern is Kussmaul. Derm: Skin is dry, Skin is normal, Skin temperature is warm. 17:00 Neuro: Level of Consciousness is awake, confused, Oriented to person, Speech aa5 incomprehensible at times . Respiratory: Airway is patent Respiratory effort is even, unlabored, Respiratory pattern is regular, symmetrical. Derm: Skin is dry, Skin is normal, Skin temperature is warm. 17:32 Reassessment: Attempted to call report to ICU, nurse currently unavailable. . aa5 18:10 Neuro: Level of Consciousness is awake, alert, obeys commands, Oriented to person, aa5 place, time, situation. Respiratory: Airway is patent Respiratory effort is even, unlabored, Respiratory pattern is regular, symmetrical. Derm: Skin is dry, Skin is normal, Skin temperature is warm. 18:10 Reassessment: Pt states he need to have bowel movement, offered bed nina ,pt refused. Pt aa5 assisted to bedside commode. . 18:10 Reassessment: ICU remains unavailable for report, charge nurse (Tamra Del Valle, THUY) and aa5 melt house supervisor (Joel Costa RN) aware. . 18:43 Reassessment: Pt assisted back into bed, given extra warm blankets for comfort and cup aa5 of ice per pt's request. . 10/04 00:51 Reassessment: report to ICU attempted. tm6 01:09 Reassessment: report given to Geri DALEY in ICU. tm6 Vital Signs: 10/03 12:22 BP 93 / 57; Pulse 79; Resp 21; Temp 96.4(TE); Pulse Ox 100% on R/A; Weight 46.27 kg; tl4 Height 5 ft. 4 in. ; 13:00 BP 99 / 71; Pulse 75; Resp 24 S; Temp 97.5(TE); Pulse Ox 100% on R/A; aa5 14:00 BP 95 / 72; Pulse 82; Resp 27 S; Pulse Ox 100% on R/A; aa5 15:00 BP 93 / 57; Pulse 78; Resp 24 S; Pulse Ox 100% on R/A; aa5 16:00 BP 106 / 71; Pulse 81; Resp 22 S; Temp 97.5(TE); Pulse Ox 100% on R/A; aa5 17:07 BP 109 / 84; Pulse 67; Resp 18 S; Pulse Ox 99% on R/A; aa5 12:22 Body Mass Index 17.51 (46.27 kg, 162.56 cm) tl4 ED Course: 12:16 Patient arrived in ED. em1 12:17 Ti Fish DO is Attending Physician. ms3 12:25 Allie Victor, THUY is Primary Nurse. aa5 12:25 Triage completed. tl4 12:25 Arm band placed on left wrist. aa5 12:25 Patient has correct armband on for positive identification. Placed in gown. Bed in low aa5 position. Call light in reach. Side rails up X2. Client placed on continuous cardiac and pulse oximetry monitoring. NIBP monitoring applied. elementary school science teacher on. Pulse ox on. NIBP on. 12:53 Initial lab(s) drawn, by me, sent to lab. Inserted saline lock: 20 gauge in left aa5 forearm, using aseptic technique. Blood collected. Flushed with 10 mL NS. 12:55 Maintain EMS IV. Dressing intact. Site clean \\T\\ dry. Gauge \\T\\ site: 18G to R AC. aa 5 13:23 CT Head Brain wo Cont In Process Unspecified. EDMS 14:20 Pt pulled out 18 G to R AC, bleeding controlled and pressure dressing applied. aa5 14:22 Inserted saline lock: 20 gauge in right wrist, using aseptic technique. aa5 14:25 First set of blood cultures drawn by me. aa5 14:49 Second set of blood cultures drawn by lab staff. aa5 15:00 Pt pulled out 20G to L FA, bleeding controlled and pressure dressing applied. aa5 15:08 Vicky Cho MD is Hospitalizing Provider. ms3 15:30 Assisted provider with central line placement. Set up central line tray. Triple lumen iw line placed in right femoral. Line placed by Azalia RONQUILLOP-C Placement verified by blood return, Dressed with Tape, Tegaderm, Patient tolerated well. Time-out/Briefing performed prior to start of procedure? Yes. Was handwashing/sanitizing done immediately prior to procedure? Yes. Was patient positioned to in a way to prevent air embolism? Yes. Was procedure site sterilized? Yes, with chlorhexidine. Was the site allowed to dry? Yes. Was local anesthetic and/or sedation utilized? Yes. During the procedure, did the Practitioner(s) maintain a sterile field? Yes. Were unused ports clamped during insertion? Yes. Was a 2nd qualified MD obtained after 3 unsuccessful insertion attempts? N/A. Was blood aspirated from each lumen? Yes. After the procedure, did the Practitioner(s) clean the site and apply a sterile dressing? Yes. 15:45 Chavez cath inserted, using sterile technique, 16 Fr., by ED staff, balloon inflated, to iw gravity drainage. 17:50 No provider procedures requiring assistance completed. aa5 19:00 Report given to THUY Mosher and THUY Estrella. aa5 23:17 Provided Education on: need for admit. tm6 Administered Medications: 13:00 Drug: NS 0.9% IV 1000 ml IV at 1000 ml once Route: IV; Rate: 1000 ml; Site: left aa5 forearm; 13:45 Follow up: IV Status: Completed infusion; IV Intake: 1000ml aa5 14:40 Drug: Insulin Drip - (Insulin Regular Human IVP 100 units, NS 0.9% IV 100 ml) IV at iw calculated rate continuous; Standard concentration 1unit/ml; Dose for DKA is 0.1 units/kg/hr {Co-Signature: aa5 (Allie Victor RN).} Route: IV; Rate: calculated rate; Site: right wrist; 17:53 Follow up: IV Status: Infusion continued upon admission aa5 17:20 CANCELLED (see meditech ): sodium [id number] meq IVP once aa5 17:20 CANCELLED (see meditech ): ns 0.9% 1000 ml IV at 250 ml/hr continuous aa5 17:54 CANCELLED (see [facility] [employer] MAR): Rocephin - rocephin (ceftriaxone)1 grams IVPB once over aa5 30 mins; (mix in 50 mL NS) Medication: 16:54 VIS not applicable for this client. aa5 Intake: 13:45 IV: 1000ml; Total: 1000ml. aa5 Output: 18:10 Urine: 1800ml (Chavez); Total: 1800ml. aa5 Outcome: 15:10 Decision to Hospitalize by Provider. ms3 23:16 Admitted to ER Hold. Please see [facility] for further documentation. tm6 23:16 Condition: stable 23:16 Instructed on the need for admit, 10/04 01:53 Patient left the ED. tm6 Signatures: Dispatcher [employer] EDMS Day Pizarro RN RN iw Martinez, Eric em1 Allie Victor, RN RN aa5 Ti Fish DO DO ms3 Vidhi Morales RN RN tm6 Gordy Martinez RN RN tl4 Allie Victor RN aa5 Corrections: (The following items were deleted from the chart) 10/03 12:35 12:30 PMHx: PTSD (sciatica); tl4 tl4 12:35 12:30 PMHx: sciatica (L leg); tl4 tl4 12:35 12:30 PSHx: L leg; tl4 tl4 12:35 12:30 PSHx: hand; tl4 tl4 12:35 12:30 PSHx: neck; tl4 tl4 12:35 12:31 PMHx: neck; tl4 tl4 16:48 12:35 Arm band placed on left wrist. tl4 aa5 17:51 15:00 Reassessment: Pt removing cardiac monitoring at times, currently placed on aa5 monitor. . aa5 19:45 15:45 Chavez cath inserted, using sterile technique, 16 Fr., by ED staff, balloon iw inflated, to gravity drainage, aa5
[2023-10-04 16:26] LABS: Arterial Blood Carboxyhemoglob 0.3 % (0-1.5); Blood Gas Oxyhemoglobin 71.9 % (94-97)
[2023-10-04 16:27] LABS: Blood Gas THB 14.2 g/dl (12-18)
--- NOTE | 2023-10-04 16:38 | P.PN ---
Date of Service: 10/04/23 Patient with AMS. Pulled peripheral lines. Unable to orient. Triple-lumen central line placed per sterile technique to right femoral vein. Placement confirmed with return of blood. Patient unaware of procedure. <Azalia Riojas - Last Filed: 10/04/23 16:36> Patient was seen and examined. Events of the last 24 hours have been noted. Spoke with with DARWIN regarding patient's clinical picture after evaluating and examining the patient independently. Appreciate assistance with central line placement. <Vicky Cho - Last Filed: 10/07/23 15:44>
[2023-10-04 17:13] LABS: Anion Gap 34.5 mEq/L (5.0-15.0); Potassium 4.5 mEq/L (3.5-5.1)
[2023-10-04] MEDS: CEFTRIAXONE 1,000 MG in NA CHLORIDE 0.9% 50 ML IVPB SCH (17:28)
[2023-10-04] MEDS: NA CHLORIDE 0.9% 1,000 ML IV SCH (17:28)
[2023-10-04] MEDS ORDERED: CEFTRIAXONE 1000 MG/VIAL ONE (17:38)
[2023-10-04] MEDS: HEPARIN 5000 UNIT/ML 1 ML VIAL SQ SCH (21:00)
[2023-10-04] MEDS: GABAPENTIN 300 MG CAP PO SCH (21:00)
[2023-10-04 21:23] LABS: Anion Gap 24.9 mEq/L (5.0-15.0); Potassium 3.9 mEq/L (3.5-5.1)
[2023-10-04] MEDS ORDERED: HEPARIN 5000 UNIT/ML 1 ML VIAL ONE (22:07)
[2023-10-04] MEDS ORDERED: GABAPENTIN 300 MG CAP ONE (22:07)
[2023-10-04] MEDS ORDERED: D5 0.45 NS 1,000 ML IV ONE (23:59)
[2023-10-05 00:23] VITALS: BMI 17.5
[2023-10-05 00:47] LABS: Anion Gap 15.6 mEq/L (5.0-15.0); Potassium 3.6 mEq/L (3.5-5.1)
[2023-10-05 02:24] VITALS: O2SAT 97
[2023-10-05 06:09] LABS: Blood Gas Oxyhemoglobin 95.4 % (94-97); Blood O2 Saturation 98.1 % (92-98.5)
[2023-10-05 06:11] LABS: Blood Gas THB 10.2 g/dl (12-18)
[2023-10-05 06:50] LABS: Absolute Basophils 0.1 K/uL (0-0.5); Absolute Lymphocytes (CBC) 0.5 K/uL (0.7-4.9); Absolute Monocytes 1.4 K/uL (0.1-1.3); Absolute Neutrophil 8.8 K/uL (1.8-8.0); Basophils % 1.1 % (0-1.3); Hematocrit 27.8 % (39.6-49.0); Hemoglobin 9.8 g/dL (13.6-17.9); Lymphocytes % 4.9 % (15.3-44.8); MCH 32.8 pg (27.0-35.0); MCHC 35.2 g/dL (32.0-36.0); MCV 93.3 fL (80-100); MPV 8.1 fL (7.6-11.3); Monocytes % 12.7 % (3.3-12.3); Neutrophils % 81.3 % (41.7-73.7); Platelets 216 thou/uL (152-406); RBC Red Blood Cell Count 2.98 M/uL (4.33-5.43); Red Cell Distribution Width 12.7 % (12.1-15.2)
[2023-10-05 07:07] LABS: Phosphorus 1.1 mg/dL (2.5-4.9)
[2023-10-05] MEDS: INSULIN GLARGINE 100 UNIT/ML SQ SCH (08:14)
[2023-10-05] MEDS: POTASSIUM PHOS 30 MM in NA CHLORIDE 0.9% 500 ML IV ONE (08:15)
[2023-10-05] MEDS ORDERED: ENOXAPARIN 40 MG/0.4 ML SQ SCH (09:00)
[2023-10-05] MEDS ORDERED: GLUCAGON 1 MG/VIAL IM PRN ×2 (10:50→11:59)
[2023-10-05] MEDS ORDERED: D50W 25 GM/50 ML SYRINGE IV PRN ×2 (10:50→11:59)
--- NOTE | 2023-10-05 10:56 | P.PN ---
Subjective Date of Service: 10/05/23 Chief Complaint: Diabetic ketoacidosis Pt is resting comfortably in bed. He is AAox3. Blood sugar is improving. Anion gap is 9. Will switch to insulin 70/30 60u BID. No other complaints. Review of Systems General: Unremarkable Eyes: Unremarkable ENT: Unremarkable Respiratory: Unremarkable Cardiovascular: Unremarkable Gastrointestinal: Unremarkable Genitourinary: Unremarkable Musculoskeletal: Unremarkable Integumentary: Unremarkable Neurological: Unremarkable Lymphatics: Unremarkable Physical Examination - Vital Signs Temperature: 99.1 F Blood Pressure: 82/43 Pulse: 92 Respirations: 14 Pulse Ox (%): 100 - Physical Exam General: Alert, In no apparent distress, Oriented x3 HEENT: Atraumatic, Normocephalic, PERRLA Neck: Supple, 2+ carotid pulse no bruit, JVD not distended Respiratory: Clear to auscultation bilaterally, Normal air movement Cardiovascular: No edema, Normal pulses, Regular rate/rhythm, Normal S1 S2 Capillary refill: <2 Seconds Gastrointestinal: Normal bowel sounds, Soft and benign, Non-distended Musculoskeletal: No clubbing, No swelling, No contractures Integumentary: No rashes, No breakdown, No significant lesion, No tenderness/swelling Neurological: Normal gait, Normal speech, Normal strength at 5/5 x4 extr, Normal tone, Sensation intact Lymphatics: No axilla or inguinal lymphadenopathy - Studies Laboratory Data (last 24 hrs) 10/04/23 10/04/23 10/04/23 13:30 13:30 12:53 WBC 24.70 H Hgb 13.6 Hct 45.0 Plt Count 307 PT 10.9 INR 0.97 APTT 25.0 Sodium 129 L Potassium 5.7 H BUN 33 H Creatinine 2.47 H Glucose 947 H* Phosphorus Magnesium Total Bilirubin 0.5 AST 19 ALT 58 Alkaline Phosphatase 100 Lipase 10/04/23 12:53 WBC Hgb Hct Plt Count PT INR APTT Sodium 128 L Potassium 5.6 H BUN 34 H Creatinine 2.50 H Glucose 953 H* Phosphorus 8.8 H Magnesium 2.4 Total Bilirubin 0.6 AST 20 ALT 59 Alkaline Phosphatase 104 Lipase 212 H Assessment And Plan - Plan DKA: Blood suagr is improving. Will start insulin 70/30 60 u BID and turn off insulin drip in 2 hours. AG is 9. Hypokalemia: K is 3.1. Will replete and monitor Hypophosphotemia: Phos is 1.1. Will replete with Kphos. Anemia: Hgb is 9.8. Will monitor H/H. DVT ppx: SCD Code: full
[2023-10-05] MEDS: INSULIN REGULAR (HUMAN) 100 UNIT/ML SQ SCH (12:20)
[2023-10-05 16:29] LABS: Phosphorus 2.6 mg/dL (2.5-4.9); Potassium 3.8 mEq/L (3.5-5.1)
[2023-10-05] MEDS ORDERED: INSULIN REGULAR (HUMAN) 100 UNIT/ML SQ SCH (16:30)
[2023-10-05] MEDS ORDERED: INSULIN 70/30 100 UNITS/ML SQ ONE (16:37)
[2023-10-05] MEDS: INSULIN 70/30 100 UNITS/ML SQ SCH (16:48)
[2023-10-05] MEDS: POTASSIUM CL SA 10 MEQ TAB PO ONE (17:00)
[2023-10-06 05:43] LABS: Absolute Basophils 0.1 K/uL (0-0.5); Absolute Lymphocytes (CBC) 1.7 K/uL (0.7-4.9); Absolute Neutrophil 6.1 K/uL (1.8-8.0); Basophils % 1.3 % (0-1.3); Eosinophils % 0.2 % (0-4.4); Hematocrit 29.8 % (39.6-49.0); Hemoglobin 10.4 g/dL (13.6-17.9); Lymphocytes % 18.7 % (15.3-44.8); MCV 94.1 fL (80-100); MPV 8.4 fL (7.6-11.3); Monocytes % 11.7 % (3.3-12.3); Neutrophils % 68.1 % (41.7-73.7); Nucleated Red Blood Cells % 0.1 % (0-0); Platelets 188 thou/uL (152-406); RBC Red Blood Cell Count 3.16 M/uL (4.33-5.43); Red Cell Distribution Width 13.1 % (12.1-15.2)
[2023-10-06 05:57] LABS: Anion Gap 8.5 mEq/L (5.0-15.0); Magnesium 1.8 mg/dL (1.6-2.4); Phosphorus 2.2 mg/dL (2.5-4.9); Potassium 3.5 mEq/L (3.5-5.1)
--- NOTE | 2023-10-06 08:48 | P.DS ---
Admission Date: 10/04/23 Discharge Date: 10/06/23 Reason for Admission: Diabetic ketoacidosis Brief History of Present Illness: Patient is a 48-year-old gentleman with longstanding history of type 1 diabetes coming to the hospital with severe diabetic ketoacidosis. Patient is very leth argic when I went to see him. Patient tells me that he has been taking his insulin, but he started having intractable nausea and vomiting. Patient has significant abdominal discomfort as well. Patient was lethargic and confused so patient was brought into the emergency room for further evaluation. In the ER patient was found at the pH is 6.9 with a bicarb of less than 8. ABGs revealed a bicarb of roughly 3. Patient was severely acidotic and I gave him 2amps of bicarb because of the severity of his acidosis. After given, patient's mentation improved somewhat. Continue with aggressive IV hydration as well as an insulin drip. Patient will be admitted to the hospital for further evaluation. Hospital Course: Mr. Flores did well over the course of his hospitalization. His acidosis resolved in ICU and his insulin drip was discontinued. He is tolerating an ADA diet and receiving 70/30 insulin. He states he understands the importance of continuing his insulin and understands that he should never run out of his prescription. He voices understanding that failure to do so will likely result in . New Rx: Insulin 70/30 60 units SQ twice daily before breakfast and lunch Regular insulin: Mild to moderate sliding scale Mr. Flores needs to follow-up with his PCP in 1 to 2 days <Azalia Riojas - Last Filed: 10/06/23 08:48> Admission Date: 10/04/23 Discharge Date: 10/06/23 Hospital Course: Pt seen and examined. I agree with the note by the MACHINE STRIPPER CUTTER. Blood sugar is within normal range. Continue insulin 70/30 60 units subq BID and ADA diet. Pt complains of yeast infection. Will check GC/chlamydia. Will treat if positive. OK to discharge pt. <Heath Bridges - Last Filed: 10/06/23 10:36> Disposition: ROUTINE DISCHARGE Discharge Condition: GOOD Vital Signs/Physical Exam: Temp Pulse Resp BP Pulse Ox 98.2 F 81 18 109/82 95 10/06/23 04:56 10/06/23 04:56 10/06/23 04:56 10/06/23 04:56 10/06/23 04:56 General: Alert, In no apparent distress, Oriented x3, Cachectic HEENT: Atraumatic, Normocephalic Neck: Supple Respiratory: Clear to auscultation bilaterally Cardiovascular: No edema, Regular rate/rhythm, Normal S1 S2 Capillary refill: <2 Seconds Gastrointestinal: Soft and benign Musculoskeletal: No clubbing Integumentary: No rashes Neurological: Normal speech, Normal tone, Normal affect Lymphatics: No axilla or inguinal lymphadenopathy External genitalia: Deferred Rectal: Deferred Laboratory Data at Discharge: WBC 8.90 thou/uL (4.3-10.9) 10/06/23 05:04 Hgb 10.4 g/dL (13.6-17.9) L 10/06/23 05:04 Hct 29.8 % (39.6-49.0) L 10/06/23 05:04 Plt Count 188 thou/uL (152-406) 10/06/23 05:04 PT 10.9 SECONDS (9.4-12.5) 10/04/23 13:30 INR 0.97 10/04/23 13:30 APTT 25.0 SECONDS (24.3-36.9) 10/04/23 13:30 Sodium 143 mEq/L (136-145) 10/06/23 05:04 Potassium 3.5 mEq/L (3.5-5.1) 10/06/23 05:04 BUN 14 mg/dL (7-18) 10/06/23 05:04 Creatinine 0.75 mg/dL (0.70-1.30) 10/06/23 05:04 Glucose 112 mg/dL (74-106) H 10/06/23 05:04 Phosphorus 2.2 mg/dL (2.5-4.9) L 10/06/23 05:04 Magnesium 1.8 mg/dL (1.6-2.4) 10/06/23 05:04 Total Bilirubin 0.5 mg/dL (0.2-1.0) 10/04/23 13:30 AST 19 U/L (15-37) 10/04/23 13:30 ALT 58 U/L (16-61) 10/04/23 13:30 Alkaline Phosphatase 100 U/L (45-117) 10/04/23 13:30 Triglycerides 37 mg/dL (<150) 10/05/23 06:32 Cholesterol 116 mg/dL (<200) 10/05/23 06:32 HDL Cholesterol 75 mg/dL (40-60) H 10/05/23 06:32 Cholesterol/HDL Ratio 1.55 10/05/23 06:32 Lipase 212 U/L (13-75) H 10/04/23 12:53 <Riojas,Azalia Jax - Last Filed: 10/06/23 08:48> Vital Signs/Physical Exam: Temp Pulse Resp BP Pulse Ox 98.1 F 69 18 115/82 100 10/06/23 08:00 10/06/23 08:00 10/06/23 08:00 10/06/23 08:00 10/06/23 08:00 Laboratory Data at Discharge: WBC 8.90 thou/uL (4.3-10.9) 10/06/23 05:04 Hgb 10.4 g/dL (13.6-17.9) L 10/06/23 05:04 Hct 29.8 % (39.6-49.0) L 10/06/23 05:04 Plt Count 188 thou/uL (152-406) 10/06/23 05:04 PT 10.9 SECONDS (9.4-12.5) 10/04/23 13:30 INR 0.97 10/04/23 13:30 APTT 25.0 SECONDS (24.3-36.9) 10/04/23 13:30 Sodium 143 mEq/L (136-145) 10/06/23 05:04 Potassium 3.5 mEq/L (3.5-5.1) 10/06/23 05:04 BUN 14 mg/dL (7-18) 10/06/23 05:04 Creatinine 0.75 mg/dL (0.70-1.30) 10/06/23 05:04 Glucose 112 mg/dL (74-106) H 10/06/23 05:04 Phosphorus 2.2 mg/dL (2.5-4.9) L 10/06/23 05:04 Magnesium 1.8 mg/dL (1.6-2.4) 10/06/23 05:04 Total Bilirubin 0.5 mg/dL (0.2-1.0) 10/04/23 13:30 AST 19 U/L (15-37) 10/04/23 13:30 ALT 58 U/L (16-61) 10/04/23 13:30 Alkaline Phosphatase 100 U/L (45-117) 10/04/23 13:30 Triglycerides 37 mg/dL (<150) 10/05/23 06:32 Cholesterol 116 mg/dL (<200) 10/05/23 06:32 HDL Cholesterol 75 mg/dL (40-60) H 10/05/23 06:32 Cholesterol/HDL Ratio 1.55 10/05/23 06:32 Lipase 212 U/L (13-75) H 10/04/23 12:53 <Heath Bridges - Last Filed: 10/06/23 10:36> Diet: ADA <Azalia iRojas - Last Filed: 10/06/23 08:48> <Heath Bridges - Last Filed: 10/06/23 10:36> Home Medications: Hum Insulin NPH/Reg Insulin Hm [Humulin 70-30 Vial] 60 unit SQ BIDWM #10 ml 10/06/23 Insulin Regular, Human [Novolin R] See Protocol SQ ACHS PRN #10 ml 10/06/23 New Medications: Hum Insulin NPH/Reg Insulin Hm [Humulin 70-30 Vial] 60 unit SQ BIDWM #10 ml Insulin Regular, Human [Novolin R] See Protocol SQ ACHS PRN #10 ml PRN Reason: Hyperglycemia Physician Discharge Instructions: Mr. Flores did well over the course of his hospitalization. His acidosis resolved in ICU and his insulin drip was discontinued. He is tolerating an ADA diet and receiving 70/30 insulin. He states he understands the importance of continuing his insulin and understands that he should never run out of his pre scription. He voices understanding that failure to do so will likely result in . New Rx: Insulin 70/30 60 units SQ twice daily before breakfast and lunch Regular insulin: Mild to moderate sliding scale Mr. Flores needs to follow-up with his PCP in 1 to 2 days Followup: NONE,NONE [Primary Care Provider] -
[2023-10-06] MEDS: POTASSIUM CL SA 10 MEQ TAB PO ONE (09:43)
[2023-10-06] MEDS: MAGNESIUM SULFATE 1 gm IVPB 1 GM/100 ML BAG IV ONE (09:44)
[2023-10-06] MEDS: AZITHROMYCIN 250 MG TAB PO SCH (15:32)
[2023-10-06] MEDS: FLUCONAZOLE 100 MG TAB PO SCH (16:31)
[2023-10-06 17:36] VITALS: BP 106/67; TEMP 99.3
--- OUTSIDE RECORDS SUMMARY | 2023-10-07 08:40 | XMS REPORT | Continuity of Care Document ---
Author Name Unknown Address [address] [place] [id number] [facility] thconnect Address [address] [place] [address] Care Team Providers Care Battery Repairer Name Role Phone PCP, PATIENT DOES NOT HAVE A Primary Care Physic franklin Unavailable ROB WALKER Attending Clinician Unavailable EMILIA GOOD THUNDER Attending Clinician Unavailbarbara HECTOR MD Attending Clinician UnavailSHAHAB Giordano Attending Clinician Unav ailable LAB90 Attending Clinician Unavailable MALCOLM SABA Attending Clinician Unavailable RIVERA SALCEDO Attending Clinician UnavailRivera Rose MD Attending Clinician Malcolm Saba MD Attending Clinician Lab, Ang - Db Attending Clinician Unavailable 2, Adc Lab Attending Clinician Unavailable Payers Payer Name Policy Type Policy Number Effective Date Expirati on Date Source [facility] JJ HERRERA COPAY FOCUS 9 [id number] 2023 00:00:00 TATIANA BARAJAS SILVER: HMO RESIDENTIAL COLLECTIONS 94 ON STAND 9 [id number] 2022 00:00:00 Problems Condition Name Condition Details Condition Category Status Onset Date Resolution Date Last Treatment Date Treating Clinician Comments Source Diabetes (multi HCC) Diabetes (multi HCC) Disease Active 2022-02 0-09 00:00: 00 Kelly rodríguez Chronic back pain Chronic back pain Disease Active 2022-02 00:00: 00 Kelly Suresh Externa anne 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) Disease Active 2022-02 00:00: 00 Kelly Suresh Externa anne Anxiety Anxiety Disease Active 2022-02 [...] neck Disease Active 2022-02 00:00: 00 Kelly Dennya anne Cluster headaches Cluster headaches Disease Active 2022-02 00:00: 00 Kelly Suresh Externa anne Type I diabetes mellitus with complicati on, uncontroll ed Type I diabetes mellitus with complicati on, uncontroll ed Disease Active 2020-02 00:00: 00 [facility] Neuropathy Neuropathy Disease Active 2020-02 00:00: 00 [facility] Paresthesi a of skin Paresthesi a of skin Problem Active [facility] Pain in left lower leg Pain in left lower leg Diagnosis Active [facility] Pain, joint, knee, left Pain, joint, knee, left Diagnosis Active [facility] 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 Problem Active [facility] Allergies, Adverse Reactions, Alerts Allergy Name Allergy Type Status Severity Reaction(s) Onset Date Inactive Date Treating Clinician Comments Source Morphine Propensi ty to adverse reaction s Active 02-28 00:00: 00 Other reaction( s): Unknown Kelly Seybold - Externa l NO KNOWN ALLERGIE S Drug Class Active [facility] Social History Social Habit Start Date Stop Date Quantity Comments Source Sexual orientation Geovanna rae Vonnie - External History of tobacco use Cigarette Smoker Kelly moore - External History SDOH Alcohol Std Drinks [facility] History SDOH Alcohol Binge [facility] Exposure to SARS-CoV-2 (event) Not sure [facility] Alcohol intake 2022-11-26 00:00:00 2022-11-26 00:00:00 Current [...] Alcohol Frequency 2019-09-22 00:00:00 2019-09-22 00:00:00 1 [facility] Sex Assigned At 1975 00:00:00 1975 00:00:00 Kelly Shankar - External Smoking Status Start Date Stop Date Source Occasional tobacco smoker 2022-11-23 00:00:00 Kelly Shankar - External Current every day smoker 2019-09-22 00:00:00 [facility] Medications Ordered Medication Name Filled Medication Name [...] subcutaneou s Suspension 2022-02 00:00: 00 Yes [id number] 104 60 units sc twice daily. Kelly rodríguez Gabapentin 300 MG oral Capsule 2022-02 00:00: 00 Yes [id number] 104 300mg Take 1 capsule (300 mg total) by mouth 2 times daily. Kelly rodríguez Duloxetine HCl [address] Particles 2022-02 00:00: 00 Yes [id number] 20mg Take 1 capsule (20 mg total) by mouth daily. Kelly rodríguez Ketoconazol e 2 % apply externally Cream 2022-02 00:00: 00 Yes [id number] Apply to affected skin twice daily. Kelly rodríguez nystatin-tr iamcinolone cream 03-31 00:00: 00 Yes [id number] Apply to area(s) 2 (two) times daily. [facility] sulfamethox azole-trime thoprim (BACTRIM DS) 800-160 mg per tablet 03-31 00:00: 00 04-11 05:59 :00 No [id number] 1{tbl} Take 1 tablet by mouth 2 (two) times daily for 10 days. [facility] Insulin NPH-Regular Human Rec (HUMULIN 70/30 U-100 KWIKPEN) 100 unit/mL (70-30) injection 2020-02 00:00: 00 Yes [id number] Take 50 unit with breakfast and 42 units with dinner [facility] GABAPENTIN ORAL 2019-02 09:48: 19 Yes Take by mouth. [facility] Gabapentin Gabapentin Yes Gage Martinez not defined [facility] Meloxicam Meloxicam Yes Gage Martinez not defined [facility] Tresiba Tresiba Yes Gage Martinez not defined [facility] Metformin HCl Metformin HCl Yes Gage Martinez not defined [facility] tramadol tramadol Yes Gage Martinez not defined [facility] Vital Signs Vital Name Observation Time Observation Value Comments S ource Systolic blood pressure 2022-11-26 15:21:00 109 mm[Hg] Kelly Seybo ld - External Diastolic blood pressure 2022-11-26 15:21:00 76 mm[Hg] Kelly ybo ld - External Heart rate 2022-11-26 15:21:00 84 /min Joe Matthewold - External Body temperature 2022-11-26 15:21:00 36.11 Neda Kelly Mccartyybold - External Respiratory rate 2022-11-26 15:21:00 20 /min Klely ybold - External Body height 2022-11-26 15:21:00 162.6 cm Claritza erasto Mccartyybold - External Body weight 2022-11-26 15:21:00 53.978 kg Claritza erasto Seybold - External BMI 2022-11-26 15:21:00 20.43 kg/m2 Claritza erasto Seybold - External Oxygen saturation in Arterial blood by Pulse oximetry 2022-11-26 15:21:00 99 /min Kelly ybo ld - External Systolic blood pressure 2021-03-31 17:33:00 120 mm[Hg] [facility] Diastolic blood pressure 2021-03-31 17:33:00 76 mm[Hg] [facility] Heart rate 2021-03-31 17:33:00 87 /min [facility] 2021-03-31 17:33:00 36.5 Neda [facility] Respiratory rate 2021-03-31 17:33:00 18 /min [facility] Body height 2021-03-31 17:33:00 162.6 cm [facility] Body weight 2021-03-31 17:33:00 57.97 kg [facility] BMI 2021-03-31 17:33:00 21.94 kg/m2 [facility] Oxygen saturation in Arterial blood by Pulse oximetry 2021-03-31 17:33:00 99 /min [place] o [facility] Encounters Start Date/Time End Date/Time Encounter Type Admission Type Attending [facility] Care Department Encounter ID Source 2023-05-14 00:00:00 2023-05-14 00:00:00 Outpatient [facility]LLY [facility] [id number] [facility] 2023-05-09 00:00:00 2023-05-09 00:00:00 Outpatient KELLY MAYO [id number] Kelly mario 2023-04-29 15:00:00 2023-04-29 15:00:00 Outpatient ROB WALKER [id number] Kelly Shankar 2023-04-02 11:00:00 2023-04-02 11:00:00 Outpatient JOSE RAMON NIETO [id number] [facility] 2023-03-27 00:00:00 2023-03-27 00:00:00 Outpatient ROB WALKER [id number] [facility] 2023-03-19 00:00:00 2023-03-19 00:00:00 Outpatient ROB WALKER [id number] Kelly Shankar 2023-01-01 10:15:00 2023-01-01 10:15:00 Outpatient ROB WALKER [id number] Kelly [facility] 2022-12-03 00:00:00 2022-12-03 00:00:00 Outpatient MD KELLY SHARPE [id number] [facility] 2022-11-27 00:00:00 2022-11-27 00:00:00 Outpatient NHSHAHAB HEATH KELLY [id number] [facility] 2022-11-27 00:00:00 2022-11-27 00:00:00 Outpatient PREZAS, ROB MAYO [id number] Kelly Shankar 2022-11-27 00:00:00 2022-11-27 00:00:00 Outpatient PREZAS, ROB MAYO KELLY [id number] Kelly [facility] 2022-11-26 11:10:00 2022-11-26 11:10:00 Outpatient LAB90 KELLY PATELSEY [id number] [facility] 2022-11-26 10:00:00 2022-11-26 10:00:00 Outpatient PREZAS, ROB MAYO KELLY [id number] [facility] 2022-11-14 15:00:00 2022-11-14 15:00:00 Outpatient PREZAS, ROB PATELSIXTO MAYO [id number] Kelly [facility] 2022-10-30 11:00:00 2022-10-30 11:00:00 Outpatient PREZAS, ROB MAYO KELLY [id number] Kelly [facility] 2021-04-26 15:00:00 2021-04-26 15:00:00 Outpatient R MALCOLM SABA [facility] [id number] [facility] 2021-03-31 10:30:00 2021-03-31 12:24:36 Outpatient R RIVERA SALCEDO [facility] [id number] [facility] 2021-03-31 10:30:00 2021-03-31 12:24:36 Office Visit Rivera [facility]ced[facility] 1..840.114 350.1.13.10 4.2.7.2.686 [id number] [facility] 2020-12-30 00:00:00 2020-12-30 00:00:00 Telephone [facility] 1..840.114 350.1.13.10 4.2.7.2.686 [id number] [facility] 2020-12-14 16:54:54 2020-12-14 17:09:54 Client Development Director Visit Lab, Irvin Samuel Wandy [facility] 1.284.114 350.1.13.10 4.2.7.2.686 [id number] [facility] 2020-12-14 16:00:00 2020-12-14 16:55:20 Outpatient R WANDY [facility] [id number] [facility] 2020-12-14 15:48:44 2020-12-14 16:55:20 Office Visit Wandy [facility] 1.84.114 350.1.13.10 4.2.7.2.686 [id number] [facility] 2020-10-07 00:00:00 2020-10-07 00:00:00 Refill Wandy [facility] Building 1.84.114 350.1.13.10 4.2.7.2.686 [id number] [facility] 2020-05-11 10:00:00 2020-05-11 10:00:00 Outpatient R WANDY [facility] [id number] [facility] 2019-12-23 09:31:09 2019-12-23 10:15:22 [facility] 1.84.114 350.1.13.10 4.2.7.2.686 [id number] 2019-12-23 09:31:09 2019-12-23 10:15:22 [facility] 1.84.114 350.1.13.10 4.2.7.2.686 [id number] [facility] 2019-12-23 09:30:00 2019-12-23 09:30:00 Outpatient R MALCOLM SABA [facility] [id number] [facility] 2019-10-01 00:00:00 2019-10-01 00:00:00 Telephone Wandy [facility] Building [id number] 350.1.13.10 4.2.7.2.686 [id number] [facility] 2019-09-23 00:00:00 2019-09-23 00:00:00 [facility] [id number] 350.1.13.10 4.2.7.2.686 [id number] [facility] 2019-09-22 10:42:31 2019-09-22 10:57:31 Client Development Director Visit 2, Adc Lab Wandy [facility] Building 1.2.840.114 350.1.13.10 4.2.7.2.686 [id number] [facility] 2019-09-22 08:58:06 2019-09-22 10:23:11 Office Visit Wandy [facility] [id number] 350.1.13.10 4.2.7.2.686 [id number] [facility] 2019-09-22 08:30:00 2019-09-22 08:30:00 Outpatient R WANDY [facility] [id number] [facility] 2018-04-03 14:30:00 2018-04-03 14:30:00 Outpatient [facility] [id number] [facility]
--- NOTE | 2023-10-08 17:59 | EKG ---
Test Date: 2023-10-04 Test Time: 12:55:18 Cosmetic Surgeon: SCOTT MEASUREMENT RESULTS: Intervals: Rate: 73 FL: 168 QRSD: 88 QT: 434 QTc: 478 Terrell: P: 86 FL: 168 QRS: 88 T: 76 INTERPRETIVE STATEMENTS: Normal sinus rhythm Biatrial enlargement Septal infarct, age undetermined Abnormal ECG Compared to ECG 08/20/2023 11:39:21 Atrial abnormality now present Myocardial infarct finding now present Electronically Signed On 10-08-23 17:50:08 CDT by José Luis Walters
[2023-10-10 18:15] LABS: C.trachomatis RNA,TMA Not Detected (Not Detected); N.gonorrhoeae RNA,TMA Not Detected (Not Detected)
== END 2023-10-06 18:18 | disposition home or self-care (01) | DRG 637 ==
LOC: ER 12:15 → ERHOLD 14:28 → 3RD-ICU 10-05 01:28 → 2ND 10-05 20:23
PROVIDERS: ADMIT Hospitalist; ATTEND Hospitalist
PROC: 4A033R1 Measurement of Arterial Saturation, Peripheral, Percutaneous Approach (ICD-10-PCS; principal; 2023-10-05)
PROC: 0T9B70Z Drainage of Bladder with Drainage Device, Via Natural or Artificial Opening (ICD-10-PCS; 2023-10-06)
DX: E10.10 Type 1 diabetes mellitus with ketoacidosis without coma (principal); G93.41 Metabolic encephalopathy; R64 Cachexia; Z68.1 Body mass index [BMI] 19.9 or less, adult; E87.6 Hypokalemia; D64.9 Anemia, unspecified; E83.39 Other disorders of phosphorus metabolism; K21.9 Gastro-esophageal reflux disease without esophagitis; Z88.5 Allergy status to narcotic agent; Z79.4 Long term (current) use of insulin; Z87.891 Personal history of nicotine dependence
CPT/HCPCS: 36415; 36600; 51702; 70450; 80048; 80053; 80061; 80076; 82010; 82310; 82805; 82947; 83605; 83690; 83735; 84100; 84132; 85025; 85610; 85730; 87040; 87490; 87590; 93005; 96361; 96365; 96366; 99285; J0696; J1644; J1815; J3475; J7030; J7040; J7799

== ENCOUNTER 2023-12-14 01:50 | Inpatient (IN) | payer OTHER ==
[2023-12-14] MEDS ORDERED: NA CHLORIDE 0.9% 1,000 ML ONE (02:19)
[2023-12-14] MEDS ORDERED: Ringers Lactate 1,000 ML IV ONE (03:02)
[2023-12-14] MEDS ORDERED: INSULIN REGULAR (HUMAN) 100 UNIT/ML ONE (03:42)
[2023-12-14] MEDS ORDERED: NA CHLORIDE 0.9% 100 ML ONE (03:43)
--- NOTE | 2023-12-14 04:06 | EDPHYS ---
Physician Documentation [facility] Name: Angel Flores Age: 48 yrs Sex: Male : 1975 Arrival Date: 12/14/2023 Time: 01:36 Bed 7 Private MD: ED Physician Marvin Cobos HPI: 12/13 03:54 This 48 yrs old Black Male presents to ER via EMS with complaints of Shortness Of rt Breath. 03:54 Patient with history of type 1 diabetes presents to the ED with shortness of breath, rt dry throat, polyuria. Patient states that he has been out of his insulin for about a week. Denies other acute complaints at this time, symptoms are severe in severity, no other aggravating or alleviating factors.. Historical: - Allergies: 01:40 Morphine; bm8 - Home Meds: 01:40 Humulin 70/30 Sub-Q [Active]; Levemir U-100 Insulin subcutaneous [Active]; bm8 - PMHx: 01:40 cluster headaches; Diabetes - NIDDM; sciatica (PTSD); bm8 - PSHx: 01:40 hand; left leg; neck; bm8 - Immunization history:: Adult Immunizations unknown. - Infectious Disease History:: Denies. - Social history:: Smoking status: Patient reports the use of cigarette tobacco products. - Family history:: not pertinent. ROS: 03:54 Constitutional: Negative for fever, chills, and weight loss, Cardiovascular: Negative rt for chest pain, palpitations, and edema, Abdomen/GI: Negative for abdominal pain, nausea, vomiting, diarrhea, and constipation, MS/Extremity: Negative for injury and deformity, Skin: Negative for injury, rash, and discoloration, 03:54 Respiratory: Positive for shortness of breath, Negative for cough, 03:54 Endocrine: Positive for polydipsia, polyuria, Exam: 03:54 Constitutional: This is a well developed, well nourished patient who is awake, alert, rt and in no acute distress. Head/Face: Normocephalic, atraumatic. Chest/axilla: Normal chest wall appearance and motion. Nontender with no deformity. No lesions are appreciated. Cardiovascular: Regular rate and rhythm with a normal S1 and S2. No gallops, murmurs, or rubs. Normal PMI, no JVD. No pulse deficits. Abdomen/GI: Soft, non-tender, with normal bowel sounds. No distension or tympany. No guarding or rebound. No evidence of tenderness throughout. Skin: Warm, dry with normal turgor. Normal color with no rashes, no lesions, and no evidence of cellulitis. MS/ Extremity: Pulses equal, no cyanosis. Neurovascular intact. Full, normal range of motion. Neuro: Awake and alert, GCS 15, oriented to person, place, time, and situation. Cranial nerves II-XII grossly intact. Motor strength 5/5 in all extremities. Sensory grossly intact. Cerebellar exam normal. Normal gait. 03:54 ENT: Dry mucous membranes. 03:54 ECG was reviewed by the Attending Physician. 03:54 Respiratory: Kussmaul respirations noted, lungs clear, Vital Signs: 01:30 BP 123 / 92; Pulse 104; Resp 24; Pulse Ox 100% on R/A; al5 01:39 BP 109 / 88; Pulse 104; Resp 18; Temp 97; Pulse Ox 100% on 2 lpm NC; Weight 45.36 kg; bm8 Height 5 ft. 4 in. ; Pain 5/10; 01:45 BP 98 / 74; Pulse 108; Resp 26; Pulse Ox 100% on R/A; al5 02:00 BP 133 / 86; Pulse 101; Resp 25; Pulse Ox 100% on R/A; al5 02:30 BP 123 / 77; Pulse 100; Resp 29; Pulse Ox 100% on 4 lpm NC; al5 03:00 BP 93 / 73; Pulse 115; Resp 24; Pulse Ox 100% on 4 lpm NC; al5 03:30 BP 113 / 44; Pulse 93; Resp 25; Pulse Ox 100% on 4 lpm NC; al5 04:00 BP 124 / 58; Pulse 94; Resp 23; Pulse Ox 100% on 4 lpm NC; al5 01:39 Body Mass Index 17.16 (45.36 kg, 162.56 cm) bm8 01:39 Pain Scale: Adult bm8 MDM: 01:41 Medical Screening Exam initiated rt 03:54 Differential diagnosis: DKA, hyperglycemia, pneumonia. Antibiotic administration: Not rt indicated, the patient does not have an appreciated infiltrate. Data reviewed: vital signs, nurses notes, lab test result(s), EKG, radiologic studies. Consideration of Admission/Observation Patient was admitted/placed on observation. Management of patient was discussed with the following: Hospitalist: Agrees to admit. Independent interpretation of the following test(s) in the Emergency Department X-Ray: My interpretation is No infiltrate seen on my interpretation of x-ray images. Care significantly affected by the following chronic conditions: Diabetes. Counseling: I had a detailed discussion with the patient and/or guardian regarding the historical points, exam findings, and any diagnostic results supporting the discharge/admit diagnosis, lab results, radiology results, the need for further work-up and treatment in the hospital. Response to treatment: There is no appreciated change of the patient's symptoms at this time. 12/13 01:46 Order name: Basic Metabolic Panel rt 12/13 01:46 Order name: CBC with Diff rt 12/13 01:46 Order name: LFT's rt 12/13 01:46 Order name: Magnesium rt 12/13 01:46 Order name: Troponin HS rt 12/13 01:46 Order name: BHB rt 12/13 01:46 Order name: ABG: vbg only rt 12/13 04:23 Order name: Basic Metabolic Panel EDMS 12/13 04:23 Order name: Basic Metabolic Panel EDMS 12/13 04:23 Order name: Basic Metabolic Panel EDMS 12/13 04:23 Order name: Basic Metabolic Panel EDMS 12/13 04:23 Order name: Basic Metabolic Panel EDMS 12/13 04:23 Order name: Basic Metabolic Panel EDMS 12/13 04:23 Order name: Basic Metabolic Panel EDMS 12/13 04:23 Order name: CBC with Automated Diff EDMS 12/13 04:23 Order name: CBC with Automated Diff EDMS 12/13 04:23 Order name: CBC with Automated Diff EDMS 12/13 04:23 Order name: CBC with Automated Diff EDMS 12/13 04:23 Order name: Lipid Profile EDMS 12/13 04:23 Order name: Lipid Profile EDMS 12/13 05:15 Order name: Glucose, Ancillary Testing EDMS 12/13 01:46 Order name: XRAY Chest (1 view) rt 12/13 04:13 Order name: RAD EDMS 12/13 01:46 Order name: EKG; Complete Time: 04:06 rt 12/13 01:46 Order name: Cardiac monitoring; Complete Time: 02:42 rt 12/13 01:46 Order name: EKG - Nurse/Tech; Complete Time: 02:42 rt 12/13 01:46 Order name: IV Saline Lock; Complete Time: 02:15 rt 12/13 01:46 Order name: Labs collected and sent; Complete Time: 02:15 rt 12/13 01:46 Order name: O2 Per Protocol; Complete Time: 02:15 rt 12/13 01:46 Order name: O2 Sat Monitoring; Complete Time: 02:16 rt EC:54 Rate is 100 beats/min. Rhythm is regular, Normal Sinus Rhythm with No ectopy. Right rt axis deviation noted. IN interval is normal. QRS interval is normal. QT interval is normal. No Q waves. No ST changes noted. Interpreted by me. Administered Medications: 02:41 Drug: NS 0.9% IV 1000 ml IV at 1 bolus Per protocol; to be given as a bolus over 60 al5 minutes Route: IV; Rate: 1 bolus; Site: left antecubital; 04:38 Follow up: Response: No adverse reaction; IV Status: Completed infusion; IV Intake: al5 1000ml 03:32 Drug: Lactated Ringers Solution IV 1000 ml IV at 1000 bolus bolus Route: IV; Rate: 1000 al5 bolus; Site: right forearm; 04:38 Follow up: Response: No adverse reaction; IV Status: Infusion continued upon admission al5 03:53 Drug: Insulin Regular Human IVP 5 units IVP once {Co-Signature: dd2 (IBRAHIMA GUILLAUME RN).} al5 Route: IVP; Site: right forearm; 04:38 Follow up: Response: No adverse reaction al5 03:54 Drug: Insulin Drip - (Insulin Regular Human IVP 100 units, NS 0.9% IV 100 ml) IV at al5 calculated rate continuous; Standard concentration 1unit/ml; Dose for DKA is 0.1 units/kg/hr {Co-Signature: dd2 (IBRAHIMA GUILLAUME RN).} Route: IV; Rate: calculated rate; Site: right forearm; 04:38 Follow up: Response: No adverse reaction; IV Status: Infusion continued upon admission al5 04:37 Drug: Ondansetron IVP 4 mg IVP once; over 2 minutes Route: IVP; Site: left antecubital; al5 05:18 Follow up: Response: No adverse reaction; Nausea unchanged al5 Disposition: 03:54 Critical Care:. rt Disposition Summary: 12/14/23 02:54 Hospitalization Ordered Notes: Hospitalization Status: Inpatient Admission rt Provider: Prince Larry rt Location: Intensive Care Unit rt Condition: Critical rt Problem: new rt Symptoms: are unchanged rt Bed/Room Type: Standard rt Room Assignment: 1-(12/14/23 04:14) km Diagnosis - Diabetic ketoacidosis rt Forms: - Medication Reconciliation Form rt - SBAR form rt - Leadership Thank You Letter rt Critical care time excluding procedures: 03:54 Critical care time: Bedside Care: 30 minutes, Consultation: 5 minutes. Total time: 35 rt minutes Signatures: Dispatcher [employer] EDMarvin Hernandez MD MD rt Kelly Kennedy f Audie Woodward, RN RN bm8 Delores Miranda RN RN al5 IBRAHIMA GUILLAUME RN dd2 Corrections: (The following items were deleted from the chart) 04:14 02:54 rt kmf
--- NOTE | 2023-12-14 04:06 | ER ---
Nurse's Notes [facility] Name: Angel Flores Age: 48 yrs Sex: Male : 1975 Arrival Date: 12/14/2023 Time: 01:36 Bed 7 Private MD: Diagnosis: Diabetic ketoacidosis Presentation: 12/13 01:39 Chief complaint: Patient states: I feel super short of breath because I ran out of my bm8 insulin for about a week. Coronavirus screen: At this time, the client does not indicate any symptoms associated with coronavirus-19. Ebola Screen: Patient negative for fever greater than or equal to 101.5 degrees Fahrenheit, and additional compatible Ebola Virus Disease symptoms Patient denies exposure to infectious person. Patient denies travel to an Ebola-affected area in the 21 days before illness onset. No symptoms or risks identified at this time. Initial Sepsis Screen: Does the patient meet any 2 criteria? No. Patient's initial sepsis screen is negative. Does the patient have a suspected source of infection? No. Patient's initial sepsis screen is negative. Risk Assessment: Do you want to hurt yourself or someone else? Patient reports no desire to harm self or others. Onset of symptoms is unknown. 01:39 Method Of Arrival: EMS: [facility] bm8 01:39 Acuity: LALITA 3 bm8 01:41 Care prior to arrival: Medication(s) given: Normal saline infusion, 1000 mL, IV bm8 initiated. 18 GA, in the left antecubital area, Glucose check: 310 Oxygen administered. via nasal cannula. Historical: - Allergies: 01:40 Morphine; bm8 - Home Meds: 01:40 Humulin 70/30 Sub-Q [Active]; Levemir U-100 Insulin subcutaneous [Active]; bm8 - PMHx: 01:40 cluster headaches; Diabetes - NIDDM; sciatica (PTSD); bm8 - PSHx: 01:40 hand; left leg; neck; bm8 - Immunization history:: Adult Immunizations unknown. - Infectious Disease History:: Denies. - Social history:: Smoking status: Patient reports the use of cigarette tobacco products. - Family history:: not pertinent. Screenin:07 [facility] ED Fall Risk Assessment (Adult) History of falling in the last 3 months, al5 including since admission No falls in past 3 months (0 pts) Confusion or Disorientation No (0 pts) Intoxicated or Sedated No (0 pts) Impaired Gait No (0 pts) Mobility Assist Device Used No (0 pt) Altered Elimination No (0 pt) Score/Fall Risk Level 0 - 2 = Low Risk Oriented to surroundings, Maintained a safe environment, Hourly rounding (assess needs \T\ fall precautionary measures) done. Abuse screen: Denies threats or abuse. Denies injuries from another. Nutritional screening: No deficits noted. Tuberculosis screening: No symptoms or risk factors identified. Assessment: 02:30 General: Appears uncomfortable, ill, slender, Behavior is cooperative. Pain: Complains al5 of pain in abdomen. Neuro: Level of Consciousness is awake, alert, obeys commands, Oriented to person, place, time, situation. Cardiovascular: Capillary refill < 3 seconds Patient's skin is warm and dry. Rhythm is sinus rhythm. Respiratory: Airway is patent Respiratory effort is even, pursed lip, Respiratory pattern is Kussmaul Breath sounds are clear bilaterally. GI: Reports lower abdominal pain, upper abdominal pain. : No signs and/or symptoms were reported regarding the genitourinary system. EENT: No signs and/or symptoms were reported regarding the EENT system. Derm: Skin is intact, Skin is normal. Musculoskeletal: No signs and/or symptoms reported regarding the musculoskeletal system. 03:21 Reassessment: No changes from previously documented assessment. Patient and/or family al5 updated on plan of care and expected duration. Pain level reassessed. Patient is alert, oriented x 3, equal unlabored respirations, skin warm/dry/pink. 04:07 Reassessment: No changes from previously documented assessment. Patient and/or family al5 updated on plan of care and expected duration. Pain level reassessed. Patient is alert, oriented x 3, equal unlabored respirations, skin warm/dry/pink. 04:20 Reassessment: report given to thuy geiger. al5 Vital Signs: 01:30 BP 123 / 92; Pulse 104; Resp 24; Pulse Ox 100% on R/A; al5 01:39 BP 109 / 88; Pulse 104; Resp 18; Temp 97; Pulse Ox 100% on 2 lpm NC; Weight 45.36 kg; bm8 Height 5 ft. 4 in. ; Pain 5/10; 01:45 BP 98 / 74; Pulse 108; Resp 26; Pulse Ox 100% on R/A; al5 02:00 BP 133 / 86; Pulse 101; Resp 25; Pulse Ox 100% on R/A; al5 02:30 BP 123 / 77; Pulse 100; Resp 29; Pulse Ox 100% on 4 lpm NC; al5 03:00 BP 93 / 73; Pulse 115; Resp 24; Pulse Ox 100% on 4 lpm NC; al5 03:30 BP 113 / 44; Pulse 93; Resp 25; Pulse Ox 100% on 4 lpm NC; al5 04:00 BP 124 / 58; Pulse 94; Resp 23; Pulse Ox 100% on 4 lpm NC; al5 01:39 Body Mass Index 17.16 (45.36 kg, 162.56 cm) bm8 01:39 Pain Scale: Adult bm8 ED Course: 01:36 Patient arrived in ED. gm2 01:40 Triage completed. bm8 01:40 Arm band placed on right wrist. bm8 01:40 Patient has correct armband on for positive identification. Placed in gown. Bed in low al5 position. Call light in reach. Side rails up X2. 01:40 Provided Education on: need for admission to ICU. al5 01:41 Marvin Cobos MD is Attending Physician. rt 02:02 Delores Miranda, THUY is Primary Nurse. al5 02:53 Prince Juarez MD is Hospitalizing Provider. rt 03:21 No provider procedures requiring assistance completed. al5 03:21 Missed attempt(s): 22 gauge in right forearm. antecubital area. Bleeding controlled, al5 band aid applied, catheter tip intact. 03:41 Inserted saline lock: 22 gauge in right forearm, using aseptic technique. al5 05:17 Patient admitted, IV remains in place. al5 Administered Medications: 02:41 Drug: NS 0.9% IV 1000 ml IV at 1 bolus Per protocol; to be given as a bolus over 60 al5 minutes Route: IV; Rate: 1 bolus; Site: left antecubital; 04:38 Follow up: Response: No adverse reaction; IV Status: Completed infusion; IV Intake: al5 1000ml 03:32 Drug: Lactated Ringers Solution IV 1000 ml IV at 1000 bolus bolus Route: IV; Rate: 1000 al5 bolus; Site: right forearm; 04:38 Follow up: Response: No adverse reaction; IV Status: Infusion continued upon admission al5 03:53 Drug: Insulin Regular Human IVP 5 units IVP once {Co-Signature: dd2 (IBRAHIMA GUILLAUME RN).} al5 Route: IVP; Site: right forearm; 04:38 Follow up: Response: No adverse reaction al5 03:54 Drug: Insulin Drip - (Insulin Regular Human IVP 100 units, NS 0.9% IV 100 ml) IV at al5 calculated rate continuous; Standard concentration 1unit/ml; Dose for DKA is 0.1 units/kg/hr {Co-Signature: dd2 (IBRAHIMA GUILLAUME RN).} Route: IV; Rate: calculated rate; Site: right forearm; 04:38 Follow up: Response: No adverse reaction; IV Status: Infusion continued upon admission al5 04:37 Drug: Ondansetron IVP 4 mg IVP once; over 2 minutes Route: IVP; Site: left antecubital; al5 05:18 Follow up: Response: No adverse reaction; Nausea unchanged al5 Medication: 04:08 VIS not applicable for this client. al5 Intake: 04:38 IV: 1000ml; Total: 1000ml. al5 Outcome: 02:54 Decision to Hospitalize by Provider. rt 05:18 Admitted to ICU accompanied by nurse, via stretcher, room 3, with oxygen, on monitor, al5 with chart, Report called to thuy geiger 05:18 Condition: stable 05:18 Instructed on the need for admit, 05:18 Patient left the ED. al5 Signatures: Marvin Cobos MD MD rt Tierra Boateng gm2 Audie Woodward RN RN bm8 Delores Miranda RN RN al5 IBRAHIMA GUILLAUME RN dd2
--- OUTSIDE RECORDS SUMMARY | 2023-12-14 04:08 | XMS REPORT | Continuity of Care Document ---
Author Name Unknown Address [address] [facility] [id number] [facility] thconnect Address [address] [facility] [place] [address] Care Team Providers Care Syrup Mixer Helper Name Role Phone PCP, PATIENT DOES NOT HAVE A Primary Care Physic franklin Unavailable ROB WALKER Attending Clinician Unavailable EMILIA DUNFERMLINE Attending Clinician Unavailbarbara HECTOR MD Attending Clinician Unavailab SHAHAB Farr Attending Clinician Unav ailable LAB90 Attending Clinician Unavailable MALCOLM SABA Attending Clinician Unavailable Rivera Salcedo MD Attending Clinician RIVERA SALCEDO Attending Clinician UnavailMalcolm Vargas MD Attending Clinician Lab, Ang - Db Attending Clinician Unavailable 2, Adc Lab Attending Clinician Unavailable Payers Payer Name Policy Type Policy Number Effective Date Expirati on Date Source [facility] JJ HERRERA COPAY FOCUS 9 [id number] 2023 00:00:00 TATIANA BARAJAS 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 94 ON STAND 9 [id number] 2022 00:00:00 Problems Condition Name Condition Details [...] uncontroll ed Disease Active 2020-02 00:00: 00 [facility] Neuropathy Neuropathy Disease Active 2020-02 00:00: 00 [facility] 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 Problem Active [facility] Paresthesi a of skin Paresthesi a of skin Problem Active [facility] Pain in left lower leg Pain in left lower leg Diagnosis Active [facility] Pain, joint, knee, left Pain, joint, knee, left Diagnosis Active [facility] Allergies, Adverse Reactions, Alerts Allergy Name Allergy Type Status Severity Reaction(s) Onset Date Inactive Date Treating Clinician Comments Source Morphine Propensi ty to adverse reaction s Active 02-28 00:00: 00 Other reaction( s): Unknown Kelly Seybold - Externa l NO KNOWN ALLERGIE S Drug Class Active [facility] Social History Social Habit Start Date Stop Date Quantity Comments Source Sexual orientation Geovanna rae Vonnie - External History of tobacco use Cigarette Smoker Kelly moore - External History SDOH Alcohol Std Drinks [facility] History SDOH Alcohol Binge [facility] Exposure to SARS-CoV-2 (event) Not sure [facility] Alcohol intake 2022-11-26 00:00:00 2022-11-26 00:00:00 [...] Alcohol Frequency 2019-09-22 00:00:00 2019-09-22 00:00:00 1 [facility] Sex Assigned At 1975 00:00:00 1975 00:00:00 Kelly Shankar - External Smoking Status Start Date Stop Date Source Occasional tobacco smoker 2022-11-23 00:00:00 Kelly Shankar - External Current every day smoker 2019-09-22 00:00:00 [facility] Medications Ordered Medication Name Filled Medication [...] subcutaneou s Suspension 2022-02 00:00: 00 Yes [id number] 104 60 units sc twice daily. Kelly rodríguez Gabapentin 300 MG oral Capsule 2022-02 00:00: 00 Yes [id number] 104 300mg Take 1 capsule (300 mg total) by mouth 2 times daily. Kelly rodríguez Duloxetine HCl [address] Particles 2022-02 00:00: 00 Yes [id number] 20mg Take 1 capsule (20 mg total) by mouth daily. Kelly rodríguez Ketoconazol e 2 % apply externally Cream 2022-02 00:00: 00 Yes [id number] Apply to affected skin twice daily. Kelly rodríguez nystatin-tr iamcinolone cream 03-31 00:00: 00 Yes [id number] Apply to area(s) 2 (two) times daily. [facility] sulfamethox azole-trime thoprim (BACTRIM DS) 800-160 mg per tablet 03-31 00:00: 00 04-11 05:59 :00 No [id number] 1{tbl} Take 1 tablet by mouth 2 (two) times daily for 10 days. [facility] Insulin NPH-Regular Human Rec (HUMULIN 70/30 U-100 KWIKPEN) 100 unit/mL (70-30) injection 2020-02 00:00: 00 Yes [id number] Take 50 unit with breakfast and 42 units with dinner [facility] GABAPENTIN ORAL 2019-02 09:48: 19 Yes Take by mouth. [facility] Tresiba Tresiba Yes Gage Martinez not defined [facility] Metformin HCl Metformin HCl Yes Gage Martinez not defined [facility] tramadol tramadol Yes Gage Martinez not defined [facility] Gabapentin Gabapentin Yes Gage Martinez not defined [facility] Meloxicam Meloxicam Yes Gage Martinez not defined [facility] Vital Signs Vital Name Observation Time [...] Pulse oximetry 2022-11-26 15:21:00 99 /min Kelly maryo ld - External Systolic blood pressure 2021-03-31 17:33:00 120 mm[Hg] [facility] Diastolic blood pressure 2021-03-31 17:33:00 76 mm[Hg] [facility] Heart rate 2021-03-31 17:33:00 87 /min [facility] temperature 2021-03-31 17:33:00 36.5 Neda [facility] Respiratory rate 2021-03-31 17:33:00 18 /min [facility] Body height 2021-03-31 17:33:00 162.6 cm [facility] Body weight 2021-03-31 17:33:00 57.97 kg [facility] BMI 2021-03-31 17:33:00 21.94 kg/m2 [facility] Oxygen saturation in Arterial blood by Pulse oximetry 2021-03-31 17:33:00 99 /min [facility] Encounters Start Date/Time End Date/Time Encounter Type Admission Type Attending [facility] Care Department Encounter ID Source 2023-11-22 00:00:00 2023-11-22 00:00:00 Outpatient ROB WALKER [id number] Kelly mario 2023-11-06 00:00:00 2023-11-06 00:00:00 Outpatient ROB WALKER [id number] [facility] 2023-10-22 00:00:00 2023-10-22 00:00:00 Outpatient KELLY MAY[facility] [id number] [facility] 2023-05-14 00:00:00 2023-05-14 00:00:00 Outpatient KELLY MAYO [id number] [facility] 2023-05-09 00:00:00 2023-05-09 00:00:00 Outpatient KELLY MAYO [id number] Kelly mario 2023-04-29 15:00:00 2023-04-29 15:00:00 Outpatient ROB WALKER [id number] Kelly mario 2023-04-02 11:00:00 2023-04-02 11:00:00 Outpatient JOSE RAMON NIETO [id number] Kelly Shankar 2023-03-27 00:00:00 2023-03-27 00:00:00 Outpatient ROB WALKER [id number] Kelly Shankar 2023-03-19 00:00:00 2023-03-19 00:00:00 Outpatient ROB WALKER [id number] Kelly Shankar 2023-01-01 10:15:00 2023-01-01 10:15:00 Outpatient PREZAROB Allen KELLY [id number] Kelly Shankar 2022-12-03 00:00:00 2022-12-03 00:00:00 Outpatient MD KELLY SHARPE [id number] Kelly Shankar 2022-11-27 00:00:00 2022-11-27 00:00:00 Outpatient SHAHAB COLINDRES KELLY [id number] Kelly Shankar 2022-11-27 00:00:00 2022-11-27 00:00:00 Outpatient PREZASROB KELLY [id number] Kelly Shankar 2022-11-27 00:00:00 2022-11-27 00:00:00 Outpatient PREZASROB KELLY MAYO [id number] Kelly Shankar 2022-11-26 11:10:00 2022-11-26 11:10:00 Outpatient LAB90 KELLY KELLY [id number] Kelly Shankar 2022-11-26 10:00:00 2022-11-26 10:00:00 Outpatient PREZAROB Allen KELLY [id number] Kelly Shankar 2022-11-14 15:00:00 2022-11-14 15:00:00 Outpatient PREZASROB KELLY [id number] Kelly Shankar 2022-10-30 11:00:00 2022-10-30 11:00:00 Outpatient PREZASROBSIXTO MAYO [id number] [facility] 2021-04-26 15:00:00 2021-04-26 15:00:00 Outpatient MALCOLM [facility] [id number] [facility] 2021-03-31 10:30:00 2021-03-31 12:24:36 [facility] [id number] [id number] [id number] [facility] 2021-03-31 10:30:00 2021-03-31 12:24:36 Outpatient R DENISSE RIVERA [facility] [id number] [facility] 2020-12-30 00:00:00 2020-12-30 00:00:00 Telephone Wandy [facility] [id number] [id number] [facility] 2020-12-14 16:54:54 2020-12-14 17:09:54 Risk And Insurance Manager Visit Lab, Irvin Saba [facility] [id number] [id number] [id number] [facility] 2020-12-14 16:00:00 2020-12-14 16:55:20 Outpatient R WANDY [facility] [id number] [facility] 2020-12-14 15:48:44 2020-12-14 16:55:20 Office Visit Saba [facility] [id number] 350.1.13.10 [id number] [id number] [facility] 2020-10-07 00:00:00 2020-10-07 00:00:00 Refill Wandy [facility] 1..840.114 350.1.13.10 4.2.7.2.686 [id number] [facility] 2020-05-11 10:00:00 2020-05-11 10:00:00 Outpatient R SABA [facility] [id number] [facility] 2019-12-23 09:31:09 2019-12-23 10:15:22 Office Visit Wandy [facility] [place] [id number] [id number] [id number] [id number] 2019-12-23 09:31:09 2019-12-23 10:15:[address] [facility] [place] [id number] [id number] 4.2.7.2.686 [id number] [facility] 2019-12-23 09:30:00 2019-12-23 09:30:00 Outpatient R WANDY [facility] [id number] [facility] 2019-10-01 00:00:00 2019-10-01 00:00:00 Telephone Wandy [facility] [id number] 350.1.13.10 [id number] [id number] [facility] 2019-09-23 00:00:00 2019-09-23 00:00:00 Telephone Wandy [facility] [id number] 350.1.13.10 [id number] [id number] [facility] 2019-09-22 10:42:31 2019-09-22 10:57:31 Risk And Insurance Manager Visit 2, Adc Lab Wandy [facility] [id number] 350.1.13.10 4.2.7.2.686 [id number] [facility] 2019-09-22 08:58:06 2019-09-22 10:23:11 Office Visit Wandy [facility] [id number] 350.1.13.10 [id number] [id number] [facility] 2019-09-22 08:30:00 2019-09-22 08:30:00 Outpatient MALCOLM [facility] [id number] [facility] 2018-04-03 14:30:00 2018-04-03 14:30:00 Outpatient Amadou soler [facility] [id number] [facility]
--- NOTE | 2023-12-14 04:12 | RAD REPORT ---
EXAM DESCRIPTION: XR CHEST 1 VIEW CLINICAL HISTORY: SOB COMPARISON: None TECHNIQUE: Single AP view of the chest. FINDINGS: Lung volumes adequate. Cardiac silhouette is normal in size. No pneumothorax. No large pleural effusion. No focal consolidation. No acute bony finding. IMPRESSION: No evidence of acute cardiopulmonary disease. Electronically signed by: Oneal Rajan MD 12/14/2023 03:26 AM CDT RP Z9 Due to temporary technical issues with the PACS/Bumpr reporting system, reports are being michel d by the in-house radiologist without review as a courtesy to ensure prompt reporting the interpreting radiologist is fully responsible for the content of the report. Transcribed Date/Time: 12/14/2023 4:11 AM
[2023-12-14 04:16] LABS: ALT/SGPT 117 U/L (16-61); AST/SGOT 23 U/L (15-37); Albumin 3.8 g/dL (3.4-5.0); Alkaline Phosphatase 83 U/L (45-117); Anion Gap 26.5 mEq/L (5.0-15.0); BUN Blood Urea Nitrogen 19 mg/dL (7-18); Bilirubin Total 0.4 mg/dL (0.2-1.0); Globulin 3.7 g/dL (2.3-3.5); Glomerular Filtration Rate 56 ml/min (=/>90); Magnesium 1.8 mg/dL (1.6-2.4); Potassium 4.5 mEq/L (3.5-5.1); Protein, Total 7.5 g/dL (6.4-8.2); Sodium Level 130 mEq/L (136-145)
[2023-12-14 04:17] LABS: BETA HYDROXYBUTYRATE > 4.50 mmol/L (0.02-0.27); Bilirubin Direct < 0.2 mg/dL (0-0.2); Bilirubin Indirect, Calculated 0.2 mg/dL (0.2-0.8); Troponin High Sensitivity < 3.0 pg/mL (<58.9)
[2023-12-14 04:18] LABS: Bicarbonate < 8 mEq/L (21-32); Glucose Level 431 mg/dL (74-106)
[2023-12-14 04:20] LABS: Absolute Lymphocytes (CBC) 1.1 K/uL (0.7-4.9); Absolute Monocytes 0.7 K/uL (0.1-1.3); Absolute Neutrophil 4.9 K/uL (1.8-8.0); Basophils % 0.4 % (0-1.3); Eosinophils % 0.1 % (0-4.4); Hematocrit 49.6 % (39.6-49.0); Hemoglobin 16.2 g/dL (13.6-17.9); Lymphocytes % 16.9 % (15.3-44.8); MCH 31.9 pg (27.0-35.0); MCHC 32.7 g/dL (32.0-36.0); MCV 97.6 fL (80-100); MPV 9.3 fL (7.6-11.3); Neutrophils % 72.6 % (41.7-73.7); Nucleated Red Blood Cells % 0.1 % (0-0); Platelets 383 thou/uL (152-406); RBC Red Blood Cell Count 5.09 M/uL (4.33-5.43); Red Cell Distribution Width 13.6 % (12.1-15.2)
[2023-12-14 04:20] LABS: Arterial Blood Carboxyhemoglob 0.3 % (0-1.5); Blood Gas Oxyhemoglobin 79.5 % (94-97); Blood Gas THB 16.1 g/dl (12-18); Blood O2 Saturation 81.6 % (92-98.5)
--- NOTE | 2023-12-14 04:23 | P.HP ---
Certification for Inpatient Patient admitted to: Inpatient With expected LOS: >2 Midnights Practitioner: I am a practitioner with admitting privileges, knowledge of patient current condition, hospital course, and medical plan of care. Services: Services provided to patient in accordance with Admission requirements found in Title 42 Section 412.3 of the Code of Federal Regulations Patient History Date of Service: 12/14/23 Reason for admission: DKA History of Present Illness: This is a 40-year-old -[place] male brought in by EMS. He has been found to be in DKA with severe metabolic acidosis. He ran out of his medication and has been without insulin for about a week. Patient is protecting his airway since hemodynamically stable. He is being transferred to the ICU. Had a pH of 7.0 and a bicarb of 3.5. Allergies morphine Allergy (Unknown, Verified 02/29/20 20:42) Unknown Home Medications: Hum Insulin NPH/Reg Insulin Hm [Humulin 70-30 Vial] 60 unit SQ BIDWM #10 ml 10/06/23 Insulin Regular, Human [Novolin R] See Protocol SQ ACHS PRN #10 ml 10/06/23 - Past Medical/Surgical History Diabetic: Yes -: IDDM -: GERD -: Cluster Headaches -: Sciatica -: Cocaine Abuse -: Left leg Psychosocial/ Personal History: Lives at home with family in an apartment - Social History Alcohol use: Yes CD- Drugs: Yes Caffeine use: Yes Physical Examination - Physical Exam General: Cachectic, Acute distress HEENT: Atraumatic, Normocephalic Respiratory: Clear to auscultation bilaterally, Normal air movement Cardiovascular: No edema, Normal pulses, Regular rate/rhythm, Normal S1 S2 Neurological: Normal speech - Studies Laboratory Data (last 24 hrs) 12/14/23 12/14/23 02:07 02:07 WBC 6.80 Hgb 16.2 Hct 49.6 H Plt Count 383 Sodium 130 L Potassium 4.5 BUN 19 H Creatinine 1.51 H Glucose 431 H* Magnesium 1.8 Total Bilirubin 0.4 AST 23 ALT 117 H Alkaline Phosphatase 83 Assessment and Plan - Problems (Diagnosis) (1) KIRA (acute kidney injury) Current Visit: Yes Status: Acute (2) DKA (diabetic ketoacidosis) Current Visit: No Status: Acute - Plan Assessment 40-year-old male noncompliant with insulin who is being admitted for DKA DKA Severe metabolic acidosis Plan: Admit to ICU Initiated DKA protocol with continuous insulin and IV fluid Monitor BMP every 4 hours and blood glucose hourly DVT and GI prophylaxis - Advance Directives Does patient have a Living Will: No Does patient have a Durable POA for Healthcare: No
[2023-12-14] MEDS ORDERED: ONDANSETRON 4 MG/2 ML VIAL ONE (04:34)
[2023-12-14] MEDS: INSULIN REGULAR, HUMAN 100 UNIT in NA CHLORIDE 0.9% 100 ML IV SCH (05:00)
[2023-12-14] MEDS: NA CHLORIDE 0.9% 1,000 ML IV SCH (05:11)
[2023-12-14] MEDS ORDERED: D50W 25 GM/50 ML SYRINGE IV PRN ×2 (05:16→14:56)
[2023-12-14] MEDS ORDERED: GLUCAGON 1 MG/VIAL IM PRN ×2 (05:16→15:01)
[2023-12-14] MEDS ORDERED: D10W 125 ML IV PRN ×2 (05:29→15:01)
[2023-12-14 05:37] VITALS: O2SAT 100
[2023-12-14 06:25] LABS: Anion Gap 26.9 mEq/L (5.0-15.0); BUN Blood Urea Nitrogen 21 mg/dL (7-18); Glomerular Filtration Rate 62 ml/min (=/>90); Glucose Level 380 mg/dL (74-106); Potassium 3.9 mEq/L (3.5-5.1); Sodium Level 133 mEq/L (136-145)
[2023-12-14 06:26] LABS: Bicarbonate < 8 mEq/L (21-32)
[2023-12-14] MEDS: SODIUM BICARB 50 MEQ/50ML VIAL ONE (07:38)
[2023-12-14] MEDS: D5 0.45 NS 1,000 ML IV SCH (07:47)
[2023-12-14] MEDS: SODIUM BICARB 50 MEQ/50ML VIAL IV ONE (07:48)
[2023-12-14] MEDS: FAMOTIDINE 20 MG/2 ML VIAL IV SCH (08:04)
[2023-12-14] MEDS: ENOXAPARIN 40 MG/0.4 ML SQ SCH (08:04)
[2023-12-14 09:32] LABS: Anion Gap 21.4 mEq/L (5.0-15.0); Potassium 3.4 mEq/L (3.5-5.1)
[2023-12-14] MEDS: D5 0.45 NS 500 ML IV SCH (10:00)
[2023-12-14] MEDS: D5W 1,000 ML IV SCH (11:00)
[2023-12-14] MEDS ORDERED: D5W 1,000 ML IV SCH (11:00)
[2023-12-14] MEDS: ONDANSETRON 4 MG/2 ML VIAL IV PRN (11:20)
[2023-12-14] MEDS: KCL 20 MEQ/100 mL IVPB 20 MEQ/100 ML BAG IV SCH (11:32)
[2023-12-14 13:45] LABS: Anion Gap 14.3 mEq/L (5.0-15.0); Potassium 3.3 mEq/L (3.5-5.1)
[2023-12-14] MEDS: POTASSIUM CL SA 10 MEQ TAB PO ONE ×2 (16:30→16:35)
[2023-12-14] MEDS: INSULIN 70/30 100 UNITS/ML SQ ONE ×2 (16:33→18:35)
--- NOTE | 2023-12-14 16:41 | P.PN ---
Subjective Date of Service: 12/14/23 Patient well-known to me from prior admissions. Patient is clinically feeling a little bit better. Still a little nauseated. Will try him will increase his D5 water and increase his insulin drip which should correct his acidosis if it is strictly from DKA. Once his gap is closed we will go ahead and start him on long-acting insulin. Overall, patient states he does feel better. Review of Systems 10-point ROS is otherwise unremarkable Physical Examination - Vital Signs Temperature: 98.6 F Blood Pressure: 119/57 Pulse: 86 Respirations: 14 Pulse Ox (%): 100 - Physical Exam General: Alert, In no apparent distress, Oriented x3 Respiratory: Clear to auscultation bilaterally, Normal air movement Cardiovascular: Regular rate/rhythm, Normal S1 S2, No murmurs Gastrointestinal: Normal bowel sounds, Soft and benign, Non-distended, No tenderness Musculoskeletal: No clubbing, No swelling, No tenderness Neurological: Sensation intact, Cranial nerves 3-12 intact - Studies Laboratory Data (last 24 hrs) 12/14/23 12/14/23 12/14/23 04:07 02:07 02:07 WBC 6.80 Hgb 16.2 Hct 49.6 H Plt Count 383 Sodium 130 L Potassium 4.5 BUN 19 H Creatinine 1.51 H Glucose 431 H* Magnesium 1.8 1.8 Total Bilirubin 0.4 AST 23 ALT 117 H Alkaline Phosphatase 83 Medications List Reviewed: Yes Assessment & Plan - Problems (Diagnosis) (1) DKA (diabetic ketoacidosis) Current Visit: No Status: Acute (2) Pseudohyponatremia Current Visit: Yes Status: Acute (3) KIRA (acute kidney injury) Current Visit: Yes Status: Acute - Plan 1. Continue with insulin drip; once gap is closed we will do long-acting insulin. Will start him on a diet as well. 2. Continue with aggressive IV hydration 3. Monitor hemoglobin A1c 4. Blood sugars every hour 5. Check BMP every 4 hours 6. Overedger regarding blood sugars 7. GI DVT prophylaxis Discharge Plan: Home Plan to discharge in: Greater than 2 days - Advance Directives Does patient have a Living Will: No Does patient have a Durable POA for Healthcare: No - Code Status/Comfort Care Code Status Assessed: Yes Code Status: Full Code Critical Care: Yes Time Spent Managing PTS Care (In Minutes): 35
[2023-12-14 17:39] LABS: Anion Gap 13.6 mEq/L (5.0-15.0); Potassium 3.6 mEq/L (3.5-5.1)
[2023-12-14] MEDS: NACHLORIDE 0.45% 1,000 ML IV SCH (18:36)
[2023-12-14] MEDS: FAMOTIDINE 20 MG TAB PO SCH (20:06)
[2023-12-14] MEDS: INSULIN GLARGINE 100 UNIT/ML SQ SCH (20:06)
[2023-12-14] MEDS: LORazepam 2 MG/ML VIAL IV ONE ×2 (20:06→23:11)
[2023-12-15 04:44] VITALS: BMI 17.0
[2023-12-15 06:02] LABS: Absolute Basophils 0.1 K/uL (0-0.5); Absolute Lymphocytes (CBC) 1.4 K/uL (0.7-4.9); Absolute Monocytes 0.8 K/uL (0.1-1.3); Basophils % 1.1 % (0-1.3); Eosinophils % 0.4 % (0-4.4); Hematocrit 34.3 % (39.6-49.0); Lymphocytes % 26.4 % (15.3-44.8); MCH 32.4 pg (27.0-35.0); MCHC 35.1 g/dL (32.0-36.0); MCV 92.4 fL (80-100); MPV 7.7 fL (7.6-11.3); Monocytes % 15.3 % (3.3-12.3); Neutrophils % 56.8 % (41.7-73.7); Nucleated Red Blood Cells % 0.2 % (0-0); Platelets 265 thou/uL (152-406); RBC Red Blood Cell Count 3.71 M/uL (4.33-5.43); Red Cell Distribution Width 13.4 % (12.1-15.2)
[2023-12-15 06:20] LABS: Anion Gap 7.4 mEq/L (5.0-15.0); Potassium 3.4 mEq/L (3.5-5.1)
[2023-12-15] MEDS: POTASSIUM CL SA 10 MEQ TAB PO ONE (08:08)
[2023-12-15 12:44] VITALS: BP 101/54; TEMP 97.2
--- NOTE | 2023-12-15 13:15 | P.DS ---
Discharge Date: 12/15/23 Disposition: ROUTINE DISCHARGE Discharge Condition: GOOD Reason for Admission: DKA - Problems (1) DKA (diabetic ketoacidosis) Current Visit: No Status: Acute (2) Pseudohyponatremia Current Visit: Yes Status: Acute (3) KIRA (acute kidney injury) Current Visit: Yes Status: Acute Brief History of Present Illness: This is a 40-year-old -[place] male brought in by EMS. He has been found to be in DKA with severe metabolic acidosis. He ran out of his medication and has been without insulin for about a week. Patient is protecting his airway since hemodynamically stable. He is being transferred to the ICU. Had a pH of 7.0 and a bicarb of 3.5. Hospital Course: Patient with a history of diabetic ketoacidosis. Patient blood sugars are stabilized. Patient is acidosis has improved. Patient tolerating diet and work and continue with insulin 70/30 which has been prescribed. Patient is doing well and clinically stable for discharge with outpatient follow-up with PCP in 1 to 2 weeks. Return to the ER if symptoms worsen. Vital Signs/Physical Exam: Temp Pulse Resp BP Pulse Ox 97.2 F 90 18 101/54 L 100 12/15/23 12:00 12/15/23 12:00 12/15/23 12:00 12/15/23 12:00 12/15/23 12:00 General: Alert, In no apparent distress, Oriented x3 Laboratory Data at Discharge: WBC 5.20 thou/uL (4.3-10.9) 12/15/23 05:11 Hgb 12.0 g/dL (13.6-17.9) L D 12/15/23 05:11 Hct 34.3 % (39.6-49.0) L 12/15/23 05:11 Plt Count 265 thou/uL (152-406) D 12/15/23 05:11 Sodium 139 mEq/L (136-145) D 12/15/23 05:11 Potassium 3.4 mEq/L (3.5-5.1) L 12/15/23 05:11 BUN 9 mg/dL (7-18) 12/15/23 05:11 Creatinine 0.68 mg/dL (0.70-1.30) L 12/15/23 05:11 Glucose 126 mg/dL (74-106) H 12/15/23 05:11 Magnesium 1.8 mg/dL (1.6-2.4) 12/14/23 04:07 Total Bilirubin 0.4 mg/dL (0.2-1.0) 12/14/23 02:07 AST 23 U/L (15-37) 12/14/23 02:07 ALT 117 U/L (16-61) H 12/14/23 02:07 Alkaline Phosphatase 83 U/L (45-117) 12/14/23 02:07 Triglycerides 48 mg/dL (<150) 12/15/23 05:11 Cholesterol 134 mg/dL (<200) 12/15/23 05:11 HDL Cholesterol 98 mg/dL (40-60) H 12/15/23 05:11 Cholesterol/HDL Ratio 1.37 12/15/23 05:11 Home Medications: Hum Insulin NPH/Reg Insulin Hm [Humulin 70-30 Vial] 60 unit SQ BIDWM #10 ml 12/15/23 New Medications: Hum Insulin NPH/Reg Insulin Hm [Humulin 70-30 Vial] 60 unit SQ BIDWM #10 ml Physician Discharge Instructions: -DC IV and DC home -Follow-up with PCP in 1 to 2 weeks -Please call Dr. Cho at [phone] if any questions regarding hospital stay -Please call nursing station at [phone] if any nursing or medication questions -Return to the emergency room if symptoms worsen Diet: ADA Activity: Fall precautions Followup: NONE,NONE [Primary Care Provider] - Time spent managing pt's care (in minutes): 35
--- NOTE | 2023-12-16 12:38 | EKG ---
Test Date: 2023-12-14 Test Time: 02:30:18 [employer] Supervisor: JULITA MEASUREMENT RESULTS: Intervals: Rate: 100 GA: 154 QRSD: 80 QT: 360 QTc: 464 [place]: P: 85 GA: 154 QRS: 90 T: 74 INTERPRETIVE STATEMENTS: Normal sinus rhythm Biatrial enlargement Rightward axis Pulmonary disease pattern Septal infarct, age undetermined Abnormal ECG Compared to ECG 10/04/2023 12:55:18 Right-axis deviation now present Myocardial infarct finding still present Electronically Signed On 12-16-23 12:36:59 CDT by José Luis Walters
== END 2023-12-15 13:30 | disposition home or self-care (01) | DRG 638 ==
LOC: ER 01:50 → 3RD-ICU 04:10 → UNDOADMIN 04:10
PROVIDERS: ADMIT Nurse Practitioner Family; ATTEND Hospitalist
PROC: 4A033R1 Measurement of Arterial Saturation, Peripheral, Percutaneous Approach (ICD-10-PCS; principal; 2023-12-14)
DX: E11.10 Type 2 diabetes mellitus with ketoacidosis without coma (principal); N17.9 Acute kidney failure, unspecified; Z79.4 Long term (current) use of insulin; F43.10 Post-traumatic stress disorder, unspecified; F14.10 Cocaine abuse, uncomplicated; G44.009 Cluster headache syndrome, unspecified, not intractable; K21.9 Gastro-esophageal reflux disease without esophagitis
CPT/HCPCS: 36415; 36600; 71045; 80048; 80061; 80076; 82010; 82805; 82947; 83036; 83735; 84484; 85025; 93005; 99285; J1650; J1815; J2405; J3480; J7030; J7120; J7799

== ENCOUNTER 2024-02-12 17:27 | Emergency (ER) | payer OTHER ==
[2024-02-12] MEDS ORDERED: FENTANYL CITR 100 MCG/2 ML ONE ×2 (18:04→19:19)
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
[2024-02-12] MEDS ORDERED: IBUPROFEN 200 MG TAB PO ONE (19:18)
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
[2024-02-12 21:31] VITALS: BP 104/66; TEMP 98.4; O2SAT 100
== END 2024-02-12 21:26 | disposition home or self-care (01) ==
LOC: ER 17:27
PROC: 2W3QX1Z Immobilization of Right Lower Leg using Splint (ICD-10-PCS; principal; 2024-02-12)
DX: S72.401A Unspecified fracture of lower end of right femur, initial encounter for closed fracture (principal); X58.XXXA Exposure to other specified factors, initial encounter; Y93.55 Activity, bike riding; Y92.488 Other paved roadways as the place of occurrence of the external cause; Z88.5 Allergy status to narcotic agent; E11.9 Type 2 diabetes mellitus without complications; R51.9 Headache, unspecified; M54.30 Sciatica, unspecified side; F43.10 Post-traumatic stress disorder, unspecified; F17.210 Nicotine dependence, cigarettes, uncomplicated
CPT/HCPCS: 73562; 96372; 99284; 27510; J3010 ×2

== ENCOUNTER 2024-02-18 14:54 | Emergency (ER) | payer OTHER ==
[2024-02-18] MEDS ORDERED: HYDROCODONE/APAP 10/325 TAB ONE (16:03)
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
--- NOTE | 2024-02-18 16:07 | ER ---
Nurse's Notes [facility] Name: Angel Flores Age: 49 yrs Sex: Male : 1975 Arrival Date: 02/18/2024 Time: 14:54 Bed 9 Private MD: Diagnosis: Displaced fracture of lateral condyle of right femur, sequela-with intra-articular extension Presentation: 02/17 15:23 Chief complaint: Patient states: fx right femur, splint is digging into his ankle and ko1 knee and buttocks. Coronavirus screen: At this time, the client does not indicate any symptoms associated with coronavirus-19. Ebola Screen: No symptoms or risks identified at this time. Initial Sepsis Screen: Does the patient meet any 2 criteria? No. Patient's initial sepsis screen is negative. Does the patient have a suspected source of infection? No. Patient's initial sepsis screen is negative. Risk Assessment: Do you want to hurt yourself or someone else? Patient reports no desire to harm self or others. Onset of symptoms is unknown. 15:23 Method Of Arrival: Wheelchair ko1 15:23 Acuity: LALITA 4 ko1 Triage Assessment: 15:25 General: Appears in no apparent distress. Behavior is calm, cooperative, appropriate ko1 for age. Pain: Complains of pain in right leg. Historical: - Allergies: 15:25 Morphine; ko1 - PMHx: 15:25 cluster headaches; Diabetes - NIDDM; sciatica (PTSD); ko1 - PSHx: 15:25 hand; left leg; neck; ko1 - Immunization history:: Adult Immunizations unknown. - Infectious Disease History:: Denies. - Social history:: Smoking status: Patient denies any tobacco usage or history of. - Family history:: not pertinent. - Hospitalizations: : No recent hospitalization is reported. Screenin:26 [facility] ED Fall Risk Assessment (Adult) History of falling in the last 3 months, ld1 including since admission No falls in past 3 months (0 pts) Confusion or Disorientation No (0 pts) Intoxicated or Sedated No (0 pts) Impaired Gait No (0 pts) Mobility Assist Device Used No (0 pt) Altered Elimination No (0 pt) Score/Fall Risk Level 0 - 2 = Low Risk Oriented to surroundings, Maintained a safe environment, Educated pt \T\ family on fall prevention, incl call for assistance when getting out of bed, Assessed \T\ reinforced patient's understanding of fall precautions, Provided non-skid footwear, Hourly rounding (assess needs \T\ fall precautionary measures) done, Used ambulatory aids as needed (educated on \T\ assisted with), Used gait belt as appropriate. Abuse screen: Denies threats or abuse. Denies injuries from another. Nutritional screening: No deficits noted. Tuberculosis screening: No symptoms or risk factors identified. Assessment: 16:12 General: Appears in no apparent distress. uncomfortable, Behavior is calm, cooperative, ld1 appropriate for age. Pain: Complains of pain in right leg Pain does not radiate. Pain currently is 8 out of 10 on a pain scale. Quality of pain is described as throbbing, Pain began suddenly. Neuro: Level of Consciousness is awake, alert, obeys commands, Oriented to person, place, time, situation, Appropriate for age. Cardiovascular: Capillary refill < 3 seconds Patient's skin is warm and dry. Respiratory: Airway is patent Respiratory effort is even, unlabored. GI: Abdomen is flat, non-distended. : No signs and/or symptoms were reported regarding the genitourinary system. EENT: No signs and/or symptoms were reported regarding the EENT system. Derm: No signs and/or symptoms reported regarding the dermatologic system. Musculoskeletal: No signs and/or symptoms reported regarding the musculoskeletal system. 17:12 Reassessment: Pt C/O anxiety. Notified ERP. See MAR for orders. ld1 Vital Signs: 15:23 BP 134 / 78; Pulse 82; Resp 16; Temp 97; Pulse Ox 98% ; ko1 16:12 BP 118 / 84; Pulse 89; Resp 18; Pulse Ox 100% on R/A; Pain 8/10; ld1 17:13 BP 114 / 79; Pulse 84; Resp 18; Pulse Ox 100% on R/A; Pain 7/10; ld1 16:12 Pain Scale: Adult ld1 17:13 Pain Scale: Adult ld1 ED Course: 14:56 Patient arrived in ED. im 15:07 Cody Osborn MD is Attending Physician. rn 15:25 Triage completed. ko1 15:25 Arm band placed on right wrist. Patient placed in waiting room, Patient notified of ko1 wait time. 15:59 XRAY Femur RIGHT In Process Unspecified. EDMS 16:06 Mary Fish, RN is Primary Nurse. ld1 16:10 initiate transfer with Mary at [facility]. bc6 16:15 accepted transfer with Mary for [place] [facility] with . bc6 16:37 bala with [facility] accepted transfer. bc6 17:26 Patient has correct armband on for positive identification. Placed in gown. Bed in low ld1 position. Call light in reach. Side rails up X2. hall monitor on. Pulse ox on. NIBP on. Door closed. Noise minimized. Warm blanket given. Diet: Patient given ice chips. 17:26 No provider procedures requiring assistance completed. Patient did not have IV access ld1 during this emergency room visit. Administered Medications: 16:25 Drug: [place] PO 10 mg-325 mg 1 tabs PO once Route: PO; ld1 17:26 Follow up: Response: No adverse reaction ld1 17:12 Drug: Diazepam PO 2 mg PO once Route: PO; ld1 17:26 Follow up: Response: No adverse reaction ld1 Medication: 17:26 VIS not applicable for this client. ld1 Outcome: 16:06 ER care complete, transfer ordered by . rn 17:26 Transferred by ground EMS ld1 17:26 Condition: stable 17:26 Instructed on the need for transfer, 17:27 Patient left the ED. ld1 Signatures: Dispatcher [employer] EDMS Cody Osborn MD MD rn Sims, Lauren, RN RN ld1 Geni Larson RN RN ko1 Janina Villatoro 6 Jessica Perez
--- NOTE | 2024-02-18 16:35 | RAD REPORT ---
Exam:Femur Right CLINICAL HISTORY: Right leg pain. FINDINGS: Mildly displaced oblique fracture which involves the lateral aspect of the distal femoral metaphysis extends distally to involve the intra-articular portion of the distal femur at the medial aspect of the lateral femoral condyle. The fracture is subacute.
[2024-02-18] MEDS ORDERED: DIAZEPAM 2 MG TABLET ONE (17:09)
[2024-02-18 23:58] VITALS: TEMP 97
[2024-02-19 00:14] VITALS: O2SAT 100
[2024-02-19 00:15] VITALS: BP 114/79
== END 2024-02-18 17:27 | disposition short-term general hospital (02) ==
LOC: ER 14:54
DX: M79.651 Pain in right thigh (principal); S72.421 Displaced fracture of lateral condyle of right femur
CPT/HCPCS: 99285

== ENCOUNTER 2024-04-26 22:38 | Inpatient (IN) | payer OTHER, SELFPAY ==
[2024-04-26] MEDS ORDERED: NA CHLORIDE 0.9% 1,000 ML ONE (22:53)
[2024-04-26] MEDS ORDERED: INSULIN REGULAR (HUMAN) 100 UNIT/ML ONE (23:50)
[2024-04-26] MEDS ORDERED: NA CHLORIDE 0.9% 100 ML ONE (23:51)
[2024-04-27 00:01] LABS: Absolute Basophils 0.3 K/uL (0-0.5); Absolute Lymphocytes (CBC) 2.8 K/uL (0.7-4.9); Absolute Neutrophil 22.7 K/uL (1.8-8.0); Basophils % 0.9 % (0-1.3); Eosinophils % 0.1 % (0-4.4); Hematocrit 47.5 % (39.6-49.0); Hemoglobin 13.5 g/dL (13.6-17.9); Lymphocytes % 9.1 % (15.3-44.8); MCH 31.1 pg (27.0-35.0); MCHC 28.3 g/dL (32.0-36.0); MCV 109.6 fL (80-100); MPV 9.2 fL (7.6-11.3); Monocytes % 16.2 % (3.3-12.3); Neutrophils % 73.7 % (41.7-73.7); Nucleated Red Blood Cells % 0.1 % (0-0); Platelets 381 thou/uL (152-406); RBC Red Blood Cell Count 4.33 M/uL (4.33-5.43); Red Cell Distribution Width 14.3 % (12.1-15.2)
[2024-04-27 00:10] LABS: Specific Gravity 1.018 (1.005-1.030); Sqamous Epithelial <5 /HPF (None Seen); Urine Bacteria <20 /HPF (<20); Urine Bilirubin NEGATIVE (Negative); Urine Blood 2+ (Negative); Urine Clarity Turbid (Clear); Urine Color Light-Yellow (Yellow); Urine Culture Reflex Order NOT NEEDED; Urine Glucose 4+ (Over) (Negative); Urine Ketones 2+ (Negative); Urine Microscopic Reflex YN ORDER UMIC; Urine Mucus Slight /HPF (None Seen); Urine Nitrite NEGATIVE (Negative); Urine Protein 1+ (Negative); Urine RBC <5 /HPF (None Seen); Urine Urobilinogen Normal (Normal); Urine WBC <5 /HPF (<5); Urine pH 5.5 (5.0-7.0)
[2024-04-27 00:18] LABS: ALT/SGPT 63 U/L (16-61); AST/SGOT 56 U/L (15-37); Albumin 3.1 g/dL (3.4-5.0); Albumin/Globulin Ratio 0.9 (1.1-1.8); Alkaline Phosphatase 154 U/L (45-117); Anion Gap 31.6 mEq/L (5.0-15.0); BUN Blood Urea Nitrogen 57 mg/dL (7-18); Bilirubin Total 0.4 mg/dL (0.2-1.0); Globulin 3.5 g/dL (2.3-3.5); Glomerular Filtration Rate 25 ml/min (=/>90); Protein, Total 6.6 g/dL (6.4-8.2); Sodium Level 132 mEq/L (136-145)
[2024-04-27 00:19] LABS: BETA HYDROXYBUTYRATE > 4.50 mmol/L (0.02-0.27); Troponin High Sensitivity < 3.0 pg/mL (<58.9)
[2024-04-27 00:20] LABS: Bicarbonate < 8 mEq/L (21-32); Glucose Level 1018 mg/dL (74-106); Potassium 6.6 mEq/L (3.5-5.1)
[2024-04-27] MEDS ORDERED: CEFEPIME 2 GM VIAL ONE (00:40)
[2024-04-27] MEDS ORDERED: INSULIN REGULAR (HUMAN) 100 UNIT/ML ONE ×2 (00:41→02:19)
[2024-04-27] MEDS ORDERED: NA CHLORIDE 0.9% 1,000 ML ONE (00:42)
[2024-04-27] MEDS ORDERED: NA CHLORIDE 0.9% 100 ML ONE ×2 (00:42→08:19)
[2024-04-27] MEDS ORDERED: CALCIUM GLUCONATE 1 GM IVPB 1 GM/50 ML BAG IV ONE (00:45)
[2024-04-27 00:50] LABS: PT Prothrombin Time 11.5 SECONDS (10-13.0); PTT, Activated Partial Thromb 32.6 SECONDS (27.2-37.4); Protime INR 1.01
[2024-04-27 00:57] LABS: Arterial Blood Carboxyhemoglob 0.3 % (0-1.5); Blood Gas Oxyhemoglobin 93.6 % (94-97); Blood Gas THB 13.6 g/dl (12-18); Blood O2 Saturation 96.8 % (92-98.5)
--- NOTE | 2024-04-27 01:02 | ER ---
Nurse's Notes [facility] Name: Angel Flores Age: 49 yrs Sex: Male : 1975 Arrival Date: 04/26/2024 Time: 22:38 Bed 20 Private MD: Diagnosis: Diabetic ketoacidosis;Hyperkalemia Presentation: 04/26 22:39 Chief complaint: EMS states: ALTERED MENTAL STATUS, AOX0. LOW BLOOD PRESSURE. FOUND BY ha1 HIS MOTHER UNRESPONSIVE. ON OUR ARRIVAL HE WAS MOANING. 22:39 Coronavirus screen: Client denies travel out of the [place] in the last 14 days. Ebola ha1 Screen: No symptoms or risks identified at this time. Initial Sepsis Screen: Does the patient meet any 2 criteria? Temp <36.0*C (96.8*F)) or > 38.3*C (100.9*F). No. Patient's initial sepsis screen is negative. Does the patient have a suspected source of infection? No. Patient's initial sepsis screen is negative. Risk Assessment: Do you want to hurt yourself or someone else? Patient reports no desire to harm self or others. Onset of symptoms was April 26, 2024. 22:39 Method Of Arrival: EMS: [facility] ha1 22:39 Acuity: LALITA 2 ha1 Triage Assessment: 22:40 General: Appears uncomfortable, ill, unkempt, Behavior is restless. Pain: Unable to use ha1 pain scale. FLACC scale score is 0 out of 10. Neuro: Level of Consciousness is awake, Oriented to none Pupils are dilated. Cardiovascular: Heart tones S1 S2 present Capillary refill < 3 seconds Rhythm is sinus rhythm. Respiratory: Airway is patent Respiratory effort is even, unlabored, Respiratory pattern is regular, symmetrical. GI: Abdomen is flat, non-distended, Bowel sounds present X 4 quads. : No signs and/or symptoms were reported regarding the genitourinary system. Derm: Skin is dry, Skin temperature is cool. Musculoskeletal: Capillary refill < 3 seconds. Historical: - Allergies: 22:39 Morphine; ha1 - Home Meds: 22:39 Levemir U-100 Insulin subcutaneous [Active]; Humulin 70/30 Sub-Q [Active]; ha1 - PMHx: 22:39 cluster headaches; Diabetes - NIDDM; sciatica (PTSD); ha1 - PSHx: 22:39 hand; left leg; neck; ha1 - Immunization history:: Adult Immunizations unknown. - Infectious Disease History:: Denies. - Family history:: not pertinent. - Social history:: Smoking status: unknown Patient uses street drugs, cocaine. Screenin/10 01:00 [facility] ED Fall Risk Assessment (Adult) History of falling in the last 3 months, ha1 including since admission Confusion or Disorientation Yes (5 pts) Intoxicated or Sedated No (0 pts) Impaired Gait Yes (1 pt) Mobility Assist Device Used No (0 pt) Altered Elimination Yes (1 pt) Score/Fall Risk Level 3 or more points = High Risk Oriented to surroundings, Maintained a safe environment, Educated pt \T\ family on fall prevention, incl call for assistance when getting out of bed, Hourly rounding (assess needs \T\ fall precautionary measures) done. Abuse screen: PATIENT CONFUSED UNABLE TO OBTAIN INFORMATION. Nutritional screening: No deficits noted. Tuberculosis screening: No symptoms or risk factors identified. Assessment: 04/26 22:40 Reassessment: see triage assessment. ha1 23:10 Respiratory: Airway is patent Respiratory effort is even, unlabored, Respiratory ha1 pattern is regular, symmetrical. 23:10 General: Behavior is anxious, restless. ha1 04/27 00:00 General: Appears uncomfortable, ill, malnourished, Behavior is anxious. Neuro: Level of ha1 Consciousness is confused, lethargic, Oriented to none. Respiratory: Airway is patent Respiratory effort is even, unlabored, Respiratory pattern is regular, symmetrical. 01:00 Reassessment: Patient and/or family updated on plan of care and expected duration. Pain ha1 level reassessed. Neuro: Level of Consciousness is confused, lethargic, Oriented to none. 01:00 Respiratory: Airway is patent Respiratory effort is even, unlabored, Respiratory ha1 pattern is regular, symmetrical. Vital Signs: 04/26 22:39 BP 90 / 59; Pulse 63; Resp 15 S; Temp 88(R); Pulse Ox 96% on 2 lpm NC; Weight 44.45 kg; ha1 Height 5 ft. 7 in. ; 23:30 BP 92 / 69; Pulse 60; Resp 17 S; Pulse Ox 97% on 2 lpm NC; ha1 04/27 00:00 BP 93 / 64; Pulse 68; Resp 16 S; Temp 89.4(Ca); Pulse Ox 98% on 2 lpm NC; ha1 00:45 BP 105 / 67; Pulse 61; Resp 17 S; Temp 88; Pulse Ox 99% on 2 lpm NC; ha1 03 22:39 Body Mass Index 15.35 (44.45 kg, 170.18 cm) ha1 ED Course: 04/25 23:15 Chavez cath inserted, using sterile technique, 16 Fr., by ok, balloon inflated, to ha1 gravity drainage, urine specimen collected. returned clear yellow urine. 03 22:39 Patient arrived in ED. vc1 22:39 Patient has correct armband on for positive identification. Placed in gown. Bed in low ha1 position. Call light in reach. Side rails up X2. 22:39 One-on-one care X 90 minutes. ha1 22:40 Marvin Cobos MD is Attending Physician. rt 22:40 Maintain EMS IV. Dressing intact. Good blood return noted. Site clean \T\ dry. Gauge \T\ garcia 1 site: 18 GAUGE RAC. Flushed with 10 mL NS. 22:40 Arm band placed on right wrist. ha1 23:00 EKG done, by medical service technician. reviewed by Marvin Cobos MD. ha1 23:03 Chest Single View XRAY In Process Unspecified. EDMS 23:20 Inserted saline lock: 20 gauge in left antecubital area, using aseptic technique. Blood ha1 collected. Flushed with 10 mL NS. 23:30 Inserted saline lock: 22 gauge in right forearm, using aseptic technique. Blood ha1 collected. Flushed with 10 mL NS. 23:37 Vanesa Peñaloza, RN is Primary Nurse. ha1 23:44 Triage completed. ha1 23:45 Blood Culture Adult (2) Sent. ha1 23:45 CBC with Diff Sent. ha1 23:45 CMP Sent. ha1 23:45 Lactate w/ 2H reflex if indic. Sent. ha1 23:45 Protime (+inr) Sent. ha1 23:45 Ptt, Activated Sent. ha1 23:46 Urinalysis w/ reflexes Sent. ha1 04/27 00:08 CT Head C Spine In Process Unspecified. EDMS 01:00 John, Azfar, MD is Hospitalizing Provider. rt 01:00 No provider procedures requiring assistance completed. ha1 01:00 Patient admitted, IV remains in place. ha1 01:00 Provided Education on: PATIENT IS A0X0. ha1 Administered Medications: 04/26 23:00 Drug: NS 0.9% IV 1000 ml IV at 1 bolus Per protocol; to be given as a bolus over 60 ha1 minutes Route: IV; Rate: 1 bolus; Site: left antecubital; 04/27 00:00 Follow up: Response: No adverse reaction; IV Status: Completed infusion ha1 00:27 CANCELLED (Duplicate Order): ns0.45 % 1000 ml IV at 125 ml/hr continuous rt 00:45 Drug: Cefepime IVPB 2 grams IVPB at 200 ml/hr once over 30 mins; (mix in NS 100 mL) ha1 Route: IVPB; Rate: 200 ml/hr; Infused Over: 30 mins; Site: right forearm; 01:30 Follow up: Response: No adverse reaction; IV Status: Completed infusion; IV Intake: ha1 100ml 00:48 Drug: Calcium Gluconate IVPB 1 grams IVPB once over 60 mins; (mix in NS 100 mL) Route: ha1 IVPB; Infused Over: 60 mins; Site: right antecubital; 02:00 Follow up: Response: No adverse reaction; IV Status: Completed infusion ha1 00:50 Drug: Sodium Bicarbonate IVP 1 amp IVP once; (50 mL); equals 50 mEq Route: IVP; Site: [facility] left antecubital; 01:10 Follow up: Response: No adverse reaction ha1 00:52 Drug: Insulin Drip - (Insulin Regular Human IVP 100 units, NS 0.9% IV 100 ml) IV at ha1 calculated rate continuous; Standard concentration 1unit/ml; Dose for DKA is 0.1 units/kg/hr {Co-Signature: vc1 (Jennifer Verdin RN).} Route: IV; Rate: calculated rate; Site: right antecubital; 01:30 Follow up: Response: No adverse reaction; Blood sugar is lowered; IV Status: Infusion ha1 continued upon admission 00:53 Drug: Insulin Regular Human IVP 10 units IVP once {Co-Signature: vc1 (Calcote, Jennifer ha1 RN).} Route: IVP; Site: right antecubital; 01:00 Follow up: Response: No adverse reaction ha1 01:00 Drug: NS 0.9% IV 1000 ml IV at 1 bolus Per protocol; to be given as a bolus over 60 ha1 minutes Route: IV; Rate: 1 bolus; Site: right antecubital; 02:00 Follow up: Response: No adverse reaction; IV Status: Completed infusion ha1 02:21 Drug: Insulin Regular Human IVP 10 units IVP once {Co-Signature: fredi (Chang Garvin RN).} Route: IVP; Site: left antecubital; 03:00 Follow up: Response: No adverse reaction; Blood sugar is lowered ha1 Medication: 01:00 VIS not applicable for this client. ha1 Intake: 01:30 IV: 100ml; Total: 100ml. ha1 Outcome: 01:00 critical ha1 01:00 Admitted to ER Hold. [email or web address] for [facility] documentation. ha1 01:00 Instructed on the need for admit, 01:01 Decision to Hospitalize by Provider. rt 20:15 Patient left the ED. kd3 Signatures: Dispatcher [employer] EDMS Cass Griffith RN RN kd3 Jennifer Verdin RN RN vc1 Vanesa Peñaloza RN RN 1 Marvin Cobos MD MD rt Padmaja Mcwilliams 3 Jennifer Verdin RN vc1 Chang Garvin RN [email or web address] Corrections: (The following items were deleted from the chart) 03:02 00:45 Cefepime IVPB 2 grams IVPB at 200 ml/hr in right antecubital over 30 mins ha1 ha1 03:52 [id number] 23:35 EKG done, by medical service technician. af3 ha1 04/27 07:28 02:15 BP 93 / 64; Pulse 68bpm; Resp 16bpm; Spontaneous; Pulse Ox 98% 2 lpm Nasal ha1 Cannula; Temp 89.4F Catheter; ha1
--- NOTE | 2024-04-27 01:02 | EDPHYS ---
Physician Documentation [facility] Name: Angel Flores Age: 49 yrs Sex: Male : 1975 Arrival Date: 04/26/2024 Time: 22:38 Bed 20 Private MD: ED Physician Marvin Cobos HPI: 04/26 23:04 This 49 yrs old Black Male presents to ER via Unassigned with complaints of Altered rt mental status. 23:04 Patient with history of diabetes with frequent evaluations for DKA presents to the ED rt with altered mental status. The patient's mother was out of town for about 3 days, return finding him altered, moaning. Unclear how long he has been this way. Sugar reportedly read high. No further history could be elicited from the patient. Symptoms are severe in severity, no other aggravating or alleviating factors.. Historical: - Allergies: 22:39 Morphine; ha1 - Home Meds: 22:39 Levemir U-100 Insulin subcutaneous [Active]; Humulin 70/30 Sub-Q [Active]; ha1 - PMHx: 22:39 cluster headaches; Diabetes - NIDDM; sciatica (PTSD); ha1 - PSHx: 22:39 hand; left leg; neck; ha1 - Immunization history:: Adult Immunizations unknown. - Infectious Disease History:: Denies. - Family history:: not pertinent. - Social history:: Smoking status: unknown Patient uses street drugs, cocaine. ROS: 23:04 Unable to obtain ROS due to altered mental status, rt Exam: 23:05 Chest/axilla: Normal chest wall appearance and motion. Nontender with no deformity. rt No lesions are appreciated. Cardiovascular: Regular rate and rhythm with a normal S1 and S2. No gallops, murmurs, or rubs. Normal PMI, no JVD. No pulse deficits. Respiratory: Lungs have equal breath sounds bilaterally, clear to auscultation and percussion. No rales, rhonchi or wheezes noted. No increased work of breathing, no retractions or nasal flaring. Abdomen/GI: Soft, non-tender, with normal bowel sounds. No distension or tympany. No guarding or rebound. No evidence of tenderness throughout. 23:05 Constitutional: The patient appears Altered, in acute distress 23:05 Head/face: Atraumatic, normocephalic. 23:05 Eyes: Conjunctiva normal. 23:05 ENT: Dry mucous membranes. 23:05 Neck: Trachea midline, 23:05 Neuro: Moaning, moves all 4 extremities equally, 23:32 ECG was reviewed by the Attending Physician. rt Vital Signs: 22:39 BP 90 / 59; Pulse 63; Resp 15 S; Temp 88(R); Pulse Ox 96% on 2 lpm NC; Weight 44.45 kg; ha1 Height 5 ft. 7 in. ; 23:30 BP 92 / 69; Pulse 60; Resp 17 S; Pulse Ox 97% on 2 lpm NC; ha1 04/27 00:00 BP 93 / 64; Pulse 68; Resp 16 S; Temp 89.4(Ca); Pulse Ox 98% on 2 lpm NC; ha1 00:45 BP 105 / 67; Pulse 61; Resp 17 S; Temp 88; Pulse Ox 99% on 2 lpm NC; 1 04/26 22:39 Body Mass Index 15.35 (44.45 kg, 170.18 cm) [facility] MDM: 04/26 22:40 Medical Screening Exam initiated rt 04/27 03:08 Differential Diagnosis DKA, hyperglycemia, electrolyte disturbance. Data reviewed: rt vital signs, nurses notes, lab test result(s), EKG, radiologic studies. Consideration of Admission/Observation Patient was admitted/placed on observation. Management of patient was discussed with the following: Hospitalist: Agrees to admit. I considered the following discharge prescriptions or medication management in the emergency department Medications were administered in the Emergency Department. See MAR. Independent interpretation of the following test(s) in the Emergency Department X-Ray: My interpretation is No infiltrate seen on my interpretation x-ray images. Care significantly affected by the following chronic conditions: Diabetes. Counseling: I had a detailed discussion with the patient and/or guardian regarding the historical points, exam findings, and any diagnostic results supporting the discharge/admit diagnosis, lab results, radiology results, the need for further work-up and treatment in the hospital. Response to treatment: There is no appreciated change of the patient's symptoms at this time. 04/26 22:43 Order name: Blood Culture Adult (2) rt 04/26 22:43 Order name: CBC with Diff; Complete Time: 01:48 rt 04/26 22:43 Order name: CMP; Complete Time: 00:23 rt 04/26 22:43 Order name: Lactate w/ 2H reflex if indic.; Complete Time: 00:23 rt 04/26 22:43 Order name: Protime (+inr); Complete Time: 01:09 rt 04/26 22:43 Order name: Ptt, Activated; Complete Time: 01:09 rt 04/26 22:43 Order name: Urinalysis w/ reflexes; Complete Time: 00:23 rt 04/26 22:43 Order name: ABG: vbg ok; Complete Time: 01:09 rt 04/26 22:43 Order name: BHB; Complete Time: 00:23 rt 04/26 22:43 Order name: Troponin High Sensitivity; Complete Time: 00:23 rt 04/26 23:08 Order name: Glucose, Ancillary Testing; Complete Time: 23:23 EDMS 04/27 00:15 Order name: Manual Differential; Complete Time: 01:48 EDMS 04/27 00:23 Order name: Ghost Lactate-NO COLLECT Timer; Complete Time: 02:23 EDMS 04/27 00:48 Order name: BMP; Complete Time: 02:58 rt 04/27 01:32 Order name: Basic Metabolic Panel EDMS 04/27 01:32 Order name: Basic Metabolic Panel EDMS 04/27 01:32 Order name: Basic Metabolic Panel; Complete Time: 06:44 EDMS 04/27 01:32 Order name: Basic Metabolic Panel; Complete Time: 20:00 EDMS 04/27 01:32 Order name: CBC with Automated Diff EDMS 04/27 01:32 Order name: CBC with Automated Diff EDMS 04/27 01:32 Order name: CBC with Automated Diff EDMS 04/27 01:32 Order name: CBC with Automated Diff EDMS 04/27 01:32 Order name: Osmolality, Serum EDMS 04/27 01:32 Order name: Urinalysis w/ reflexes; Complete Time: 06:00 EDMS 04/27 01:32 Order name: Osmolality, Serum EDMS 04/27 01:32 Order name: Osmolality, Serum EDMS 04/27 01:33 Order name: Osmolality, Serum EDMS 04/27 02:20 Order name: Glucose, Ancillary Testing; Complete Time: 02:23 EDMS 04/27 03:26 Order name: Glucose, Ancillary Testing; Complete Time: 04:33 EDMS 04/27 03:54 Order name: Lactate Sepsis 2 HR Follow-up; Complete Time: 04:33 EDMS 04/27 04:08 Order name: CBC with Automated Diff; Complete Time: 04:33 EDMS 04/27 04:21 Order name: Basic Metabolic Panel; Complete Time: 04:33 EDMS 04/27 04:21 Order name: Glucose Level; Complete Time: 04:33 EDMS 04/27 05:09 Order name: Glucose, Ancillary Testing; Complete Time: 06:00 EDMS 04/27 06:02 Order name: Glucose Level; Complete Time: 06:44 EDMS 04/27 07:01 Order name: Glucose, Ancillary Testing; Complete Time: 20:00 EDMS 04/27 08:25 Order name: Glucose, Ancillary Testing; Complete Time: 20:00 EDMS 04/27 08:32 Order name: ABG Arterial Blood Gas; Complete Time: 20:00 EDMS 04/27 08:36 Order name: Glucose Level; Complete Time: 20:00 EDMS 04/27 09:38 Order name: Glucose, Ancillary Testing; Complete Time: 20:00 EDMS 04/27 10:19 Order name: Magnesium; Complete Time: 20:00 EDMS 04/27 10:22 Order name: Glucose, Ancillary Testing; Complete Time: 20:00 EDMS 04/27 11:21 Order name: Glucose, Ancillary Testing; Complete Time: 20:00 EDMS 04/27 12:24 Order name: Cortisol; Complete Time: 20:00 EDMS 04/27 12:28 Order name: Glucose, Ancillary Testing; Complete Time: 20:00 EDMS 04/27 13:23 Order name: Glucose, Ancillary Testing; Complete Time: 20:00 EDMS 04/27 14:19 Order name: Glucose, Ancillary Testing; Complete Time: 20:00 EDMS 04/27 14:32 Order name: Basic Metabolic Panel; Complete Time: 20:00 EDMS 04/27 15:24 Order name: Glucose, Ancillary Testing; Complete Time: 20:00 EDMS 04/27 16:38 Order name: Glucose, Ancillary Testing; Complete Time: 20:00 EDMS 04/27 17:17 Order name: Glucose, Ancillary Testing; Complete Time: 20:00 EDMS 04/27 18:28 Order name: Glucose, Ancillary Testing; Complete Time: 20:00 EDMS 04/27 18:46 Order name: Basic Metabolic Panel; Complete Time: 20:00 EDMS 04/27 19:38 Order name: Glucose, Ancillary Testing; Complete Time: 20:00 EDMS 04/26 22:43 Order name: Chest Single View XRAY; Complete Time: 06:00 rt 04/26 22:43 Order name: CT Head C Spine; Complete Time: 04:33 rt 04/26 22:43 Order name: EKG; Complete Time: 22:44 rt 04/27 01:32 Order name: CONS Physician Consult EDMS 04/27 01:32 Order name: Dietitian Consult EDMS 04/26 22:43 Order name: Accucheck; Complete Time: 23:45 rt 04/26 22:43 Order name: Cardiac monitoring; Complete Time: 23:45 rt 04/26 22:43 Order name: EKG - Nurse/Tech; Complete Time: 23:35 rt 04/26 22:43 Order name: IV Saline Lock - Large Bore; Complete Time: 23:45 rt 04/26 22:43 Order name: Labs collected and sent; Complete Time: 23:45 rt 04/26 22:43 Order name: O2 Per Protocol; Complete Time: 23:35 rt 04/26 22:43 Order name: O2 Sat Monitoring; Complete Time: 23:35 rt 04/26 22:43 Order name: Vital Signs; Complete Time: 23:45 rt 04/27 06:09 Order name: Chavez; Complete Time: 06:09 ha1 EC 23:32 Rate is 60 beats/min. Rhythm is regular, Normal Sinus Rhythm with No ectopy. Right axis rt deviation noted. [place] interval is normal. QRS interval is normal. QT interval is normal. No Q waves. T waves are Peaked. Administered Medications: 23:00 Drug: NS 0.9% IV 1000 ml IV at 1 bolus Per protocol; to be given as a bolus over 60 ha1 minutes Route: IV; Rate: 1 bolus; Site: left antecubital; 04/27 00:00 Follow up: Response: No adverse reaction; IV Status: Completed infusion ha1 00:27 CANCELLED (Duplicate Order): ns0.45 % 1000 ml IV at 125 ml/hr continuous rt 00:45 Drug: Cefepime IVPB 2 grams IVPB at 200 ml/hr once over 30 mins; (mix in NS 100 mL) ha1 Route: IVPB; Rate: 200 ml/hr; Infused Over: 30 mins; Site: right forearm; 01:30 Follow up: Response: No adverse reaction; IV Status: Completed infusion; IV Intake: ha1 100ml 00:48 Drug: Calcium Gluconate IVPB 1 grams IVPB once over 60 mins; (mix in NS 100 mL) Route: ha1 IVPB; Infused Over: 60 mins; Site: right antecubital; 02:00 Follow up: Response: No adverse reaction; IV Status: Completed infusion ha1 00:50 Drug: Sodium Bicarbonate IVP 1 amp IVP once; (50 mL); equals 50 mEq Route: IVP; Site: [facility] left antecubital; 01:10 Follow up: Response: No adverse reaction ha1 00:52 Drug: Insulin Drip - (Insulin Regular Human IVP 100 units, NS 0.9% IV 100 ml) IV at ha1 calculated rate continuous; Standard concentration 1unit/ml; Dose for DKA is 0.1 units/kg/hr {Co-Signature: vc1 (Jennifer Verdin RN).} Route: IV; Rate: calculated rate; Site: right antecubital; 01:30 Follow up: Response: No adverse reaction; Blood sugar is lowered; IV Status: Infusion ha1 continued upon admission 00:53 Drug: Insulin Regular Human IVP 10 units IVP once {Co-Signature: vc1 (Jennifer Verdin RN).} Route: IVP; Site: right antecubital; 01:00 Follow up: Response: No adverse reaction ha1 01:00 Drug: NS 0.9% IV 1000 ml IV at 1 bolus Per protocol; to be given as a bolus over 60 ha1 minutes Route: IV; Rate: 1 bolus; Site: right antecubital; 02:00 Follow up: Response: No adverse reaction; IV Status: Completed infusion ha1 02:21 Drug: Insulin Regular Human IVP 10 units IVP once {Co-Signature: jb4 (Chang Garvin RN).} Route: IVP; Site: left antecubital; 03:00 Follow up: Response: No adverse reaction; Blood sugar is lowered ha1 Disposition Summary: 04/27/24 01:01 Hospitalization Ordered Notes: Hospitalization Status: Inpatient Admission rt Provider: Graham Lopez rt Condition: Critical rt Problem: new rt Symptoms: are unchanged rt Bed/Room Type: Standard rt Location: Intensive Care Unit(04/27/24 18:01) kb3 Room Assignment: 7-(04/27/24 18:01) kb3 Diagnosis - Diabetic ketoacidosis rt - Hyperkalemia rt Forms: - Medication Reconciliation Form rt - SBAR form rt - Leadership Thank You Letter rt Critical care time excluding procedures: 03:08 Critical care time: Bedside Care: 40 minutes, Consultation: 5 minutes. Total time: 45 rt minutes Signatures: Dispatcher [employer] EDMS Ani Colin, RN RN cg Vanesa Peñaloza, RN RN ha1 Coleen Moore RN RN kb3 Kristy Carrera PA-C PAMicheline sb4 Marvin Cobos MD MD rt Jennifer Verdin RN vc1 Chang Garvin RN jb4 Corrections: (The following items were deleted from the chart) 04/26 22:44 22:44 BLOOD CULTURE*+BA.LAB.BRZ ordered. EDMS EDMS 22:44 22:44 CBC+H.LAB.BRZ ordered. EDMS EDMS 22:44 22:44 COMPREHENSIVE METABOLIC PANEL+C.LAB.BRZ ordered. EDMS EDMS 22:44 22:44 LACTATE+C.LAB.BRZ ordered. EDMS EDMS 22:44 22:44 PROTIME (+INR)+COAG.LAB.BRZ ordered. EDMS EDMS 22:44 22:44 PTT, ACTIVATED+COAG.LAB.BRZ ordered. EDMS EDMS 22:44 22:44 Urinalysis+U.LAB.BRZ ordered. EDMS EDMS 22:44 22:44 BETA HYDROXYBUTYRATE+C.LAB.BRZ ordered. EDMS EDMS 22:44 22:44 Troponin High Sensitivity+C.LAB.BRZ ordered. EDMS EDMS 22:44 22:44 Head C Spine MPR Wo Con+CT.RAD.BRZ ordered. EDMS EDMS 04/27 00:27 00:27 NS IV 0.45 % 1000 ml IV at 125 ml/hr continuous ordered. rt rt 01:38 01:01 Intensive Care Unit rt cg 01:38 01:01 rt cg 03:16 03:16 GLUCOSE+C.LAB.BRZ ordered. EDMS EDMS 18:01 01:38 [facility] ER HOLD cg kb3 18:01 01:38 ERHOLD- cg kb3
[2024-04-27 01:14] LABS: Band Neutrophils 16 % (0-1); Differential Total Cells Count 100; Lymphocytes 8 % (15-42); Metamyelocytes 2 % (0-0); Monocytes 7 % (0-10); Reactive Lymphocytes 1 %; Segmented Neutrophils 66 % (40-80)
[2024-04-27 01:15] LABS: Blood Morphology Comment NOTED (NOT SEEN); Macrocytosis 1+; Platelet Estimate ADEQ
[2024-04-27] MEDS ORDERED: ONDANSETRON 4 MG/2 ML VIAL IV PRN (01:26)
[2024-04-27] MEDS: INSULIN REGULAR (HUMAN) 100 UNIT/ML IV ONE (01:26)
--- NOTE | 2024-04-27 01:36 | P.HP ---
Patient History Date of Service: 04/27/24 Reason for admission: DKA History of Present Illness: 49-year-old male with a past medical history of diabetes presenting with altered mental status secondary to diabetic ketoacidosis. Per chart review patient's mother was out of town for 3 days and when she returned he was moaning. She called EMS and he was transferred to [facility]. Upon initial evaluation he was found to have blood sugar of 1080, pH of 6.8, bicarb of 1.1, ketonuria, and a potassium of 6.6 he was given calcium gluconate, insulin, and amp of bicarb, as well as fluids. Allergies morphine Allergy (Unknown, Verified 02/29/20 20:42) Unknown Home Medications: Hum Insulin NPH/Reg Insulin Hm [Humulin 70-30 Vial] 60 unit SQ BIDWM #10 ml 12/15/23 - Past Medical/Surgical History Diabetic: Yes -: IDDM -: GERD -: Cluster Headaches -: Sciatica -: Cocaine Abuse -: Left leg Psychosocial/ Personal History: Lives at home with family in an apartment - Social History Alcohol use: Yes CD- Drugs: No Caffeine use: No Review of Systems is unable to be obtained Physical Examination - Physical Exam General: Confused HEENT: Normocephalic Neck: Supple Respiratory: Clear to auscultation bilaterally Cardiovascular: No edema, Normal pulses Capillary refill: <2 Seconds Gastrointestinal: Normal bowel sounds Musculoskeletal: No clubbing Integumentary: No rashes Neurological: Abnormal speech Lymphatics: No axilla or inguinal lymphadenopathy - Studies Laboratory Data (last 24 hrs) 04/26/24 04/26/24 04/26/24 23:15 23:15 23:15 WBC 30.90 H Hgb 13.5 L Hct 47.5 Plt Count 381 PT 11.5 INR 1.01 APTT 32.6 Sodium 132 L Potassium 6.6 H* BUN 57 H Creatinine 2.96 H Glucose 1018 H* Total Bilirubin 0.4 AST 56 H ALT 63 H Alkaline Phosphatase 154 H Assessment and Plan - Plan DKA Hyperkalemia Leukocytosis History of cluster headache History of cocaine History of GERD Sciatica Admit to ICU Start DKA protocol Corrected sodium is 148 Status post calcium gluconate, EKG reviewed with peaked T waves Continue fluid, insulin drip, bicarb, Rocephin BMP every 4 hours Blood cultures pending On Rocephin DVT prophylaxis with heparin - Advance Directives Does patient have a Living Will: No Does patient have a Durable POA for Healthcare: No
[2024-04-27] MEDS ORDERED: GLUCAGON 1 MG/VIAL IM PRN (01:41)
[2024-04-27] MEDS ORDERED: D50W 25 GM/50 ML SYRINGE IV PRN (01:41)
[2024-04-27 01:51] VITALS: BMI 15.3
[2024-04-27] MEDS: NA CHLORIDE 0.9% 1,000 ML IV SCH (02:00)
[2024-04-27] MEDS: NACHLORIDE 0.45% 1,000 ML IV SCH ×2 (02:00→10:00)
[2024-04-27] MEDS: D5 0.45 NS 1,000 ML IV SCH (02:00)
[2024-04-27 02:42] LABS: Anion Gap 31.9 mEq/L (5.0-15.0); BUN Blood Urea Nitrogen 55 mg/dL (7-18); Glomerular Filtration Rate 25 ml/min (=/>90); Potassium 5.9 mEq/L (3.5-5.1); Sodium Level 137 mEq/L (136-145)
[2024-04-27 02:46] LABS: Bicarbonate < 8 mEq/L (21-32); Glucose Level 958 mg/dL (74-106)
[2024-04-27] MEDS ORDERED: NACHLORIDE 0.45% 1,000 ML IV ONE ×3 (02:51→14:43)
--- NOTE | 2024-04-27 02:56 | RAD REPORT ---
EXAM: CT Head and Cervical Spine Without Intravenous Contrast CLINICAL HISTORY: The patient is 49 years old and is Male; ams TECHNIQUE: Axial computed tomography images of the head/brain and cervical spine without intravenous contrast. Sagittal and coronal reformatted images were created and reviewed. This CT exam was performed using one or more of the following dose reduction techniques: automated exposure control, adjustmen t of the mA and/or kV according to patient size, and/or use of iterative reconstruction technique. COMPARISON: No relevant prior studies available. FINDINGS: BRAIN: Unremarkable. No hemorrhage. No significant white matter disease. No edema. VENTRICLES: Unremarkable. No ventriculomegaly. SKULL: No acute fracture. SINUSES: Unremarkable as visualized. No acute sinusitis. MASTOID AIR CELLS: Unremarkable as visualized. No mastoid effusion. VERTEBRAE: Straightening of the normal cervical curvature is present. The vertebral body height s and alignment are maintained. There is no acute fracture. DISCS/SPINAL CANAL/NEURAL FORAMINA: There is multi-level intervertebral disc height loss. There a re disc-osteophyte complexes at several levels, with associated mild spinal canal narrowing. There is also facet hypertrophy and uncovertebral joint osteophytosis, with associated multilevel neural fo raminal narrowing. SOFT TISSUES: Ovoid fatty lesion within the soft tissues of the the midline posterior neck measur ing 4.5 x 1.4 cm is present. LUNG APICES: Cavitary focus within the left lung apex is present. This was described on prior CT of March 04, 2024. IMPRESSION: 1. No acute intracranial findings. 2. Straightening of the normal cervical curvature is present. Findings may be secondary to patien t position versus muscle spasm. Mild spondylosis. 3. Fatty lesion within the soft tissues of the posterior neck which may be secondary to a lipoma. H owever, consider further evaluation with MRI comparison prior imaging is available. Electronically signed by: Nolvia Julio MD 04/27/2024 01:21 AM CDT Due to temporary technical issues with the [employer] reporting system, reports are being michel d by the in-house radiologist without review as a courtesy to ensure prompt reporting the interpreting radiologist is fully responsible for the content of the report. Transcribed Date/Time: 04/27/2024 2:56 AM
[2024-04-27 04:01] LABS: Absolute Basophils 0.2 K/uL (0-0.5); Absolute Lymphocytes (CBC) 1.7 K/uL (0.7-4.9); Absolute Monocytes 1.5 K/uL (0.1-1.3); Absolute Neutrophil 22.5 K/uL (1.8-8.0); Basophils % 0.8 % (0-1.3); Eosinophils % 0.1 % (0-4.4); Hematocrit 43.9 % (39.6-49.0); Hemoglobin 13.4 g/dL (13.6-17.9); Lymphocytes % 6.7 % (15.3-44.8); MCH 31.3 pg (27.0-35.0); MCHC 30.6 g/dL (32.0-36.0); MCV 102.2 fL (80-100); MPV 8.8 fL (7.6-11.3); Monocytes % 5.7 % (3.3-12.3); Neutrophils % 86.7 % (41.7-73.7); Platelets 292 thou/uL (152-406); Red Cell Distribution Width 13.5 % (12.1-15.2)
[2024-04-27 04:16] LABS: Anion Gap 27.5 mEq/L (5.0-15.0); BUN Blood Urea Nitrogen 61 mg/dL (7-18); Glomerular Filtration Rate 27 ml/min (=/>90); Potassium 4.5 mEq/L (3.5-5.1); Sodium Level 140 mEq/L (136-145)
[2024-04-27 04:20] LABS: Bicarbonate < 8 mEq/L (21-32); Glucose Level 800 mg/dL (74-106)
--- NOTE | 2024-04-27 05:34 | RAD REPORT ---
EXAM: XR Chest, 1 View CLINICAL HISTORY: The patient is 49 years old and is Male; ams TECHNIQUE: Frontal view of the chest. COMPARISON: XR Chest dated December 14 2023 FINDINGS: LUNGS: Lungs are hyperinflated. Calcified granuloma within the right midlung are noted. The andrea gs are otherwise well-inflated and clear. There is no lobar consolidation. PLEURAL SPACE: Unremarkable. No pneumothorax. HEART: Unremarkable. No cardiomegaly. MEDIASTINUM: Unremarkable. Normal mediastinal contour. BONES/JOINTS: Unremarkable. No acute fracture. UPPER ABDOMEN: Unremarkable as visualized. IMPRESSION: No acute cardiopulmonary process. Electronically signed by: Nolvia Julio MD 04/26/2024 11:58 PM CDT RP Due to temporary technical issues with the PACS/[employer] reporting system, reports are being michel d by the in-house radiologist without review as a courtesy to ensure prompt reporting the interpreting radiologist is fully responsible for the content of the report. Transcribed Date/Time: 04/27/2024 5:34 AM
[2024-04-27 05:42] LABS: Specific Gravity 1.014 (1.005-1.030); Sqamous Epithelial <5 /HPF (None Seen); Urine Bacteria None Seen /HPF (<20); Urine Bilirubin NEGATIVE (Negative); Urine Blood 2+ (Negative); Urine Clarity Turbid (Clear); Urine Color Light-Yellow (Yellow); Urine Culture Reflex Order NOT NEEDED; Urine Glucose 4+ (Over) (Negative); Urine Ketones 2+ (Negative); Urine Microscopic Reflex YN ORDER UMIC; Urine Mucus Slight /HPF (None Seen); Urine Nitrite NEGATIVE (Negative); Urine Protein 1+ (Negative); Urine RBC <5 /HPF (None Seen); Urine Urobilinogen Normal (Normal); Urine WBC <5 /HPF (<5); Urine pH 5.5 (5.0-7.0)
[2024-04-27] MEDS ORDERED: D10W 125 ML IV PRN (05:51)
[2024-04-27] MEDS ORDERED: NOREPINEPHRINE BITARTRATE/D5W 4 MG/250 ML BAG IV ONE (05:54)
[2024-04-27 05:56] LABS: Anion Gap 28.2 mEq/L (5.0-15.0); BUN Blood Urea Nitrogen 61 mg/dL (7-18); Glomerular Filtration Rate 28 ml/min (=/>90); Potassium 4.2 mEq/L (3.5-5.1); Sodium Level 142 mEq/L (136-145)
[2024-04-27 06:00] LABS: Bicarbonate < 8 mEq/L (21-32); Glucose Level 677 mg/dL (74-106)
[2024-04-27] MEDS: NOREPINEPHRINE 4 MG in D5W 250 ML IV SCH ×2 (06:10→20:05)
[2024-04-27] MEDS: NACHLORIDE 0.45% 500 ML IV SCH (07:30)
[2024-04-27] MEDS ORDERED: CEFTRIAXONE 1000 MG/VIAL ONE (08:17)
[2024-04-27] MEDS ORDERED: D5W 1,000 ML IV ONE (08:18)
[2024-04-27] MEDS ORDERED: HEPARIN 5000 UNIT/ML 1 ML VIAL ONE (08:18)
[2024-04-27] MEDS: HEPARIN 5000 UNIT/ML 1 ML VIAL SQ SCH (08:30)
[2024-04-27] MEDS: CEFTRIAXONE 1,000 MG in NA CHLORIDE 0.9% 50 ML IVPB SCH (08:30)
[2024-04-27] MEDS: D5W 1,000 ML IV SCH (08:30)
[2024-04-27 08:31] LABS: Arterial Blood Carboxyhemoglob 1.4 % (0-1.5); Blood Gas Oxyhemoglobin 82.4 % (94-97); Blood Gas THB 13.1 g/dl (12-18); Blood O2 Saturation 85.7 % (92-98.5)
--- NOTE | 2024-04-27 09:40 | P.PN ---
Brief Renal note (chart review only, full consult to follow) KIRA with hyperkalemia and AG metab acidosis in the setting of DKA, vol depletion. Cont aggressive IVF hydration and Insulin gtt per DKA protocol, hyperkalemia already improved with intra cellular shifting and with pH essentially at 7.2 on repeat blood gas, would avoid bicarb gtt as can develop rebound alkalosis. Trend gap closely, place on 1/2 NS IVF for now and switch to D51/2NS when BG < 250 or per DKA protocol. Rest of management per IM
[2024-04-27 09:47] VITALS: O2SAT 100
[2024-04-27 10:23] LABS: Anion Gap 18.6 mEq/L (5.0-15.0); Potassium 3.6 mEq/L (3.5-5.1)
--- NOTE | 2024-04-27 11:27 | P.PN ---
Subjective Date of Service: 04/27/24 Chief Complaint: DKA Subjective: Improving 49-year-old male was admitted for DKA with profound metabolic changes and acidemia with an original pH of 6.67. Upon reassessment this morning pH now 7.19 with a bicarb of 5.4 on ABG and bicarb of 9 on chemistry. Glucose originally in the 1000's now at 393. Switched patient to half NS and continuing to maintain insulin drip. Patient has had improved mentation and is now looking around and responsive to verbal stimuli. Originally was unresponsive but maintaining airway. Patient on nasal cannula and has not required invasive supplemental oxygen at this time. <Zana Chacon - Last Filed: 04/27/24 11:21> Date of Service: 04/27/24 <Vicky Cho - Last Filed: 04/28/24 05:09> Review of Systems is unable to be obtained (Secondary to mental status and metabolic changes) <Zana Chacon - Last Filed: 04/27/24 11:21> Physical Examination - Vital Signs Temperature: 98.5 F Blood Pressure: 105/73 Pulse: 102 Respirations: 18 Pulse Ox (%): 100 - Physical Exam General: Confused, Delirious HEENT: Normocephalic, PERRLA, EOMI Neck: Supple Respiratory: Clear to auscultation bilaterally Cardiovascular: No edema, Normal pulses, No gallops, No rubs, No murmurs, Irregular heart rate/rhythm (Tachycardic) Capillary refill: <2 Seconds Gastrointestinal: Normal bowel sounds, Soft and benign Musculoskeletal: No clubbing, No swelling, No contractures, No erythema, No tenderness, No warmth Integumentary: No rashes, No breakdown, No significant lesion, No tenderness/swelling, No erythema, No warmth, No cyanosis Neurological: Normal strength at 5/5 x4 extr, Normal tone, Sensation intact, Abnormal speech - Studies Laboratory Data (last 24 hrs) 04/26/24 04/26/24 04/26/24 23:15 23:15 23:15 WBC 30.90 H Hgb 13.5 L Hct 47.5 Plt Count 381 PT 11.5 INR 1.01 APTT 32.6 Sodium 132 L Potassium 6.6 H* BUN 57 H Creatinine 2.96 H Glucose 1018 H* Total Bilirubin 0.4 AST 56 H ALT 63 H Alkaline Phosphatase 154 H Medications List Reviewed: Yes <Zana Chacon - Last Filed: 04/27/24 11:21> Assessment And Plan - Current Problems (Diagnosis) (1) Metabolic encephalopathy Current Visit: Yes Status: Acute (2) KIRA (acute kidney injury) Current Visit: No Status: Acute (3) DKA (diabetic ketoacidosis) Current Visit: No Status: Acute (4) Pseudohyponatremia Current Visit: No Status: Acute (5) Hypotension Current Visit: Yes Status: Acute Qualifiers: Hypotension type: hypotension due to hypovolemia Qualified Code(s): E86.1 - Hypovolemia - Plan 1. Patient will be monitored in ICU for DKA, metabolic encephalopathy, and KIRA 2. Will continue to be on insulin drip and DKA protocol along with aggressive hydration for fluid imbalance and KIRA 3. Dr. Edwards saw patient and gave recommendations 4. DVT prophylaxis 5. Serial chemistries to maintain stability of K+ and other electrolytes 6. Levophed to titration as needed for hypotension secondary to DKA 7. Rocephin to continue until cultures are negative Discharge Plan: Home Plan to discharge in: Greater than 2 days - Code Status/Comfort Care Code Status Assessed: Yes (Full code) Critical Care: Yes Time Spent Managing PTS Care (In Minutes): 60 <Zana Chacon - Last Filed: 04/27/24 11:21> Date of Service: 04/27/24 Chart has been reviewed. Events of the last 24 hours have been noted. Case discussed with DARWIN. I performed a substantial part of the MDM during this patient's care today. I personally made or approved the documented management plan and acknowledge its risk of complications. I agree with the findings and documentation provided in the DARWIN's notes Patient is cachectic and emaciated. Patient has been started on insulin drip and aggressive IV hydration. Correct electrolytes. Monitor labs every 3-4 hours and blood sugar check every 1-2 hours.Continue monitoring renal function closely. Patient very noncompliant and prognosis poor. <Vicky Coh - Last Filed: 04/28/24 05:09>
[2024-04-27 14:31] LABS: Anion Gap 14.3 mEq/L (5.0-15.0); Potassium 3.3 mEq/L (3.5-5.1)
[2024-04-27] MEDS: NACHLORIDE 0.45% 1,000 ML with POTASSIUM CL 20 MEQ IV SCH (15:00)
[2024-04-27] MEDS: D5.45NS W/KCL 20MEQ 20 MEQ/1,000 ML BAG IV SCH (15:20)
[2024-04-27] MEDS ORDERED: D5.45NS W/KCL 20MEQ 1,000 ML IV ONE (15:21)
--- NOTE | 2024-04-27 17:26 | P.CNS ---
Date of Consult: 04/27/24 Reason for Consult: KIRA, hyperkalemia, AG acidosis, vol depletion Requesting Physician: Graham Lopez Chief Complaint: DKA History of Present Illness: Pls note history obtained solely through chart review as pt is altered. Pt is a 49-year-old AA male with a past medical history of Insulin dependent DM with multiple admissions here for DKA and KIRA episodes and related and who has come in to the ER after being found by family altered and upon initial evaluation he was found to have blood sugar of 1080, pH of 6.8, marked acidosis, ketonuria, and a potassium of 6.6. Pt remains in the ER on Levophed drip, Insulin, drip, IVF. He remains altered although awake and moaning on exam. Allergies morphine Allergy (Unknown, Verified 02/29/20 20:42) Unknown Home Medications: Hum Insulin NPH/Reg Insulin Hm [Humulin 70-30 Vial] 60 unit SQ BIDWM #10 ml 12/15/23 - Past Medical/Surgical History Diabetic: Yes -: IDDM -: GERD -: Cluster Headaches -: Sciatica -: Cocaine Abuse -: Left leg Psychosocial/ Personal History: Lives at home with family in an apartment - Social History Smoking Status: Current every day smoker Alcohol use: Yes CD- Drugs: No Caffeine use: No Review of Systems is unable to be obtained Physical Examination Temp Pulse Resp BP Pulse Ox 99.5 F 105 H 22 H 113/77 100 04/27/24 15:00 04/27/24 15:00 04/27/24 15:00 04/27/24 15:00 04/27/24 15:00 General: Other (Chronically ill, thin) HEENT: Atraumatic, Normocephalic, Other (dry oral mucosa) Respiratory: Normal air movement, Other (non tachypnec, b/l air entry) Cardiovascular: Other (tachy, cardiac murmur) Gastrointestinal: Soft and benign, Non-distended, No tenderness, No guarding Musculoskeletal: No swelling, No contractures, Other (muscle mass loss) Integumentary: No rashes Neurological: Other (Awake, tracks movements, non conversive, moaning, no tremors or myoclonus noted) Laboratory Data (last 24 hrs) 04/26/24 04/26/24 04/26/24 23:15 23:15 23:15 WBC 30.90 H Hgb 13.5 L Hct 47.5 Plt Count 381 PT 11.5 INR 1.01 APTT 32.6 Sodium 132 L Potassium 6.6 H* BUN 57 H Creatinine 2.96 H Glucose 1018 H* Total Bilirubin 0.4 AST 56 H ALT 63 H Alkaline Phosphatase 154 H Conclusions/Impression: A/P) 1. Stage II KIRA, recurrent in the setting of vol depletion, pre-renal state, hypotension and other. On prior admissions, levels have largely normalized in between episodes of KIRA. UA with glucosuria and ketonuria, concentrated on admission. 2. Cont aggressive hydration and trend renal function tests closely with serial labs with DKA monitoring 3. Changed initial IVF from hypotonic to 1/2 NS saline fluids given his initial presentation and BG > 250 then, now pt has been switched to D51/2NS with KCL which is acceptable while pt remains on DKA protocol and BG are trending in the 250 range or lower. 4. Hyperkalemia 2nd to above -resolved with insulin intra cellular shifting, replete K as levels trend < 3.5 5. AG metab acidosis 2nd to DKA -AG and bicarb deficit improving, bicarb gtt not needed 6. Leukocytosis, unpecified. W/u per IM
[2024-04-27 18:45] LABS: Anion Gap 11.3 mEq/L (5.0-15.0); Potassium 3.3 mEq/L (3.5-5.1)
[2024-04-27] MEDS: INSULIN REGULAR, HUMAN 100 UNIT in NA CHLORIDE 0.9% 100 ML IV SCH (22:18)
[2024-04-28] MEDS ORDERED: D50W 25 GM/50 ML SYRINGE IV PRN (05:02)
[2024-04-28] MEDS ORDERED: GLUCAGON 1 MG/VIAL IM PRN (05:02)
[2024-04-28 07:57] LABS: Albumin 2.5 g/dL (3.4-5.0); Albumin/Globulin Ratio 0.9 (1.1-1.8); Anion Gap 11.4 mEq/L (5.0-15.0); Bilirubin Total 0.2 mg/dL (0.2-1.0); Globulin 2.9 g/dL (2.3-3.5); Magnesium 1.7 mg/dL (1.6-2.4); Potassium 3.4 mEq/L (3.5-5.1); Protein, Total 5.4 g/dL (6.4-8.2)
--- NOTE | 2024-04-28 08:58 | RAD REPORT ---
EXAMINATION: US RETROPERITONEUM CLINICAL INDICATION: KIRA TECHNIQUE: Real-time ultrasonography of the abdomen was performed. COMPARISON: No prior exam. FINDINGS: RIGHT KIDNEY: Right renal length measurement: 12.2 cm. Normal in size. No calculus, solid mass or hyd ronephrosis. LEFT KIDNEY: Left renal length measurement: 10.9 cm. Normal in size. No calculus, solid mass or hydro nephrosis. Bilateral increased cortical echogenicity, however with preserved corticomedullary differentiation. URINARY BLADDER: Suboptimally distended. Chavez catheter in place. ADDITIONAL FINDINGS: None. IMPRESSION: Bilateral mildly increased renal cortical echogenicity, suggesting medical renal disease. No hydronephrosis or echogenic calculi.
[2024-04-28] MEDS: INSULIN 70/30 100 UNITS/ML SQ SCH (09:19)
[2024-04-28 09:29] LABS: Absolute Basophils 0.1 K/uL (0-0.5); Absolute Lymphocytes (CBC) 0.5 K/uL (0.7-4.9); Absolute Monocytes 1.4 K/uL (0.1-1.3); Absolute Neutrophil 7.5 K/uL (1.8-8.0); Basophils % 0.6 % (0-1.3); Hematocrit 33.6 % (39.6-49.0); Hemoglobin 11.4 g/dL (13.6-17.9); Lymphocytes % 5.2 % (15.3-44.8); MCH 31.6 pg (27.0-35.0); MCHC 34.1 g/dL (32.0-36.0); MCV 92.8 fL (80-100); MPV 8.1 fL (7.6-11.3); Monocytes % 14.6 % (3.3-12.3); Neutrophils % 79.6 % (41.7-73.7); Nucleated Red Blood Cells % 0.2 % (0-0); Platelets 223 thou/uL (152-406); RBC Red Blood Cell Count 3.62 M/uL (4.33-5.43); Red Cell Distribution Width 13.3 % (12.1-15.2)
[2024-04-28] MEDS: TRAMADOL HCL 50 MG TAB PO PRN (10:21)
[2024-04-28] MEDS: NACHLORIDE 0.45% 1,000 ML IV SCH (10:22)
[2024-04-28] MEDS: INSULIN REGULAR (HUMAN) 100 UNIT/ML SQ SCH (10:57)
[2024-04-28] MEDS: KCL 20 MEQ/100 mL IVPB 20 MEQ/100 ML BAG IV SCH (10:57)
[2024-04-28] MEDS: Magnesium Sulfate 2gm IVPB 2 G/50 ML BAG IV ONE (10:57)
[2024-04-28] MEDS: NACHLORIDE 0.45% 1,000 ML with NA BICARB 8.4% 50 MEQ IV SCH (10:57)
--- NOTE | 2024-04-28 11:02 | P.PN ---
Date of Service: 04/28/24 Subjective: Mentation improved. States he is thirsty. He feels abandoned by his family because he is unable to walk. He denies fevers, chills, nausea, vomit Review of Systems 10 systems negative unless otherwise stated in HPI Physical Examination - Vital Signs Temperature: 98.5 F Blood Pressure: 105/73 Pulse: 102 Respirations: 18 Pulse Ox (%): 100 - Physical Exam General: Alert HEENT: Normocephalic, PERRLA, EOMI Neck: Supple Respiratory: Clear to auscultation bilaterally Cardiovascular: No edema, Normal pulses, No gallops, No rubs, No murmurs, Irregular heart rate/rhythm (Tachycardic) Capillary refill: <2 Seconds Gastrointestinal: Normal bowel sounds, Soft and benign Musculoskeletal: No clubbing, No swelling, No contractures, No erythema, No tenderness, No warmth Integumentary: No rashes, No breakdown, No significant lesion, No tendern ess/swelling, No erythema, No warmth, No cyanosis Neurological: Normal strength at 5/5 x4 extr, Normal tone, Sensation intact, Abnormal speech - Studies Laboratory Data (last 24 hrs) 04/26/24 04/26/24 04/26/24 23:15 23:15 23:15 WBC 30.90 H Hgb 13.5 L Hct 47.5 Plt Count 381 PT 11.5 INR 1.01 APTT 32.6 Sodium 132 L Potassium 6.6 H* BUN 57 H Creatinine 2.96 H Glucose 1018 H* Total Bilirubin 0.4 AST 56 H ALT 63 H Alkaline Phosphatase 154 H Medications List Reviewed: Yes <Zana Chacon - Last Filed: 04/27/24 11:21> Assessment And Plan - Current Problems (Diagnosis) (1) Metabolic encephalopathy Current Visit: Yes Status: Acute (2) IKRA (acute kidney injury) Current Visit: No Status: Acute (3) DKA (diabetic ketoacidosis) Current Visit: No Status: Acute (4) Pseudohyponatremia Current Visit: No Status: Acute (5) Hypotension Current Visit: Yes Status: Acute Qualifiers: Hypotension type: hypotension due to hypovolemia Qualified Code(s): E86.1 - Hypovolemia - Plan - Transfer out of ICU - Off drip. Start diabetic diet - Potassium and - Blood sugar normal limits - Serial chemistries to maintain stability of K+ and other electrolytes - We Levophed weaned off - Leukocytosis resolved - Hyponatremia resolved - Lactic acidosis resolved Discharge Plan: Home Plan to discharge in: Greater than 2 days - Code Status/Comfort Care Code Status Assessed: Yes (Full code) Critical Care: Yes Time Spent Managing PTS Care (In Minutes): 60
--- NOTE | 2024-04-28 11:03 | EKG ---
Test Date: 2024-04-26 Test Time: 23:03:28 Boilermaking Supervisor: AF MEASUREMENT RESULTS: Intervals: Rate: 60 AL: 200 QRSD: 110 QT: 476 QTc: 476 [place]: P: 82 AL: 200 QRS: 90 T: 76 INTERPRETIVE STATEMENTS: Normal sinus rhythm Rightward axis Septal infarct, age undetermined Abnormal ECG Compared to ECG 12/14/2023 02:30:18 Atrial abnormality no longer present Myocardial infarct finding still present Electronically Signed On 04-28-24 10:58:57 CDT by José Luis Walters
[2024-04-28] MEDS ORDERED: NACHLORIDE 0.45% 1,000 ML with NA BICARB 8.4% 50 MEQ IV SCH (11:47)
--- NOTE | 2024-04-28 11:48 | P.PN ---
Renal note (S) Pt seen in the ICU, off Levophed, off insulin drip, more awake/alert this AM, stable vitals (O) vitals reviewed in the EMR General: Other (Chronically ill, thin) HEENT: Atraumatic, Normocephalic, not needing O2 Respiratory: Normal air movement, Other (non tachypnec, b/l air entry) Cardiovascular: Other (non tachy, regular Gastrointestinal: Soft and benign, Non-distended, No tenderness, No guarding Musculoskeletal: No swelling, No contractures, Other (muscle mass loss) Integumentary: No rashes Neurological: Other (Awake, conversive, moaning, no tremors or myoclonus noted) Laboratory Data (last 24 hrs) Reviewed in the EMR Conclusions/Impression: A/P) 1. Stage II KIRA, recurrent in the setting of vol depletion, pre-renal state, hypotension and other. On prior admissions, levels have largely normalized in between episodes of KIRA. UA with glucosuria and ketonuria, concentrated on admission. Renal function tests improving 2. Cont hydration but IVF rate lowered. 3. With Na level at ULN, some bicarb deficit persisting with AG resolved, will switch IVF to 1/2 NS + sodium bicarb 50 meq x 1L. 4. Hyperkalemia 2nd to above -resolved with insulin intra cellular shifting, hypokalemia since -will replete. Will replete Mg, target > 2.0 5. AG metab acidosis 2nd to DKA -AG resolved but as mentioned non gap hyperchl oremic acidosis, bicarb deficit persists at ~ 150 meq/L. Will cont to trend
[2024-04-28] MEDS: D50W 25 GM/50 ML SYRINGE IV PRN (16:24)
[2024-04-28 16:43] LABS: Blood Morphology Comment NOTED (NOT SEEN); Platelet Estimate ADEQ; White Blood Cell Scan OK (OK)
[2024-04-28 16:44] LABS: Poikilocytosis 2+
--- NOTE | 2024-04-28 16:49 | CON ---
Date of Consultation: 04/28/2024 Reason For Consultation: Elevated BUN and creatinine, fluid management, acidosis. History Of Present Illness: This is a pleasant 49-year-old gentleman, well known to me from the previous admission with significant past medical history of diabetes, GERD, hyperlipidemia, recurrent kidney injury secondary to diabetes and DKA with hyperglycemia. The patient recently admitted to the hospital with the same story. At that time, creatinine jumped to 2.9. Upon discharge, the patient's creatinine down to 1.3. Patient admitted to the hospital with acute kidney injury, DKA, creatinine 2.9, currently down to 1.4, and nausea and vomiting. The patient being hydrated very well. Past Medical History: Includes: 1. Diabetes complicated with neuropathy and DKA. 2. GERD. 3. Hyperlipidemia. Past Surgical History: Include abdominal surgery. Family History: Positive for hypertension. Social History: Denied smoking. Denied drinking. Denied drugs abuse. Allergies: TO MORPHINE. Current Medications: The patient on, it includes: 1. IV fluid. 2. Insulin. 3. Ceftriaxone. 4. Bicarb drip. 5. Zofran. Review of Systems: Head and Neck: No red eye. No ear pain. GI: Has abdominal pain. : No polyuria. No dysuria. No hematuria. DERRICK HELPER: Not applicable. Respiratory: No shortness of breath. Cardiovascular: No chest pain. Endocrine: No polydipsia. Skin: No rash. Neuro: Has neuropathy. Musculoskeletal: Generalized fatigue. Physical Examination: Vital Signs: When I saw the patient, blood pressure 100/65, pulse of 92, afebrile. Chest: Clear to auscultation. Heart: S1, S2. Regular. Abdomen: Soft, nontender. Extremities: No edema. Neurologic: Alert. No focality. Laboratory Data: Sodium 144, potassium 3.4, bicarb 15, BUN 41, creatinine 1.4, calcium 8.3, hemoglobin 11.4. Assessment And Plan: 1. Acute kidney injury secondary to prerenal, dehydration secondary to gluco diuresis, recovered, back to baseline. We will continue hydration. 2. Hyperkalemia, resolved. 3. Acidosis, high anion gap metabolic acidosis secondary to DKA. We will consider discontinue bicarb after current bag. 4. Hypophosphatemia. We will supplement. 5. Diabetes and DKA. Continue insulin drip. We will discontinue bicarb drip after current bag. time spent examining the patient [id number] reviewing data lab and the radiology placing order discussing the case with the patient discussing the case with the stationary steam engineer including hospitalist and nursing staff more than 75-minute LUTHER Voice ID: [id number] Report ID: [id number] KANWAL
[2024-04-28] MEDS: GLUCERNA SHAKE 237 ML CAN PO SCH (21:00)
[2024-04-29 05:27] LABS: Absolute Basophils 0.1 K/uL (0-0.5); Absolute Lymphocytes (CBC) 1.1 K/uL (0.7-4.9); Absolute Monocytes 0.8 K/uL (0.1-1.3); Absolute Neutrophil 5.4 K/uL (1.8-8.0); Basophils % 0.9 % (0-1.3); Eosinophils % 0.1 % (0-4.4); Hematocrit 30.7 % (39.6-49.0); Hemoglobin 10.7 g/dL (13.6-17.9); Lymphocytes % 14.9 % (15.3-44.8); MCH 31.9 pg (27.0-35.0); MCHC 34.7 g/dL (32.0-36.0); MCV 92.1 fL (80-100); MPV 7.8 fL (7.6-11.3); Monocytes % 10.6 % (3.3-12.3); Neutrophils % 73.5 % (41.7-73.7); Nucleated Red Blood Cells % 0.1 % (0-0); Platelets 191 thou/uL (152-406); RBC Red Blood Cell Count 3.34 M/uL (4.33-5.43); Red Cell Distribution Width 13.1 % (12.1-15.2)
[2024-04-29 05:49] LABS: Anion Gap 8.2 mEq/L (5.0-15.0); Potassium 3.2 mEq/L (3.5-5.1)
[2024-04-29] MEDS: POTASSIUM CL SA 10 MEQ TAB PO ONE (08:40)
--- NOTE | 2024-04-29 11:49 | PN ---
Date of Progress Note: 04/29/2024 Subjective: The patient was admitted to the hospital with DKA with acute kidney injury and severe acidosis. The patient was started on hydration and insulin drip. The patient recovered. The patient transferred out of ICU. Physical Examination: Vital Signs: Blood pressure 118/96, pulse of 83. Chest: Clear to auscultation. Heart: S1, S2. Regular. Abdomen: Soft, nontender. Extremities: No edema. Neurologic: Alert. No focality. Laboratory Data: WBC 7.3, hemoglobin 10.7. Sodium 142, potassium 3.2, bicarb 21, BUN 29, creatinine 1, GFR of 55, calcium 8.3. Current Medications: The patient is on include heparin, Zofran, Glucerna, insulin, magnesium oxide, KCl. Assessment And Plan: 1. Acute kidney injury secondary to prerenal, secondary to glucose diuresis, recovered, resolved. Discontinue IV fluid. 2. Hypertension, controlled, optimal. We will monitor. 3. Hypokalemia, status post supplement. 4. Hypomagnesemia, status post supplement. We will follow up. 5. Acidosis secondary to DKA, resolved. 6. Diabetes, as by primary. time spent examining the patient [id number] reviewing data lab and the radiology placing order discussing the case with the patient discussing the case with the boarder steam including hospitalist and nursing staff more than 55-minute LUTHER Voice ID: [id number] Report ID: [id number] KANWAL
--- NOTE | 2024-04-29 12:46 | P.PN ---
Date of Service: 04/29/24 Subjective: Transferred to the floor today. He had another episode of hypoglycemia this morning. He is otherwise doing well. He denies fevers and chills. He states his blood sugar goes up and down quite frequently at home. He saw an electrical prospecting operator once but never went back. Review of Systems 10 systems negative unless otherwise stated in HPI Physical Examination - Vital Signs Temperature: 98.5 F Blood Pressure: 105/73 Pulse: 102 Respirations: 18 Pulse Ox (%): 100 - Physical Exam General: Alert HEENT: Normocephalic, PERRLA, EOMI Neck: Supple Respiratory: Clear to auscultation bilaterally Cardiovascular: No edema, Normal pulses, No gallops, No rubs, No murmurs, Irregular heart rate/rhythm (Tachycardic) Capillary refill: <2 Seconds Gastrointestinal: Normal bowel sounds, Soft and benign Musculoskeletal: No clubbing, No swelling, No contractures, No erythema, No t enderness, No warmth Integumentary: No rashes, No breakdown, No significant lesion, No tenderness/swelling, No erythema, No warmth, No cyanosis Neurological: Normal strength at 5/5 x4 extr, Normal tone, Sensation intact, Abnormal speech - Studies Laboratory Data (last 24 hrs) 04/26/24 04/26/24 04/26/24 23:15 23:15 23:15 WBC 30.90 H Hgb 13.5 L Hct 47.5 Plt Count 381 PT 11.5 INR 1.01 APTT 32.6 Sodium 132 L Potassium 6.6 H* BUN 57 H Creatinine 2.96 H Glucose 1018 H* Total Bilirubin 0.4 AST 56 H ALT 63 H Alkaline Phosphatase 154 H Medications List Reviewed: Yes <Zana Chacon - Last Filed: 04/27/24 11:21> Assessment And Plan - Current Problems (Diagnosis) (1) Metabolic encephalopathy Current Visit: Yes Status: Acute (2) KIRA (acute kidney injury) Current Visit: No Status: Acute (3) DKA (diabetic ketoacidosis) Current Visit: No Status: Acute (4) Pseudohyponatremia Current Visit: No Status: Acute (5) Hypotension Current Visit: Yes Status: Acute Qualifiers: Hypotension type: hypotension due to hypovolemia Qualified Code(s): E86.1 - Hypovolemia - Plan - Continue diabetic diet - Status post DKA protocol - Replace potassium - Blood sugar normal limits - Serial chemistries to maintain stability of K+ and other electrolytes - Off Levophed - Leukocytosis resolved. stop antibiotic - Hyponatremia resolved - Lactic acidosis resolved -Needs close follow-up with PCP and endocrinology Discharge Plan: Home Plan to discharge in: Greater than 2 days - Code Status/Comfort Care Code Status Assessed: Yes (Full code) Critical Care: Yes Time Spent Managing PTS Care (In Minutes): 60
[2024-04-29] MEDS ORDERED: D10W 125 ML IV PRN (16:54)
[2024-04-29] MEDS: INSULIN REGULAR (HUMAN) 100 UNIT/ML SQ SCH (17:27)
[2024-04-29] MEDS: SIMETHICONE 125 MG TAB PO PRN (21:54)
[2024-04-30 06:45] LABS: Magnesium 2.2 mg/dL (1.6-2.4)
[2024-04-30 07:33] LABS: Absolute Lymphocytes (CBC) 1.2 K/uL (0.7-4.9); Absolute Monocytes 0.8 K/uL (0.1-1.3); Absolute Neutrophil 2.1 K/uL (1.8-8.0); Basophils % 0.9 % (0-1.3); Eosinophils % 0.4 % (0-4.4); Hematocrit 32.2 % (39.6-49.0); Hemoglobin 11.3 g/dL (13.6-17.9); Lymphocytes % 28.5 % (15.3-44.8); MCH 32.3 pg (27.0-35.0); MCV 92.3 fL (80-100); MPV 8.2 fL (7.6-11.3); Monocytes % 19.9 % (3.3-12.3); Neutrophils % 50.3 % (41.7-73.7); Nucleated Red Blood Cells % 0.1 % (0-0); Platelets 160 thou/uL (152-406); RBC Red Blood Cell Count 3.49 M/uL (4.33-5.43); Red Cell Distribution Width 12.8 % (12.1-15.2)
[2024-04-30] MEDS: INSULIN 70/30 100 UNITS/ML SQ SCH (09:29)
[2024-04-30 12:31] LABS: Atypical Lymphocytes 1 %; Band Neutrophils 1 % (0-1); Blood Morphology Comment NOT SEEN (NOT SEEN); Differential Total Cells Count 100; Eosinophils 2 % (0-3); Lymphocytes 29 % (15-42); Monocytes 10 % (0-10); Platelet Estimate ADEQ; Segmented Neutrophils 57 % (40-80)
--- NOTE | 2024-04-30 15:12 | P.DS ---
Admission Date: 04/27/24 Discharge Date: 04/30/24 Disposition: ROUTINE DISCHARGE Discharge Condition: GOOD Reason for Admission: DKA Brief History of Present Illness: 49-year-old male with a past medical history of diabetes presenting with altered mental status secondary to diabetic ketoacidosis. Per chart review patient's mother was out of town for 3 days and when she returned he was moaning. She called EMS and he was transferred to [facility]. Upon initial evaluation he was found to have blood sugar of 1080, pH of 6.8, bicarb of 1.1, ketonuria, and a potassium of 6.6 he was given calcium gluconate, insulin, and amp of bicarb, as well as fluids. Hospital Course: Subjective: Doing well. Transferred out of the ICU onto the floor. He states his blood sugars are difficult to control. No acute events overnight. Denies fevers and chills Allergies morphine Allergy (Unknown, Verified 02/29/20 20:42) Unknown Home Medications: Hum Insulin NPH/Reg Insulin Hm [Humulin 70-30 Vial] 60 unit SQ BIDWM #10 ml 12/15/23 - Past Medical/Surgical History Diabetic: Yes -: IDDM -: GERD -: Cluster Headaches -: Sciatica -: Cocaine Abuse -: Left leg Psychosocial/ Personal History: Lives at home with family in an apartment - Social History Alcohol use: Yes CD- Drugs: No Caffeine use: No Review of Systems 10 point review of systems is negative Physical Examination - Physical Exam General: Alert and oriented x 3 HEENT: Normocephalic Neck: Supple Respiratory: Clear to auscultation bilaterally Cardiovascular: No edema, Normal pulses Capillary refill: <2 Seconds Gastrointestinal: Normal bowel sounds Musculoskeletal: No clubbing Integumentary: No rashes Neurological: Normal speech Lymphatics: No axilla or inguinal lymphadenopathy 49-year-old male with a history of diabetes mellitus presented with acute metabolic encephalopathy secondary to DKA. Upon admission he was started on DKA protocol. His electrolyte, acid-base, and blood sugars improved over the course of the stay. His blood sugars are now back to baseline levels. We had a long discussion in controlling his diabetes. He seems to have somewhat of a social support at home he states his main difficulty is walking. He states he will get a new PCP and follow-up with an farm product purchaser. The remainder of his medical problems are chronic and stable he is medically optimized for discharge Vital Signs/Physical Exam: Temp Pulse Resp BP Pulse Ox 98.4 F 90 18 111/70 99 04/30/24 12:00 04/30/24 12:00 04/30/24 12:00 04/30/24 12:00 04/30/24 12:00 Laboratory Data at Discharge: WBC 4.10 thou/uL (4.3-10.9) L 04/30/24 07:16 Hgb 11.3 g/dL (13.6-17.9) L 04/30/24 07:16 Hct 32.2 % (39.6-49.0) L 04/30/24 07:16 Plt Count 160 thou/uL (152-406) 04/30/24 07:16 PT 11.5 SECONDS (10-13.0) 04/26/24 23:15 INR 1.01 04/26/24 23:15 APTT 32.6 SECONDS (27.2-37.4) 04/26/24 23:15 Sodium 139 mEq/L (136-145) 04/30/24 05:56 Potassium 4.0 mEq/L (3.5-5.1) D 04/30/24 05:56 BUN 26 mg/dL (7-18) H 04/30/24 05:56 Creatinine 1.03 mg/dL (0.70-1.30) 04/30/24 05:56 Glucose 68 mg/dL (74-106) L 04/30/24 05:56 Magnesium 2.2 mg/dL (1.6-2.4) 04/30/24 05:56 Total Bilirubin 0.2 mg/dL (0.2-1.0) 04/28/24 07:25 AST 92 U/L (15-37) H 04/28/24 07:25 ALT 102 U/L (16-61) H 04/28/24 07:25 Alkaline Phosphatase 109 U/L (45-117) 04/28/24 07:25 Followup: NONE,NONE [Primary Care Provider] -
[2024-04-30 16:12] VITALS: BP 110/73; TEMP 98
--- NOTE | 2024-04-30 21:15 | PN ---
Date of Progress Note: 04/30/2024 Subjective: The patient was admitted with DKA and he developed acute kidney injury and severe acidos is. The patient was on IV fluids, insulin drip. Renal function has improved with adequate treatment . Review of Systems: Denies chest pain, palpitation. Physical Examination: Lungs: Clear to auscultation bilaterally. Heart: S1, S2. Abdomen: Soft. Neuro: The patient is alert, oriented. Follows commands. Impression And Plan: 1. Acute kidney injury secondary to diabetic ketoacidosis, prerenal azotemia. The patient responded to treatment with insulin and IV fluids. Continue to monitor renal panel. 2. Hypertension. Blood pressure controlled. Continue current treatment. 3. Acute kidney injury. Avoid nephrotoxic medication. 4. Diabetes mellitus. Follow up with primary team. SAMAN/TANIA Voice ID: [id number] Report ID: [id number]
== END 2024-04-30 18:30 | disposition home or self-care (01) | DRG 637 ==
LOC: ER 22:38 → ERHOLD 04-27 01:26 → 3RD-ICU 04-27 19:41 → 4TH 04-29 10:00
PROVIDERS: ADMIT Family Medicine; ATTEND Family Medicine
PROC: 4A033R1 Measurement of Arterial Saturation, Peripheral, Percutaneous Approach (ICD-10-PCS; principal; 2024-04-27)
PROC: 0T9B70Z Drainage of Bladder with Drainage Device, Via Natural or Artificial Opening (ICD-10-PCS; 2024-04-27)
DX: E11.10 Type 2 diabetes mellitus with ketoacidosis without coma (principal); G93.41 Metabolic encephalopathy; N17.9 Acute kidney failure, unspecified; R64 Cachexia; Z68.1 Body mass index [BMI] 19.9 or less, adult; E87.1 Hypo-osmolality and hyponatremia; E87.5 Hyperkalemia; E86.0 Dehydration; E87.6 Hypokalemia; E86.1 Hypovolemia; M54.30 Sciatica, unspecified side; E86.9 Volume depletion, unspecified; F43.10 Post-traumatic stress disorder, unspecified; E83.39 Other disorders of phosphorus metabolism; E11.40 Type 2 diabetes mellitus with diabetic neuropathy, unspecified; K21.9 Gastro-esophageal reflux disease without esophagitis; Z88.5 Allergy status to narcotic agent; Z79.4 Long term (current) use of insulin; Z91.199 Patient's noncompliance with other medical treatment and regimen due to unspecified reason
CPT/HCPCS: 36415; 36600; 51702; 70450; 71045; 72125; 76770; 80048; 80053; 81001; 82010; 82533; 82805; 82947; 83036; 83605; 83735; 83930; 84484; 85025; 85610; 85730; 87040; 93005; 99291; 99292; J0612; J0692; J0696; J1644; J1815; J3475; J3480; J7030

== ENCOUNTER 2024-05-06 20:08 | Inpatient (IN) | payer OTHER ==
[2024-05-06] MEDS ORDERED: ONDANSETRON 4 MG/2 ML VIAL ONE (20:29)
[2024-05-06] MEDS ORDERED: FAMOTIDINE 20 MG/2 ML VIAL IV ONE (20:30)
[2024-05-06] MEDS ORDERED: NA CHLORIDE 0.9% 2,000 ML ONE (20:30)
[2024-05-06] MEDS ORDERED: INSULIN REGULAR (HUMAN) 100 UNIT/ML ONE (20:30)
[2024-05-06 21:12] LABS: Absolute Lymphocytes (CBC) 1.1 K/uL (0.7-4.9); Absolute Monocytes 0.4 K/uL (0.1-1.3); Absolute Neutrophil 3.1 K/uL (1.8-8.0); Basophils % 0.6 % (0-1.3); Eosinophils % 0.3 % (0-4.4); Hematocrit 40.6 % (39.6-49.0); Hemoglobin 13.9 g/dL (13.6-17.9); Lymphocytes % 22.8 % (15.3-44.8); MCH 31.4 pg (27.0-35.0); MCHC 34.3 g/dL (32.0-36.0); MCV 91.6 fL (80-100); MPV 7.4 fL (7.6-11.3); Monocytes % 8.7 % (3.3-12.3); Neutrophils % 67.6 % (41.7-73.7); Nucleated Red Blood Cells % 0.2 % (0-0); Platelets 400 thou/uL (152-406); RBC Red Blood Cell Count 4.43 M/uL (4.33-5.43); Red Cell Distribution Width 12.9 % (12.1-15.2)
[2024-05-06 21:27] LABS: ALT/SGPT 78 U/L (16-61); AST/SGOT 26 U/L (15-37); Albumin 3.5 g/dL (3.4-5.0); Albumin/Globulin Ratio 0.9 (1.1-1.8); Alkaline Phosphatase 114 U/L (45-117); Anion Gap 11.7 mEq/L (5.0-15.0); BETA HYDROXYBUTYRATE 0.31 mmol/L (0.02-0.27); BUN Blood Urea Nitrogen 22 mg/dL (7-18); Bicarbonate 23 mEq/L (21-32); Bilirubin Total 0.3 mg/dL (0.2-1.0); Glomerular Filtration Rate 57 ml/min (=/>90); Glucose Level 313 mg/dL (74-106); Lipase 44 U/L (13-75); Potassium 3.7 mEq/L (3.5-5.1); Protein, Total 7.5 g/dL (6.4-8.2); Sodium Level 129 mEq/L (136-145)
[2024-05-06 21:28] LABS: C-Reactive Protein < 2.90 mg/L (<3.00)
[2024-05-06 21:31] LABS: Influenza A Ag Negative; Influenza B Ag Negative; SARS-CoV-2 Antigen Rapid Res Negative (Negative)
--- NOTE | 2024-05-07 01:09 | ER ---
Nurse's Notes [facility] Name: Angel Flores Age: 49 yrs Sex: Male : 1975 Arrival Date: 05/06/2024 Time: 20:08 Bed 8 Private MD: Diagnosis: Type 1 diabetes mellitus with hyperglycemia;Hyperglycemia, unspecified;Moderate dehydration, hyponatremia, Lactic acidosis Presentation: 05/06 20:17 Chief complaint: Patient states: Pt has had n/v/d. Pt was given 4 of zofran IM by EMS. kd3 Pt finger stick was found to be in the 400's for EMS. PT is alert and oriented x 4. Coronavirus screen: Vaccine status: unknown. Ebola Screen: No symptoms or risks identified at this time. Initial Sepsis Screen: Does the patient meet any 2 criteria? No. Patient's initial sepsis screen is negative. Does the patient have a suspected source of infection? No. Patient's initial sepsis screen is negative. Initial Sepsis Screen: Does the patient meet any 2 criteria?. Risk Assessment: Do you want to hurt yourself or someone else? Patient reports no desire to harm self or others. Onset of symptoms was May 06, 2024. 20:17 Method Of Arrival: EMS: [facility] kd3 20:17 Acuity: LALITA 3 kd3 Triage Assessment: 20:19 General: Appears uncomfortable, Behavior is calm, cooperative. kd3 Historical: - Allergies: 20:19 Morphine; kd3 - PMHx: 20:19 cluster headaches; Diabetes - NIDDM; Diabetes - NIDDM; sciatica (PTSD); kd3 - PSHx: 20:19 hand; left leg; neck; kd3 - Immunization history:: Adult Immunizations up to date. - Infectious Disease History:: Denies. - Social history:: Smoking status: unknown. - Family history:: not pertinent. Screenin/20 00:03 [facility] ED Fall Risk Assessment (Adult) History of falling in the last 3 months, kd3 including since admission No falls in past 3 months (0 pts) Confusion or Disorientation No (0 pts) Intoxicated or Sedated No (0 pts) Impaired Gait Yes (1 pt) Mobility Assist Device Used No (0 pt) Altered Elimination No (0 pt) Score/Fall Risk Level 0 - 2 = Low Risk Educated pt \T\ family on fall prevention, incl call for assistance when getting out of bed. Abuse screen: Denies threats or abuse. Denies injuries from another. Nutritional screening: No deficits noted. Tuberculosis screening: No symptoms or risk factors identified. Assessment: 00:03 General: Appears in no apparent distress. Behavior is calm, cooperative. Pain: Denies kd3 pain. Neuro: Level of Consciousness is awake, alert, obeys commands, Oriented to person, place, time, situation. Respiratory: Airway is patent Trachea midline Respiratory effort is even, unlabored, Respiratory pattern is regular, symmetrical. GI: Reports nausea, vomiting. 00:04 General: Pt reminded that a urine is needed. pt verbalizes understanding . kd3 00:35 General: PT unable to urine at this time . kd3 Vital Signs: 05/06 20:34 BP 124 / 90; Pulse 90; Resp 19; Temp 98.3(O); Pulse Ox 100% on R/A; kd3 21:52 BP 134 / 96; Pulse 87; Resp 19; Pulse Ox 100% on R/A; kd3 05/07 00:02 BP 100 / 65; Pulse 97; Resp 18; Pulse Ox 100% on R/A; kd3 Handy Coma Score: 21:31 Eye Response: spontaneous(4). Motor Response: obeys commands(6). Verbal Response: sp4 oriented(5). Total: 15. ED Course: 05/06 20:13 Patient arrived in ED. rv1 20:16 Carlo Shah MD is Attending Physician. sp4 20:17 Cass Griffith, RN is Primary Nurse. kd3 20:19 Triage completed. kd3 20:19 Arm band placed on. kd3 21:06 COVID-19 Ag + Flu A+B Ag Sent. kd3 21:06 CRP Sent. kd3 21:06 BETA HYDROXYBUTYRATE Sent. kd3 21:07 CBC with Diff Sent. kd3 21:07 CMP Sent. kd3 21:07 Lipase Sent. kd3 21:18 Initial lab(s) drawn, by ia, sent to lab. Inserted saline lock: 22 gauge in right vk forearm, using aseptic technique. Blood collected. Flushed with 10 mL NS. 22:49 Glucose Sent. kd3 23:35 Hemoglobin A1c Sent. vk 05/07 00:03 Patient has correct armband on for positive identification. Provided Education on: kd3 blood sugar . 01:08 Refugio Keller MD is Hospitalizing Provider. sp4 02:54 Inserted saline lock: 22 gauge in right forearm, using aseptic technique. IV kd3 discontinued, intact, bleeding controlled, No redness/swelling at site. Pressure dressing applied. 02:55 No provider procedures requiring assistance completed. kd3 Administered Medications: 05/06 21:06 Drug: NS 0.9% IV 1000 ml IV at 1 bolus Per protocol; to be given as a bolus over 60 kd3 minutes Route: IV; Rate: 1 bolus; Site: right antecubital; 21:07 Drug: Famotidine IVP 20 mg IVP once; dilute with 10 mL 0.9% NaCl; give over 2 minutes kd3 Route: IVP; Site: right antecubital; 21:07 Drug: Ondansetron IVP 4 mg IVP once; over 2 minutes Route: IVP; Site: right antecubital;kd3 21:07 Drug: NS 0.9% IV 1000 ml IV at 1 bolus Per protocol; to be given as a bolus over 60 kd3 minutes Route: IV; Rate: 1 bolus; Site: right antecubital; 21:10 Drug: Insulin Regular Human IVP 10 units IVP once {Co-Signature: dd2 (IBRAHIMA GUILLAUME RN).} Route: IVP; Site: right antecubital; Medication: 05/07 00:04 VIS not applicable for this client. kd3 Outcome: 01:09 Decision to Hospitalize by Provider. sp4 02:55 Admitted to Med/surg kd3 02:55 Condition: stable 02:55 Discharge instructions given to patient, Instructed on the need for admit, 04:04 Patient left the ED. kd3 Signatures: Cass Griffith RN RN kd3 Andreea Ignacio Sergey, MD MD sp4 Elizabeth Livingston DIANA RN dd2 Corrections: (The following items were deleted from the chart) 05/06 22:57 22:49 Ghost Lactate-NO COLLECT Timer drawn and sent. kd3 EDMS
--- NOTE | 2024-05-07 01:09 | EDPHYS ---
Physician Documentation [facility] Name: Angel Flores Age: 49 yrs Sex: Male : 1975 Arrival Date: 05/06/2024 Time: 20:08 Bed 8 Private MD: ED Physician Carlo Shah HPI: 05/06 20:17 This 49 yrs old Black Male presents to ER via Unassigned with complaints of Gen sp4 complaint . 05/07 21:31 49-year-old male presents with acute onset of nausea vomiting and diarrhea.. sp4 Historical: - Allergies: 05/06 20:19 Morphine; kd3 - PMHx: 20:19 cluster headaches; Diabetes - NIDDM; Diabetes - NIDDM; sciatica (PTSD); kd3 - PSHx: 20:19 hand; left leg; neck; kd3 - Immunization history:: Adult Immunizations up to date. - Infectious Disease History:: Denies. - Social history:: Smoking status: unknown. - Family history:: not pertinent. ROS: 05/07 21:31 Constitutional: Negative for fever, chills, and weight loss, positive for nausea sp4 vomiting and diarrhea. All other systems are negative, Exam: 21:31 Constitutional: This is a well developed, well nourished patient who is awake, alert, sp4 and in no acute distress. Head/Face: Normocephalic, atraumatic. Eyes: Pupils equal round and reactive to light, extra-ocular motions intact. Lids and lashes normal. Conjunctiva and sclera are not injected. Cornea within normal limits. Periorbital areas with no swelling, redness, or edema. ENT: Nares patent. No nasal discharge, no septal abnormalities noted. Tympanic membranes are normal and external auditory canals are clear. Oropharynx with no redness, swelling, or masses, exudates, or evidence of obstruction, uvula midline. Mucous membranes moist. Neck: Trachea midline, no thyromegaly or masses palpated, and no cervical lymphadenopathy. Supple, full range of motion without nuchal rigidity, or vertebral point tenderness. Chest/axilla: Normal chest wall appearance and motion. Nontender with no deformity. No lesions are appreciated. Cardiovascular: Regular rate and rhythm with a normal S1 and S2. No gallops, murmurs, or rubs. Normal PMI, no JVD. No pulse deficits. Respiratory: Lungs have equal breath sounds bilaterally, clear to auscultation and percussion. No rales, rhonchi or wheezes noted. No increased work of breathing, no retractions or nasal flaring. Abdomen/GI: Soft, with normal bowel sounds. No distension or tympany. No guarding or rebound. No evidence of tenderness throughout. Back: No spinal tenderness. No costovertebral tenderness. Skin: Warm, dry with normal turgor. Normal color with no rashes, no lesions, and no evidence of cellulitis. MS/ Extremity: Pulses equal, no cyanosis. Neurovascular intact. Full, normal range of motion. Neuro: Awake and alert, GCS 15, oriented to person, place, time, and situation. Cranial nerves II-XII grossly intact. Motor strength 5/5 in all extremities. Sensory grossly intact. Psych: Awake, alert, with orientation to person, place and time. Behavior, mood, and affect are within normal limits Vital Signs: 05/06 20:34 BP 124 / 90; Pulse 90; Resp 19; Temp 98.3(O); Pulse Ox 100% on R/A; kd3 21:52 BP 134 / 96; Pulse 87; Resp 19; Pulse Ox 100% on R/A; kd3 05/07 00:02 BP 100 / 65; Pulse 97; Resp 18; Pulse Ox 100% on R/A; kd3 Handy Coma Score: 21:31 Eye Response: spontaneous(4). Motor Response: obeys commands(6). Verbal Response: sp4 oriented(5). Total: 15. MDM: 05/06 22:16 Medical Screening Exam initiated sp4 05/07 21:31 Differential Diagnosis altered mental status, sepsis, flu, Diabetic ketoacidosis. Acute sp4 gastroenteritis. Data reviewed: vital signs, nurses notes, EMS record, old medical records, lab test result(s). Consideration of Admission/Observation Patient was admitted/placed on observation. Escalation of care including admission/observation considered. Management of patient was discussed with the following: Hospitalist: Krishna CREWS . ED course: Patient was admitted in stable condition.. 05/06 20:22 Order name: CBC with Diff; Complete Time: 22:15 sp4 05/06 20:22 Order name: CMP; Complete Time: 22:15 sp4 05/06 20:22 Order name: Lipase; Complete Time: 22:15 sp4 05/06 20:22 Order name: Urinalysis w/ reflexes 4 05/06 20:22 Order name: BETA HYDROXYBUTYRATE; Complete Time: 22:15 sp4 05/06 20:22 Order name: Lactate w/ 2H reflex if indic.; Complete Time: 22:15 sp4 05/06 20:22 Order name: CRP; Complete Time: 22:15 sp4 05/06 20:22 Order name: Urine Drug Screen 4 05/06 20:22 Order name: Hemoglobin A1c [facility] 05/06 20:23 Order name: COVID-19 Ag + Flu A+B Ag; Complete Time: 22:15 sp4 05/06 21:04 Order name: Glucose, Ancillary Testing; Complete Time: 22:15 EDMS 05/06 22:31 Order name: Glucose; Complete Time: 01:03 kd3 05/06 22:57 Order name: Lactate w/ 2H reflex if indic.; Complete Time: 01:03 EDMS 05/07 00:45 Order name: Glucose, Ancillary Testing; Complete Time: 01:03 EDMS 05/07 01:26 Order name: Hemoglobin A1c EDMS 05/07 01:56 Order name: Urinalysis w/ reflexes EDMS 05/07 01:56 Order name: CBC with Automated Diff EDMS 05/07 01:56 Order name: CBC with Automated Diff EDMS 05/07 01:56 Order name: Comprehensive Metabolic Panel EDMS 05/07 01:56 Order name: Comprehensive Metabolic Panel EDMS 05/07 01:56 Order name: Troponin High Sensitivity EDMS 05/07 01:56 Order name: Troponin High Sensitivity EDMS 05/07 02:54 Order name: Glucose, Ancillary Testing EDMS 05/06 20:22 Order name: IV Saline Lock; Complete Time: 21:07 sp4 05/06 20:22 Order name: Labs collected and sent; Complete Time: 21:07 4 Administered Medications: 05/06 21:06 Drug: NS 0.9% IV 1000 ml IV at 1 bolus Per protocol; to be given as a bolus over 60 kd3 minutes Route: IV; Rate: 1 bolus; Site: right antecubital; 21:07 Drug: Famotidine IVP 20 mg IVP once; dilute with 10 mL 0.9% NaCl; give over 2 minutes kd3 Route: IVP; Site: right antecubital; 21:07 Drug: Ondansetron IVP 4 mg IVP once; over 2 minutes Route: IVP; Site: right antecubital;kd3 21:07 Drug: NS 0.9% IV 1000 ml IV at 1 bolus Per protocol; to be given as a bolus over 60 kd3 minutes Route: IV; Rate: 1 bolus; Site: right antecubital; 21:10 Drug: Insulin Regular Human IVP 10 units IVP once {Co-Signature: dd2 (IBRAHIMA GUILLAUME kd3 RN).} Route: IVP; Site: right antecubital; Disposition Summary: 05/07/24 01:09 Hospitalization Ordered Notes: Hospitalization Status: Observation sp4 Provider: Refugio Keller sp4 Location: Telemetry/MedSurg (observation) sp4 Condition: Stable sp4 Problem: new sp4 Symptoms: have improved sp4 Bed/Room Type: Standard sp4 Room Assignment: 223(05/07/24 02:12) Diagnosis - Type 1 diabetes mellitus with hyperglycemia sp4 - Hyperglycemia, unspecified sp4 - Moderate dehydration, hyponatremia, Lactic acidosis sp4 Forms: - Medication Reconciliation Form sp4 - SBAR form sp4 - Leadership Thank You Letter sp4 Signatures: Dispatcher [employer] Tressa Valero, RN Cass Brower RN RN [email or web address] Carlo Shah MD MD spIBRAHIMA MCDOWELL RN dd2 Corrections: (The following items were deleted from the chart) 20:23 20:23 COVID-19 Ag + Flu A+B [id number].[id number] ordered. EDMS EDMS 22:57 21:35 Ghost Lactate-NO COLLECT Timer ordered. EDMS EDMS 05/07 02:12 01:09 sp4 evette
[2024-05-07] MEDS ORDERED: ACETAMINOPHEN 325 MG TABLET PO PRN (01:49)
[2024-05-07] MEDS ORDERED: ONDANSETRON 4 MG/2 ML VIAL IV PRN (01:49)
--- NOTE | 2024-05-07 01:49 | P.HP ---
Certification for Inpatient Patient admitted to: Inpatient With expected LOS: >2 Midnights Practitioner: I am a practitioner with admitting privileges, knowledge of patient current condition, hospital course, and medical plan of care. Services: Services provided to patient in accordance with Admission requirements found in Title 42 Section 412.3 of the Code of Federal Regulations Patient History Date of Service: 05/07/24 Reason for admission: Hyperglycemia History of Present Illness: 49-year-old male with a past medical history of diabetes presenting with generalized weakness. Patient is a poor historian. Patient states that he has been depressed lately and was not taking meds as needed. Denies any fever or chills . No nausea and vomiting . Denies any sick contacts . He was found to have hyperglycemic and was worried about DKA and was brought to ER. Denies any chest pain or shortness of breath. Patient was assessed in the ER and is admitted for further management of hyperglycemia Allergies morphine Allergy (Unknown, Verified 02/29/20 20:42) Unknown - Past Medical/Surgical History Diabetic: Yes Past Medical History: Reviewed- Non-Contributory -: IDDM -: GERD -: Cluster Headaches -: Sciatica -: Cocaine Abuse Past Surgical History: Reviewed- Non-Contributory -: Left leg Psychosocial/ Personal History: Lives at home with family in an apartment - Social History Smoking Status: Current some day smoker Alcohol use: Yes CD- Drugs: No Caffeine use: No Review of Systems 10-point ROS is otherwise unremarkable Physical Examination - Vital Signs Temperature: 98.2 F Blood Pressure: 138/76 Pulse: 78 Respirations: 18 Pulse Ox (%): 94 - Physical Exam General: Alert, Oriented x3, Disheveled HEENT: Atraumatic, Normocephalic Neck: Supple, No Thyromegaly Respiratory: Clear to auscultation bilaterally, Normal air movement Cardiovascular: Regular rate/rhythm, Normal S1 S2 Capillary refill: <2 Seconds Gastrointestinal: Soft and benign, W/out hepatosplenomegaly Musculoskeletal: No clubbing Integumentary: No rashes Neurological: Other (Alert awake) Lymphatics: No axilla or inguinal lymphadenopathy - Studies Laboratory Data (last 24 hrs) 05/06/24 05/06/24 05/06/24 22:44 20:50 20:50 WBC 4.60 Hgb 13.9 Hct 40.6 Plt Count 400 Sodium 129 L Potassium 3.7 BUN 22 H Creatinine 1.49 H Glucose 93 313 H Total Bilirubin 0.3 AST 26 ALT 78 H Alkaline Phosphatase 114 Lipase 44 Assessment and Plan - Plan Lactic acidosis Hyponatremia Acute renal injury Hyperglycemia Uncontrolled diabetes with hyperglycemia with A1c of 12.8 UTI Moderate protein calorie malnutrition Plan IV hydration Monitor under psychiatric lpn Lactic acid levels trended Antihypertensives titrated Continue home medications and titrate as needed Continue statin Monitor renal parameters Electrolytes monitor and replace accordingly Insulin sliding scale Accu-Chek before every meal and at bedtime Start on IV antibiotic Will obtain cultures GI/DVT prophylaxis Advanced directive full code Discharge Plan: Home Plan to discharge in: 48 Hours - Advance Directives Does patient have a Living Will: No Does patient have a Durable POA for Healthcare: No - Code Status/Comfort Care Code Status: Full Code Time Spent Managing Pts Care (In Minutes): 54
[2024-05-07] MEDS ORDERED: D10W 125 ML IV PRN (01:54)
[2024-05-07] MEDS ORDERED: GLUCAGON 1 MG/VIAL IM PRN ×2 (01:54→18:23)
[2024-05-07 02:05] LABS: Specific Gravity 1.028 (1.005-1.030); Sqamous Epithelial None Seen /HPF (None Seen); Urine Bacteria <20 /HPF (<20); Urine Bilirubin NEGATIVE (Negative); Urine Blood Negative (Negative); Urine Clarity Extremely Turbid (Clear); Urine Color Light-Yellow (Yellow); Urine Culture Reflex Order REFLEXED; Urine Glucose 4+ (Over) (Negative); Urine Ketones 1+ (Negative); Urine Microscopic Reflex YN ORDER UMIC; Urine Nitrite NEGATIVE (Negative); Urine Protein 1+ (Negative); Urine RBC <5 /HPF (None Seen); Urine Urobilinogen Normal (Normal); Urine Yeast (Budding) Many /HPF (None Seen); Urine Yeast with Hyphae Trace /HPF (None Seen)
[2024-05-07 02:07] LABS: Barbiturates NEGATIVE (NEGATIVE); Benzodiazepines NEGATIVE (NEGATIVE); Cocaine NEGATIVE (NEGATIVE); METHAMPHETAM NEGATIVE (NEGATIVE); Methadone NEGATIVE (NEGATIVE); Opiates NEGATIVE (NEGATIVE); Phencyclidine NEGATIVE (NEGATIVE); THC Cannibis NEGATIVE (NEGATIVE)
[2024-05-07] MEDS: NA CHLORIDE 0.9% 1,000 ML IV SCH (05:50)
[2024-05-07] MEDS: INSULIN REGULAR (HUMAN) 100 UNIT/ML SQ SCH (05:55)
[2024-05-07 07:10] VITALS: BMI 16.5
[2024-05-07] MEDS: ENOXAPARIN 40 MG/0.4 ML SQ SCH (08:23)
[2024-05-07 12:16] LABS: Specific Gravity 1.021 (1.005-1.030); Sqamous Epithelial None Seen /HPF (None Seen); Urine Bacteria None Seen /HPF (<20); Urine Bilirubin NEGATIVE (Negative); Urine Blood Negative (Negative); Urine Clarity Extremely Turbid (Clear); Urine Color Yellow (Yellow); Urine Culture Reflex Order REFLEXED; Urine Glucose 3+ (Negative); Urine Ketones NEGATIVE (Negative); Urine Microscopic Reflex YN ORDER UMIC; Urine Mucus Slight /HPF (None Seen); Urine Nitrite NEGATIVE (Negative); Urine Protein 1+ (Negative); Urine RBC None Seen /HPF (None Seen); Urine Urobilinogen Normal (Normal); Urine WBC >50 /HPF (<5); Urine Yeast (Budding) Many /HPF (None Seen)
[2024-05-07] MEDS: GABAPENTIN 300 MG CAP PO SCH (16:23)
[2024-05-07] MEDS ORDERED: D50W 25 GM/50 ML SYRINGE IV PRN (18:23)
[2024-05-07] MEDS: INSULIN 70/30 100 UNITS/ML SQ ONE (19:48)
[2024-05-07] MEDS: INSULIN GLARGINE 100 UNIT/ML SQ SCH (20:42)
[2024-05-07] MEDS: GLUCERNA SHAKE 237 ML CAN PO SCH (20:44)
[2024-05-07] MEDS ORDERED: GLUCERNA SHAKE 237 ML CAN PO SCH (21:00)
[2024-05-08 05:43] LABS: Absolute Lymphocytes (CBC) 1.7 K/uL (0.7-4.9); Absolute Monocytes 0.7 K/uL (0.1-1.3); Absolute Neutrophil 2.5 K/uL (1.8-8.0); Basophils % 0.4 % (0-1.3); Eosinophils % 0.7 % (0-4.4); Hematocrit 30.9 % (39.6-49.0); Hemoglobin 10.9 g/dL (13.6-17.9); Lymphocytes % 34.4 % (15.3-44.8); MCH 31.8 pg (27.0-35.0); MCHC 35.3 g/dL (32.0-36.0); MCV 90.2 fL (80-100); MPV 7.7 fL (7.6-11.3); Monocytes % 13.4 % (3.3-12.3); Neutrophils % 51.1 % (41.7-73.7); Platelets 278 thou/uL (152-406); RBC Red Blood Cell Count 3.43 M/uL (4.33-5.43); Red Cell Distribution Width 12.6 % (12.1-15.2)
[2024-05-08 05:56] LABS: Albumin 2.8 g/dL (3.4-5.0); Anion Gap 9.3 mEq/L (5.0-15.0); Bilirubin Total 0.2 mg/dL (0.2-1.0); Globulin 2.9 g/dL (2.3-3.5); Magnesium 1.5 mg/dL (1.6-2.4); Potassium 3.3 mEq/L (3.5-5.1); Protein, Total 5.7 g/dL (6.4-8.2); Thyroid Stimulating Hormone 1.97 uIU/mL (0.358-3.740); Troponin High Sensitivity 3.1 pg/mL (<58.9)
[2024-05-08] MEDS: POTASSIUM CL SA 10 MEQ TAB PO ONE (08:32)
[2024-05-08] MEDS: NA CHLORIDE 0.9% 250 ML IV ONE (17:48)
[2024-05-09] MEDS: LOPERAMIDE HCL 2 MG CAPSULE PO PRN (02:05)
[2024-05-09 05:34] VITALS: O2SAT 98
[2024-05-09 06:48] LABS: Absolute Eosinophils 0.1 K/uL (0-0.5); Absolute Monocytes 0.7 K/uL (0.1-1.3); Absolute Neutrophil 2.8 K/uL (1.8-8.0); Basophils % 0.3 % (0-1.3); Eosinophils % 2.1 % (0-4.4); Hemoglobin 9.7 g/dL (13.6-17.9); Lymphocytes % 35.3 % (15.3-44.8); MCH 31.6 pg (27.0-35.0); MCHC 34.6 g/dL (32.0-36.0); MCV 91.2 fL (80-100); MPV 7.9 fL (7.6-11.3); Monocytes % 12.4 % (3.3-12.3); Neutrophils % 49.9 % (41.7-73.7); Nucleated Red Blood Cells % 0.1 % (0-0); Platelets 242 thou/uL (152-406); RBC Red Blood Cell Count 3.07 M/uL (4.33-5.43); Red Cell Distribution Width 12.5 % (12.1-15.2)
[2024-05-09 06:53] LABS: Albumin 2.5 g/dL (3.4-5.0); Anion Gap 8.8 mEq/L (5.0-15.0); Bilirubin Total 0.2 mg/dL (0.2-1.0); Globulin 2.6 g/dL (2.3-3.5); Magnesium 1.5 mg/dL (1.6-2.4); Phosphorus 2.8 mg/dL (2.5-4.9); Potassium 3.8 mEq/L (3.5-5.1); Protein, Total 5.1 g/dL (6.4-8.2)
[2024-05-09] MEDS: POTASSIUM CL SA 10 MEQ TAB PO ONE (09:58)
[2024-05-09] MEDS: Magnesium Sulfate 2gm IVPB 2 G/50 ML BAG IV ONE (11:45)
[2024-05-09 12:46] VITALS: BP 118/75; TEMP 97.8
== END 2024-05-09 14:46 | disposition home or self-care (01) | DRG 638 ==
LOC: ER 20:08 → ERHOLD 05-07 01:49 → 2ND 05-07 03:05
PROVIDERS: ADMIT Family Medicine; ATTEND Hospitalist
DX: E10.65 Type 1 diabetes mellitus with hyperglycemia (principal); E44.0 Moderate protein-calorie malnutrition; E87.21 Acute metabolic acidosis; N17.9 Acute kidney failure, unspecified; N39.0 Urinary tract infection, site not specified; Z68.1 Body mass index [BMI] 19.9 or less, adult; E87.1 Hypo-osmolality and hyponatremia; E86.0 Dehydration; F14.10 Cocaine abuse, uncomplicated
CPT/HCPCS: 36415; 80053; 80307; 81001; 82010; 82947; 83036; 83605; 83690; 83735; 83880; 84100; 84132; 84439; 84443; 84484; 85025; 86140; 87086; 87088; 87428; 94760; 96374; 96375; 99285; J1650; J1815; J2405; J3475; J7030; J7050